=== PATIENT | male | born 1950 | race Two or more races ===

== ENCOUNTER 2019-07-20 07:12 | Outpatient (CLI) | payer MEDICARE, OTHER, SELFPAY ==
[2019-07-20 08:18] LABS: Alanine Aminotransferase 28 U/L (4-50); Alkaline Phosphatase 68 U/L (38-126); Aspartate Amino Transferase 24 U/L (17-59); Bilirubin,Total 0.8 mg/dL (0.2-1.3); Blood Urea Nitrogen 12 mg/dL (9-20); Calcium 8.4 mg/dL (8.4-10.2); Carbon Dioxide 30 mmol/L (22-30); Chloride 102 mmol/L (98-107); Estimated Glomerular Filt Rate > 60; Glucose 159 mg/dL (75-110); Sodium 138 mmol/L (137-145); Uric Acid 5.7 mg/dL (3.5-8.5)
[2019-07-20 10:05] LABS: Microalbumin Urine Random 8.1 mg/L (0-16.7)
[2019-07-20 13:48] LABS: Hemoglobin A1C 7.2 % (<5.7)
== END 2019-07-20 07:13 | disposition home or self-care (01) ==
PROVIDERS: PCP Internal Medicine; Visit Provider Internal Medicine
DX: E11.9 Type 2 diabetes mellitus without complications (principal); M10.9 Gout, unspecified; I10 Essential (primary) hypertension; Z79.899 Other long term (current) drug therapy; Z12.5 Encounter for screening for malignant neoplasm of prostate
CPT/HCPCS: 36415; 80053; 82043; 83036; 84153; 84550; G0103

== ENCOUNTER 2019-08-02 07:07 | Outpatient (CLI) | payer MEDICARE, OTHER, SELFPAY ==
[2019-08-02 07:39] LABS: Cholesterol 125 mg/dL (0-200); HDL Direct 40 mg/dL; Triglycerides 101 mg/dL (<150)
[2019-08-02 07:50] LABS: LDL Cholesterol Direct 67 mg/dL
[2019-08-02 08:21] LABS: Free T4 Free Thyroxine 1.37 ng/mL (0.78-2.19)
[2019-08-05 11:42] LABS: Testosterone Total 351 ng/dL (250-1100)
== END 2019-08-02 07:08 | disposition home or self-care (01) ==
PROVIDERS: PCP Internal Medicine; Visit Provider Nurse Practitioner
DX: E03.9 Hypothyroidism, unspecified (principal); E78.5 Hyperlipidemia, unspecified; Z79.899 Other long term (current) drug therapy
CPT/HCPCS: 36415; 80061; 84403; 84439; 84443

== ENCOUNTER 2019-08-17 10:55 | Outpatient (CLI) | payer MEDICARE, OTHER, SELFPAY ==
--- NOTE | ~2019-08-17 | US_ITS ---
EXAMINATION: US venous doppler LE RT DATE: 08/17/2019 11:27 INDICATION: Right lower limb swelling TECHNIQUE: Grayscale ultrasound images without and with compression and Doppler ultrasound images of the right lower extremity veins were obtained. COMPARISON: None. FINDINGS: The visualized portions of right common femoral vein, profunda (deep) femoral vein, femoral vein, pop liteal vein, peroneal trunk, posterior tibial veins, peroneal veins, gastrocnemius vein and greater s aphenous vein outflow are patent. IMPRESSION: 1. No deep venous thrombosis in the right lower limb. Reviewed, dictated and finalized at location A.
== END 2019-08-17 10:56 | disposition home or self-care (01) ==
PROVIDERS: PCP Internal Medicine; Visit Provider Orthopaedic Surgery
DX: M79.89 Other specified soft tissue disorders (principal)
CPT/HCPCS: 93971

== ENCOUNTER 2019-10-06 07:33 | Outpatient (CLI) | payer MEDICARE, OTHER, SELFPAY ==
--- NOTE | 2019-10-08 18:55 | WPDPFTINT ---
PFT Interpretation PFT Interpretation: DOS: 10/06/2019 REQUESTING: Dr. Pettit REASON FOR TESTING: COPD PULMONARY FUNCTION TESTS Results are reproducible and reliable. Spirometry: FEV1 98%, FVC 86%, both are normal. Normal FEV1%. There is no change with bronchodilator. Lung volumes: TLC 93%. RV 89%. No air trapping or hyperinflation. Normal airway resistance. Diffusion: DLCO 83%, normal. Flow volume loop: The inspiratory loop is terminated prematurely. IMPRESSION: Normal spirometry without airflow obstruction, normal lung volumes and diffusion. This is a normal study. Elli Pettit MD
== END 2019-10-06 07:34 | disposition home or self-care (01) ==
LOC: ANHPFT 07:35
PROVIDERS: PCP Internal Medicine; Visit Provider Internal Medicine Critical Care Medicine
DX: J44.9 Chronic obstructive pulmonary disease, unspecified (principal)
CPT/HCPCS: 94060; 94726; 94729

== ENCOUNTER 2019-12-09 01:48 | Outpatient (CLI) | payer MEDICARE, OTHER, SELFPAY ==
[2019-12-09 17:58] LABS: SARS-CoV-2 RNA PCR Negative
== END 2019-12-09 01:49 | disposition home or self-care (01) ==
LOC: ANHCOVIDDT 01:48
PROVIDERS: PCP Internal Medicine; Visit Provider Internal Medicine Gastroenterology
DX: Z01.812 Encounter for preprocedural laboratory examination (principal); Z20.828 Contact with and (suspected) exposure to other viral communicable diseases
CPT/HCPCS: 87635; C9803; U0003

== ENCOUNTER 2019-12-12 00:15 | Day surgery (SDC) | payer MEDICARE, OTHER, SELFPAY ==
[2019-12-05 14:07] VITALS: BMI 37.8
[2019-12-12 08:10] VITALS: BP 143/72; PULSE 72; RESP 20; TEMP 36.3; O2SAT 99
[2019-12-12] MEDS: LACTATED RINGERS 1,000 ML 150 ML IV CONT (08:23)
[2019-12-12 08:32] LABS: Glucose Point of Care 121 (65-105)
--- NOTE | 2019-12-12 09:47 | PM.HPGS ---
History of Present Illness History of Present Illness Consent: Risks, benefits, and alternatives have been discussed and questions answered. Patient agrees to proceed with procedure. Chief complaint: Neoplasm Screening Narrative: Tan Pandey is a 69 year old male here for screening colonoscopy Review of Systems Constitutional: Constitutional: Denies headache(s) and Denies weakness Eyes: Eyes: Denies blurry vision ENT: Reports Normal hearing present, Denies headache(s) and Denies neck pain Cardiovascular: Cardiovascular: Denies chest pain and Denies dyspnea Respiratory: Respiratory: Denies dyspnea Gastrointestinal: Gastrointestinal: Reports no additional gastrointestinal complaints Genitourinary: Genitourinary: Denies dysuria Musculoskeletal: Musculoskeletal: Denies neck pain Integumentary/Breasts: Skin/Breast: Denies dry skin Neurologic: Reports Normal hearing present, Denies headache(s) and Denies weakness Psychiatric: Psychiatric: Denies anxiety Endocrine: Endocrine: Denies change in body appearance Hematologic/Lymphatic: Hematologic/Lymphatic: Denies easy bleeding Allergic/Immunologic: Allergic/Immunologic: Denies urticaria PMF Past Medical History Medical History (Updated 12/12/19 @ 08:33 by Randall Berumen MD) Asthma-COPD overlap syndrome Colon cancer screening Diverticulitis large intestine Essential (primary) hypertension GERD (gastroesophageal reflux disease) Hypothyroidism (acquired) Obstructive sleep apnea Type 2 diabetes mellitus without complication, without long-term current use of insulin Social History Social History (Updated 08/07/19 @ 09:05 by Gela Varma [facility]) Smoking status: Never smoker Second hand tobacco smoke exposure: No Alcohol intake: former Substance use: never Substance use type: does not use Living arrangements: with family Additional living arrangements comments: ( Lindy ) Additional occupation/education comments: 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 [employer] Spiritual care concerns: No Meds Home Medications and Allergies Home Medications Medication Instructions Recorded Confirmed Type irbesartan 300 mg tablet 300 mg PO DAILY #90 tablet 01/18/19 12/05/19 Rx omeprazole magnesium 20 mg 20 mg PO DAILY PRN 01/25/19 12/05/19 History tablet,delayed release acetaminophen 500 mg tablet 500 mg PO Q4H PRN 01/30/19 12/05/19 History albuterol sulfate 90 mcg/actuation 1 puff INHALATION Q4H PRN 01/30/19 12/05/19 History aerosol inhaler aspirin 325 mg tablet 325 mg PO DAILY 01/30/19 12/05/19 History cholecalciferol (vitamin D3) 50 2,000 unit PO DAILY 01/30/19 12/05/19 History mcg (2,000 unit) tablet hydrocortisone 2.5 % topical cream 1 applic TOPICAL BID PRN 01/30/19 12/05/19 History olopatadine 0.2 % eye drops 1 drop EACH EYE BID 01/30/19 12/05/19 History triamcinolone acetonide 0.1 % 1 applic TOPICAL BID PRN 01/30/19 12/05/19 History topical cream allopurinol 300 mg tablet 150 mg PO DAILY #45 tablet 01/31/19 12/05/19 Rx atorvastatin 20 mg tablet 20 mg PO DAILY #90 tablet 01/31/19 12/05/19 Rx cetirizine 10 mg tablet 10 mg PO DAILY #90 tablet 01/31/19 12/05/19 Rx levothyroxine 88 mcg tablet 88 mcg PO DAILY #90 tablet 01/31/19 12/05/19 Rx metformin 500 mg tablet 1,000 mg PO BID #360 tablet 01/31/19 12/05/19 Rx metoprolol succinate 25 mg 25 mg PO DAILY #90 tablet 01/31/19 12/12/19 Rx tablet,extended release 24 hr nitroglycerin 0.4 mg sublingual 0.4 mg SUBLINGUAL Q5M PRN #25 01/31/19 12/05/19 Rx tablet tablet oxybutynin chloride 5 mg 5 mg PO DAILY #90 tablet 01/31/19 12/05/19 Rx tablet,extended release 24 hr tamsulosin 0.4 mg capsule 0.4 mg PO DAILY #90 cap 01/31/19 12/05/19 Rx lancets #100 each 02/01/19 Rx blood sugar diagnostic #200 each 07/03/19 Rx lancets 28 gauge #200 each 08/01/19 08/01/19 Rx amlodipine 5 mg tablet 5 mg PO DAILY tablet 08/07/19 12/05/19 History peg 3350-electrolytes 236 240 ml PO Q10M #4000 ml 11/15/19
[2019-12-12 10:18] VITALS: BP 99/62; PULSE 67; RESP 16; O2SAT 97
[2019-12-12 10:28] VITALS: BP 101/66; PULSE 68; RESP 19; O2SAT 100
[2019-12-12 10:38] VITALS: BP 117/70; PULSE 65; RESP 24; O2SAT 99
== END 2019-12-12 10:45 | disposition home or self-care (01) ==
PROVIDERS: PCP Internal Medicine; Visit Provider Internal Medicine Gastroenterology
PROC: 0DJD8ZZ Inspection of Lower Intestinal Tract, Via Natural or Artificial Opening Endoscopic (ICD-10-PCS; CPT 45378; principal; 2019-12-12 09:00)
DX: Z12.11 Encounter for screening for malignant neoplasm of colon (principal); D12.4 Benign neoplasm of descending colon; K57.30 Diverticulosis of large intestine without perforation or abscess without bleeding; K64.8 Other hemorrhoids; I10 Essential (primary) hypertension; E03.9 Hypothyroidism, unspecified; E11.9 Type 2 diabetes mellitus without complications; G47.33 Obstructive sleep apnea (adult) (pediatric); K21.9 Gastro-esophageal reflux disease without esophagitis; J44.9 Chronic obstructive pulmonary disease, unspecified; Z79.84 Long term (current) use of oral hypoglycemic drugs
CPT/HCPCS: 45385; 88305; J2704; J7120

== ENCOUNTER 2020-01-26 06:53 | Outpatient (CLI) | payer MEDICARE, OTHER, SELFPAY ==
[2020-01-26 07:39] LABS: Hemoglobin A1C 6.1 % (<5.7)
[2020-01-26 07:48] LABS: Alanine Aminotransferase 27 U/L (4-50); Alkaline Phosphatase 62 U/L (38-126); Anion Gap 8 mmol/L (8-16); Aspartate Amino Transferase 25 U/L (17-59); Bilirubin,Total 0.8 mg/dL (0.2-1.3); Blood Urea Nitrogen 14 mg/dL (9-20); Calcium 8.6 mg/dL (8.4-10.2); Carbon Dioxide 28 mmol/L (22-30); Chloride 105 mmol/L (98-107); Cholesterol 110 mg/dL (0-200); Estimated Glomerular Filt Rate > 60; Glucose 130 mg/dL (75-110); HDL Direct 37 mg/dL; Potassium 4.2 mmol/L (3.4-5.0); Sodium 141 mmol/L (137-145); Triglycerides 111 mg/dL (<150)
[2020-01-26 07:59] LABS: LDL Cholesterol Direct 53 mg/dL
[2020-01-26 08:30] LABS: Free T4 Free Thyroxine 1.33 ng/mL (0.78-2.19)
== END 2020-01-26 06:54 | disposition home or self-care (01) ==
PROVIDERS: PCP Internal Medicine; Visit Provider Nurse Practitioner
DX: E78.5 Hyperlipidemia, unspecified (principal); E11.9 Type 2 diabetes mellitus without complications; E03.9 Hypothyroidism, unspecified
CPT/HCPCS: 36415; 80053; 80061; 83036; 84439; 84443

== ENCOUNTER 2020-07-23 06:41 | Outpatient (CLI) | payer MEDICARE, OTHER, SELFPAY ==
[2020-07-23 07:46] LABS: Alanine Aminotransferase 31 U/L (4-50); Albumin Level 4.1 g/dL (3.5-5.1); Alkaline Phosphatase 64 U/L (38-126); Anion Gap 4 mmol/L (8-16); Aspartate Amino Transferase 26 U/L (17-59); Bilirubin,Total 0.7 mg/dL (0.2-1.3); Blood Urea Nitrogen 11 mg/dL (9-20); Calcium 8.8 mg/dL (8.4-10.2); Carbon Dioxide 31 mmol/L (22-30); Chloride 103 mmol/L (98-107); Cholesterol 115 mg/dL (0-200); Estimated Glomerular Filt Rate > 60; Glucose 146 mg/dL (75-110); HDL Direct 42 mg/dL; Potassium 4.4 mmol/L (3.4-5.0); Sodium 138 mmol/L (137-145); Triglycerides 98 mg/dL (<150)
[2020-07-23 07:56] LABS: LDL Cholesterol Direct 59 mg/dL
[2020-07-23 08:09] LABS: Creatinine Urine 172.9 mg/dL
[2020-07-23 08:13] LABS: MALB Creatinine Ratio 4.6 mg/g (0-30); Microalbumin Urine Random 7.9 mg/L (0-16.7)
[2020-07-23 08:16] LABS: Prostate Specific Antigen 2.2 ng/mL (< OR = 4.0)
== END 2020-07-23 06:42 | disposition home or self-care (01) ==
PROVIDERS: PCP Internal Medicine; Referring Provider Internal Medicine Endocrinology, Diabetes & Metabolism; Visit Provider Internal Medicine
DX: Z12.5 Encounter for screening for malignant neoplasm of prostate (principal); E11.65 Type 2 diabetes mellitus with hyperglycemia; G62.9 Polyneuropathy, unspecified; E78.5 Hyperlipidemia, unspecified; Z51.81 Encounter for therapeutic drug level monitoring; Z79.899 Other long term (current) drug therapy
CPT/HCPCS: 36415; 80053; 80061; 82043; 82607; 84153; G0103

== ENCOUNTER 2020-08-26 14:24 | Emergency (ER) | payer MEDICARE, OTHER, SELFPAY ==
--- NOTE | ~2020-08-26 | CT_ITS ---
EXAMINATION: CT brain wo con DATE: 08/26/2020 16:05 INDICATION: Head injury. Headache. TECHNIQUE: Computed tomography (CT) of the head was performed without intravenous contrast. The mA wa s adjusted according to patient size. Iterative reconstruction technique was employed. The dose-lengt h product was 605.33 mGy-cm. COMPARISON: Head CT 07/27/2014 FINDINGS: There is no intracranial hemorrhage, acute infarction, or abnormal intracranial mass lesion . The ventricles are normal in size. There are likely changes of right ocular lens replacement surger y. There is mild mucosal thickening in the paranasal sinuses. The mastoid air cells are normal. IMPRESSION: 1. Normal brain. Reviewed, dictated and finalized at location A. IMPRESSION: 1. Normal brain.
[2020-08-26 14:26] VITALS: BP 146/62; PULSE 70; RESP 20; TEMP 36.8; O2SAT 97
--- NOTE | 2020-08-26 15:53 | ED.HEATRA ---
HPI - Head Injury General Chief complaint: Head Injury Stated complaint: vision change, nausea, hit head wednesday Time Seen by Provider: 08/26/20 15:38 Source: patient Mode of arrival: ambulatory Limitations: no limitations History of Present Illness HPI Narrative: This is a 70 year old male that presents to the ER for head injury sustained 2 days ago. Reports he was standing up and hit his head on a pipe in the basement. Reports since he has had a mild headache associated with blurry vision. Also reports nausea. Denies loss of consciousness, fever, vomiting, numbness, or weakness. Related Data Home Medications Medication Instructions Recorded Confirmed acetaminophen 500 mg tablet 500 mg PO Q4H PRN 01/30/19 08/06/20 aspirin 325 mg tablet 325 mg PO DAILY 01/30/19 08/06/20 cholecalciferol (vitamin D3) 50 2,000 unit PO DAILY 01/30/19 08/06/20 mcg (2,000 unit) tablet hydrocortisone 2.5 % topical cream 1 applic TOPICAL BID PRN 01/30/19 08/06/20 olopatadine 0.2 % eye drops 1 drop EACH EYE BID 01/30/19 08/06/20 triamcinolone acetonide 0.1 % 1 applic TOPICAL BID PRN 01/30/19 08/06/20 topical cream mupirocin 1 applic TOPICAL BID PRN 12/05/19 08/06/20 prednisolone acetate 1 drp OPHTHALMIC (EYE) BID PRN 12/05/19 08/06/20 vitamin B complex 1 tablet PO DAILY 08/06/20 08/06/20 Allergies Allergy/AdvReac Type Severity Reaction Status Date / Time latex Allergy Intermediate Rash Verified 08/06/20 10:35 adhesive tape Allergy Mild SKIN Verified 08/06/20 10:35 REDNESS fenofibrate Allergy Unknown Unknown Verified 08/06/20 10:35 hydrochlorothiazide Allergy Unknown Unknown Verified 08/06/20 10:35 nifedipine Allergy Unknown Unknown Verified 08/06/20 10:35 quinapril Allergy Unknown Cough Verified 08/06/20 10:35 Review of Systems Review of Systems: Narrative: CONSTITUTIONAL: Denies fever EYES: Reports visual changes GASTROINTESTINAL: Denies vomiting NEUROLOGIC: Reports headache. Denies numbness, or weakness. All systems reviewed & are unremarkable except as noted in HPI and below PMFSH Past Medical History Medical History Asthma-COPD overlap syndrome Colon cancer screening Diverticulitis large intestine Essential (primary) hypertension GERD (gastroesophageal reflux disease) Hypothyroidism (acquired) Obstructive sleep apnea Type 2 diabetes mellitus without complication, without long-term current use of insulin Family History Family History Sibling Family history of obesity Family history of celiac disease Family history of lupus erythematosus Diabetes mellitus Cerebrovascular accident Father Family history of diabetes mellitus in first degree relative Family history of heart disease in male family member before age 55 Family history of pancreatic cancer Patient's father is Mother Family history of pancreatic cancer, Onset Age: 50 Patient's mother is Other Acute myocardial infarction Social History Social History Smoking status: Former smoker Second hand tobacco smoke exposure: No Alcohol intake: former Substance use: never Substance use type: does not use Additional living arrangements comments: ( Lindy ) Additional occupation/education comments: 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 HEAD: Normocephalic, atraumatic. EYES: PERRLA and EOMI. ENT: Nares clear, no rhinorrhea or epistaxis. Mucous membranes moist. Oropharynx without tonsillar hypertrophy exudate or other lesions. Bilateral TMs pearly blackwood non-bulging NECK: Supple. No adenopathy or masses. No midline spinal tenderness CHEST: Clear to auscultation. No re
== END 2020-08-26 17:17 | disposition home or self-care (01) ==
PROVIDERS: Emergency Provider Emergency Medicine; PCP Internal Medicine
DX: S06.0X0A Concussion without loss of consciousness, initial encounter (principal); J44.9 Chronic obstructive pulmonary disease, unspecified; I10 Essential (primary) hypertension; K21.9 Gastro-esophageal reflux disease without esophagitis; E03.9 Hypothyroidism, unspecified; G47.33 Obstructive sleep apnea (adult) (pediatric); E11.9 Type 2 diabetes mellitus without complications; Z79.82 Long term (current) use of aspirin; Z87.891 Personal history of nicotine dependence; Z79.84 Long term (current) use of oral hypoglycemic drugs; W22.09XA Striking against other stationary object, initial encounter
CPT/HCPCS: 70450; 99284

== ENCOUNTER 2020-12-04 08:35 | Outpatient (CLI) | payer MEDICARE, OTHER, SELFPAY ==
--- NOTE | ~2020-12-04 | US_ITS ---
EXAMINATION: US abdomen complete EXAM DATE: 12/04/2020 09:14 INDICATION: R10.9 - Unspecified abdominal pain. TECHNIQUE: Multiple grayscale and Doppler images of the complete abdomen were obtained (by a technolo gist who performed the scan) and subsequently reviewed. Comparison is made to prior examination from 08/17/2013. FINDINGS: The abdominal aorta is normal in caliber. Visualized portion IVC is patent. The pancreatic head a nd body are normal in appearance. The pancreatic tail is not visualized. There is echogenic liver parenchyma, hepatic steatosis with focal fatty sparing at the gallbladder fo ssa. There are no focal liver lesions identified. There is no evidence of intrahepatic biliary leon t dilation. Portal venous flow was seen in the hepatopedal, normal direction and has normal Doppler waveform. Common bile duct measures 6 mm, which is normal. The gallbladder is contracted and has some shadowin g probably gallstones. Mild gallbladder wall thickening at about 4 mm, which is nonspecific given con tracted state. No sonographic Goldsmith's sign was indicated. Right kidney: There is normal contour and echogenicity. It measures 11.1 x 5.4 x 5.5 centimeters. T here is a 2 cm cyst in the superior pole. There is no hydronephrosis. Left kidney: There is normal contour and echogenicity. It measures 10.9 x 5.1 x 5.9 centimeters. An echoic structure consistent with cyst in the superior pole measuring up to 5 cm. There is no hydron ephrosis. The spleen measures 14.3 centimeters which is mildly enlarged.. IMPRESSION: 1. Contracted gallbladder with stones. No sonographic Goldsmith's sign. 2. Hepatic steatosis. 3. Mild splenomegaly. 4. Renal cysts. Reviewed, dictated and finalized at location A.
== END 2020-12-04 08:36 | disposition home or self-care (01) ==
LOC: ANHIMG 08:40
PROVIDERS: PCP Internal Medicine; Visit Provider Nurse Practitioner
DX: R10.9 Unspecified abdominal pain (principal); K80.50 Calculus of bile duct without cholangitis or cholecystitis without obstruction; K76.0 Fatty (change of) liver, not elsewhere classified; R16.1 Splenomegaly, not elsewhere classified; N28.1 Cyst of kidney, acquired
CPT/HCPCS: 76700

== ENCOUNTER 2020-12-09 09:03 | Outpatient (CLI) | payer MEDICARE, OTHER, SELFPAY ==
[2020-12-09 09:25] LABS: Basophils Percent Auto 0.3 % (0.2-1.2); Eosinophils Absolute Auto 0.1 K/mm3 (0-0.3); Eosinophils Percent Auto 1.9 % (0-4.4); Hematocrit 39.5 % (42.0-52.0); Hemoglobin 13.3 g/dL (14.0-18.0); Immature Granulocyte Absolute 0.03 K/mm3 (0.00-0.031); Immature Granulocyte Percent A 0.4 % (0-0.5); Immature Platelet Fraction Pct 10.6 % (0.9-11.2); Lymphocytes Absolute Auto 1.77 K/mm3 (0.9-3.2); Lymphocytes Percent Auto 26.5 % (18.3-44.2); Mean Corpuscular HGB Conc 33.7 g/dl (32-36); Mean Corpuscular Hemoglobin 29.4 pg (26-34); Mean Corpuscular Volume 87.4 fl (80-100); Mean Platelet Volume 11.5 fl (7.4-10.4); Monocytes Absolute Auto 0.5 K/mm3 (0.1-0.6); Monocytes Percent Auto 7.2 % (2.6-8.5); Neutrophils Absolute Auto 4.3 K/mm3 (1.3-6.7); Neutrophils Percent Auto 63.7 % (45.5-73.1); Platelet Count Result 117 k/mm3 (150-375); Red Blood Count 4.52 M/mm3 (4.6-6.20); Red Cell Distribution Width 13.3 % (11.5-14.5); White Blood Count 6.7 K/mm3 (4.5-10.0)
== END 2020-12-09 09:04 | disposition home or self-care (01) ==
PROVIDERS: PCP Internal Medicine; Visit Provider Internal Medicine
DX: R16.1 Splenomegaly, not elsewhere classified (principal)
CPT/HCPCS: 36415; 85025; 85055

== ENCOUNTER 2021-02-07 06:57 | Outpatient (CLI) | payer MEDICARE, OTHER, SELFPAY ==
[2021-02-07 08:06] LABS: Alanine Aminotransferase 21 U/L (4-50); Albumin Level 4.1 g/dL (3.5-5.1); Alkaline Phosphatase 62 U/L (38-126); Anion Gap 8 mmol/L (8-16); Aspartate Amino Transferase 22 U/L (17-59); Bilirubin,Total 0.6 mg/dL (0.2-1.3); Blood Urea Nitrogen 16 mg/dL (9-20); Calcium 8.7 mg/dL (8.4-10.2); Carbon Dioxide 26 mmol/L (22-30); Chloride 102 mmol/L (98-107); Cholesterol 101 mg/dL (0-200); Estimated Glomerular Filt Rate 60; Glucose 113 mg/dL (65-110); HDL Direct 38 mg/dL; Potassium 4.1 mmol/L (3.4-5.0); Sodium 136 mmol/L (137-145); Triglycerides 119 mg/dL (<150); Uric Acid 6.8 mg/dL (3.5-8.5)
[2021-02-07 08:17] LABS: LDL Cholesterol Direct 44 mg/dL
[2021-02-07 08:34] LABS: Prostate Specific Antigen 2.7 ng/mL (< OR = 4.0)
[2021-02-07 08:53] LABS: Hemoglobin A1C 6.2 % (<5.7)
[2021-02-07 10:28] LABS: Creatinine Urine 153.3 mg/dL
[2021-02-07 10:29] LABS: MALB Creatinine Ratio 3.9 mg/g (0-30)
== END 2021-02-07 06:58 | disposition home or self-care (01) ==
PROVIDERS: PCP Internal Medicine; Visit Provider Nurse Practitioner
DX: E11.65 Type 2 diabetes mellitus with hyperglycemia (principal); M10.9 Gout, unspecified; E78.5 Hyperlipidemia, unspecified; N40.0 Benign prostatic hyperplasia without lower urinary tract symptoms; E03.9 Hypothyroidism, unspecified
CPT/HCPCS: 36415; 80053; 80061; 82043; 83036; 84153; 84443; 84550

== ENCOUNTER 2021-03-14 08:00 | Outpatient (CLI) | payer MEDICARE, OTHER, SELFPAY ==
--- NOTE | ~2021-03-14 | US_ITS ---
EXAMINATION: US abdomen limited DATE: 03/14/2021 09:00 INDICATION: Splenomegaly. Hepatic steatosis. TECHNIQUE: Multiple grayscale and Doppler ultrasound images of the abdomen were obtained. COMPARISON: 12/04/2020 FINDINGS: Pancreas is normal. Liver has normal contour, with a smooth surface. There is increased parenchymal e chogenicity and coarsened echotexture consistent with diffuse hepatic steatosis. 3.6 similar anechoic cyst in the left hepatic lobe. No intrahepatic biliary duct dilation suspected. Portal venous flow was seen in the hepatopetal, normal direction and has normal Doppler waveform. Small echogenic shadow complex at the gallbladder which is decompressed around multiple echogenic and shadowing gallstones. The common bile duct measures 5 mm diameter which is normal. Sonographic Goldsmith sign was reported as negative by the signal tower operator.Borderline splenomegaly measuring 13.3 cm in maximal craniocaudal length and 11.6 cm in maximal transaxial width. IMPRESSION: 1. Diffuse hepatic steatosis. 2. Cholelithiasis without findings to suggest acute cholecystitis. 3. Borderline splenomegaly. Reviewed, dictated and finalized at location B. IO MANAGER
== END 2021-03-14 08:01 | disposition home or self-care (01) ==
LOC: ANHIMG 08:04
PROVIDERS: PCP Internal Medicine; Visit Provider Internal Medicine
DX: K76.0 Fatty (change of) liver, not elsewhere classified (principal); R16.1 Splenomegaly, not elsewhere classified; K80.20 Calculus of gallbladder without cholecystitis without obstruction
CPT/HCPCS: 76705

== ENCOUNTER 2021-05-27 19:57 | Emergency (ER) | payer MEDICARE, OTHER, SELFPAY ==
--- NOTE | ~2021-05-27 | XR_ITS ---
EXAMINATION: XR shoulder RT min 2V EXAM DATE: 05/27/2021 21:31 INDICATION: Fall Onto Shoulder Proximal Shoulder And Neck Pain. Initial encounter. TECHNIQUE: The following right shoulder projections obtained: frontal projection with internal rotati on, frontal projection with external rotation, Grashey, and scapular Y view (4+ views). There is no prior study for comparison. FINDINGS: No evidence of right shoulder rotator cuff calcific tendinosis. There is mild glenohumera l joint, moderate acromioclavicular joint primary osteoarthritis. There are no acute fractures or dis locations identified. There is no subcutaneous gas. The soft tissue is unremarkable. Sternotomy w ires. IMPRESSION: 1. XR shoulder RT min 2V exam without acute osseous findings. 2. Osteoarthritis. Reviewed, dictated and finalized at location G.
[2021-05-27 20:08] VITALS: BP 153/66; PULSE 69; RESP 16; TEMP 36.8; O2SAT 99
--- NOTE | 2021-05-28 00:46 | ED.FALL ---
HPI - Fall General Chief Complaint: Fall Stated Complaint: fall, head and R shoulder injury Time Seen by Provider: 05/27/21 20:32 Source: patient Mode of arrival: ambulatory Limitations: no limitations History of Present Illness HPI Narrative: 70-year-old male presents today with complaints of right shoulder pain. This morning patient was walking down his stairs when he thinks that he missed the last step falling forward and turning to the right. When he fell he hit his right shoulder on top of some water bottles. Patient states he has full range of motion but was concerned due to continued pain. Related Data Home Medications Medication Instructions Recorded Confirmed acetaminophen 500 mg tablet 500 mg PO Q4H PRN 01/30/19 03/20/21 aspirin 325 mg tablet 325 mg PO DAILY 01/30/19 03/20/21 cholecalciferol (vitamin D3) 50 2,000 unit PO DAILY 01/30/19 03/20/21 mcg (2,000 unit) tablet hydrocortisone 2.5 % topical cream 1 applic TOPICAL BID PRN 01/30/19 03/20/21 triamcinolone acetonide 0.1 % 1 applic TOPICAL BID PRN 01/30/19 03/20/21 topical cream mupirocin 1 applic TOPICAL BID PRN 12/05/19 03/20/21 vitamin B complex 1 tablet PO DAILY 08/06/20 03/20/21 multivitamin 1 tablet PO DAILY 11/18/20 03/20/21 Allergies Allergy/AdvReac Type Severity Reaction Status Date / Time latex Allergy Intermediate Rash Verified 05/27/21 20:14 adhesive tape Allergy Mild SKIN Verified 05/27/21 20:14 REDNESS fenofibrate Allergy Unknown Unknown Verified 05/27/21 20:14 hydrochlorothiazide Allergy Unknown Unknown Verified 05/27/21 20:14 nifedipine Allergy Unknown Unknown Verified 05/27/21 20:14 quinapril Allergy Unknown Cough Verified 05/27/21 20:14 Review of Systems Review of Systems: CONSTITUTIONAL: Denies fever, chills, or sweats. EYES: Denies visual changes, redness, or discharge. ENT: Denies rhinorrhea, congestion, sore throat, or otalgia. CARDIOVASCULAR: Denies chest pain, palpitations, or edema. RESPIRATORY: Denies cough or dyspnea. GASTROINTESTINAL: Denies abdominal pain, nausea, vomiting, or diarrhea. GENITOURINARY: Denies dysuria or hematuria. SKIN: Denies rash or itching. MUSCULOSKELETAL: Right shoulder pain. Denies back pain or myalgia. NEUROLOGIC: Denies headache, numbness, dizziness, or weakness. PSYCHIATRIC: Denies anxiety or depression. PMFSH Past Medical History Medical History Adenomatous colon polyp BMI 39.0-39.9,adult Colon cancer screening Colon, diverticulosis Diverticulitis large intestine Essential (primary) hypertension GERD (gastroesophageal reflux disease) Hypothyroidism (acquired) Irritable bowel syndrome with diarrhea Obstructive sleep apnea Type 2 diabetes mellitus without complication, without long-term current use of insulin Family History Family History Sibling Family history of obesity Family history of celiac disease Family history of lupus erythematosus Diabetes mellitus Cerebrovascular accident Father Family history of diabetes mellitus in first degree relative Family history of heart disease in male family member before age 55 Family history of pancreatic cancer Patient's father is Mother Family history of pancreatic cancer, Onset Age: 50 Patient's mother is Other Acute myocardial infarction Social History Social History Second hand tobacco smoke exposure: No Alcohol intake: former Substance use: never Substance use type: does not use Additional living arrangements comments: ( Lindy ) 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 HEAD: Normocephalic, atraumatic. E
== END 2021-05-27 22:04 | disposition home or self-care (01) ==
PROVIDERS: Emergency Provider Nurse Practitioner Family; PCP Internal Medicine
DX: S46.911A Strain of unspecified muscle, fascia and tendon at shoulder and upper arm level, right arm, initial encounter (principal); M13.811 Other specified arthritis, right shoulder; E11.9 Type 2 diabetes mellitus without complications; E03.9 Hypothyroidism, unspecified; K58.0 Irritable bowel syndrome with diarrhea; G47.33 Obstructive sleep apnea (adult) (pediatric); K21.9 Gastro-esophageal reflux disease without esophagitis; Z86.010 Personal history of colon polyps; Z79.82 Long term (current) use of aspirin; W10.9XXA Fall (on) (from) unspecified stairs and steps, initial encounter; Z79.84 Long term (current) use of oral hypoglycemic drugs
CPT/HCPCS: 73030; 99283

== ENCOUNTER 2021-06-18 14:34 | Outpatient (CLI) | payer MEDICARE, OTHER, SELFPAY ==
--- NOTE | ~2021-06-18 | MR_ITS ---
EXAMINATION: MR shoulder RT wo con DATE: 06/18/2021 15:35 INDICATION: Strain of muscles and tendons of the rotator cuff. Right shoulder pain. TECHNIQUE: Magnetic resonance imaging (MRI) of the right shoulder was performed without intravenous c ontrast. Sequences included axial PD-weighted FS FSE, coronal oblique PD-weighted FS FSE and T2-weigh khalif FS FSE, and sagittal oblique T2-weighted FS FSE and T1-weighted FSE. COMPARISON: Right shoulder radiographs 05/27/2021 FINDINGS: Coracoacromial arch: The acromion undersurface is curved in morphology (type II). There is severe acromioclavicular joint osteoarthritis including inferiorly directed osteophytes. There is mild subacromial/subdeltoid bursit is. Rotator cuff: There is moderate supraspinatus tendinopathy. There is an articular sided partial-thickness tear of s upraspinatus and infraspinatus tendons measuring 2.3 cm anterior to posterior by 2 mm proximal to dis nancy by up to 70% tendon thickness in supraspinatus tendon. Teres minor tendon is normal. Subscapulari s tendon is normal. There is no asymmetric fatty atrophy of the rotator cuff muscle bellies. Biceps tendon and glenoid labrum: Biceps tendon is in bicipital groove. Intra-articular biceps tendon is normal. The glenoid labrum is normal. Fluid: There is no glenohumeral joint effusion. Bones/cartilage: There is cartilage surface irregularity of glenoid and humeral head. IMPRESSION: 1. Articular-sided, partial-thickness tear of supraspinatus and infraspinatus tendons. 2. Mild glenohumeral joint chondrosis. 3. Severe acromioclavicular joint osteoarthritis. 4. Mild subacromial/subdeltoid bursitis. Reviewed, dictated and finalized at location A. IMPRESSION: 1. Articular-sided, partial-thickness tear of supraspinatus and infraspinatus t endons. 2. Mild glenohumeral joint chondrosis. 3. Severe acromioclavicular joint osteoarthritis. 4. Mild subacromial/subdeltoid bursitis.
== END 2021-06-18 14:35 | disposition home or self-care (01) ==
LOC: ANHIMG 14:36
PROVIDERS: PCP Internal Medicine; Visit Provider Orthopaedic Surgery
DX: S46.011A Strain of muscle(s) and tendon(s) of the rotator cuff of right shoulder, initial encounter (principal); M94.8X1 Other specified disorders of cartilage, shoulder; M19.011 Primary osteoarthritis, right shoulder; M75.51 Bursitis of right shoulder
CPT/HCPCS: 73221

== ENCOUNTER 2021-06-30 08:13 | Outpatient (CLI) | payer MEDICARE, OTHER, SELFPAY ==
--- NOTE | ~2021-06-30 | XR_ITS ---
EXAMINATION: XR TMJ BI DATE: 06/30/2021 08:38 INDICATION: Unspecified injury of face, initial encounter. Right neck and mandible pain. TECHNIQUE: Open and closed mouth views of the bilateral temporomandibular joints for a total of 4 vie ws on 5 radiographs were obtained. COMPARISON: Head CT 06/30/2021 FINDINGS: Right mandibular condyle is normal in morphology. There is an osteophyte of left mandibular condyle better seen on today's CT. There is normal anterior translation of the mandibular condyles i n the open-mouth position. IMPRESSION: 1. Moderate osteoarthritis of left temporomandibular joint. Reviewed, dictated and finalized at location A.
--- NOTE | ~2021-06-30 | CT_ITS ---
EXAMINATION: CT brain wo con DATE: 06/30/2021 08:41 INDICATION: Headaches since a fall on May 27, striking right side of head. TECHNIQUE: Computed tomography (CT) of the head was performed without intravenous contrast. The mA wa s adjusted according to patient size. Iterative reconstruction technique was employed. Exam dose: 60 5.33 mGy-cm total exam DLP. COMPARISON: 08/26/2020 CT brain FINDINGS: Left vertebral artery and bilateral carotid siphon internal carotid artery calcifications. There is nonspecific diminished attenuation cerebral white matter, likely due to chronic small vessel ischemic changes. No intracranial mass lesion or hemorrhage or cerebrovascular accident is evident. No midline shift or mass effect effect. No subdural or epidural hematoma. There is minimal mucoperiosteal thickening of the paranasal sinuses, opacification of a right ethmoid air cell. Paranasal sinuses and mastoid air cells are otherwise unremarkable. No fracture or bone destruction of the cranial vault. IMPRESSION: Cerebral atherosclerosis and chronic small vessel ischemic changes of cerebral white mat ter No acute intracranial finding Reviewed, dictated and finalized at [facility]. Reviewed, dictated and finalized at location [facility]. IMPRESSION: Cerebral atherosclerosis and chronic small vessel ischemic changes of cerebral white matter No acute intracranial finding
== END 2021-06-30 08:14 | disposition home or self-care (01) ==
LOC: ANHIMG 08:17
PROVIDERS: PCP Internal Medicine; Visit Provider Internal Medicine
DX: R51.9 Headache, unspecified (principal); S09.93XA Unspecified injury of face, initial encounter; M19.09 Primary osteoarthritis, other specified site; I67.2 Cerebral atherosclerosis
CPT/HCPCS: 70330; 70450

== ENCOUNTER 2021-07-02 12:51 | Emergency (ER) | payer MEDICARE, OTHER, SELFPAY ==
--- NOTE | ~2021-07-02 | CT_ITS ---
EXAMINATION: CT abdomen pelvis w con DATE: 07/02/2021 14:42 INDICATION: Right-sided abdominal pain starting this morning. TECHNIQUE: Computed tomography (CT) of the abdomen and pelvis was performed with 100 CC Omnipaque 350 intravenous contrast. Automated exposure control and iterative reconstruction technique were employe d. Exam dose: 1531.23 mGy-cm total exam DLP. COMPARISON: 03/14/2021 Limited abdominal ultrasound examination 08/16/2013 CT abdomen pelvis with IV contrast material FINDINGS: There is minimal discoid atelectasis or scarring at the base of the left lower lobe. No con solidation at the lung bases. Status post sternotomy. Heart size is within normal range. There is coronary artery calcification. No pericardial or pleural effusion. 3.6 by 4.8 cm left hepatic cyst.. No other hepatic space-occupying mass lesion is evident. Cholelithiasis. No gallbladder wall thickening or pericholecystic fluid or fat stranding. There is pancreatic atrophy. No pancreatic mass lesion, calcification or pancreatic duct or bile duct dilatation. Splenic size is within normal range. Normal morphology of the adrenal glands. Multiple bilateral renal cysts measuring up to 2.6 cm on the right, 5 cm on the left. No urinary tract calculus or hydroureteronephrosis is detected. Normal caliber and atherosclerotic calcification of the abdominal aorta and iliac arteries. No intrap eritoneal or retroperitoneal or pelvic mass lesion or adenopathy or ascites. Normal appendix. Diverticulosis of the left colon, predominantly the sigmoid colon; no CT evidence of diverticulitis. No bowel obstruction, bowel wall thickening, pneumatosis or intraperitoneal free air. Prostate enlargement. The urinary bladder appears unremarkable on this limited noncontrast examinatio n. Small fat-containing umbilical hernia. Diffuse idiopathic skeletal hyperostosis of the thoracic spine. Degenerative change at the apophyseal joints and the lumbosacral area. No suspicious osteolytic or osteoblastic lesions. IMPRESSION: Cholelithiasis Normal appendix Diverticulosis of left colon; no evidence of diverticulitis Bilateral renal cysts Prostate enlargement Reviewed, dictated and finalized at [facility]. Reviewed, dictated and finalized at location [facility].
[2021-07-02 12:55] VITALS: BP 153/66; PULSE 88; RESP 18; TEMP 36.4; O2SAT 99
[2021-07-02 13:49] LABS: Basophils Percent Auto 0.2 % (0.2-1.2); Eosinophils Percent Auto 0.2 % (0-4.4); Hematocrit 43.6 % (42.0-52.0); Hemoglobin 14.2 g/dL (14.0-18.0); Immature Granulocyte Absolute 0.04 K/mm3 (0.00-0.031); Immature Granulocyte Percent A 0.4 % (0-0.5); Lymphocytes Absolute Auto 1.26 K/mm3 (0.9-3.2); Lymphocytes Percent Auto 11.9 % (18.3-44.2); Mean Corpuscular HGB Conc 32.6 g/dl (32-36); Mean Corpuscular Hemoglobin 28.6 pg (26-34); Mean Corpuscular Volume 87.7 fl (80-100); Mean Platelet Volume 12.7 fl (7.4-10.4); Monocytes Absolute Auto 0.4 K/mm3 (0.1-0.6); Monocytes Percent Auto 3.6 % (2.6-8.5); Neutrophils Absolute Auto 8.8 K/mm3 (1.3-6.7); Neutrophils Percent Auto 83.7 % (45.5-73.1); Platelet Count Result 133 k/mm3 (150-375); Red Blood Count 4.97 M/mm3 (4.6-6.20); Red Cell Distribution Width 13.2 % (11.5-14.5); White Blood Count 10.6 K/mm3 (4.5-10.0)
[2021-07-02 14:01] LABS: Alanine Aminotransferase 30 U/L (4-50); Albumin Level 4.8 g/dL (3.5-5.1); Alkaline Phosphatase 78 U/L (38-126); Anion Gap 11 mmol/L (8-16); Aspartate Amino Transferase 32 U/L (17-59); Blood Urea Nitrogen 15 mg/dL (9-20); Calcium 8.7 mg/dL (8.4-10.2); Carbon Dioxide 25 mmol/L (22-30); Chloride 99 mmol/L (98-107); Estimated CRCL calculation 70 ml/min; Estimated Glomerular Filt Rate > 60; Glucose 217 mg/dL (65-110); Lipase 123 U/L (23-300); Sodium 135 mmol/L (137-145)
[2021-07-02] MEDS: ONDANSETRON INJ 4 MG/2 ML VIAL IV PUSH (14:22)
[2021-07-02] MEDS: LACTATED RINGERS 1,000 ML 999 ML IV CONT (14:22)
[2021-07-02 14:29] LABS: Add Urine Microscopic? YES; Appearance Urine Clear (Clear); Bilirubin Urine Negative (Negative); Blood Urine Negative (Negative); Color Urine Yellow (Yellow); Glucose Urine UA 2+ mg/dL (Negative); Ketones Urine 1+ mg/dL (Negative); Leukocyte Esterase Ur Negative LEU/UL (Negative); Mucus Urine Rare /lpf; Nitrate Urine Negative (Negative); Protein Urine 1+ mg/dL (Negative); RBC Urine 0-2 /hpf (0-2); Specific Grav Ur 1.024 (1.001-1.035); Urobilinogen Urine Negative mg/dL (<2.0); WBC Urine 0-3 /hpf
--- NOTE | 2021-07-02 14:31 | ED.ABDPAIN ---
HPI - Abdominal Pain General Chief Complaint: Abdominal Pain Stated Complaint: R. abd pain Time Seen by Provider: 07/02/21 14:09 Source: patient Mode of arrival: ambulatory Limitations: no limitations History of Present Illness HPI narrative: Patient is a 70-year-old male complaining of right upper quadrant pain radiating to epigastric area, 7 out of 10, burning, accompanied by nausea and vomiting that started this morning. Patient denies any chest pain, shortness of breath, diarrhea, urinary symptoms, fever or chills. Related Data Home Medications Medication Instructions Recorded Confirmed acetaminophen 500 mg tablet 500 mg PO Q4H PRN 01/30/19 06/25/21 aspirin 325 mg tablet 325 mg PO DAILY 01/30/19 06/25/21 cholecalciferol (vitamin D3) 50 2,000 unit PO DAILY 01/30/19 06/25/21 mcg (2,000 unit) tablet hydrocortisone 2.5 % topical cream 1 applic TOPICAL BID PRN 01/30/19 06/25/21 triamcinolone acetonide 0.1 % 1 applic TOPICAL BID PRN 01/30/19 06/25/21 topical cream mupirocin 1 applic TOPICAL BID PRN 12/05/19 06/25/21 vitamin B complex 1 tablet PO DAILY 08/06/20 06/25/21 multivitamin 1 tablet PO DAILY 11/18/20 06/25/21 Allergies Allergy/AdvReac Type Severity Reaction Status Date / Time latex Allergy Intermediate Rash Verified 07/02/21 14:10 adhesive tape Allergy Mild SKIN Verified 07/02/21 14:10 REDNESS fenofibrate Allergy Unknown Unknown Verified 07/02/21 14:10 hydrochlorothiazide Allergy Unknown Unknown Verified 07/02/21 14:10 nifedipine Allergy Unknown Unknown Verified 07/02/21 14:10 quinapril Allergy Unknown Cough Verified 07/02/21 14:10 Review of Systems Review of Systems: All systems reviewed & are unremarkable except as noted in HPI and below Constitutional: Constitutional: Denies body ache(s), Denies chills, Denies excessive sweating, Denies fatigue, Denies fever(s), Denies headache(s), Denies lethargy, Denies malaise, Denies weakness and Denies weight loss Eyes: Eyes: Denies blurry vision, Denies change in vision and Denies loss of vision ENT: Denies dizziness, Denies ear discharge, Denies headache(s), Denies lip swelling, Denies epistaxis, Denies nasal congestion, Denies neck pain, Denies throat swelling and Denies tongue swelling Cardiovascular: Cardiovascular: Denies chest pain, Denies chest pain at rest, Denies chest pain with activity, Denies diaphoresis, Denies rapid heart rate, Denies edema, Denies irregular heart rhythm, Denies lightheadedness, Denies palpitations, Denies dyspnea and Denies dyspnea on exertion Respiratory: Respiratory: Denies chest congestion, Denies cough, Denies hemoptysis, Denies dyspnea and Denies dyspnea on exertion Gastrointestinal: Gastrointestinal: Denies melena, Denies hematochezia, Denies diarrhea and Denies hematemesis Musculoskeletal: Musculoskeletal: Denies abnormal gait, Denies deformity, Denies joint swelling, Denies limited range of motion, Denies neck pain and Denies numbness Neurologic: Denies Abnormal speech present, Denies abnormal gait, Denies confusion, Denies dizziness, Denies headache(s), Denies focal weakness, Denies loss of vision, Denies numbness, Denies Other visual disturbances, Denies Sensory deficit (Neuro) and Denies weakness Psychiatric: Psychiatric: Denies confusion, Denies depression, Denies auditory hallucinations, Denies homicidal ideation and Denies suicidal ideation Endocrine: Endocrine: Denies cold intolerance, Denies excessive sweating, Denies fatigue, Denies heat intolerance and Denies palpitations Hematologic/Lymphatic: Hematologic/Lymphatic: Denies easy bleeding and Denies easy bruising Allergic/Immunologic: Allergic/Immunologic: Denies lip swelling, Denies throat swelling and Denies tongue swelling PMFSH Past Medical History Medical History Adenomatous colon polyp Anxiety Arthritis of right acromioclavicular joint Asthma BMI 39.0-39.9,adult Cellulitis Colon cancer screening Colon,
[2021-07-02] MEDS: MORPHINE SULFATE (*CRX) 2 MG/ML INJ IV PUSH (14:49)
[2021-07-02 16:10] VITALS: BP 159/82; PULSE 80; RESP 16; TEMP 36.3; O2SAT 98
[2021-07-02] MEDS: HYDROmorphone HCL INJ (*CRX) 1 MG/ML SYR 0.5 MG IV PUSH (17:46)
[2021-07-02 18:27] VITALS: BP 160/80; PULSE 79; RESP 18; O2SAT 99
== END 2021-07-02 18:28 | disposition home or self-care (01) ==
PROVIDERS: Emergency Provider Emergency Medicine; PCP Internal Medicine
DX: K80.50 Calculus of bile duct without cholangitis or cholecystitis without obstruction (principal); K80.20 Calculus of gallbladder without cholecystitis without obstruction; J45.909 Unspecified asthma, uncomplicated; E78.5 Hyperlipidemia, unspecified; I10 Essential (primary) hypertension; E11.9 Type 2 diabetes mellitus without complications; I25.10 Atherosclerotic heart disease of native coronary artery without angina pectoris; E03.9 Hypothyroidism, unspecified; K58.0 Irritable bowel syndrome with diarrhea; G47.33 Obstructive sleep apnea (adult) (pediatric); K21.9 Gastro-esophageal reflux disease without esophagitis; Z95.1 Presence of aortocoronary bypass graft; Z79.82 Long term (current) use of aspirin; Z86.010 Personal history of colon polyps; K57.90 Diverticulosis of intestine, part unspecified, without perforation or abscess without bleeding; N28.1 Cyst of kidney, acquired; N40.0 Benign prostatic hyperplasia without lower urinary tract symptoms; Z79.84 Long term (current) use of oral hypoglycemic drugs
CPT/HCPCS: 36415; 74177; 80053; 81001; 83690; 85025; 96361; 96374; 96375; 99284; J1170; J2270; J2405; J7120; Q9967

== ENCOUNTER 2021-08-01 11:00 | Outpatient (RCR) | payer MEDICARE, OTHER, SELFPAY ==
--- NOTE | 2021-07-04 08:56 | PTOPEVAL ---
PHYSICAL THERAPY EVALUATION AND PLAN OF CARE 07-04-21 Thank you for referring Tan Pandey to [facility] [place] for the diagnosis of R shoulder pain/ partial rotator cuff tear. He is scheduled to be seen for therapy? 1x/week for 4 weeks. Please review, sign, date and return this plan of care VIVIANA. I agree with and certify that the following plan of care is medically necessary. Referring Physician Date Attending Provider: Wilber Maxwell MD Source of Past Medical History Recalled from Previous Visit, Confirmed with Patient/Family Neurological History Hx Other Neurological Disorders Yes: mild concussion with this fall; Cardiovascular History Hx Coronary Artery Bypass Graft Yes: 2006- VESSEL; Hx Hypercholesterolemia Yes: meds Hx Hypertension Yes: meds Respiratory History Hx Asthma Yes Hx Chronic Obstructive Pulmonary Disease Yes (COPD) Hx Sleep Apnea Yes: CPAP Gastrointestinal History Hx Diverticulitis Yes Hx Gall Bladder Disease Yes: to ER this week due to gall bladder attack Hx Gastroesophageal Reflux Disease Yes Hx Polyps Yes Genitourinary History Hx Other Genitourinary Disorders Yes: ENLARGED PROSTATE Musculoskeletal History Hx Orthopedic Surgery Yes: 2015- BACK SURGERY; C4- SPINAL STENOSIS AT RELEASED IMPINGEMENT Hx Other Musculoskeletal Disorders Yes: R frozen shoulder ~ 5 yr ago Hematological History Hx Hematological Disorders No Significant History Endocrine History Hx Diabetes Yes: TYPE 2 Hx Hypothyroidism Yes Hx Thyroidectomy Yes: HALF OF THYROID REMOVED DUE TO NODULE HEENT History Hx Cataracts Yes: MILD- RIGHT SIDE SURGERY Hx Glaucoma Yes: CONGENITAL GLAUCOMA AT , CORRECTIVE SURGERY AT 3 MONTHS Hx Sinus Problems Yes: ALLERGIES Hx Deviated Septum Yes Hx Eye Surgery Yes: CORRECTIVE GLAUCOMA SURGERY AT 3 MO. AGE Integumentary History Hx Eczema Yes Reproductive History Hx Reproductive Disorders No Significant History Psychosocial History Hx Psychiatric Disorders No Significant History Pain History History of Any Previous or Ongoing No Significant History Instance of Pain Anesthesia History Hx Anesthesia Reactions No Significant History Other History Hx Implanted Device Yes: STERNAL SUTURES FROM CABG Hx Other Medical Conditions Yes: obesity Evaluation Information Diagnosis R shoulder strain, par
--- NOTE | 2021-08-01 11:33 | PTOPEVAL ---
PHYSICAL THERAPY DISCHARGE 08-01-21 Refer to the clinical summary below, for his status today, compared to the initial evaluation. The goals were achieved; discharge PT at this time. Thank you for referring Tan Pandey to [facility]. Please review, sign, date and return this Discharge report VIVIANA. I agree with and certify that the following plan of care is medically necessary. Referring Physician Date Attending Provider: Wilber Maxwell MD Subjective Information Tan reports: shoulder has Query Text:As Reported By Patient/ improved; doing the exercises; Family doing everything at home again--lifting case of water, carrying big bags of groceries; feel like ready for discharge from therapy; Pain Assessment Pain Scale Used Numeric (1 - 10) Self Report Pain Assessment Right Shoulder(s) Reported Pain Level 0 Pain Description Aching Pain Frequency Chronic,Intermittent Other Pain Description slight pain in top of shoulder joint and slightly posterior Lowest Pain Intensity 0 Greatest Pain Intensity 1 Other Pain Aggravating Factors pain when wake up in AM; can sleep on his R side; Pain Behaviors None Additional Pain Score Comments Quick DASH self assessment 13% limitation in activity level Gross Upper Extremity Range of Motion R shoulder flexion, abduction, IR and ER ranges WNL and no pain with motions Gross Upper Extremity Strength functional strength testing R UE in standing with 4# hand wt: -shoulder: flexion x 15 reps; abduction x 10 reps; ER with elbow at his side x 15 reps; wire steward dynamometer, 3rd slot: 70# verbal review of HEP- continue to perform; monitor activity and avoid overuse/repetitive use of R arm; alternate R/L arm for activity if able and use heat/ice PRN PT Clinical Summary Tan has received 5 PT sessions. The goals were achieved for his R shoulder pain and strength; he is independent with his home program. Discharge PT services.
== END 2021-08-05 10:20 | disposition home or self-care (01) ==
LOC: ANHPT 11:00
PROVIDERS: PCP Internal Medicine; Visit Provider Orthopaedic Surgery
DX: S46.911D Strain of unspecified muscle, fascia and tendon at shoulder and upper arm level, right arm, subsequent encounter (principal); S46.011D Strain of muscle(s) and tendon(s) of the rotator cuff of right shoulder, subsequent encounter
CPT/HCPCS: 97014; 97110; 97140; 97161; 97530; G0283

== ENCOUNTER 2021-08-13 06:38 | Outpatient (CLI) | payer MEDICARE, OTHER, SELFPAY ==
[2021-08-13 08:00] LABS: Alanine Aminotransferase 23 U/L (6-50); Albumin Level 4.3 g/dL (3.5-5.1); Alkaline Phosphatase 65 U/L (38-126); Anion Gap 7 mmol/L (8-16); Aspartate Amino Transferase 22 U/L (17-59); Bilirubin,Total 1.2 mg/dL (0.2-1.3); Blood Urea Nitrogen 17 mg/dL (9-20); Calcium 8.7 mg/dL (8.4-10.2); Carbon Dioxide 30 mmol/L (22-30); Chloride 103 mmol/L (98-107); Cholesterol 101 mg/dL (0-200); Estimated Glomerular Filt Rate 60; Glucose 114 mg/dL (65-110); HDL Direct 36 mg/dL; Sodium 140 mmol/L (137-145); Triglycerides 108 mg/dL (<150); Uric Acid 7.1 mg/dL (3.5-8.5)
[2021-08-13 08:11] LABS: LDL Cholesterol Direct 42 mg/dL
[2021-08-13 08:26] LABS: Prostate Specific Antigen 2.8 ng/mL (< OR = 4.0)
[2021-08-13 08:48] LABS: Vitamin B12 > 1000.0 pg/mL (239-931)
== END 2021-08-13 06:39 | disposition home or self-care (01) ==
LOC: ANHLAB 06:41
PROVIDERS: PCP Internal Medicine; Visit Provider Internal Medicine
DX: Z12.5 Encounter for screening for malignant neoplasm of prostate (principal); E53.8 Deficiency of other specified B group vitamins; E11.9 Type 2 diabetes mellitus without complications; E78.5 Hyperlipidemia, unspecified
CPT/HCPCS: 36415; 80053; 80061; 82607; 84153; 84550; G0103

== ENCOUNTER 2021-09-01 10:47 | Outpatient (CLI) | payer MEDICARE, OTHER, SELFPAY ==
--- NOTE | ~2021-09-01 | US_ITS ---
EXAMINATION: US aorta DATE: 09/01/2021 11:12 INDICATION: Abdominal aortic aneurysm screening, history of coronary artery disease, diabetes, hypert ension, and obesity TECHNIQUE: Grayscale, color Doppler, and pulsed Doppler images of the aorta and common iliac arteries were obtained. COMPARISON: None. FINDINGS: Maximum vascular dimensions are as follows: Proximal aorta: 2.8 cm Mid aorta: 2.1 cm Distal aorta: 2.1 cm Right common iliac artery: 1.0 cm Left common iliac artery: 1.0 cm There is no evidence of abdominal aortic aneurysm. IMPRESSION: 1. No sonographically detected abdominal aortic aneurysm. Reviewed, dictated and finalized at location A.
== END 2021-09-01 10:48 | disposition home or self-care (01) ==
PROVIDERS: PCP Internal Medicine; Visit Provider Internal Medicine Cardiovascular Disease
DX: I25.10 Atherosclerotic heart disease of native coronary artery without angina pectoris (principal)
CPT/HCPCS: 76775

== ENCOUNTER 2021-09-03 11:30 | Outpatient (RCR) | payer MEDICARE, OTHER, SELFPAY ==
[2021-07-29 08:01] VITALS: BMI 38.7
[2021-07-29 08:06] VITALS: BMI 38.7
[2021-09-03 11:32] VITALS: BMI 37.4
[2021-09-03 11:36] VITALS: BMI 37.4
== END 2021-10-13 09:55 | disposition home or self-care (01) ==
LOC: ANHDMC 11:30
PROVIDERS: PCP Internal Medicine; Visit Provider Internal Medicine Endocrinology, Diabetes & Metabolism
DX: E11.65 Type 2 diabetes mellitus with hyperglycemia (principal); Z71.89 Other specified counseling; Z71.3 Dietary counseling and surveillance
CPT/HCPCS: 97802; 97803; G0108

== ENCOUNTER 2021-10-06 11:29 | Outpatient (CLI) | payer MEDICARE, OTHER, SELFPAY ==
[2021-10-06 11:59] LABS: Basophils Percent Auto 0.4 % (0.2-1.2); Eosinophils Absolute Auto 0.1 K/mm3 (0-0.3); Eosinophils Percent Auto 1.4 % (0-4.4); Hematocrit 39.9 % (42.0-52.0); Immature Granulocyte Absolute 0.04 K/mm3 (0.00-0.031); Immature Granulocyte Percent A 0.5 % (0-0.5); Lymphocytes Absolute Auto 1.89 K/mm3 (0.9-3.2); Lymphocytes Percent Auto 24.8 % (18.3-44.2); Mean Corpuscular HGB Conc 32.6 g/dl (32-36); Mean Corpuscular Hemoglobin 28.7 pg (26-34); Mean Corpuscular Volume 88.1 fl (80-100); Monocytes Absolute Auto 0.5 K/mm3 (0.1-0.6); Monocytes Percent Auto 6.3 % (2.6-8.5); Neutrophils Absolute Auto 5.1 K/mm3 (1.3-6.7); Neutrophils Percent Auto 66.6 % (45.5-73.1); Platelet Count Result 118 k/mm3 (150-375); Red Blood Count 4.53 M/mm3 (4.6-6.20); Red Cell Distribution Width 13.3 % (11.5-14.5); White Blood Count 7.6 K/mm3 (4.5-10.0)
[2021-10-06 12:09] LABS: Alanine Aminotransferase 19 U/L (6-50); Albumin Level 4.3 g/dL (3.5-5.1); Alkaline Phosphatase 64 U/L (38-126); Amylase 58 U/L (30-110); Anion Gap 10 mmol/L (8-16); Aspartate Amino Transferase 21 U/L (17-59); Bilirubin,Total 0.9 mg/dL (0.2-1.3); Blood Urea Nitrogen 12 mg/dL (9-20); Calcium 8.5 mg/dL (8.4-10.2); Carbon Dioxide 29 mmol/L (22-30); Chloride 101 mmol/L (98-107); Estimated Glomerular Filt Rate 60; Glucose 107 mg/dL (65-110); Lipase 103 U/L (23-300); Potassium 4.3 mmol/L (3.4-5.0); Sodium 140 mmol/L (137-145)
== END 2021-10-06 11:30 | disposition home or self-care (01) ==
PROVIDERS: PCP Internal Medicine; Visit Provider Surgery
DX: Z01.818 Encounter for other preprocedural examination (principal); K80.10 Calculus of gallbladder with chronic cholecystitis without obstruction
CPT/HCPCS: 36415; 80053; 82150; 82248; 83690; 85025

== ENCOUNTER 2021-10-08 00:44 | Day surgery (SDC) | payer MEDICARE, OTHER, SELFPAY ==
[2021-10-02 13:20] VITALS: BMI 36.6
--- NOTE | 2021-10-02 13:39 | PC.NURSE ---
Report to the Outpatient Waiting Room, entrance under the green pavilion located off [facility], at time _1000_ on date _10/08/21_. OR Time: _1200_. - You and your visitor will be asked a series of questions to screen for COVID 19 for your protection. - Only one visitor is allowed at this time. - The patient visitor is requested to leave or wait in car when not with patient. - A mask is required within the hospital. Patients may have clear liquids (water, carbonated beverages, clear teas, apple juice) until 3 hours prior to surgery (0900 AM) with a maximum of 20 ounces. - No food from midnight until time of surgery Take the following medications with a SIP of water the morning of surgery: _INHALERS, NASAL SPRAY, AMLODIPINE, LEVOTHYROXINE, METOPROLOL_ Medications to discontinue per physician _ ALL VITAMINS AND SUPPLEMENTS 3 DAYS PRIOR TO SURGERY, Date to take last dose 10/04/21_ Please no make-up, nail egyptian, hairspray, perfume, deodorant, or body powder the day of surgery. No jewelry (including any body piercings) or valuables the day of surgery, leave them at home. Please take a shower or bath the night before, or the morning of, surgery with an antibacterial soap. Wear comfortable, loose fitting clothing. - Jewelry must be removed prior to entering the operating room. Rings and piercings that are not removed may be cut off. - The hospital will not accept responsibility for valuables. - Please leave all valuables, including medications, at home the day of surgery. If you are going home after surgery, a licensed chair car driver must drive you home. - NO public transportation without another adult. - We recommend that an adult stay with you for 24 hours following discharge. - We also recommend that you do not drive, make important decision, drink alcoholic beverages, or take any drugs that were not prescribed by your health care provider for at least 24 hours after your discharge time. Follow any additional instructions given to you from your surgeon. HIBICLENS SHOWER AM OF SURGERY If you or anyone in your household have experienced Covid symptoms in the past week, please notify your surgeon or the nurse liaison at the phone number below for possible testing. Telephone instructions given to ____PT and asked if any additional questions and then verbalized understanding. Patient advised to call surgeon office or pre surgery nurse liaison [phone] if any additional questions.
--- NOTE | 2021-10-07 15:07 | WPDANESEPPF ---
Anes - Initial Pre Proc Eval Procedure: Operation Date: 10/08/21 12:00 Proposed Procedures p Laparoscopic Cholecystectomy with Possible Intraoperative Cholangiogram Possible Open - Arash Cruz MD Date/Time: 10/07/21 15:07 Surgeon: Arash Cruz MD Pre Op Diagnosis: Chronic calculous Cholecystitis Patient Data Age: 71 Gender: M Height: 1.75 m Weight: 112.72 kg Allergies Allergy/AdvReac Type Severity Reaction Status Date / Time fenofibrate Allergy Unknown Unknown- Verified 10/02/21 13:15 STATES PUT IN WITH LAST HOSPITALIZATION hydrochlorothiazide Allergy Unknown Unknown-STATES Verified 10/02/21 13:15 PUT IN WITH LAST HOSPITALIZATION nifedipine Allergy Unknown Unknown-STATES Verified 10/02/21 13:15 PUT IN WITH LAST HOSPITALIZATION quinapril Allergy Unknown Cough Verified 10/02/21 13:15 latex AdvReac Intermediate Redness/itc Verified 10/08/21 10:22 sarabjit adhesive tape AdvReac Mild SKIN Verified 10/08/21 10:22 REDNESS Home Medications Medication Instructions Recorded Confirmed Type acetaminophen 500 mg tablet 500 mg PO Q4H PRN Pain 01/30/19 10/08/21 History (Tylenol Extra Strength) cholecalciferol (vitamin D3) 50 2,000 unit PO DAILY 01/30/19 10/08/21 History mcg (2,000 unit) tablet hydrocortisone 2.5 % topical cream 1 applic topical BID PRN Rash 01/30/19 10/08/21 History triamcinolone acetonide 0.1 % 1 applic topical BID PRN Rash 01/30/19 10/02/21 History topical cream vitamin B complex (B 1 tablet PO DAILY 08/06/20 10/08/21 History Complex-Vitamin B12 tablet) azelastine 137 mcg (0.1 %) nasal 1 spray intranasal Q12H 90 days 09/11/20 10/08/21 Rx spray aerosol #90 mL fluticasone propionate 50 1 spray intranasal BID PRN nasal 09/11/20 10/08/21 Rx mcg/actuation nasal congestion 90 days #48 grams spray,suspension multivitamin 1 tablet PO DAILY 11/18/20 10/08/21 History comp.stocking,knee,long,medium #12 ea 12/09/20 10/02/21 Rx allopurinol 300 mg tablet 150 mg PO DAILY #45 tabs 02/13/21 10/08/21 Rx amlodipine 5 mg tablet 5 mg PO DAILY #90 tabs 02/13/21 10/08/21 Rx atorvastatin 20 mg tablet (Lipitor) 40 mg PO DAILY #90 tabs 02/13/21 10/08/21 Rx cetirizine 10 mg tablet (Zyrtec) 10 mg PO DAILY allergy symptoms 02/13/21 10/08/21 Rx #90 tabs metformin 500 mg tablet 1,000 mg PO BID #360 tabs 02/13/21 10/08/21 Rx metoprolol succinate 25 mg 25 mg PO DAILY #90 tabs 02/13/21 10/08/21 Rx tablet,extended release 24 hr montelukast 10 mg tablet 10 mg PO QHS 90 days #90 tabs 02/13/21 10/08/21 Rx (Singulair) nitroglycerin 0.4 mg sublingual 0.4 mg sublingual Q5M PRN chest 02/13/21 10/02/21 Rx tablet pain #25 tabs omeprazole magnesium 20 mg 20 mg PO DAILY PRN Acid Reflux #90 02/13/21 10/08/21 Rx tablet,delayed release (Prilosec tabs OTC) oxybutynin chloride 5 mg 5 mg PO DAILY #90 tabs 02/13/21 10/08/21 Rx tablet,extended release 24 hr tamsulosin 0.4 mg capsule 0.4 mg PO DAILY #90 caps 02/13/21 10/08/21 Rx albuterol sulfate 90 mcg/actuation 1 - 2 puff inhalation Q4-6H PRN 04/21/21 10/08/21 Rx aerosol inhaler (ProAir HFA) Shortness Of Breath Or Wheezing #8.5 grams irbesartan 300 mg tablet 300 mg PO DAILY #90 tabs 04/22/21 10/08/21 Rx sitagliptin 100 mg tablet (Januvia) 100 mg PO DAILY #90 tabs 04/22/21 10/08/21 Rx ondansetron 4 mg disintegrating 4 mg PO Q8H PRN nausea and 07/02/21 10/02/21 Rx tablet vomiting #10 tabs tramadol 50 mg tablet 50 mg PO Q6H PRN pain #12 tabs 07/02/21 10/02/21 Rx blood sugar diagnostic (FreeStyle #100 ea 07/28/21 10/02/21 Rx Lite Strips) lancets 28 gauge (FreeStyle #100 ea 07/28/21 10/02/21 Rx Lancets) levothyroxine 88 mcg tablet 88 mcg PO DAILY #90 tabs 07/28/21 10/08/21 Rx (Synthroid) aspirin 81 mg tablet,delayed 81 mg PO DAILY 10/02/21 10/08/21 History release Patient hx anesthesia problems: none Family hx anesthesia problems: none Results Review: All pre-o
--- NOTE | 2021-10-07 21:14 | PM.HPGS ---
History of Present Illness History of Present Illness Consent: Risks, benefits, and alternatives of a laparoscipiccholecystectomy,possible inta-operative cholangiogram, possible open cholecystectomy have been discussed and questions answered. Patient agrees to proceed with procedure. Chief complaint: Chronic calculous Cholecystitis Narrative: Tan Pandey is a 71 year old White male that recently presented to the office at the request of Dr Benitez for an evaluation of RUQ abdominal pain. Patient reports that he has had RUQ abdominal pain and nausea and vomiting on and off for about a year now. However, reports that the episodes have become worse over the last 3 months. He went to [place] ED on 07/02/21 due to the pain. A CT scan of the abdomen and pelvis with contrast was completed while in the ED that showed cholelithiasis. He reports that prior to this episode he would occasionally have a burning sensation in the epigastric area. He thought it was acid reflux. The night prior to going to the ED he had a ham and turkey sandwich with a [employer]. He woke up the next morning with pain and it got so bad that he went to the ED. Patient reports that he is a diabetic and takes medication for it daily. He takes Tylenol once daily for shoulder pain. He also takes medication for gout flare ups daily. He reports that his last gout flare up was about 2 years ago and his flare ups usually effects his toes. [facility] to his per[facility] is retiring. He reports his last appointment was August 2020, and a stress test was completed at that time. He has a history of having open heart surgery in 2006. Other surgical history includes spinal surgery, carpel tunnel, eye surgery, and thyroid surgery. Since his office visit with me he has done OK while follosing a low fat diet and has received Medical (/Christian WRIGHT) clearence and Cardiac clearance from his new pretzel twister. Since being in the ED, he reports he has not had any other episodes of epigastric or RUQ pain. He has been trying to stick to a low fat diet. Review of Systems Review of Systems: All systems reviewed & are unremarkable except as noted in HPI and below (HPI) Constitutional: Constitutional: Reports as per HPI, Denies chills and Denies fever(s) Eyes: Eyes: Reports no additional eye complaints Comments: Does use some eye drops. ENT: Reports Normal hearing present and Denies dizziness Comments: Has had recent ear infections that he occassionally uses antibiotic drops for. Cardiovascular: Cardiovascular: Reports no additional cardiovascular complaints, Denies chest pain, Denies syncope, Denies rapid heart rate, Denies irregular heart rhythm and Denies radiating jaw, neck or arm pain Respiratory: Respiratory: Reports no additional respiratory complaints Gastrointestinal: Gastrointestinal: Reports no additional gastrointestinal complaints, Denies abdominal pain and Denies bloating Comments: still has occ heart burn. Genitourinary: Genitourinary: Denies hematuria Musculoskeletal: Musculoskeletal: Denies back pain Integumentary/Breasts: Skin/Breast: Reports system reviewed and no additional complaints, except as docu Neurologic: Reports Normal hearing present, Denies Abnormal speech present, Denies confusion and Denies dizziness Psychiatric: Psychiatric: Reports no additional psychiatric complaints and Denies confusion Endocrine: Endocrine: Reports no additional endocrine complaints Hematologic/Lymphatic: Hematologic/Lymphatic: Denies easy bleeding and Denies easy bruising Allergic/Immunologic: Allergic/Immunologic: Reports no additional allergic/immunologic complaints [facility] Past Medical History Medical History Adenomatous colon polyp Anxiety Arthritis of right acromioclavicular joint Asthma BMI 39.0-39.9,adult Cellulitis Colon c
[2021-10-08] VITALS (8 sets, daily range): BP systolic 106–134; BP diastolic 45–65; PULSE 66–96; RESP 16–20; TEMP 36.2–36.4; O2SAT 94–100
[2021-10-08] MEDS: ACETAMINOPHEN 500 MG TABLET 1000 MG PO (11:30)
[2021-10-08] MEDS: LACTATED RINGERS 1,000 ML 30 ML IV CONT ×2 (11:30→14:33)
[2021-10-08 11:45] LABS: Glucose Point of Care 124 mg/dl (65-105)
[2021-10-08] MEDS: KETOROLAC 15 MG/ML VIAL (*BKC) IV PUSH (11:49)
--- NOTE | 2021-10-08 11:59 | WPDHPUPDATE1 ---
History and Physical Update Update Date/Time: 10/08/21 11:59 History and Physical has been reviewed, including an updated exam of the patient. There are NO changes in the patient's condition. Risks, benefits, and alternatives have been discussed and questions answered. Patient agrees to proceed with procedure.
[2021-10-08] MEDS: ceFAZolin 2 GM/D5W 50 ML 2 GM/50 ML BAG IVPB (12:13)
[2021-10-08] MEDS: BUPIVACAINE/EPINEPHRINE 0.25% 50 ML VIAL 30 ML INFILTRATE (12:46)
[2021-10-08 14:39] LABS: Glucose Point of Care 147 mg/dl (65-105)
--- NOTE | 2021-10-08 14:54 | W.PM.PROC2 ---
Procedure Note - Detailed Date of Procedure 10/08/21 Pre-op Diagnosis 1.Chronic calculous Cholecystitis with cholelithiasis. 2.Small umbilical hernia. Post-op Diagnosis Same Procedure Performed 1.Laparoscopic Cholecystectomy 2.Suture repair of small umbilical hernia. Surgeon Arash Cruz MD Leather Tanner Raymond MCCLOUD.OR circulation assistant Anesthesia General Indications See H& P. Patient has chronic cholecystitis with cholelithiasis and now has medical and cardiac clearance to proceed with surgery. CT from July also notes a small fat containing umbilical hernia. Findings Upon making initial incision a small approximately o.6 cm fascial defect with a hernia sac and some omentum protruding into it was found upon lifting the umbilical skin cephalad. The GB was light blackwood with a thickened wall. There was significant fibrous thick adhesions at the neck of the GB and overlying the triangle of Calot. Also, just to the left of the umbilicus there was a line of adhesions between the anterior abdominal wall and the underlying omentum such that one could not see any of the structure of the LLQ. Description of Procedure Patient was seen preoperatively in the holding area and risks, benefits and alternatives confirmed. Patient was taken to the operating room and general anesthesia was induced. A time out was then preformed with the surgery team confirming patient and site of surgery. The abdomen was prepped and draped in the usual sterile fashion. A transverse incision was made just below the umbilicus with an 11 blade knife. upon initial dissection dissecting the thin skin of the umbilicus somewhat cephalad we did find a very small approximately 6 mm fascial defect confirming an umbilical hernia that was called by the radiologist on CT scan several months ago. There was a little bit of preperitoneal and omental fat coming up through the defect. This was dissected away and passed off the field as hernia sac and preperitoneal fat . Then I placed 2 stay sutures of O- Vicryl on either side of this mid-line fascial defect and was then able to slide in the Guan cannula through the fascial defect into the peritoneum after making a small snip inferiorly to enlarge the opening a little bit. The balloon on the Alize cannula was inflated, pulled back, and the oloive pushed down. This was also held in place but the 2 stay sutures. First under low flow and then under high flow the abdomen was insufflated with carbon dioxide never exceeding a pressure of 15. Three 5 mm trocars were then introduced under direct vision. The following trocars were introduced under direct vision: a 5 mm in the epigastrium and two 5 mm trocars along the right costal margin laterally in the subcostal area. There were significant fibrous dense adhesions to the underside of the gallbladder and around the structures of the more inferior triangle of Calot. These were taken down with blunt and sharp dissection using some Bovie cautery for hemostasis. These seemed more dense than usual and I spent significant time taking these down and successfully finding the window of safety. We were able to dissect this completely away from the neck of the gallbladder. I then carefully used the L-shaped cautery and the [place] dissector to dissect out the triangle of Calot. I then was able to dissect out both the cystic duct and cystic artery and identify a window of safety. I believe we were right at the takeoff of the cystic artery where it connected to what appeared to be the right hepatic artery where it was entering the liver near by. The gall bladder was grasped and the cystic duct and artery were dissected free and clipped with an 5 mm endo-clip criminal psychologist. The cystic duct and artery were clipped with use of 2 clips on the patient's side and one on the gallbladder side utilizing a 5 mm endoclip-criminal psychologist. The cystic duct was then transected. The cystic artery was also transected at this point. The gall bladde
== END 2021-10-08 16:40 | disposition home or self-care (01) ==
PROVIDERS: PCP Internal Medicine; Visit Provider Surgery
PROC: 0FT44ZZ Resection of Gallbladder, Percutaneous Endoscopic Approach (ICD-10-PCS; CPT 47562; principal; 2021-10-08 12:00)
DX: K80.10 Calculus of gallbladder with chronic cholecystitis without obstruction (principal); K42.9 Umbilical hernia without obstruction or gangrene; K76.0 Fatty (change of) liver, not elsewhere classified; E11.40 Type 2 diabetes mellitus with diabetic neuropathy, unspecified; I25.10 Atherosclerotic heart disease of native coronary artery without angina pectoris; N40.0 Benign prostatic hyperplasia without lower urinary tract symptoms; M10.9 Gout, unspecified; I10 Essential (primary) hypertension; E78.5 Hyperlipidemia, unspecified; K21.9 Gastro-esophageal reflux disease without esophagitis; J45.909 Unspecified asthma, uncomplicated; F41.9 Anxiety disorder, unspecified; F32.A Depression, unspecified; G47.33 Obstructive sleep apnea (adult) (pediatric); E03.9 Hypothyroidism, unspecified; Z79.84 Long term (current) use of oral hypoglycemic drugs; Z79.51 Long term (current) use of inhaled steroids; Z79.82 Long term (current) use of aspirin; Z95.1 Presence of aortocoronary bypass graft; E66.9 Obesity, unspecified; Z68.36 Body mass index [BMI] 36.0-36.9, adult
CPT/HCPCS: 47562; 82948; 88302; 88304; A9270; J0690; J1100; J1885; J2405; J2704; J2710; J3010; J7030; J7120

== ENCOUNTER 2021-10-09 13:35 | Emergency (ER) | payer MEDICARE, OTHER, SELFPAY ==
[2021-10-09] VITALS (8 sets, daily range): BP systolic 118–155; BP diastolic 59–69; PULSE 84; RESP 20; TEMP 36.5; O2SAT 96–99
[2021-10-09 14:13] LABS: Add Urine Microscopic? NO; Appearance Urine Clear (Clear); Bilirubin Urine Negative (Negative); Blood Urine Negative (Negative); Color Urine Yellow (Yellow); Glucose Urine UA Negative (Negative); Ketones Urine Negative (Negative); Leukocyte Esterase Ur Negative LEU/UL (Negative); Nitrate Urine Negative (Negative); Protein Urine Negative (Negative); Specific Grav Ur <= 1.005 (1.001-1.035); Urobilinogen Urine 0.2 mg/dL (<2.0); pH Urine 5.5 (5.0-9.0)
[2021-10-09 14:14] LABS: Basophils Percent Auto 0.4 % (0.2-1.2); Eosinophils Percent Auto 0.2 % (0-4.4); Hematocrit 40.6 % (42.0-52.0); Hemoglobin 13.3 g/dL (14.0-18.0); Immature Granulocyte Absolute 0.03 K/mm3 (0.00-0.031); Immature Granulocyte Percent A 0.3 % (0-0.5); Immature Platelet Fraction Pct 12.1 % (0.9-11.2); Lymphocytes Absolute Auto 1.64 K/mm3 (0.9-3.2); Lymphocytes Percent Auto 14.7 % (18.3-44.2); Mean Corpuscular HGB Conc 32.8 g/dl (32-36); Mean Corpuscular Hemoglobin 28.6 pg (26-34); Mean Corpuscular Volume 87.3 fl (80-100); Monocytes Absolute Auto 0.7 K/mm3 (0.1-0.6); Monocytes Percent Auto 6.4 % (2.6-8.5); Neutrophils Absolute Auto 8.7 K/mm3 (1.3-6.7); Platelet Count Result 133 k/mm3 (150-375); Red Blood Count 4.65 M/mm3 (4.6-6.20); Red Cell Distribution Width 13.5 % (11.5-14.5); White Blood Count 11.2 K/mm3 (4.5-10.0)
--- NOTE | 2021-10-09 14:20 | PC.NURSE ---
500mL of light yellow urine drained from patient bladder after inserting hopkins catheter.
[2021-10-09 14:24] LABS: Alanine Aminotransferase 59 U/L (6-50); Albumin Level 4.6 g/dL (3.5-5.1); Alkaline Phosphatase 64 U/L (38-126); Anion Gap 13 mmol/L (8-16); Aspartate Amino Transferase 54 U/L (17-59); Bilirubin,Total 0.9 mg/dL (0.2-1.3); Blood Urea Nitrogen 17 mg/dL (9-20); Calcium 8.9 mg/dL (8.4-10.2); Carbon Dioxide 27 mmol/L (22-30); Chloride 99 mmol/L (98-107); Estimated CRCL calculation 58 ml/min; Estimated Glomerular Filt Rate 54; Glucose 121 mg/dL (65-110); Potassium 4.3 mmol/L (3.4-5.0); Sodium 139 mmol/L (137-145)
--- NOTE | 2021-10-09 14:47 | ED.GENADULT ---
HPI - General Adult General Chief complaint: Urogenital-Male Stated complaint: post op complications Time Seen by Provider: 10/09/21 13:37 Source: RN notes reviewed History of Present Illness HPI narrative: Patient presents emergency department from home for urinary frequency. Patient states he had his gallbladder out by Dr. Cruz yesterday states that since he went home he has been feeling chest urinate frequently and only goes a small amount he also notes an episode of incontinence last night. He denies any fevers or chills abdominal pain outside of his normal postop surgical pain nausea vomiting or any other symptoms states he does have a history of urinary retention and is followed by Dr. Wang Related Data Home Medications Medication Instructions Recorded Confirmed acetaminophen 500 mg tablet 500 mg PO Q4H PRN Pain 01/30/19 10/08/21 (Tylenol Extra Strength) cholecalciferol (vitamin D3) 50 2,000 unit PO DAILY 01/30/19 10/08/21 mcg (2,000 unit) tablet hydrocortisone 2.5 % topical cream 1 applic topical BID PRN Rash 01/30/19 10/08/21 triamcinolone acetonide 0.1 % 1 applic topical BID PRN Rash 01/30/19 10/02/21 topical cream vitamin B complex (B 1 tablet PO DAILY 08/06/20 10/08/21 Complex-Vitamin B12 tablet) multivitamin 1 tablet PO DAILY 11/18/20 10/08/21 aspirin 81 mg tablet,delayed 81 mg PO DAILY 10/02/21 10/08/21 release Allergies Allergy/AdvReac Type Severity Reaction Status Date / Time fenofibrate Allergy Unknown Unknown- Verified 10/02/21 13:15 STATES PUT IN WITH LAST HOSPITALIZATION hydrochlorothiazide Allergy Unknown Unknown-STATES Verified 10/02/21 13:15 PUT IN WITH LAST HOSPITALIZATION nifedipine Allergy Unknown Unknown-STATES Verified 10/02/21 13:15 PUT IN WITH LAST HOSPITALIZATION quinapril Allergy Unknown Cough Verified 10/02/21 13:15 latex AdvReac Intermediate Redness/itc Verified 10/08/21 10:22 sarabjit adhesive tape AdvReac Mild SKIN Verified 10/08/21 10:22 REDNESS Review of Systems Review of Systems: Gen.: Denies fevers or chills ENT: Denies congestion Respiratory: Denies shortness of breath or cough CV: Denies chest pain or palpitations GI: Denies abdominal pain nausea, emesis or diarrhea see HPI Musculoskeletal: Denies back pain or muscle pain Neuro: Denies numbness, tingling, weakness or focal weakness Skin: Denies rash Except as documented, all other systems reviewed and negative [facility] Past Medical History Medical History Adenomatous colon polyp Anxiety Arthritis of right acromioclavicular joint Asthma BMI 39.0-39.9,adult Cellulitis Colon cancer screening Colon, diverticulosis Depression Diverticulitis large intestine Essential (primary) hypertension Gall stones GERD (gastroesophageal reflux disease) HLD (hyperlipidemia) HTN (hypertension) Hypothyroidism (acquired) Irritable bowel syndrome with diarrhea Light headedness Mild acid reflux Obstructive sleep apnea Rotator cuff tear, right Type 2 diabetes mellitus without complication, without long-term current use of insulin Vision changes Wears glasses Surgical History Surgical History H/O sinus surgery History of back surgery History of eye surgery History of hand surgery History of thumb surgery Hx of CABG Family History Family History Sibling Family history of obesity Family history of celiac disease Family history of lupus erythematosus Diabetes mellitus Cerebrovascular accident Father Family history of diabetes mellitus in first degree relative Family history of heart disease in male family member before age 55 Family history of pancreatic cancer Patient's father is Mother Family history of pancreatic cancer, Onset Age: 50 Patient's mother is
--- NOTE | 2021-10-09 15:04 | PC.NURSE ---
225mL of pale yellow urine drained from patient hopkins. total urine output of 725mL.
== END 2021-10-09 15:24 | disposition home or self-care (01) ==
PROVIDERS: Emergency Provider Emergency Medicine; PCP Internal Medicine
DX: R33.9 Retention of urine, unspecified (principal); F41.9 Anxiety disorder, unspecified; M19.90 Unspecified osteoarthritis, unspecified site; J45.909 Unspecified asthma, uncomplicated; F32.9 Major depressive disorder, single episode, unspecified; K21.9 Gastro-esophageal reflux disease without esophagitis; I10 Essential (primary) hypertension; E78.5 Hyperlipidemia, unspecified; G47.30 Sleep apnea, unspecified; E03.9 Hypothyroidism, unspecified
CPT/HCPCS: 36415; 51702; 80053; 81003; 85025; 85055; 99283

== ENCOUNTER 2021-10-23 11:00 | Outpatient (RCR) | payer MEDICARE, OTHER, SELFPAY ==
[2021-10-23 11:16] VITALS: BMI 36.3
[2021-10-23 11:47] VITALS: BMI 36.3
== END 2022-01-13 08:43 | disposition home or self-care (01) ==
LOC: ANHDMC 11:00
PROVIDERS: PCP Internal Medicine; Visit Provider Internal Medicine Endocrinology, Diabetes & Metabolism
DX: E11.65 Type 2 diabetes mellitus with hyperglycemia (principal); Z71.3 Dietary counseling and surveillance
CPT/HCPCS: 97803

== ENCOUNTER 2022-05-25 07:58 | Outpatient (CLI) | payer MEDICARE, OTHER, SELFPAY ==
[2022-05-25 09:21] LABS: Alanine Aminotransferase 22 U/L (6-50); Albumin Level 4.5 g/dL (3.5-5.1); Alkaline Phosphatase 77 U/L (38-126); Anion Gap 6 mmol/L (8-16); Aspartate Amino Transferase 22 U/L (17-59); Blood Urea Nitrogen 15 mg/dL (9-20); Calcium 8.8 mg/dL (8.4-10.2); Carbon Dioxide 29 mmol/L (22-30); Chloride 103 mmol/L (98-107); Cholesterol 113 mg/dL (0-200); Estimated Glomerular Filt Rate 60; Glucose 158 mg/dL (65-110); HDL Direct 44 mg/dL; Potassium 4.4 mmol/L (3.4-5.0); Sodium 138 mmol/L (137-145); Triglycerides 124 mg/dL (<150)
[2022-05-25 09:31] LABS: LDL Cholesterol Direct 48 mg/dL
[2022-05-25 10:25] LABS: MALB Creatinine Ratio < 4.3 mg/g (0-30); Microalbumin Urine Random < 6.0 mg/L (0-16.7)
== END 2022-05-25 07:59 | disposition home or self-care (01) ==
PROVIDERS: PCP Internal Medicine; Visit Provider Nurse Practitioner Family
DX: E11.9 Type 2 diabetes mellitus without complications (principal); I25.10 Atherosclerotic heart disease of native coronary artery without angina pectoris
CPT/HCPCS: 36415; 80053; 80061; 82043; 84443

== ENCOUNTER 2022-06-19 07:53 | Outpatient (CLI) | payer MEDICARE, OTHER, SELFPAY ==
[2022-06-19 08:27] LABS: Hematocrit 41.3 % (42.0-52.0); Hemoglobin 13.7 g/dL (14.0-18.0); Mean Corpuscular HGB Conc 33.2 g/dl (32-36); Mean Corpuscular Hemoglobin 29.3 pg (26-34); Mean Corpuscular Volume 88.4 fl (80-100); Mean Platelet Volume 12.2 fl (7.4-10.4); Platelet Count Result 117 k/mm3 (150-375); Red Blood Count 4.67 M/mm3 (4.6-6.20); White Blood Count 7.4 K/mm3 (4.5-10.0)
[2022-06-25 08:47] LABS: Testosterone Total 339 ng/dL (250-1100)
== END 2022-06-19 07:54 | disposition home or self-care (01) ==
PROVIDERS: PCP Internal Medicine; Visit Provider Nurse Practitioner
DX: R53.83 Other fatigue (principal)
CPT/HCPCS: 36415; 84403; 85027

== ENCOUNTER 2022-10-01 11:15 | Outpatient (CLI) | payer MEDICARE, OTHER, SELFPAY ==
--- NOTE | ~2022-10-01 | XR_ITS ---
Clinical Indication: Shortness of breath PA and lateral views of the chest: Comparison: 08/22/2018 Findings: The lungs are clear, without evidence of focal consolidation or pleural effusion. Cardiome diastinal silhouette is stable. Bones and soft tissues are unremarkable. Impression: Clear lungs. Reviewed, dictated and finalized at location . Impression: Clear lungs.
== END 2022-10-01 11:16 | disposition home or self-care (01) ==
LOC: ANHIMG 11:20
PROVIDERS: PCP Family Medicine; Visit Provider Nurse Practitioner
DX: R06.02 Shortness of breath (principal)
CPT/HCPCS: 71046

== ENCOUNTER 2023-01-23 08:06 | Outpatient (CLI) | payer MEDICARE, OTHER, SELFPAY ==
[2023-01-23 09:12] LABS: Hematocrit 42.6 % (42.0-52.0); Mean Corpuscular HGB Conc 32.9 g/dl (32-36); Mean Corpuscular Hemoglobin 28.8 pg (26-34); Mean Corpuscular Volume 87.7 fl (80-100); Mean Platelet Volume 12.4 fl (7.4-10.4); Platelet Count Result 120 k/mm3 (150-375); Red Blood Count 4.86 M/mm3 (4.6-6.20); Red Cell Distribution Width 13.1 % (11.5-14.5)
[2023-01-23 09:43] LABS: Free T4 Free Thyroxine 1.71 ng/mL (0.78-2.19)
== END 2023-01-23 08:07 | disposition home or self-care (01) ==
LOC: ANHLAB 08:08
PROVIDERS: PCP Family Medicine; Visit Provider Internal Medicine Endocrinology, Diabetes & Metabolism
DX: E11.9 Type 2 diabetes mellitus without complications (principal); E03.9 Hypothyroidism, unspecified
CPT/HCPCS: 36415; 82607; 84439; 84443; 85027

== ENCOUNTER 2023-02-02 07:44 | Outpatient (CLI) | payer MEDICARE, OTHER, SELFPAY ==
[2023-02-02 08:23] LABS: Alanine Aminotransferase 21 U/L (6-50); Albumin Level 4.1 g/dL (3.5-5.1); Alkaline Phosphatase 62 U/L (38-126); Anion Gap 7 mmol/L (8-16); Aspartate Amino Transferase 23 U/L (17-59); Bilirubin,Total 1.1 mg/dL (0.2-1.3); Blood Urea Nitrogen 13 mg/dL (9-20); Calcium 8.5 mg/dL (8.4-10.2); Carbon Dioxide 28 mmol/L (22-30); Chloride 103 mmol/L (98-107); Cholesterol 104 mg/dL (0-200); Estimated Glomerular Filt Rate > 60; Glucose 164 mg/dL (65-110); HDL Direct 42 mg/dL; Potassium 4.1 mmol/L (3.4-5.0); Sodium 138 mmol/L (137-145); Triglycerides 113 mg/dL (<150)
[2023-02-02 08:34] LABS: LDL Cholesterol Direct 50 mg/dL
== END 2023-02-02 07:45 | disposition home or self-care (01) ==
LOC: ANHLAB 07:46
PROVIDERS: PCP Family Medicine; Visit Provider Nurse Practitioner
DX: E78.5 Hyperlipidemia, unspecified (principal)
CPT/HCPCS: 36415; 80053; 80061

== ENCOUNTER 2023-03-18 12:30 | Outpatient (RCR) | payer MEDICARE, OTHER, SELFPAY ==
--- NOTE | 2023-01-20 10:51 | OPREHPOC ---
Outpatient Therapy Plan of Care This is a Multidisciplinary Plan of Care that may contain components documented by all disciplines (PT, OT, and ST.) PT Problem 1 PT Problem #1 Knowledge Deficit PT Goal 1 Goal Pt to be IND with issued HEP Target Visit 4 PT Problem 2 PT Problem #2 Pain PT Goal 1 Goal Pt to report R ankle pain no greater than 3/10 in the last week. Target Visit 4 PT Goal 2 Goal Pt to report 75% improvement in overall symptoms. Target Visit 4 PT Problem 3 PT Problem #3 Impaired Range of Motion PT Goal 1 Goal Pt to improve umair active ankle dorsiflexion to 10 deg. Target Visit 4 PT Goal 2 Goal Pt to improve umair active ankle plantarflexion to 45 deg. Target Visit 4 PT Problem 4 PT Problem #4 Impaired Functional Mobil PT Goal 1 Goal Pt to ambulate stairs without compensations Target Visit 4
--- NOTE | 2023-01-20 10:51 | PTOPEVAL1 ---
Assessment and note entered by Santa Tobias, PT, DPT Evaluation Information Assessment Status Evaluation Diagnosis R ankle pain Onset 4-5 months Subjective Information Pt states about 4-5 months ago he miss stepped on the stairs and overstretched his R ankle. He states he gets pain up the back side of his ankle. He states his R hip is starting to ache and bother him throughout the day. He reports tenderness in the anterior peralta the on the R. Pt reports a history of diabetic neuropathy, Reported Pain Level Pain Score 0: Self Report Assessment PT Clinical Summary Tan presents to therapy today for his initial evaluation with a diagnosis of R foot/ankle pain. Today he demonstrates decreased active and passive ankle motion umair. He demonstrates decreased plantarflexion strength as well on the R side, limited by pain. He ambulates with a shortened stride umair and with umair LE ext. rot. Skilled therapy services are indicated to improve ROM, strength, functional mobility, to manage pain, and to return to PLOF. LEFS: 53/80 Plan of Care Interventions Electrical Stimulation,Gait Training,Hot Pack/Cold Pack,Manual Therapy,Neuro Re-education,Patient/ Caregiver Educati,Therapeutic Activities, Therapeutic Exercise,Ultrasound PT Services Indicated Yes Treatment Frequency and 1x/wk for 4 visits Duration These treatments will address the objective and functional deficits as defined above. The patient will be advanced safely and appropriately in order for the patient to progress towards his/her prior level of function. Additional exercises will be introduced and as well as a comprehensive home exercise program upon discharge, if needed, ?to ensure carryover of functional gains achieved in the clinic. This treatment plan has been reviewed and agreement upon by the patient.
--- NOTE | 2023-02-17 16:04 | PTOPPROG ---
Assessment and note entered by Santa Tobias, PT, DPT Evaluation Information Assessment Status Progress Diagnosis R ankle pain Onset 4-5 months Subjective Information Pt states his ankle is a lot better than when he started therapy. He states doing his exercises helps with his pain. He states he can go up and down stairs without any issues. He states it is only tender to the touch. He states his new concern is his low back pain. He states he has been sleeping in the recliner for the last 2 weeks d/t back pain. He states he limits his motion and does not let it get worse than a /10. Assessment PT Clinical Summary Tan presents to therapy today for his progress report following 4 visits of skilled therapy to treat his diagnosis of R foot/ankle pain. Today he reports improved ankle pain reports, he states his back is now the most problematic area. Today he demonstrates decreased lumbar ROM in all directions as well as pelvic malalignment in supine. He ambulates with a significantly decreased stride length d/t ankle and lumbar ROM. Continuation of skilled therapy services are indicated to improve lumbar ROM and pain reports and to improve overall functional mobility. Plan of Care Interventions Electrical Stimulation,Gait Training,Hot Pack/Cold Pack,Manual Therapy,Neuro Re-education,Patient/ Caregiver Educati,Therapeutic Activities, Therapeutic Exercise,Ultrasound PT Services Indicated Yes Treatment Frequency and 1x/wk for 4 visits Duration These treatments will address the objective and functional deficits as defined above. The patient will be advanced safely and appropriately in order for the patient to progress towards his/her prior level of function. Additional exercises will be introduced and as well as a comprehensive home exercise program upon discharge, if needed, ?to ensure carryover of functional gains achieved in the clinic. This treatment plan has been reviewed and agreement upon by the patient.
--- NOTE | 2023-03-18 13:15 | PTOPDC ---
Assessment and note entered by Santa Tobias, PT, DPT Evaluation Information Assessment Status Discharge Diagnosis low back pain Onset chronic Subjective Information Pt states he was able to stay in bed all night last night, he states he still did wake up 3-4 times to readjust. He states when he turns and rolls over his back does not send sharp pains down his back anymore. Reported Pain Level Pain Score 0: Self Report Assessment PT Clinical Summary Tan presents to therapy today for his progress report following 8 visits of skilled therapy to treat his diagnosis of R foot/ankle pain and low back pain. He has met or is progressing well towards his therapy goals. He demonstrates improving function with decreased pain. He no longer requires skilled services and will be discharged at this time.
== END 2023-03-18 15:04 | disposition home or self-care (01) ==
LOC: ANHGOSHPT 12:30
PROVIDERS: PCP Family Medicine
DX: M76.61 Achilles tendinitis, right leg (principal)
CPT/HCPCS: 97110; 97112; 97140; 97161; 97164; 97530

== ENCOUNTER 2023-07-30 07:03 | Outpatient (CLI) | payer MEDICARE, OTHER, SELFPAY ==
[2023-07-30 08:08] LABS: Alanine Aminotransferase 16 U/L (6-50); Albumin Level 4.2 g/dL (3.5-5.1); Alkaline Phosphatase 69 U/L (38-126); Anion Gap 6 mmol/L (4-12); Aspartate Amino Transferase 19 U/L (17-59); Bilirubin,Total 1.1 mg/dL (0.2-1.3); Blood Urea Nitrogen 15 mg/dL (9-20); Calcium 8.4 mg/dL (8.4-10.2); Carbon Dioxide 26 mmol/L (22-30); Chloride 106 mmol/L (98-107); Cholesterol 111 mg/dL (0-200); Estimated Glomerular Filt Rate > 60; Glucose 152 mg/dL (65-110); HDL Direct 43 mg/dL; Potassium 4.1 mmol/L (3.4-5.0); Sodium 138 mmol/L (137-145); Triglycerides 115 mg/dL (<150)
[2023-07-30 08:19] LABS: LDL Cholesterol Direct 58 mg/dL
[2023-07-30 08:37] LABS: Free T4 Free Thyroxine 1.39 ng/mL (0.78-2.19)
[2023-07-30 09:12] LABS: Creatinine Urine 143.3 mg/dL
[2023-07-30 09:20] LABS: MALB Creatinine Ratio < 4.2 mg/g (0-30); Microalbumin Urine Random < 6.0 mg/L (0-16.7)
[2023-08-04 21:23] LABS: Fructosamine 268 umol/L (205-285)
== END 2023-07-30 07:04 | disposition home or self-care (01) ==
PROVIDERS: PCP Family Medicine; Visit Provider Internal Medicine Endocrinology, Diabetes & Metabolism
DX: E03.9 Hypothyroidism, unspecified (principal); E11.9 Type 2 diabetes mellitus without complications; I25.10 Atherosclerotic heart disease of native coronary artery without angina pectoris
CPT/HCPCS: 36415; 80053; 80061; 82043; 82985; 84439; 84443

== ENCOUNTER 2023-09-04 11:33 | Emergency (ER) | payer MEDICARE, OTHER, SELFPAY ==
[2023-09-04 11:46] VITALS: BP 142/48; PULSE 76; RESP 16; TEMP 37.6; O2SAT 97
--- NOTE | 2023-09-04 12:04 | ED.GENADULT ---
HPI - General Adult General Chief complaint: Ear Stated complaint: right earache Time Seen by Provider: 09/04/23 11:45 Source: patient Mode of arrival: ambulatory Limitations: no limitations History of Present Illness HPI narrative: Patient presents today with complaints of right ear pain since yesterday. He reports frequent ear infections since childhood. He denies any fever, chills, sweats. No sore throat. No other complaints today Related Data Home Medications Medication Instructions Recorded Confirmed acetaminophen 500 mg tablet 500 mg PO Q4H PRN Pain 01/30/19 09/04/23 (Tylenol Extra Strength) cholecalciferol (vitamin D3) 50 2,000 unit PO DAILY 01/30/19 09/04/23 mcg (2,000 unit) tablet vitamin B complex (B 1 tablet PO DAILY 08/06/20 09/04/23 Complex-Vitamin B12 tablet) multivitamin 1 tablet PO DAILY 11/18/20 09/04/23 aspirin 81 mg tablet,delayed 81 mg PO DAILY 10/02/21 09/04/23 release cholestyramine-aspartame 4 gram 4 g PO BID 02/02/23 09/04/23 oral powder (Cholestyramine Light) Allergies Allergy/AdvReac Type Severity Reaction Status Date / Time fenofibrate Allergy Unknown Unknown- Verified 09/04/23 11:36 STATES PUT IN WITH LAST HOSPITALIZATION hydrochlorothiazide Allergy Unknown Unknown-STATES Verified 09/04/23 11:36 PUT IN WITH LAST HOSPITALIZATION nifedipine Allergy Unknown Unknown-STATES Verified 09/04/23 11:36 PUT IN WITH LAST HOSPITALIZATION quinapril Allergy Unknown Cough Verified 09/04/23 11:36 latex AdvReac Intermediate Redness/itc Verified 09/04/23 11:36 sarabjit adhesive tape AdvReac Mild SKIN Verified 09/04/23 11:36 REDNESS Review of Systems Constitutional: Constitutional: Reports as per HPI ENT: Reports otalgia, Denies nasal congestion, Denies nasal discharge and Denies post nasal drip Cardiovascular: Cardiovascular: Reports as per HPI and Reports no additional cardiovascular complaints Respiratory: Respiratory: Reports as per HPI and Reports no additional respiratory complaints PMFSH Past Medical History Medical History Adenomatous colon polyp Anxiety Arthritis of right acromioclavicular joint Asthma BMI 39.0-39.9,adult Cellulitis Colon cancer screening Colon, diverticulosis Depression Diverticulitis large intestine Essential (primary) hypertension Gall stones GERD (gastroesophageal reflux disease) HLD (hyperlipidemia) HTN (hypertension) Hypothyroidism (acquired) Irritable bowel syndrome with diarrhea Light headedness Mild acid reflux Obstructive sleep apnea Rotator cuff tear, right Type 2 diabetes mellitus without complication, without long-term current use of insulin Umbilical hernia Vision changes Wears glasses Surgical History Surgical History H/O sinus surgery History of back surgery History of cholecystectomy History of eye surgery History of hand surgery History of thumb surgery Hx laparoscopic cholecystectomy Laparoscopic Cholecystectomy Suture repair of small umbilical hernia 10/08/2021 Hx of CABG Family History Family History Sibling Family history of obesity Family history of celiac disease Family history of lupus erythematosus Diabetes mellitus Cerebrovascular accident Father Family history of diabetes mellitus in first degree relative Family history of heart disease in male family member before age 55 Family history of pancreatic cancer Patient's father is Mother Family history of pancreatic cancer, Onset Age: 50 Patient's mother is Other Acute myocardial infarction Arthritis Asthma HLD (hyperlipidemia) Heart disease Hypertension Kidney disorder Social History Social History Smoking status: Never smok
== END 2023-09-04 12:20 | disposition home or self-care (01) ==
PROVIDERS: Emergency Provider Nurse Practitioner Family; PCP Internal Medicine
DX: H66.91 Otitis media, unspecified, right ear (principal); J45.909 Unspecified asthma, uncomplicated; I10 Essential (primary) hypertension; K21.9 Gastro-esophageal reflux disease without esophagitis; E78.5 Hyperlipidemia, unspecified; E03.9 Hypothyroidism, unspecified; E11.9 Type 2 diabetes mellitus without complications; Z79.82 Long term (current) use of aspirin
CPT/HCPCS: 99213; G0463

== ENCOUNTER 2023-12-08 13:30 | Outpatient (CLI) | payer MEDICARE, OTHER, SELFPAY ==
--- NOTE | ~2023-12-08 | MR_ITS ---
EXAMINATION: MR cervical spine wo con DATE: 12/08/2023 14:11 INDICATION: Radiculopathy, site unspecified. TECHNIQUE: Magnetic resonance imaging (MRI) of the cervical spine was performed without intravenous c ontrast. COMPARISON: Cervical spine MRI 08/26/2009 FINDINGS: There is 7 degrees levocurvature of cervicothoracic spine. Vertebral body heights are yamil l. There is mildly decreased disc height at C4-5, moderately decreased disc height at C5-C6, and mild ly decreased disc height at C6-C7. The spinal cord signal intensity is normal. The following disc lev els are specifically discussed: C2-C3: The disc does not extend beyond the endplate margin. There is mild bilateral uncovertebral mamadou nt osteoarthritis. There is mild bilateral facet joint osteoarthritis. There is mild bilateral neural foraminal stenosis. There is no central canal stenosis. C3-C4: There is a central protrusion. There is mild bilateral uncovertebral joint osteoarthritis. The re is mild right and moderate left facet joint osteoarthritis. There is mild bilateral neural foramin al stenosis. There is no central canal stenosis. C4-C5: The disc is bulging. There is mild right and moderate left uncovertebral joint osteoarthritis. There is moderate bilateral facet joint osteoarthritis. There is mild right and moderate left neural foraminal stenosis. There is mild central canal stenosis. C5-C6: The disc is bulging. There is severe bilateral uncovertebral joint osteoarthritis. There is mi ld bilateral facet joint osteoarthritis. There is moderate bilateral neural foraminal stenosis. There is mild central canal stenosis. C6-C7: The disc is bulging. There is mild right and severe left uncovertebral joint osteoarthritis. T here is mild bilateral facet joint osteoarthritis. There is mild right and moderate left neural donovan inal stenosis. There is mild central canal stenosis. C7-T1: There is a central extrusion. There is mild bilateral uncovertebral joint osteoarthritis. Ther e is severe right and moderate left facet joint osteoarthritis. There is moderate bilateral neural fo raminal stenosis. There is no central canal stenosis. IMPRESSION: 1. Moderate cervical spondylosis, worsened from 08/26/2009. Reviewed, dictated and finalized at location A.
== END 2023-12-08 13:31 | disposition home or self-care (01) ==
LOC: MICIMG 13:31
PROVIDERS: PCP Internal Medicine; Visit Provider Physician Assistant Surgical
DX: M47.812 Spondylosis without myelopathy or radiculopathy, cervical region (principal); M54.10 Radiculopathy, site unspecified
CPT/HCPCS: 72141

== ENCOUNTER 2024-02-11 08:10 | Outpatient (CLI) | payer MEDICARE, OTHER, SELFPAY ==
[2024-02-11 08:41] LABS: Hematocrit 37.8 % (42.0-52.0); Hemoglobin 12.9 g/dL (14.0-18.0); Mean Corpuscular HGB Conc 34.1 g/dl (32-36); Mean Corpuscular Hemoglobin 29.1 pg (26-34); Mean Corpuscular Volume 85.3 fl (80-100); Mean Platelet Volume 11.9 fl (7.4-10.4); Platelet Count Result 108 k/mm3 (150-375); Red Blood Count 4.43 M/mm3 (4.6-6.20); Red Cell Distribution Width 13.2 % (11.5-14.5); White Blood Count 7.1 K/mm3 (4.5-10.0)
[2024-02-11 09:16] LABS: Alanine Aminotransferase 14 U/L (6-50); Alkaline Phosphatase 78 U/L (38-126); Anion Gap 4 mmol/L (4-12); Aspartate Amino Transferase 19 U/L (17-59); Bilirubin,Total 1.1 mg/dL (0.2-1.3); Blood Urea Nitrogen 12 mg/dL (9-20); Calcium 8.4 mg/dL (8.4-10.2); Carbon Dioxide 28 mmol/L (22-30); Chloride 106 mmol/L (98-107); Cholesterol 102 mg/dL (0-200); Estimated Glomerular Filt Rate 59; Glucose 166 mg/dL (65-110); HDL Direct 41 mg/dL; Potassium 4.2 mmol/L (3.4-5.0); Sodium 138 mmol/L (137-145); Triglycerides 120 mg/dL (<150)
[2024-02-11 09:29] LABS: LDL Cholesterol Direct 37 mg/dL
== END 2024-02-11 08:11 | disposition home or self-care (01) ==
PROVIDERS: PCP Internal Medicine; Visit Provider Nurse Practitioner
DX: E78.5 Hyperlipidemia, unspecified (principal)
CPT/HCPCS: 36415; 80053; 80061; 85027

== ENCOUNTER 2024-06-26 08:01 | Outpatient (CLI) | payer MEDICARE, OTHER, SELFPAY ==
--- NOTE | ~2024-06-26 | MR_ITS ---
MRI of the lumbar spine Clinical History: Back pain Technique: Axial T2-weighted images, and sagittal T1-weighted, T2-weighted, and and T2 fat-sat images were acquired. Findings: There is no fracture or subluxation of the lumbar spine. Vertebral bodies maintain normal h eight and alignment. No suspicious bone marrow signal abnormality seen. At L1-L2, there is moderate to advanced facet arthropathy with minimal disc bulge. No central canal s tenosis or neural foraminal narrowing. At L2-L3, there is minimal disc bulge with advanced facet arthropathy. There is moderate central wang l stenosis. There is preservation of the neural foramina. At L3-L4, there is disc bulge with severe facet arthropathy. There is severe spinal canal stenosis/th ecal sac compression. There is moderate right neural foraminal narrowing. Left neural foramen preserv ed. At L4-L5, there is disc bulge with severe facet arthropathy. There is minimal central canal stenosis. There is moderate to advanced bilateral neural foraminal narrowing. At L5-S1, there is mild disc bulge with severe facet arthropathy. There is minimal central canal sten osis. There is moderate left neural foraminal narrowing, and severe right neural foraminal narrowing. There is probable postoperative change in the posterior paravertebral soft tissues at the L4 and L5 l evels. Impression: Moderate to advanced degenerative spondylosis overall, as above. Probable postoperative change at L4- L5 region. Correlate with surgical history. Reviewed, dictated and finalized at [facility]. Impression: Moderate to advanced degenerative spondylosis overall, as above. Probable posto perative change at L4-L5 region. Correlate with surgical history.
== END 2024-06-26 08:02 | disposition home or self-care (01) ==
LOC: MICIMG 08:02
PROVIDERS: PCP Internal Medicine; Visit Provider Physician Assistant Surgical
DX: M47.816 Spondylosis without myelopathy or radiculopathy, lumbar region (principal)
CPT/HCPCS: 72148

== ENCOUNTER 2024-08-12 07:40 | Outpatient (CLI) | payer MEDICARE, OTHER, SELFPAY ==
--- OUTSIDE RECORDS SUMMARY | 2024-08-12 07:46 | XMS_ITS | Clinical Summary ---
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
--- OUTSIDE RECORDS SUMMARY | 2024-08-12 07:46 | XMS_ITS | Encounter Summary ---
Author Organization [facility] Address [address] [place] [address] Care Team Providers Care Event Technician Name Role Phone Unavailable Primary Care Provider Unavailabl e Encounter Details Date Type Department Care Team (Late st Contact Info) Description 07/12/2006 Outpatient Historical [facility] Cardiovas and Thor Surg at [facility] S [facility] [address] [address] Nehemias Smyth MD [address] [facility] [address] [address] Social History Tobacco Use Types Packs/Day Years Used Date Smoking Tobacco: Never Assessed Sex and Gender Information Value Date Recorded Sex Assigned at Not on file 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
--- OUTSIDE RECORDS SUMMARY | 2024-08-12 07:46 | XMS_ITS | Encounter Summary ---
Author Organization [facility] Address [address] [place] [address] Care Team Providers Care Senior Animator Name Role Phone Unavailable Primary Care Provider Unavailabl e Encounter Details Date Type Department Care Team (Late st Contact Info) Description 07/08/2006 Outpatient Historical [facility] Cardiovas and Thor Surg at [facility] S [facility] [address] [address] Nehemias Smyth MD [address] 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
--- OUTSIDE RECORDS SUMMARY | 2024-08-12 07:46 | XMS_ITS | Encounter Summary ---
Author Organization [facility] Address [address] [place] [address] Care Team Providers Care Film Process Operator Name Role Phone Unavailable Primary Care Provider Unavailabl e Encounter Details Date Type Department Care Team (Late st Contact Info) Description 07/08/2006 Outpatient Historical [facility] Support Serv. (Adt Cardiology-[place]) [address] 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
--- OUTSIDE RECORDS SUMMARY | 2024-08-12 07:46 | XMS_ITS | Clinical Summary ---
Author Organization [facility] Address [address] [place] [address] Care Team Providers Care Power Mule Operator Name Role Phone Neftali Benitez DO Primary Care Provider [phone] Source Comments [facility],non-owned Affiliates and Associated Physician Practices is amultiple site organization consisting of ambulatory clinics and hospital sitesin [place], [place], [place] and [place]. This disclosure is being madepursuant to the Care Everywhere program and may not contain all information available regarding this patient. Last updated 17.[facility] Social History Tobacco Use Types Packs/Day Years Used Date Smoking Tobacco: Never Assessed Sex and Gender Information Value Date Recorded Sex Assigned at Not on file Legal Sex Male 8:59 AM CDT Gender Identity Not on file Sexual Orientation Not on file Plan of Treatment Health Maintenance Due Date Last Done Comments COLOGUARD (AGES 45-75) - COL ON CA SCREENING 1950 COLON MONITORING 1950 COLONOSCOPY - COLON CA SCREENING 1950 CT COLONOGRAPHY - COLON CA SCREENING 1950 Colorectal Cancer Screening 1950 FIT - COLON CA SCREENING 1950 FLEX SIG - COLON CA SCREENING 1950 LIPID TESTING 1950 MEDICARE AWV 12 MONTHS 1950 HEPATITIS C SCREENING 07/25/1968 DTAP/TDAP/TD VACCINES (1 - Tdap) 1969 PNEUMOCOCCAL VACCINE 50+ (1 of 1 - PCV) 2000 ZOSTER VACCINE (1 of 2) 2000 COVID-19 VACCINE (2023-2 5 season) 2023 DEPRESSION SCREENING 03/08/2024 INFLUENZA VACCINE (Season Ended) 2024 Respiratory Syncytial Virus (RSV) Vaccine Pt: or over 60 yrs (1 - 1-dose 75+ series) 2025 HEPATITIS B VACCINE Aged Out No longe r eligible based on patient's age to complete this topic HIB VACCINE Aged Out No longer eligi ble based on patient's age to complete this topic HPV VACCINE Aged Out No longer eligi ble based on patient's age to complete this topic MENINGOCOCCAL (Group B) VACC INE SHARED DECISION-MAKING Aged Out No longer eligibl e based on patient's age to complete this topic MENINGOCOCCAL GROUPS A/C/Y/W VACCINE Aged Out No longer eligible b ased on patient's age to complete this topic Insurance MEDICARE [facility] MEDICARE [facility] Care Teams Power Mule Operator Relationship Specialty Start Date End Date Neftali Benitez DO [address] [place] [address] PCP - General 10/22/21
--- OUTSIDE RECORDS SUMMARY | 2024-08-12 07:46 | XMS_ITS | Encounter Summary ---
Author Organization [employer] Address [address] [place] [address] Care Team Providers Care Manager Installation Name Role Phone Unavailable Primary Care Provider Unavailabl e Encounter Details Date Type Department Care Team (Late st Contact Info) Description 07/13/2006 Outpatient Historical [facility] Support Serv. (Adt Cardiology-[facility]) [address] 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
--- OUTSIDE RECORDS SUMMARY | 2024-08-12 07:46 | XMS_ITS | Continuity of Care Document ---
Author Organization [facility] Address [address] [place] [address] Phone Care Team Providers Care Chisel Worker Name Role Phone Rigo Miller Unavailable Unavailable Procedures Procedure Date Eye Exam & Treatment Refraction Eye Exam & Treatment Refraction Eye Exam & Treatment Refraction Office/outpatient Visit, Est Refraction Advance Directives Directive Yes / No Effective Date File Name No Information Encounters Encounter Description Practice Location Reason(s) For Visit Diagnoses Date Provider Providers Copied on Encounter [facility], [address] [place] [address] [address], [place], [place], [id number], [place] tel:[phone] [facility] No Information [phone] Angela Sierra. [address] , [address], [place], [place], [facility], [place]. tel:[phone] [facility], [address] [place] [address] [address], [place], [place], [id number], [place] tel:[phone] [facility] No Information 9-200 9 Angela Sierra. [address] , [address], [place], [address], [place]. tel:[phone] [facility], [address] [place] [address] [address], [place], [place], [id number], tel:[phone] [facility] No Information 8 Angela Sierra. [address] , [address], [place], [address], . tel:[phone] Office/outpat ient Visit, [facility], [address], [place], [place], [id number], tel:[phone] [facility] No Information 3[address] 7 Angela Sierra. [address] , [address], [place], [address], [place]. tel:[phone] Family History Family Member Type Diagnosis Age At Onset No Information Payers Payer name Insurance type Covered republican ID Armanimartita gutierrez(s) [facility] CI [id number] Social History Type Description Quantity Date Captured [...]
--- OUTSIDE RECORDS SUMMARY | 2024-08-12 07:46 | XMS_ITS | Encounter Summary ---
Author Organization [facility] Address [address] [place] [address] Care Team Providers Care Spreader Operator Name Role Phone Unavailable Primary Care Provider Unavailabl e Encounter Details Date Type Department Care Team (Late st Contact Info) Description 08/17/2006 Outpatient Historical [facility] Cardiovas and Thor Surg at [facility] [place] [facility] [address] [facility] [address] [address] Nehemias Smyth MD [address] [facility] [place] [address] Social History Tobacco Use Types Packs/Day Years Used Date Smoking Tobacco: Never Assessed Sex and Gender Information Value Date Recorded Sex Assigned at Not on file 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
--- OUTSIDE RECORDS SUMMARY | 2024-08-12 07:46 | XMS_ITS | Encounter Summary ---
Author Organization [employer] Address 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 Gender Identity Not on file Sexual Orientation Not on file documented as of this encounter Plan of Treatment Not on file documented as of this encounter Procedures Procedure Name Priority Date/Time Associated Diagnosis Comments POC GLUCOSE Routine 07/15/2006 7:05 AM CDT CBC WITH DIFFERENTIAL Routine 07/15/2006 5:15 AM CDT CBC WITH DIFFERENTIAL Routine 07/15/2006 5:15 AM CDT BASIC METABOLIC PANEL Routine 07/15/2006 5:15 AM CDT POC GLUCOSE Routine 07/14/2006 8:31 PM CDT POC GLUCOSE Routine 07/14/2006 4:30 PM CDT CK TOTAL, RELATIVE INDEX Routine 07/14/2006 12:00 PM CDT CKMB W/REFLEX CK Routine 07/14/2006 12:0 0 PM CDT POC GLUCOSE Routine 07/14/2006 11:18 AM CDT POC GLUCOSE Routine 07/14/2006 7:34 AM CDT CK TOTAL, RELATIVE INDEX Routine 07/14/2006 1:30 AM CDT CKMB W/REFLEX CK Routine 07/14/2006 1:30 AM CDT CBC WITH DIFFERENTIAL Routine 07/14/2006 1:30 AM CDT CBC WITH DIFFERENTIAL Routine 07/14/2006 1:30 AM CDT MAGNESIUM LEVEL Routine 07/14/2006 1:30 AM CDT BASIC METABOLIC PANEL Routine 07/14/2006 1:30 AM CDT POC GLUCOSE Routine 07/13/2006 8:50 PM CDT CK TOTAL, RELATIVE INDEX Routine 07/13/2006 5:37 PM CDT CKMB W/REFLEX CK Routine 07/13/2006 5:37 PM CDT POC GLUCOSE Routine 07/13/2006 4:28 PM CDT POC GLUCOSE Routine 07/13/2006 12:57 PM CDT POC GLUCOSE Routine 07/13/2006 11:13 AM CDT POC GLUCOSE Routine 07/13/2006 5:35 AM CDT CVR ONLY, CKMB/CK Routine 07/13/2006 5:0 0 AM CDT PT AND APTT Routine 07/13/2006 5:00 AM CDT CBC WITH DIFFERENTIAL Routine 07/13/2006 5:00 AM CDT CBC WITH DIFFERENTIAL Routine 07/13/2006 5:00 AM CDT COMPREHENSIVE METABOLIC PANEL Routine 07/13/2006 5:00 AM CDT POC GLUCOSE Routine 07/13/2006 2:58 AM CDT POC GLUCOSE Routine 07/13/2006 1:05 AM CDT POC GLUCOSE Routine 07/12/2006 11:38 PM CDT POC GLUCOSE Routine 07/12/2006 9:55 PM CDT POC GLUCOSE Routine 07/12/2006 8:21 PM CDT CVR ONLY, CKMB/CK Routine 07/12/2006 7:0 0 PM CDT POC GLUCOSE Routine 07/12/2006 5:55 PM CDT POC GLUCOSE Routine 07/12/2006 4:15 PM CDT POC GLUCOSE Routine 07/12/2006 1:16 PM CDT CVR ONLY, CKMB/CK Routine 07/12/2006 11: 29 AM CDT PT AND APTT Routine 07/12/2006 11:29 AM CDT CBC WITH DIFFERENTIAL Routine 07/12/2006 11:29 AM CDT CBC WITH DIFFERENTIAL Routine 07/12/2006 11:29 AM CDT MAGNESIUM LEVEL Routine 07/12/2006 11:29 AM CDT BASIC METABOLIC PANEL Routine 07/12/2006 11:29 AM CDT POC GLUCOSE Routine 07/12/2006 11:22 AM CDT POC, BLOOD GASES Routine 07/12/2006 10:2 6 AM CDT POC, BLOOD GASES Routine 07/12/2006 10:0 9 AM CDT POC, BLOOD GASES Routine 07/12/2006 9:57 AM CDT POC, BLOOD GASES Routine 07/12/2006 9:41 AM CDT POC, BLOOD GASES Routine 07/12/2006 9:37 AM CDT documented in this encounter Results * (ABNORMAL) POC GLUCOSE (07/15/2006 7:05 AM CDT) GLUCOSE POC 132(H) 65 - 99 mg/dL INTERFACE SYSTEM 07/15/2006 7:05 AM CDT us Nehemias Smyth MD POINT OF CARE TESTING Edited Performing Organization Address [facility] de Phone Number INTERFACE SYSTEM Refer to clinic/hospital department * (ABNORMAL) CBC WITH DIFFERENTIAL (07/15/2006 5:15 AM CDT) NEUTROPHILS 72(H) 45 - 70 % INTERFAC E SYSTEM LYMPHOCYTES 15(L) 16 - 45 % INTERFAC E SYSTEM MONOCYTES 11 3 - 13 % INTERFACE SYSTEM EOSINOPHILS 1 0 - 7 % INTERFAC E SYSTEM BASOPHILS 0 0 - 2 % INTERFACE SYSTEM NEUTROPHIL ABSOLUTE 8.67(H) 1.90 - 7.00 K/uL INTERFACE SYSTEM LYMPHOCYTE ABSOLUTE 1.84 0.70 - 4.50 K/uL INTERFACE SYSTEM MONOCYTE ABSOLUTE 1.32(H) 0.10 - 1.30 K/uL INTERFACE SYSTEM EOSINOPHIL ABSOLUTE 0.13 0.00 - 0.70 K/uL INTERFACE SYSTEM BASOPHILS ABSOLUTE 0.03 0.00 - 0.20 K/uL INTERFACE SYSTEM 07/15/2006 5:15 AM CDT Bandar WRIGHT HEMATOLOGY ORDERABLES Edited Performing Organization Address [facility] de Phone Number INTERFACE SYSTEM Refer to clinic/hospital department * (ABNORMAL) CBC WITH DIFFERENTIAL (07/15/2006 5:15 AM CDT) WBC 12.0(H) 4.0 - 9.8 K/uL INTERFACE SYSTEM RBC 4.12(L) 4.50 - 5.40 M/uL INTERFACE SYSTEM HEMOGLOBIN 12.0(L) 13.6 - 16.5 g/dL INTERFACE SYSTEM HEMATOCRIT 34.7(L) 40.0 - 48.0 % INTERFACE SYSTEM MCV 84.2 82.0 - 99.0 fL INTERFACE SYSTEM MCH 29.1 27.2 - 32.6 pg INTERFACE SYSTEM MCHC 34.6 31.5 - 35.5 % INTERFACE SYSTEM RDW 13.4 11.5 - 14.5 % INTERFACE SYSTEM RDW-STDEV 40.7 37.1 - 48.7 fL INTERFACE SYSTEM PLATELETS 112(L) 140 - 350 K/uL INTERFACE SYSTEM MPV 11.8 9.3 - 12.4 fL INTERFACE SYSTEM 07/15/2006 5:15 AM CDT Bandar WRIGHT HEMATOLOGY ORDERABLES Edited INTERFACE SYSTEM Refer to clinic/hospital department * (ABNORMAL) BASIC METABOLIC PANEL (07/15/2006 5:15 AM CDT) GLUCOSE 126(H) 65 - 99 mg/dL INTERFACE SYSTEM CREATININE 1.04 0.67 - 1.17 mg/dL INTERFACE SYSTEM CALCIUM 7.6(L) 8.4 - 10.2 mg/dL INTERFACE SYSTEM BUN 25(H) 6 - 20 mg/dL INTERFACE SYSTEM SODIUM 133(L) 135 - 145 mmol/L INTERFACE SYSTEM POTASSIUM 4.0 3.5 - 4.9 mmol/L INTERFACE SYSTEM CHLORIDE 99 96 - 108 mmol/L INTERFACE SYSTEM CO2 29 22 - 30 mmol/L INTERFACE SYSTEM GFR, >60 >=60 mL/min/1. 7 sq meter INTERFACE SYSTEM GFR >60 >=60 mL/min/1. 7 sq meter INTERFACE SYSTEM Comment: Estimated GFR rate interpretative information for both Americans and non- Americans is available on the [facility] Intranet at: [email or web address] Select: Lab Policies and Procedures Select: Reference Ranges - GFR 07/15/2006 5:15 AM CDT Bandar WRIGHT CHEMISTRY ORDERABLES Edited Performing Organization Address [facility] Phone Number INTERFACE SYSTEM Refer to clinic/hospital department * (ABNORMAL) POC GLUCOSE (07/14/2006 8:31 PM CDT) GLUCOSE POC 153(H) 65 - 99 mg/dL INTERFACE SYSTEM 07/14/2006 8:31 PM CDT Nehemias Smyth MD POINT OF CARE TESTING Edited Performing Organization Address [facility] Phone Number INTERFACE SYSTEM Refer to clinic/hospital department * (ABNORMAL) POC GLUCOSE (07/14/2006 4:30 PM CDT) COMMENT, GLU POC Notified RN INTERFACE SYSTEM GLUCOSE POC 168(H) 65 - 99 mg/dL INTERFACE SYSTEM 07/14/2006 4:30 PM CDT Nehemias Smyth MD POINT OF CARE TESTING Edited Performing Organization Address [facility] Phone Number INTERFACE SYSTEM Refer to clinic/hospital department * (ABNORMAL) CK TOTAL, RELATIVE INDEX (07/14/2006 12:00 PM CDT) CK 4,695(H) 10 - 170 U/L INTERFACE SYSTEM CARDIAC RELATIVE INDEX 0.4 <=4.0 INTERFACE SYSTEM 07/14/2006 12:0 0 PM CDT Result [facility] Nehemias Smyth MD CHEMISTRY ORDERABLES Edited Performing Organization Address [facility] Phone Number INTERFACE SYSTEM Refer to clinic/hospital department * (ABNORMAL) CKMB W/REFLEX CK (07/14/2006 12:00 PM CDT) CKMB 16.9(AA) <=6.7 ng/mL INTERFACE SYSTEM Comment:Persistent abnormal result CKMB INTERP See Below INTERFAC E SYSTEM Comment:Elevated CKMB,Consis tent with Myocardial Injury 07/14/2006 12:0 0 PM CDT us Neheimas Smyth MD CHEMISTRY ORDERABLES Edited Performing Organization Address [facility] Phone Number INTERFACE SYSTEM Refer to clinic/hospital department * (ABNORMAL) POC GLUCOSE (07/14/2006 11:18 AM CDT) COMMENT, GLU POC Notified RN INTERFACE SYSTEM GLUCOSE POC 169(H) 65 - 99 mg/dL INTERFACE SYSTEM 07/14/2006 11:1 8 AM CDT us Nehemias Smyth MD POINT OF CARE TESTING Edited Performing Organization Address [facility] Phone Number INTERFACE SYSTEM Refer to clinic/hospital department * (ABNORMAL) POC GLUCOSE (07/14/2006 7:34 AM CDT) COMMENT, GLU POC Notified RN INTERFACE SYSTEM GLUCOSE POC 141(H) 65 - 99 mg/dL INTERFACE SYSTEM 07/14/2006 7:34 AM CDT us Nehemias Smyth MD POINT OF CARE TESTING Edited Performing Organization Address [facility] Phone Number INTERFACE SYSTEM Refer to clinic/hospital department * (ABNORMAL) CBC WITH DIFFERENTIAL (07/14/2006 1:30 AM CDT) NEUTROPHILS 80(H) 45 - 70 % INTERFAC E SYSTEM LYMPHOCYTES 10(L) 16 - 45 % INTERFAC E SYSTEM MONOCYTES 10 3 - 13 % INTERFACE SYSTEM EOSINOPHILS 0 0 - 7 % INTERFAC E SYSTEM BASOPHILS 0 0 - 2 % INTERFACE SYSTEM NEUTROPHIL ABSOLUTE 14.50(H) 1.90 - 7.00 K/uL INTERFACE SYSTEM LYMPHOCYTE ABSOLUTE 1.72 0.70 - 4.50 K/uL INTERFACE SYSTEM MONOCYTE ABSOLUTE 1.83(H) 0.10 - 1.30 K/uL INTERFACE SYSTEM EOSINOPHIL ABSOLUTE 0.02 0.00 - 0.70 K/uL INTERFACE SYSTEM BASOPHILS ABSOLUTE 0.02 0.00 - 0.20 K/uL INTERFACE SYSTEM 07/14/2006 1:30 AM CDT us Nehemias Smyth MD HEMATOLOGY ORDERABLES Edited Performing Organization Address [facility] Phone Number INTERFACE SYSTEM Refer to clinic/hospital department * (ABNORMAL) CBC WITH DIFFERENTIAL (07/14/2006 1:30 AM CDT) WBC 18.1(H) 4.0 - 9.8 K/uL INTERFACE SYSTEM RBC 4.54 4.50 - 5.40 M/uL INTERFACE SYSTEM HEMOGLOBIN 13.5(L) 13.6 - 16.5 g/dL INTERFACE SYSTEM HEMATOCRIT 38.1(L) 40.0 - 48.0 % INTERFACE SYSTEM MCV 83.9 82.0 - 99.0 fL INTERFACE SYSTEM MCH 29.7 27.2 - 32.6 pg INTERFACE SYSTEM MCHC 35.4 31.5 - 35.5 % INTERFACE SYSTEM RDW 13.6 11.5 - 14.5 % INTERFACE SYSTEM RDW-STDEV 40.9 37.1 - 48.7 fL INTERFACE SYSTEM PLATELETS 130(L) 140 - 350 K/uL INTERFACE SYSTEM MPV 12.5(H) 9.3 - 12.4 fL INTERFACE SYSTEM 07/14/2006 1:30 AM CDT us Nehemias Smyth MD HEMATOLOGY ORDERABLES Edited Performing Organization Address [facility] Phone Number INTERFACE SYSTEM Refer to clinic/hospital department * (ABNORMAL) CK TOTAL, RELATIVE INDEX (07/14/2006 1:30 AM CDT) CK 5,144(H) 10 - 170 U/L INTERFACE SYSTEM CARDIAC RELATIVE INDEX 0.6 <=4.0 INTERFACE SYSTEM 07/14/2006 1:30 AM CDT Result Xi Smyth MD CHEMISTRY ORDERABLES Edited Performing Organization Address [facility] Phone Number INTERFACE SYSTEM Refer to clinic/hospital department * (ABNORMAL) CKMB W/REFLEX CK (07/14/2006 1:30 AM CDT) CKMB 28.1(AA) <=6.7 ng/mL INTERFACE SYSTEM Comment:Persistent abnormal result CKMB INTERP See Below INTERFAC E SYSTEM Comment:Elevated CKMB,Consis tent with Myocardial Injury 07/14/2006 1:30 AM CDT us Nehemias Smyth MD CHEMISTRY ORDERABLES Edited Performing Organization Address [place]/[facility] de Phone Number INTERFACE SYSTEM Refer to clinic/hospital department * MAGNESIUM LEVEL (07/14/2006 1:30 AM CDT) MAGNESIUM 2.5 1.5 - 2.5 mg/dL INTERFACE SYSTEM 07/14/2006 1:30 AM CDT us Nehemias Smyth MD CHEMISTRY ORDERABLES Edited Performing Organization Address [facility] de Phone Number INTERFACE SYSTEM Refer to clinic/hospital department * (ABNORMAL) BASIC METABOLIC PANEL (07/14/2006 1:30 AM CDT) GLUCOSE 140(H) 65 - 99 mg/dL INTERFACE SYSTEM CREATININE 1.09 0.67 - 1.17 mg/dL INTERFACE SYSTEM CALCIUM 8.2(L) 8.4 - 10.2 mg/dL INTERFACE SYSTEM BUN 21(H) 6 - 20 mg/dL INTERFACE SYSTEM SODIUM 132(L) 135 - 145 mmol/L INTERFACE SYSTEM POTASSIUM 4.5 3.5 - 4.9 mmol/L INTERFACE SYSTEM CHLORIDE 99 96 - 108 mmol/L INTERFACE SYSTEM CO2 25 22 - 30 mmol/L INTERFACE SYSTEM GFR, >60 >=60 mL/min/1. 7 sq meter INTERFACE SYSTEM GFR >60 >=60 mL/min/1. 7 sq meter INTERFACE SYSTEM Comment: Estimated GFR rate interpretative information for both Americans and non- Americans is available on the [facility] Intranet at: [email or web address] Select: Lab Policies and Procedures Select: Reference Ranges - GFR 07/14/2006 1:30 AM CDT us Nehemias Smyth MD CHEMISTRY ORDERABLES Edited Performing Organization Address [facility] de Phone Number INTERFACE SYSTEM Refer to clinic/hospital department * (ABNORMAL) POC GLUCOSE (07/13/2006 8:50 PM CDT) GLUCOSE POC 180(H) 65 - 99 mg/dL INTERFACE SYSTEM 07/13/2006 8:50 PM CDT us Nehemias Smyth MD POINT OF CARE TESTING Edited Performing Organization Address [facility] de Phone Number INTERFACE SYSTEM Refer to clinic/hospital department * (ABNORMAL) CK TOTAL, RELATIVE INDEX (07/13/2006 5:37 PM CDT) CK 5,575(H) 10 - 170 U/L INTERFACE SYSTEM Comment:Quantitated by dilut ion. CARDIAC RELATIVE INDEX 0.8 <=4.0 INTERFACE SYSTEM 07/13/2006 5:37 PM CDT us Nehemias Smyth MD CHEMISTRY ORDERABLES Edited Performing Organization Address [facility] Phone Number INTERFACE SYSTEM Refer to clinic/hospital department * (ABNORMAL) CKMB W/REFLEX CK (07/13/2006 5:37 PM CDT) CKMB 45.3(AA) <=6.7 ng/mL INTERFACE SYSTEM Comment:Persistent abnormal result CKMB INTERP See Below INTERFAC E SYSTEM Comment:Elevated CKMB,Consis tent with Myocardial Injury 07/13/2006 5:37 PM CDT us Nehemias Smyth MD CHEMISTRY ORDERABLES Edited Performing Organization Address [facility] de Phone Number INTERFACE SYSTEM Refer to clinic/hospital department * (ABNORMAL) POC GLUCOSE (07/13/2006 4:28 PM CDT) COMMENT, GLU POC Notified RN INTERFACE SYSTEM GLUCOSE POC 151(H) 65 - 99 mg/dL INTERFACE SYSTEM 07/13/2006 4:28 PM CDT Result Xi Smyth MD POINT OF CARE TESTING Edited Performing Organization Address [facility] de Phone Number INTERFACE SYSTEM Refer to clinic/hospital department * (ABNORMAL) POC GLUCOSE (07/13/2006 12:57 PM CDT) GLUCOSE POC 168(H) 65 - 99 mg/dL INTERFACE SYSTEM 07/13/2006 12:5 7 PM CDT us Nehemias Smyth MD POINT OF CARE TESTING Edited Performing Organization Address [facility] de Phone Number INTERFACE SYSTEM Refer to clinic/hospital department * (ABNORMAL) POC GLUCOSE (07/13/2006 11:13 AM CDT) GLUCOSE POC 202(H) 65 - 99 mg/dL INTERFACE SYSTEM 07/13/2006 11:1 3 AM CDT us Nehemias Smyth MD POINT OF CARE TESTING Edited Performing Organization Address [facility] de Phone Number INTERFACE SYSTEM Refer to clinic/hospital department * (ABNORMAL) POC GLUCOSE (07/13/2006 5:35 AM CDT) GLUCOSE POC 123(H) 65 - 99 mg/dL INTERFACE SYSTEM 07/13/2006 5:35 AM CDT Result Xi Smyth MD POINT OF CARE TESTING Edited Performing Organization Address [facility] de Phone Number INTERFACE SYSTEM Refer to clinic/hospital department * (ABNORMAL) CBC WITH DIFFERENTIAL (07/13/2006 5:00 AM CDT) NEUTROPHILS 83(H) 45 - 70 % INTERFAC E SYSTEM LYMPHOCYTES 8(L) 16 - 45 % INTERFAC E SYSTEM MONOCYTES 9 3 - 13 % INTERFACE SYSTEM EOSINOPHILS 0 0 - 7 % INTERFAC E SYSTEM BASOPHILS 0 0 - 2 % INTERFACE SYSTEM NEUTROPHIL ABSOLUTE 14.09(H) 1.90 - 7.00 K/uL INTERFACE SYSTEM LYMPHOCYTE ABSOLUTE 1.40 0.70 - 4.50 K/uL INTERFACE SYSTEM MONOCYTE ABSOLUTE 1.55(H) 0.10 - 1.30 K/uL INTERFACE SYSTEM EOSINOPHIL ABSOLUTE 0.00 0.00 - 0.70 K/uL INTERFACE SYSTEM BASOPHILS ABSOLUTE 0.01 0.00 - 0.20 K/uL INTERFACE SYSTEM 07/13/2006 5:00 AM CDT Nehemias Smyth MD HEMATOLOGY ORDERABLES Edited Performing Organization Address [place]/[facility] de Phone Number INTERFACE SYSTEM Refer to clinic/hospital department * (ABNORMAL) CBC WITH DIFFERENTIAL (07/13/2006 5:00 AM CDT) WBC 17.1(H) 4.0 - 9.8 K/uL INTERFACE SYSTEM RBC 4.94 4.50 - 5.40 M/uL INTERFACE SYSTEM HEMOGLOBIN 14.5 13.6 - 16.5 g/dL INTERFACE SYSTEM HEMATOCRIT 41.1 40.0 - 48.0 % INTERFACE SYSTEM MCV 83.2 82.0 - 99.0 fL INTERFACE SYSTEM MCH 29.4 27.2 - 32.6 pg INTERFACE SYSTEM MCHC 35.3 31.5 - 35.5 % INTERFACE SYSTEM RDW 13.3 11.5 - 14.5 % INTERFACE SYSTEM RDW-STDEV 39.8 37.1 - 48.7 fL INTERFACE SYSTEM PLATELETS 158 140 - 350 K/uL INTERFACE SYSTEM MPV 12.6(H) 9.3 - 12.4 fL INTERFACE SYSTEM 07/13/2006 5:00 AM CDT Nehemias Smyth MD HEMATOLOGY ORDERABLES Edited Performing Organization Address [facility] Phone Number INTERFACE SYSTEM Refer to clinic/hospital department * PT AND APTT (07/13/2006 5:00 AM CDT) PROTIME 14.5 12.7 - 15.1 Seconds INTERFACE SYSTEM INR 1.1 0.9 - 1.1 INTERFACE SYSTEM Comment: INR Therapeutic Range: Adult: 2.0 - 3.0 for pulmonary embolism or prophylaxis against venous thrombosis or systemic embolization. 2.0 - 3.0 for patients with tissue heart valves. 2.5 - 3.5 for patients with mechanical heart valves or post GA. Pediatric (12 years and under): 1.5 - 3.0 Although the target range in children is not well established , INR values of 1.5 - 3.0 are recommended for most patients. Higher values have been used in children with prosthetic cardiac valves and hereditary clotting disorders. (<3 days) therapeutic ranges have not been established. PTT 32.3 24.4 - 36.4 Seconds INTERFACE SYSTEM Comment: PTT Therapeutic Range: Heparin Level PTT (seconds) <0.10 units/mL <53 0.10 - 0.30 units/mL 53 - 67 0.30 - 0.70 units/mL* 67 - 95* 0.70 - 1.00 units/mL 95 - 116 *corresponds to therapeutic range for unfractionated heparin 07/13/2006 5:00 AM CDT us Nehemias Smyth MD HEMATOLOGY ORDERABLES Edited INTERFACE SYSTEM Refer to clinic/hospital department * (ABNORMAL) COMPREHENSIVE METABOLIC PANEL (07/13/2006 5:00 AM CDT) GLUCOSE 144(H) 65 - 99 mg/dL INTERFACE SYSTEM CREATININE 1.17 0.67 - 1.17 mg/dL INTERFACE SYSTEM CALCIUM 8.2(L) 8.4 - 10.2 mg/dL INTERFACE SYSTEM ALKALINE PHOSPHATASE 48 40 - 129 U/L INTERFACE SYSTEM AST 42(H) 12 - 38 U/L INTERFACE SYSTEM ALT 34 0 - 41 U/L INTERFACE SYSTEM TOTAL PROTEIN 5.9(L) 6.3 - 8.6 g/dL INTERFACE SYSTEM ALBUMIN 3.4 3.4 - 4.8 g/dL INTERFACE SYSTEM BILIRUBIN TOTAL 0.8 0.2 - 1.0 mg/dL INTERFACE SYSTEM BUN 22(H) 6 - 20 mg/dL INTERFACE SYSTEM SODIUM 136 135 - 145 mmol/L INTERFACE SYSTEM POTASSIUM 4.8 3.5 - 4.9 mmol/L INTERFACE SYSTEM CHLORIDE 104 96 - 108 mmol/L INTERFACE SYSTEM CO2 22 22 - 30 mmol/L INTERFACE SYSTEM GFR, >60 >=60 mL/min/1. 7 sq meter INTERFACE SYSTEM GFR >60 >=60 mL/min/1. 7 sq meter INTERFACE SYSTEM Comment: Estimated GFR rate interpretative information for both Americans and non- Americans is available on the [facility] Intranet at: [email or web address] Select: Lab Policies and Procedures Select: Reference Ranges - GFR 07/13/2006 5:00 AM CDT us Nehemias Smyth MD CHEMISTRY ORDERABLES Edited Performing Organization Address [place]/[facility] de Phone Number INTERFACE SYSTEM Refer to clinic/hospital department * (ABNORMAL) CVR ONLY, CKMB/CK (07/13/2006 5:00 AM CDT) CKMB 31.2(AA) <=6.7 ng/mL INTERFACE SYSTEM Comment:Persistent abnormal result CKMB INTERP See Below INTERFAC E SYSTEM Comment:Elevated CKMB,Consis tent with Myocardial Injury CK 2,200(H) 10 - 170 U/L INTERFACE SYSTEM CARDIAC RELATIVE INDEX 1.4 <=4.0 INTERFACE SYSTEM 07/13/2006 5:00 AM CDT us Nehemias Smyth MD CHEMISTRY ORDERABLES Edited Performing Organization Address [facility] Phone Number INTERFACE SYSTEM Refer to clinic/hospital department * (ABNORMAL) POC GLUCOSE (07/13/2006 2:58 AM CDT) GLUCOSE POC 153(H) 65 - 99 mg/dL INTERFACE SYSTEM 07/13/2006 2:58 AM CDT us Nehemias Smyth MD POINT OF CARE TESTING Edited Performing Organization Address [facility] de Phone Number INTERFACE SYSTEM Refer to clinic/hospital department * (ABNORMAL) POC GLUCOSE (07/13/2006 1:05 AM CDT) GLUCOSE POC 146(H) 65 - 99 mg/dL INTERFACE SYSTEM 07/13/2006 1:05 AM CDT us Nehemias Smyth MD POINT OF CARE TESTING Edited Performing Organization Address [facility] Phone Number INTERFACE SYSTEM Refer to clinic/hospital department * (ABNORMAL) POC GLUCOSE (07/12/2006 11:38 PM CDT) GLUCOSE POC 149(H) 65 - 99 mg/dL INTERFACE SYSTEM 07/12/2006 11:3 8 PM CDT us Nehemias Smyth MD POINT OF CARE TESTING Edited Performing Organization Address [facility] Phone Number INTERFACE SYSTEM Refer to clinic/hospital department * (ABNORMAL) POC GLUCOSE (07/12/2006 9:55 PM CDT) GLUCOSE POC 169(H) 65 - 99 mg/dL INTERFACE SYSTEM 07/12/2006 9:55 PM CDT us Nehemias Smyth MD POINT OF CARE TESTING Edited Performing Organization Address [facility] Phone Number INTERFACE SYSTEM Refer to clinic/hospital department * (ABNORMAL) POC GLUCOSE (07/12/2006 8:21 PM CDT) GLUCOSE POC 158(H) 65 - 99 mg/dL INTERFACE SYSTEM 07/12/2006 8:21 PM CDT us Nehemias Smyth MD POINT OF CARE TESTING Edited Performing Organization Address [facility] Phone Number INTERFACE SYSTEM Refer to clinic/hospital department * (ABNORMAL) CVR ONLY, CKMB/CK (07/12/2006 7:00 PM CDT) CKMB 19.3(AA) <=6.7 ng/mL INTERFACE SYSTEM Comment:Persistent abnormal result CK 818(H) 10 - 170 U/L INTERFACE SYSTEM CARDIAC RELATIVE INDEX 2.4 <=4.0 INTERFACE SYSTEM CKMB INTERP See Below INTERFAC E SYSTEM Comment:Elevated CKMB,Consis tent with Myocardial Injury. 07/12/2006 7:00 PM CDT us Nehemias Smyth MD CHEMISTRY ORDERABLES Edited Performing Organization Address [facility] Phone Number INTERFACE SYSTEM Refer to clinic/hospital department * (ABNORMAL) POC GLUCOSE (07/12/2006 5:55 PM CDT) GLUCOSE POC 162(H) 65 - 99 mg/dL INTERFACE SYSTEM 07/12/2006 5:55 PM CDT us Nehemias Smyth MD POINT OF CARE TESTING Edited Performing Organization Address [facility] Phone Number INTERFACE SYSTEM Refer to clinic/hospital department * (ABNORMAL) POC GLUCOSE (07/12/2006 4:15 PM CDT) GLUCOSE POC 160(H) 65 - 99 mg/dL INTERFACE SYSTEM 07/12/2006 4:15 PM CDT us Nehemias Smyth MD POINT OF CARE TESTING Edited Performing Organization Address [facility] Phone Number INTERFACE SYSTEM Refer to clinic/hospital department * (ABNORMAL) POC GLUCOSE (07/12/2006 1:16 PM CDT) GLUCOSE POC 117(H) 65 - 99 mg/dL INTERFACE SYSTEM 07/12/2006 1:16 PM CDT Result Xi Smyth MD POINT OF CARE TESTING Edited Performing Organization Address [facility] Phone Number INTERFACE SYSTEM Refer to clinic/hospital department * (ABNORMAL) CVR ONLY, CKMB/CK (07/12/2006 11:29 AM CDT) CKMB 7.6(AA) <=6.7 ng/mL INTERFACE SYSTEM Comment:Results called to Re nee at 07/12/2006 11:58 AM and read back verified. CKMB INTERP See Below INTERFAC E SYSTEM Comment:Elevated CKMB,Consis tent with Myocardial Injury. CK 142 10 - 170 U/L INTERFACE SYSTEM CARDIAC RELATIVE INDEX N/A <=4.0 INTERFACE SYSTEM 07/12/2006 11:2 9 AM CDT Nehemias Smyth MD CHEMISTRY ORDERABLES Edited Performing Organization Address [facility] de Phone Number INTERFACE SYSTEM Refer to clinic/hospital department * (ABNORMAL) CBC WITH DIFFERENTIAL (07/12/2006 11:29 AM CDT) NEUTROPHILS 76(H) 45 - 70 % INTERFAC E SYSTEM LYMPHOCYTES 16 16 - 45 % INTERFAC E SYSTEM MONOCYTES 7 3 - 13 % INTERFACE SYSTEM EOSINOPHILS 1 0 - 7 % INTERFAC E SYSTEM BASOPHILS 0 0 - 2 % INTERFACE SYSTEM NEUTROPHIL ABSOLUTE 15.24(H) 1.90 - 7.00 K/uL INTERFACE SYSTEM LYMPHOCYTE ABSOLUTE 3.29 0.70 - 4.50 K/uL INTERFACE SYSTEM MONOCYTE ABSOLUTE 1.46(H) 0.10 - 1.30 K/uL INTERFACE SYSTEM EOSINOPHIL ABSOLUTE 0.18 0.00 - 0.70 K/uL INTERFACE SYSTEM BASOPHILS ABSOLUTE 0.03 0.00 - 0.20 K/uL INTERFACE SYSTEM 07/12/2006 11:2 9 AM CDT Nehemias Smyth MD HEMATOLOGY ORDERABLES Edited Performing Organization Address [facility] de Phone Number INTERFACE SYSTEM Refer to clinic/hospital department * (ABNORMAL) CBC WITH DIFFERENTIAL (07/12/2006 11:29 AM CDT) WBC 20.2(H) 4.0 - 9.8 K/uL INTERFACE SYSTEM RBC 4.72 4.50 - 5.40 M/uL INTERFACE SYSTEM HEMOGLOBIN 13.8 13.6 - 16.5 g/dL INTERFACE SYSTEM HEMATOCRIT 39.0(L) 40.0 - 48.0 % INTERFACE SYSTEM MCV 82.6 82.0 - 99.0 fL INTERFACE SYSTEM MCH 29.2 27.2 - 32.6 pg INTERFACE SYSTEM MCHC 35.4 31.5 - 35.5 % INTERFACE SYSTEM RDW 12.9 11.5 - 14.5 % INTERFACE SYSTEM RDW-STDEV 38.6 37.1 - 48.7 fL INTERFACE SYSTEM PLATELETS 152 140 - 350 K/uL INTERFACE SYSTEM MPV 12.4 9.3 - 12.4 fL INTERFACE SYSTEM 07/12/2006 11:2 9 AM CDT us Nehemias Smyth MD HEMATOLOGY ORDERABLES Edited Performing Organization Address [facility] Phone Number INTERFACE SYSTEM Refer to clinic/hospital department * (ABNORMAL) PT AND APTT (07/12/2006 11:29 AM CDT) PROTIME 15.5(H) 12.7 - 15.1 Seconds INTERFACE SYSTEM INR 1.2(H) 0.9 - 1.1 INTERFACE SYSTEM Comment: INR Therapeutic Range: Adult: 2.0 - 3.0 for pulmonary embolism or prophylaxis against venous thrombosis or systemic embolization. 2.0 - 3.0 for patients with tissue heart valves. 2.5 - 3.5 for patients with mechanical heart valves or post GA. Pediatric (12 years and under): 1.5 - 3.0 Although the target range in children is not well established , INR values of 1.5 - 3.0 are recommended for most patients. Higher values have been used in children with prosthetic cardiac valves and hereditary clotting disorders. (<3 days) therapeutic ranges have not been established. PTT 31.7 24.4 - 36.4 Seconds INTERFACE SYSTEM Comment: PTT Therapeutic Range: Heparin Level PTT (seconds) <0.10 units/mL <53 0.10 - 0.30 units/mL 53 - 67 0.30 - 0.70 units/mL* 67 - 95* 0.70 - 1.00 units/mL 95 - 116 *corresponds to therapeutic range for unfractionated heparin 07/12/2006 11:2 9 AM CDT us Nehemias Smyth MD HEMATOLOGY ORDERABLES Edited Performing Organization Address [facility] de Phone Number INTERFACE SYSTEM Refer to clinic/hospital department * (ABNORMAL) MAGNESIUM LEVEL (07/12/2006 11:29 AM CDT) MAGNESIUM 2.7(H) 1.5 - 2.5 mg/dL INTERFACE SYSTEM 07/12/2006 11:2 9 AM CDT us Nehemias Smyth MD CHEMISTRY ORDERABLES Edited Performing Organization Address [facility] de Phone Number INTERFACE SYSTEM Refer to clinic/hospital department * (ABNORMAL) BASIC METABOLIC PANEL (07/12/2006 11:29 AM CDT) GLUCOSE 148(H) 65 - 99 mg/dL INTERFACE SYSTEM CREATININE 0.91 0.67 - 1.17 mg/dL INTERFACE SYSTEM CALCIUM 8.3(L) 8.4 - 10.2 mg/dL INTERFACE SYSTEM BUN 12 6 - 20 mg/dL INTERFACE SYSTEM SODIUM 140 135 - 145 mmol/L INTERFACE SYSTEM POTASSIUM 4.7 3.5 - 4.9 mmol/L INTERFACE SYSTEM CHLORIDE 109(H) 96 - 108 mmol/L INTERFACE SYSTEM CO2 24 22 - 30 mmol/L INTERFACE SYSTEM GFR, >60 >=60 mL/min/1. 7 sq meter INTERFACE SYSTEM GFR >60 >=60 mL/min/1. 7 sq meter INTERFACE SYSTEM Comment: Estimated GFR rate interpretative information for both Americans and non- Americans is available on the [facility] Intranet at: [email or web address] Select: Lab Policies and Procedures Select: Reference Ranges - GFR 07/12/2006 11:2 9 AM CDT Nehemias Smyth MD CHEMISTRY ORDERABLES Edited Performing Organization Address [facility] Phone Number INTERFACE SYSTEM Refer to clinic/hospital department * (ABNORMAL) POC GLUCOSE (07/12/2006 11:22 AM CDT) GLUCOSE POC 126(H) 65 - 99 mg/dL INTERFACE SYSTEM 07/12/2006 11:2 2 AM CDT us Nehemias Smyth MD POINT OF CARE TESTING Edited Performing Organization Address [facility] de Phone Number INTERFACE SYSTEM Refer to clinic/hospital department * (ABNORMAL) POC RT, BLOOD GASES (07/12/2006 10:26 AM CDT) PH ARTERIAL 7.37 7.35 - 7.45 INTERF HARLEY SYSTEM PCO2 ARTERIAL 41 35 - 48 mm Hg INTERFACE SYSTEM PO2 ARTERIAL 270(H) 83 - 108 mm Hg INTERFACE SYSTEM O2 SAT EST ABG POC 100(H) 95 - 99 % INTERFACE SYSTEM PATIENT'S TEMPERATURE 37.0 Degree C INTERFACE SYSTEM BASE EXCESS ABG -1.5 -2.0 - 3.0 mmol/L INTERFACE SYSTEM HCO3 ARTERIAL 24 22 - 26 mmol/L INTERFACE SYSTEM SODIUM POC 134(L) 135 - 145 mmol/L INTERFACE SYSTEM POTASSIUM POC 4.8 3.5 - 4.9 mmol/L INTERFACE SYSTEM CALICUM IONIZED, WHOLE BLOOD 4.97 4.76 - 5.16 mg/dL INTERFACE SYSTEM HEMATOCRIT POC 33.0(L) 40.0 - 48.0 % INTERFACE SYSTEM TCO2, ABG POC 25(H) 19 - 24 mmol/L INTERFACE SYSTEM LACTIC ACID 3.0(H) 0.5 - 2.2 mmol/L INTERFACE SYSTEM GLUCOSE POC 157(H) 65 - 99 mg/dL INTERFACE SYSTEM 07/12/2006 10:2 6 AM CDT Nehemias Smyth MD CHEMISTRY ORDERABLES Edited INTERFACE SYSTEM Refer to clinic/hospital department * (ABNORMAL) POC RT, BLOOD GASES (07/12/2006 10:09 AM CDT) PH ARTERIAL 7.32(L) 7.35 - 7.45 INTERFACE SYSTEM PCO2 ARTERIAL 47 35 - 48 mm Hg INTERFACE SYSTEM PO2 ARTERIAL 192(H) 83 - 108 mm Hg INTERFACE SYSTEM O2 SAT EST ABG POC 100(H) 95 - 99 % INTERFACE SYSTEM PATIENT'S TEMPERATURE 37.0 Degree C INTERFACE SYSTEM BASE EXCESS ABG -2.1(L) -2.0 - 3.0 mmol/L INTERFACE SYSTEM HCO3 ARTERIAL 24 22 - 26 mmol/L INTERFACE SYSTEM SODIUM POC 134(L) 135 - 145 mmol/L INTERFACE SYSTEM POTASSIUM POC 5.5(H) 3.5 - 4.9 mmol/L INTERFACE SYSTEM CALICUM IONIZED, WHOLE BLOOD 4.41(L) 4.76 - 5.16 mg/dL INTERFACE SYSTEM HEMATOCRIT POC 36.0(L) 40.0 - 48.0 % INTERFACE SYSTEM COMMENT, GASES POC ON BYPASS INTERFACE SYSTEM TCO2, ABG POC 26(H) 19 - 24 mmol/L INTERFACE SYSTEM LACTIC ACID 3.2(H) 0.5 - 2.2 mmol/L INTERFACE SYSTEM GLUCOSE POC 168(H) 65 - 99 mg/dL INTERFACE SYSTEM 07/12/2006 10:0 9 AM CDT us Nehemias Smyth MD CHEMISTRY ORDERABLES Edited Performing Organization Address [facility] Co de Phone Number INTERFACE SYSTEM Refer to clinic/hospital department * (ABNORMAL) POC RT, BLOOD GASES (07/12/2006 9:57 AM CDT) PH ARTERIAL 7.35(L) 7.35 - 7.45 INTERFACE SYSTEM PCO2 ARTERIAL 44 35 - 48 mm Hg INTERFACE SYSTEM PO2 ARTERIAL 207(H) 83 - 108 mm Hg INTERFACE SYSTEM O2 SAT EST ABG POC 100(H) 95 - 99 % INTERFACE SYSTEM PATIENT'S TEMPERATURE 37.0 Degree C INTERFACE SYSTEM BASE EXCESS ABG -1.4 -2.0 - 3.0 mmol/L INTERFACE SYSTEM HCO3 ARTERIAL 24 22 - 26 mmol/L INTERFACE SYSTEM SODIUM POC 133(L) 135 - 145 mmol/L INTERFACE SYSTEM POTASSIUM POC 5.8(H) 3.5 - 4.9 mmol/L INTERFACE SYSTEM CALICUM IONIZED, WHOLE BLOOD 4.41(L) 4.76 - 5.16 mg/dL INTERFACE SYSTEM HEMATOCRIT POC 35.0(L) 40.0 - 48.0 % INTERFACE SYSTEM COMMENT, GASES POC ON BYPASS INTERFACE SYSTEM TCO2, ABG POC 26(H) 19 - 24 mmol/L INTERFACE SYSTEM LACTIC ACID 2.7(H) 0.5 - 2.2 mmol/L INTERFACE SYSTEM GLUCOSE POC 169(H) 65 - 99 mg/dL INTERFACE SYSTEM 07/12/2006 9:57 AM CDT us Nehemias Smyth MD CHEMISTRY ORDERABLES Edited Performing Organization Address [facility] Co de Phone Number INTERFACE SYSTEM Refer to clinic/hospital department * (ABNORMAL) POC RT, BLOOD GASES (07/12/2006 9:41 AM CDT) PH MVBG 7.29(L) 7.32 - 7.43 INTERFACE SYSTEM PCO2 VENOUS 55(H) 38 - 50 mm Hg INTERFACE SYSTEM PO2 MVBG 40 25 - 40 mm Hg INTERFACE SYSTEM O2 SAT EST MVBG POC 68 40 - 70 % INTERFACE SYSTEM PATIENT'S TEMPERATURE 37.0 Degree C INTERFACE SYSTEM BASE EXCESS VENOUS -0.8 -2.0 - 3.0 mmol/L INTERFACE SYSTEM HCO3 MIXED VENOUS 26 22 - 29 mmol/L INTERFACE SYSTEM SODIUM POC 133(L) 135 - 145 mmol/L INTERFACE SYSTEM POTASSIUM POC 5.8(H) 3.5 - 4.9 mmol/L INTERFACE SYSTEM CALICUM IONIZED, WHOLE BLOOD 4.45(L) 4.76 - 5.16 mg/dL INTERFACE SYSTEM HEMATOCRIT POC 34.0(L) 40.0 - 48.0 % INTERFACE SYSTEM COMMENT, GASES POC ON BYPASS INTERFACE SYSTEM TCO2, MVBG POC 28(H) 22 - 26 mmol/L INTERFACE SYSTEM LACTIC ACID 2.6(H) 0.5 - 2.2 mmol/L INTERFACE SYSTEM GLUCOSE POC 165(H) 65 - 99 mg/dL INTERFACE SYSTEM 07/12/2006 9:41 AM CDT Nehemias Smyth MD CHEMISTRY ORDERABLES Edited INTERFACE SYSTEM Refer to clinic/hospital department * (ABNORMAL) POC RT, BLOOD GASES (07/12/2006 9:37 AM CDT) PH ARTERIAL 7.33(L) 7.35 - 7.45 INTERFACE SYSTEM PCO2 ARTERIAL 47 35 - 48 mm Hg INTERFACE SYSTEM PO2 ARTERIAL 219(H) 83 - 108 mm Hg INTERFACE SYSTEM O2 SAT EST ABG POC 100(H) 95 - 99 % INTERFACE SYSTEM PATIENT'S TEMPERATURE 37.0 Degree C INTERFACE SYSTEM BASE EXCESS ABG -1.4 -2.0 - 3.0 mmol/L INTERFACE SYSTEM HCO3 ARTERIAL 25 22 - 26 mmol/L INTERFACE SYSTEM SODIUM POC 132(L) 135 - 145 mmol/L INTERFACE SYSTEM POTASSIUM POC 6.1(H) 3.5 - 4.9 mmol/L INTERFACE SYSTEM CALICUM IONIZED, WHOLE BLOOD 4.41(L) 4.76 - 5.16 mg/dL INTERFACE SYSTEM HEMATOCRIT POC 34.0(L) 40.0 - 48.0 % INTERFACE SYSTEM COMMENT, GASES POC ON BYPASS INTERFACE SYSTEM TCO2, ABG POC 26(H) 19 - 24 mmol/L INTERFACE SYSTEM LACTIC ACID 2.7(H) 0.5 - 2.2 mmol/L INTERFACE SYSTEM GLUCOSE POC 166(H) 65 - 99 mg/dL INTERFACE SYSTEM 07/12/2006 9:37 AM CDT us Nehemias Smyth MD CHEMISTRY ORDERABLES Edited INTERFACE SYSTEM Refer to clinic/hospital department documented in this encounter Visit Diagnoses Diagnosis Coronary atherosclerosis of citizen [place] coronary artery- Primary documented in this encounter
--- OUTSIDE RECORDS SUMMARY | 2024-08-12 07:46 | XMS_ITS | Encounter Summary ---
Author Organization [facility] Address 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
--- OUTSIDE RECORDS SUMMARY | 2024-08-12 07:46 | XMS_ITS | Encounter Summary ---
Author Organization [facility] Address 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
--- OUTSIDE RECORDS SUMMARY | 2024-08-12 07:46 | XMS_ITS | Encounter Summary ---
Author Organization [facility] Address [address] [place] [address] Care Team Providers Care Honing Machine Operator Semiautomatic Name Role Phone Neftali Benitez DO Primary Care Provider [phone] Encounter Details Date Type Department Care Team (Late st Contact Info) Description 09/27/2023 Lab Requisition [facility] - DermPath Lab [address] [facility] [place] [phone] Phoebe Duong MD [address] [facility] [address] [place] [address] Social History Tobacco Use Types Packs/Day Years [...] Procedure Name Priority Date/Time Associated Diagnosis Comments DERMATOPATHOLOGY Routine 09/27/2023 8:50 AM CDT documented in this encounter Results * DERMATOPATHOLOGY (09/27/2023 8:50 AM CDT) Case Report Dermatopathology Report Case: [id number] Authorizing Provider: Phoebe Duong MD Collected: 09/27/2023 08:50 AM Ordering Location: [facility] - Received: 09/28/2023 10:53 AM DermPath Lab Pathologist: Vianey Oneil MD Specimen: Skin, right upper forearm 4 3:42 PM CDT DERMATOPATHOLOGY LABORATORY Final Diagnosis Specimen A. SKIN, right upper forearm: BENIGN VERRUCOUS KERATOSIS, INFLAMED (L82.1) 4 3:42 PM CDT DERMATOPATHOLOGY LABORATORY at 1542 CDT Clinical History DF vs SK R/O NMSC/ATYPIA 4 3:42 PM CDT DERMATOPATHOLOGY LABORATORY Gross Description Specimen A: Received is one formalin filled container labeled with the patient's name and designated right upper forearm. The specimen consists of a shave biopsy measuring 7x6x1 mm. Jar 0. 3:42 PM CDT DERMATOPATHOLOGY LABORATORY Microscopic Description Specimen A. SKIN, right upper forearm: Sections show hyperkeratosis, papillomatosis, hypergranulosis, and acanthosis. Inflammatory cells are present within the dermis. These histological findings can be seen in a verruca vulgaris or a seborrheic keratosis. 3:42 PM CDT DERMATOPATHOLOGY LABORATORY Disclaimer An external and internal positive and negative controls are appropriate for the histochemical, immunohistochemical and immunofluorescence stain(s) in this case (if any), except where stated explicitly. The performance characteristics of the stain(s) cited in this report were developed and its performance characteristic determined by the Dermatopathology Laboratory at [facility], directed by Dr. Carly Davis. These tests need not be, and therefore are not, approved by the [place] Food and Drug Administration. The tests are used for clinical purposes. Billing Codes Specimen Charges Stain Charges 72841 1 4 3:42 PM CDT DERMATOPATHOLOGY LABORATORY Embedded Images 4 3:42 PM CDT DERMATOPATHOLOGY LABORATORY Pathology/Cytolo gy TISSUE SPECIMEN FROM SKIN / Unknown 09/27/2023 8:50 AM CDT 09/28/2023 10:53 AM CDT us Phoebe Duong MD LAB - PATHOLOGY/CYTOLOGY OR DERABLES Final Result DERMATOPATHOLOGY LABORATORY [facility] - Department of Derm[facility] [address] [facility] 3[address] [phone] documented in this encounter Visit Diagnoses Not on filedocumented in this encounter Care Teams Honing Machine Operator Semiautomatic Relationship Specialty Start Date End Date Neftali Benitez DO [address] [place] [address] PCP - General 10/22/21 documented as of this encounter
--- OUTSIDE RECORDS SUMMARY | 2024-08-12 07:46 | XMS_ITS | Patient Health Record ---
Author Organization [facility] [place] ([address]) Address [address] [place] [address] Care Team Providers Care Bowl Topper Name Role Phone BatoolVane wylie Unavailable [phone] ZZ-Migration, Provider Unavailable Unavailab le Reason For Referral No Information Medications Medication SIG (Take, Route, Frequency, Duration) Notes Start Date End Date Status ZyrTEC Allergy 10 MG 1 tab(s) orally onc e a day Active Gabapentin 300 MG TK 1 C PO QHS for 30 Active ALPRAZolam 0.5 MG (Schedule IV Drug) TK 1 T PO 45 MINUTES B FLIGHT for 2 Active Irbesartan 300 MG TK 1 T PO QD for 30 Active Vitamin D3 50 MCG (2000 UT) 1 tab(s) orally once a day for 30 day(s) Active PriLOSEC OTC 20 MG 1 tab(s) orally once a day for 14 day(s) Active Lipitor 20 MG 1 tab(s) orally once a day for 30 day(s) Active Aspirin 325 MG 1 tab(s) orally Qday Active GABAPENTIN 300 mg TK 1 C PO QHS for 30 Active ALPRAZOLAM 0.5 mg (Schedule IV Drug) TK 1 T PO 45 MINUTES B FLIGHT for 2 Active ASPIRIN 325 mg 1 tab(s) orally Qday Active ZYRTEC 10 mg 1 tab(s) orally once a day Active IRBESARTAN 300 mg TK 1 T PO QD for 30 Active LIPITOR 20 mg 1 tab(s) orally once a day for 30 day(s) Active FLONASE 50 mcg/inh 1 spray(s) intranasally once a day for 30 day(s) Active ADVAIR DISKUS 250 mcg-50 mcg 1 INH inhaled 2 times a day for 30 day(s) Active Triamcinolone Acetonide 0.1 % 1 mariella applied topically 3 times a day for 7 day(s) Active OXYBUTYNIN 5 mg 1 tab(s) orally 3 times a day for 30 day(s) Active Hydrocortisone 2.5 % 1 mariella rectally 2 times a day for 14 day(s) Active NITROGLYCERIN 0.3 mg/hr 1 PATCH transdermally once a day for 30 day(s) Active Diclofenac Sodium 75 MG 1 tab(s) orally 2 times a day for 30 day(s) Active METFORMIN 500 mg 1 tab(s) orally bid Active ZYLOPRIM 300 mg 1 tab(s) orally once a day for 30 day(s) Active GLIPIZIDE 5 mg 1 tab(s) orally bid Active VITAMIN D3 2000 intl units 1 tab(s) orally once a day for 30 day(s) Active PRILOSEC OTC 20 mg 1 tab(s) orally once a day for 14 day(s) Active Pataday 0.2 % 1 gtt in each affected eye once a day for 10 day(s) Active Tamsulosin HCl 0.4 MG 1 cap(s) orally on ce a day for 30 day(s) Active Singulair 10 MG 2 tab(s) orally once a day Active Synthroid 88 MCG 1 tab(s) orally once a day for 30 day(s) Active TRIAMCINOLONE TOPICAL 0.1% 1 mariella applied topically 3 times a day for 7 day(s) Active Nitroglycerin 0.3 MG/HR 1 PATCH TRANSDERMALLY ONCE A DAY for 30 DAY(S) *Please review and pick correct strength-formulat ion from Stonewedge options. If intended option is not shown, discontinue and re-order from Quick Search* Active HYDROCORTISONE TOPICAL 2.5% 1 mariella rectally 2 times a day for 14 day(s) Active Flonase Allergy Relief 50 MCG/ACT 1 spray(s) intranasally once a day for 30 day(s) Active Advair Diskus 250 MCG-50 MCG 1 INH INHALED 2 TIMES A DAY for 30 DAY(S) *Please review and pick correct strength-formulat ion from Stonewedge options. If intended option is not shown, discontinue and re-order from Quick Search* Active PROAIR HFA 90 MCG/INH 2 PUFF(S) INHALED 4 TIMES A DAY for 30 DAY(S) *Please review for potential replacement for e-prescription and drug interaction check* Active TAMSULOSIN 0.4 mg 1 cap(s) orally once a day for 30 day(s) Active SINGULAIR 10 mg 2 tab(s) orally once a day Active amLODIPine Besylate 5 MG 1 tab(s) orally once a day for 30 day(s) Active DICLOFENAC sodium 75 mg 1 tab(s) orally 2 times a day for 30 day(s) Active Metoprolol Succinate ER 25 MG 1 tab(s) orally once a day for 30 day(s) Active PATADAY 0.2% 1 gtt in each affected eye once a day for 10 day(s) Active oxyBUTYnin Chloride 5 MG 1 tab(s) orally 3 times a day for 30 day(s) Active METOPROLOL 25 mg 1 tab(s) orally once a day for 30 day(s) Active SYNTHROID 88 mcg (0.088 mg) 1 tab(s) orally once a day for 30 day(s) Active AMLODIPINE 5 mg 1 tab(s) orally once a day for 30 day(s) Active glipiZIDE 5 MG 1 tab(s) orally bid Active metFORMIN HCl ER 500 MG 1 tab(s) orally bid Active Zyloprim 300 MG 1 TAB(S) ORALLY ONCE A DAY for 30 DAY(S) *Please review and pick correct strength-formulat ion from Stonewedge options. If intended option is not shown, discontinue and re-order from Quick Search* Active Social History Tobacco Use: Social History Observation Description Date Details (start date - stop date) Never Smoker NA - NA Smoking Smart Form: Question Answer Notes Are you a: never smoker Problems Problem Type SNOMED Code ICD Code Onset Dates Problem Status W/U Status Risk Notes Problem Eruption of skin (483922121) Rash and other nonspecific skin eruption (R21) Active confirmed Problem Chronic allergic conjunctivitis (94097036) Other chronic allergic conjunctivitis (H10.45) Active confirmed Problem Allergic rhinitis caused by pollen (disorder) (09481791) Allergic rhinitis due to pollen (J30.1) Active confirmed Problem Allergic rhinitis (80137938) Other allergic rhinitis (J30.89) Active confirmed Problem Uncomplicated moderate persistent asthma (417702759) Moderate persistent asthma, uncomplicated (J45.40) Active confirmed Problem Allergic contact dermatitis caused by chemical (5333659266974966 3) Allergic contact dermatitis due to other chemical products (L23.5) Active confirmed Problem Congenital glaucoma (381550601) Congenital glaucoma (Q15.0) Active confirmed Problem Swelling of head (901749454) Localized swelling, mass and lump, head (R22.0) Active confirmed Encounters Encounter Location Date Provider Diagnosis [facility] [address] [address] 08/21/2023 Provider ZZ-Migration Plan Of Treatment No Information Insurance Providers Payer Name Payer Address Payer Phone Subscriber Number Group Number Insured Name Patient Relationship to Insured Coverage Start Date Coverage End Date [employer] (Medicare) Attention Claims [address] [place] [phone] [id number] Tan Pandey Self - patient is the insured [employer] [address] [place] [address] [id number] Tan Pandey Self - patient is the insured Medical (General) History Medical History History ICD Code Essential (primary) hypertension Type 2 diabetes mellitus without complic ations Hypothyroidism, unspecified Moderate persistent asthma, uncomplicate d Other hyperlipidemia Allergic rhinitis due to pollen Other allergic rhinitis Congenital glaucoma Combined forms of age-related cataract, left eye Surgical History Surgery Date(Month/Year) glaucoma 1951 Cataract right eye 1994 Sinus surgery 1998 Bypass surgery 2006 Back surgery 2014 Hospitalization History Reason Date(Month/Year) Bypass surgery 2006 Back surgery 2014
--- OUTSIDE RECORDS SUMMARY | 2024-08-12 07:46 | XMS_ITS | Encounter Summary ---
Author Organization [facility] Address [address] [place] [address] Care Team Providers Care Print Line Supervisor Name Role Phone Unavailable Primary Care Provider Unavailabl e Encounter Details Date Type Department Care Team (Late st Contact Info) Description 07/08/2006 Outpatient Historical [facility] Cardiovas and Thor S[facility] at [facility] [address] [address] Nehemias Smyth MD [address] [facility] [address] [address] Social History Tobacco Use Types Packs/Day Years Used Date Smoking Tobacco: Never Assessed Sex and Gender Information Value Date Recorded Sex Assigned at Not on file 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
--- OUTSIDE RECORDS SUMMARY | 2024-08-12 07:46 | XMS_ITS | Encounter Summary ---
Author Organization [facility] Address 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
--- OUTSIDE RECORDS SUMMARY | 2024-08-12 07:46 | XMS_ITS | Encounter Summary ---
Author Organization [facility] Address [address] [place] [address] Care Team Providers Care Guzzler Builder Name Role Phone Unavailable Primary Care Provider Unavailabl e Encounter Details Date Type Department Care Team (Late st Contact Info) Description 09/16/2006 Outpatient Historical [facility] [address] [address] Nehemias Smyth MD [address] 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
--- OUTSIDE RECORDS SUMMARY | 2024-08-12 07:46 | XMS_ITS ---
Author Organization [facility] [place] ([address]) Address [address] [place] [address] Care Team Providers Care Turret Lathe Machinist Name Role Phone Vane Renae Unavailable [phone] [facility]-M[facility], Provider Unavailable Unavailab le REASON FOR VISIT [facility] Encounter Medications Medication SIG (Take, Route, Frequency, Duration) Notes Start Date End Date Status amLODIPine Besylate 5 MG 1 tab(s) orally once a day for 30 day(s) Active Metoprolol Succinate ER 25 MG 1 tab(s) orally once a day for 30 day(s) Active Tamsulosin HCl 0.4 MG 1 cap(s) orally on ce a day for 30 day(s) Active Singulair 10 MG 2 tab(s) orally once a day Active Synthroid 88 MCG 1 tab(s) orally once a day for 30 day(s) Active Nitroglycerin 0.3 MG/HR 1 PATCH TRANSDERMALLY ONCE A DAY for 30 DAY(S) *Please review and pick correct strength-formulat ion from [employer] options. If intended option is not shown, discontinue and re-order from Quick Search* Active Flonase Allergy Relief 50 MCG/ACT 1 spray(s) intranasally once a day for 30 day(s) Active Advair Diskus 250 MCG-50 MCG 1 INH INHALED 2 TIMES A DAY for 30 DAY(S) *Please review and pick correct strength-formulat ion from [employer] options. If intended option is not shown, discontinue and re-order from Quick Search* Active PROAIR HFA 90 MCG/INH 2 PUFF(S) INHALED 4 TIMES A DAY for 30 DAY(S) *Please review for potential replacement for e-prescription and drug interaction check* Active oxyBUTYnin Chloride 5 MG 1 tab(s) orally 3 times a day for 30 day(s) Active Vitamin D3 50 MCG (2000 UT) 1 tab(s) orally once a day for 30 day(s) Active PriLOSEC OTC 20 MG 1 tab(s) orally once a day for 14 day(s) Active glipiZIDE 5 MG 1 tab(s) orally bid Active metFORMIN HCl ER 500 MG 1 tab(s) orally bid Active Zyloprim 300 MG 1 TAB(S) ORALLY ONCE A DAY for 30 DAY(S) *Please review and pick correct strength-formulat ion from [employer] options. If intended option is not shown, discontinue and re-order from Quick Search* Active ZyrTEC Allergy 10 MG 1 tab(s) orally onc e a day Active Gabapentin 300 MG TK 1 C PO QHS for 30 Active ALPRAZolam 0.5 MG (Schedule IV Drug) TK 1 T PO 45 MINUTES B FLIGHT for 2 Active Lipitor 20 MG 1 tab(s) orally once a day for 30 day(s) Active Aspirin 325 MG 1 tab(s) orally Qday Active Triamcinolone Acetonide 0.1 % 1 mariella applied topically 3 times a day for 7 day(s) Active Hydrocortisone 2.5 % 1 mariella rectally 2 times a day for 14 day(s) Active Irbesartan 300 MG TK 1 T PO QD for 30 Active Diclofenac Sodium 75 MG 1 tab(s) orally 2 times a day for 30 day(s) Active Pataday 0.2 % 1 gtt in each affected eye once a day for 10 day(s) Active Encounters Encounter Location Date Provider Diagnosis [address] [address] 08/21/2023 Provider ZZ-Migration Plan Of Treatment No Information Progress Notes * Tan WOODALLDOB: (74 yo M)Acc No.[id number]:08/21/2023 Patient: Tan JACK Provider: Vladimir cochran Migration :1950 A ge:73 Y S ex:Male Date:08/21/2023 Address:[address] [place], [place] [id number] Subjective: * Chief Complaints: * 1 . [facility] En[facility]. * Medical History: * [...] *Please review and pick correct strength-formulation from [employer] options. If intended option is not shown, [...] *Please review and pick correct strength-formulation from [employer] options. If intended option is not shown, discontinue and re-order from Quick Search*, Taking Flonase Allergy Relief 50 MCG/ACT Suspension 1 spray(s) intranasally once a day , Taking Nitroglycerin 0.3 MG/HR FILM, EXTENDED RELEASE 1 PATCH TRANSDERMALLY ONCE A DAY , Notes to Pharmacist: *Please review and pick correct strength-formulation from [employer] options. If intended option is not shown, [...] * Procedure Codes: * Electronic signature of Ariel REDDY-Migration on 08/12/2024 at 07:45 AM CDT Sign off status: Pending * Provider: Vladimir cochran Migration Date: 08/21/2023 Generated for Cornel phelan/Marshall/Angie on: 08/12/2024 07:45 AM CDT
--- OUTSIDE RECORDS SUMMARY | 2024-08-12 07:46 | XMS_ITS | Clinical Summary ---
Author Organization [facility] Address [address] [place] [address] Care Team Providers Care Small Kick Press Operator Name Role Phone Neftali Benitez Primary Care Provider [phone] Allergies Active Allergy Reactions Criticality Noted Date Comments Latex Redness Low 08/13/1993 Medications amLODIPine (NORVASC) 5 mg tablet take 1 tablet by oral route every day 0 0 4 Active tamsulosin (FLOMAX) 0.4 mg capsule,extende d release 24hr take 1 capsule by oral route every day 1/2 hour following the same meal each day 0 0 6 Active allopurinol (ZYLOPRIM) 300 mg tablet take 0.5 Tablet (150MG) by oral route every day 0 3 Active cetirizine (ZyrTEC) 10 mg tablet take 1 tablet (10MG) by oral route every day 0 3 Active omeprazole (PriLOSEC) 20 mg capsule take 1 capsule (20MG) by oral route 2 times every day before a meal 0 3 Active metFORMIN (FORTAMET) 1,000 mg 24 hr tablet take 1 tablet (1000MG) by oral route 2 times every day with the evening meal 0 3 Active Additional Information Patient taking differently:1,000 mgoral Daily, Reported on 06/08/2024 metoprolol XL (TOPROL XL) 25 mg 24 hr tablet take 1 Tablet (25MG) by oral route every day 90 3 2 Active nitroglycerin (NITROSTAT) 0.[address] 1 tablet (0.4MG) by sublingual route at the 1st sign of attack; may repeat every 5 min until relief; if pain persists after 3 tablets in 15 min, prompt medical attention is recommended 25 1 2 Active levothyroxine (SYNTHROID, LEVOTHROID) 88 mcg tablet take 1 tablet by oral route every day 0 0 7 Active montelukast (SINGULAIR) 10 mg tablet Take 2 tablets (20 mg total) by mouth nightly Active irbesartan (AVAPRO) 300 mg tablet Take 1 tablet (300 mg total) by mouth nightly. 30 tablet 11 9 Active albuterol HFA (PROVENTIL HFA,VENTOLIN HFA,PROAIR HFA) 90 mcg/actuation inhaler ProAir HFA 90 mcg/actuation aerosol inhaler Active fluticasone propion-salmete roL (ADVAIR DISKUS) 250-50 mcg/dose diskus inhaler Advair Diskus 250 mcg-50 mcg/dose powder for inhalation Active freestyle 28 gauge lancets 1 Active cholecalciferol (VITAMIN D-3) 2000 unit capsule Take 1 capsule (2,000 Units total) by mouth daily Active acetaminophen 500 mg capsule Take by mouth every 6 (six) hours as needed Active fluticasone propionate (FLONASE) 50 mcg/actuation nasal spray Administer 1 spray into each nostril daily Active cyanocobalamin (Vitamin B-12) 1,000 mcg tabletIndicatio ns:Prevention of Vitamin B12 Deficiency Take 1 tablet (1,000 mcg total) by mouth daily Active jtrjxqwb-qhb-II -lycopen-lutein 300-600-300 mcg tablet Take by mouth Active Januvia 100 mg tablet 2 Active aspirin 81 mg enteric coated tablet Take 1 tablet (81 mg total) by mouth daily Active atorvastatin (LIPITOR) 40 mg tablet Take 1 tablet (40 mg total) by mouth daily 90 tablet 3 3 Active azelastine (ASTELIN) 137 mcg (0.1 %) nasal spray 9 Active carboxymethylce ll-glycerin,PF, (Refresh Relieva PF) 0.5-0.9 % drops 2 Active triamcinolone (KENALOG) 0.1 % cream every 8 hours Active Active Problems Problem Noted Date Diagnosed Date Obstructive sleep apnea 06/08/2024 Hoarseness 06/08/2024 Right facial numbness 09/27/2023 Chronic right-sided headaches 09/27/2023 Nasal valve stenosis 06/25/2023 Hypertrophy of both inferior nasal turbinates 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 Dysfunction of both eustachian tubes 12/08/2022 Impacted cerumen of left ear 12/08/2022 Chronic fatigue 12/04/2022 JAMESON (dyspnea on exertion) 10/02/2022 Sensorineural hearing loss (SNHL) of both ears 0 06/22/2022 Tinnitus of both ears 06/22/2022 Pharyngoesophageal dysphagia 06/22/2022 Chronic maxillary sinusitis 06/22/2022 Mixed diabetic hyperlipidemi a associated with type 2 diabetes mellitus 08/20/2021 Hx of CABG 08/20/2021 JOSE on CPAP 08/20/2021 Class 2 severe obesity due t o excess calories with serious comorbidity and body mass index (BMI) of 37.0 to 37.9 in adult 08/20/2021 Screening for AAA (abdominal aortic aneurysm) Preoperative cardiovascular examination 08/21/19 Nonsuppurative otitis media, left 2020 Coronary artery disease invo lving lumbee coronary artery of lumbee heart without angina pectoris 07/26/2017 Assessment & Plan (08/23/2020 11:02 AM CDT): No symptoms of myocardial ischemia. Normal pharmacologic MPI today. Assessment & Plan (08/03/2019 10:38 AM CDT): No symptoms of myocardial ischemia. Continue aspirin and metoprolol. Assessment & Plan (08/04/2018 10:44 AM CDT): No symptoms of myocardial ischemia. He is 12 years out from bypass surgery. Myocardial perfusion study one year ago was normal. Continue aspirin and statin. Continue exercise. Assessment & Plan (07/26/2017 11:53 AM CDT): Chest pressure at rest and with exertion. His electrocardiogram is quite abnormal, but unchanged compared with a prior EKG. He is 11 years out from coronary artery bypass grafting. Will obtain a pharmacologic stress test as he is unable to walk on the treadmill because of his back pain. Hypertension associated with diabetes 07/26/2017 Assessment & Plan (08/23/2020 11:03 AM CDT): Blood pressure is adequately controlled on current regimen. No change was made. Assessment & Plan (08/03/2019 10:38 AM CDT): Blood pressure is adequately controlled on current regimen. No change was made. Assessment & Plan (08/04/2018 10:44 AM CDT): Blood pressure is adequately controlled on current regimen. No change was made. Assessment & Plan (07/26/2017 11:53 AM CDT): Blood pressure is adequately controlled on current regimen. No change was made. Resolved Problems Problem Noted Date Diagnosed Date Resolved Date Hyperlipidemia 07/26/2017 08/20/2021 Assessment & Plan (08/23/2020 11:03 AM CDT): Lipids are well controlled but will increase to high-intensity statin therapy. Assessment & Plan (08/03/2019 10:38 AM CDT): On chronic lipid lowering therapy with good control. No changes made. Assessment & Plan (08/04/2018 10:45 AM CDT): On chronic lipid lowering therapy with good control. No changes made. Assessment & Plan (07/26/2017 11:54 AM CDT): On chronic lipid lowering therapy with good control. No changes made. Encounters Date Type Department Care Team Description 06/08/2024 9:45 AM CDT Office Visit [facility] Otol[facility]ology [address] [place] [address] Mio Santacruz II, MD Obstructive sleep apnea (Primary Dx); Hoarseness from Last 3 Months Surgical History Surgery Date Site/Laterality Comments CORONARY ARTERY BYPASS GRAFT Coronary Artery Bypass Graft THYROIDECTOMY, PARTIAL 03/08/2012 - 03/07/2013 Partial Thyroidectomy EYE SURGERY SINUS SURGERY BACK SURGERY HAND SURGERY WRIST SURGERY CHOLECYSTECTOMY 10/06/2021 - 11/05/2021 CATARACT EXTRACTION 02/19/2022 Left SPINE SURGERY 2015 Medical History Medical History Date Comments Hypertension Hyperlipidemia Coronary artery disease Allergic rhinitis Asthma Anxiety Diabetes (HCC) GERD (gastroesophageal reflux disease) Thyroid disease Tinnitus Sinusitis Dysphagia HL (hearing loss) Arthritis 2007 Cataract 1993. 2021 Brain concussion 2020 Glaucoma 1950 Heart disease 2007 Sleep apnea 1999 Hoarseness Back pain Family History Medical History Relation Name Comments Cancer Father Jeramie Woodall Heart attack Father Jeramie Woodall Myocardial Inf arction; Hypertension Father Jeramie Woodall Stroke Father's Sister Gladis Martines Cancer Mother Greta Woodall Rashes / Skin problems Mother Greta Woodall Lupus Sister 1 COPD Sister 2 Estefani Woodall Relation Name Status Comments Father Jeramie Woodall Father's Sister Gladis Martines Mother Greta Woodall Sister 1 Sister 2 Estefani Woodall Social History Tobacco Use Types Packs/Day Years Used Date Smoking Tobacco: Former Cigarettes Smokeless Tobacco: Never Tobacco Cessation:Counseling Given: Not Answered Alcohol Use Standard Drinks/Week Comments No 0 (1 standard drink = 0.6 oz pur e alcohol) Sex and Gender Information Value Date Recorded Sex Assigned at Not on file Legal Sex Male 8:44 PM REWINDER OPERATOR Gender Identity Male 08/13/2021 6:13 PM CDT Sexual Orientation Not on file Obstetrics History Last Filed Vital Signs Vital Sign Reading Time Taken Comments Blood Pressure 112/60 02/16/2023 1:24 PM REWINDER OPERATOR Pulse 71 02/16/2023 1:24 PM REWINDER OPERATOR Temperature 36.2 C (97.2 F) 08/07/2014 6:28 AM CDT Respiratory Rate 18 06/08/2024 9:45 AM CDT Oxygen Saturation 98% 02/16/2023 1:24 PM REWINDER OPERATOR Inhaled Oxygen Concentration - - Weight 113.4 kg (250 lb) 06/08/2024 9:45 AM CDT Height 175.3 cm (5' 9) 06/08/2024 9:45 AM CDT Body Mass Index 36.92 06/08/2024 9:45 AM CDT Plan of Treatment Health Maintenance Due Date Last Done Comments Albumin Creatinine Ratio, Urine 1950 Colon Cancer Screening-Colonoscopy 1950 Depression Screening 1950 Fall Risk Assessment 1950 Hemoglobin A1C 1950 Hepatitis C Screening 1950 Prostate Cancer Screening-PSA 1950 eGFR 1950 Dilated Eye Exam 1950 Foot Exam 1950 DTaP/Tdap/Td Vaccine (1 - Tdap) 1961 Hepatitis B Screening 1968 Pneumococcal vaccine 65+ (1 of 2 - PCV) 1969 Zoster Vaccine (1 of 2) 2000 Abdominal Aortic Aneurysm (A AA) Screen 07/31/2015 Well Visit 65+ 07/31/2015 Lipid Panel 10/03/2023 10/02/2022, 08/06, 07/23/2020, Additional history exists Covid-19 Vaccine (2023-2 5 season) 2023 08/13/2021, 01/15/2021, 05/17/2020, Additional history exists Influenza Vaccine (Season Ended) 2024 12/21/2020, 11/30/2019, 12/14/2018 Procedures Procedure Name Priority Date/Time Associated Diagnosis Comments POCT LIPID PANEL Routine 10/02/2022 12:0 0 PM CDT Coronary artery disease involving lumbee coronary artery of lumbee heart without angina pectoris Mixed diabetic hyperlipidemia associated with type 2 diabetes mellitus (HCC) from Last 3 Months or Most Recently Relevant to Health Maintenance Results * POCT lipid panel (10/02/2022 12:00 PM CDT) Cholesterol, POC <100 mg/dL HDL, POC 36 mg/dL Triglycerides, POC 123 mg/dL LDL Cholesterol POC 43 mg/dL Chol/HDL Ratio, POC N/A Non-HDL Cholesterol, POC N/A mg/dL Cholesterol Total, POC <100 mg/dL Capillary blood 10/02/2022 1 2:00 PM CDT Shayan Guerrero MD POINT OF CARE TEST ORDER DAVID Final Result from Last 3 Months or Most Recently Relevant to Health Maintenance Insurance MEDICARE [employer] MEDICARE FOR LIFE MEDICARE FOR LIFE Care Teams Small Kick Press Operator Relationship Specialty Start Date End Date Neftali Benitez DO PCP - General Internal Medicine 09/27/23
--- OUTSIDE RECORDS SUMMARY | 2024-08-12 07:46 | XMS_ITS | Referral Summary ---
Author Organization [facility] D Address [address] [place] [address] Care Team Providers Care Analog Device Designer Name Role Phone Neftali Benitez DO Primary Care Provider [phone] Encounters Date Type Department Care Team Description 06/08/2024 9:45 AM CDT Office Visit [facility] [address] [place] [address] Mio Santacruz II, MD Obstructive sleep apnea (Primary Dx); Hoarseness from Last 3 Months Allergies Active Allergy Reactions Criticality Noted Date [...] (1,000 mcg total) by mouth daily Active dbvxeekv-vbk-DJ -lycopen-lutein 300-600-300 mcg tablet Take by mouth [...] left 2020 Coronary artery disease invo lving [place] coronary artery of [place] heart without angina pectoris 07/26/2017 Assessment & [...] therapy with good control. No changes made. Social History Tobacco Use Types Packs/Day Years Used Date Smoking Tobacco: Former Cigarettes Smokeless Tobacco: Never Tobacco Cessation:Counseling Given: Not Answered Alcohol Use Standard Drinks/Week Comments No 0 (1 standard drink = 0.6 oz pur e alcohol) Sex and Gender Information Value Date Recorded Sex Assigned at Not on file Legal Sex Male 8:44 PM CONTINUOUS MINER Gender Identity Male 08/13/2021 6:13 PM CDT Sexual Orientation Not on file Last Filed Vital Signs Vital Sign Reading Time Taken Comments Blood Pressure 112/60 02/16/2023 1:24 PM CONTINUOUS MINER Pulse 71 02/16/2023 1:24 PM CONTINUOUS MINER Temperature 36.2 C (97.2 F) 08/07/2014 6:28 AM CDT Respiratory Rate 18 06/08/2024 9:45 AM CDT Oxygen Saturation 98% 02/16/2023 1:24 PM CONTINUOUS MINER Inhaled Oxygen Concentration - - Weight 113.4 kg (250 lb) 06/08/2024 9:45 AM CDT Height 175.3 cm (5' 9) 06/08/2024 9:45 AM CDT Body Mass Index 36.92 06/08/2024 9:45 AM CDT Plan of Treatment Not on file Procedures Procedure Name Priority Date/Time Associated Diagnosis Comments POCT LIPID PANEL Routine 10/02/2022 12:0 0 PM CDT Coronary artery disease involving [place] coronary artery of [place] heart without angina pectoris Mixed diabetic hyperlipidemia [...] Recently Relevant to Health Maintenance Insurance MEDICARE [employer] FOR LIFE MEDICARE FOR LIFE MEDICARE FOR LIFE Care Teams Analog Device Designer Relationship Specialty Start Date End Date Neftali Benitez DO PCP - General Internal Medicine 09/27/23
--- OUTSIDE RECORDS SUMMARY | 2024-08-12 07:46 | XMS_ITS | Encounter Summary ---
Author Organization [facility] Address [address] [place] [address] Care Team Providers Care Logistics Operations Director Name Role Phone Unavailable Primary Care Provider Unavailabl e Encounter Details Date Type Department Care Team (Latest Contact Info) Description 07/08/2006 Outpatient Historical HIS CARD SECTION MAINTAINER Debbie Garcia MD NO ADDRESS ON FILE Coronary Atherosclerosis of [place] Coronary Artery (Primary Dx) Social History Tobacco Use Types Packs/Day Years Used Date Smoking Tobacco: Never Assessed Sex and Gender Information Value Date Recorded Sex Assigned at Not on file Legal Sex Male 3:36 AM REHEATER Gender Identity Not on file Sexual Orientation Not on file documented as of this encounter Plan of Treatment Not on file documented as of this encounter Procedures Procedure Name Priority Date/Time Associated Diagnosis Comments URINALYSIS WITH REFLEX CULTURE Routine 07/08/2006 2:59 PM CDT URINALYSIS W/REFLEX MICROSCOPIC Routine 07/08/2006 2:59 PM CDT PT AND APTT Routine 07/08/2006 12:00 PM CDT CBC WITH DIFFERENTIAL Routine 07/08/2006 12:00 PM CDT CBC WITH DIFFERENTIAL Routine 07/08/2006 12:00 PM CDT COMPREHENSIVE METABOLIC PANEL Routine 07/08/2006 12:00 PM CDT documented in this encounter Results * (ABNORMAL) URINALYSIS (07/08/2006 2:59 PM CDT) COLOR UA Pale Yellow INTERFAC E SYSTEM CLARITY UA Clear Clear INTERFACE SYSTEM SPECIFIC GRAVITY UA 1.070(H) 1.001 - 1.035 INTERFACE SYSTEM Comment:Quantitated by dilut ion. PH UA 5.5 5.0 - 8.0 INTERFACE SYSTEM LEUKOCYTE ESTERASE UA Negative Negative INTERFACE SYSTEM NITRITE UA Negative Negative INTERFACE SYSTEM PROTEIN UA Negative Negative INTERFACE SYSTEM GLUCOSE UA Negative Negative INTERFACE SYSTEM KETONES UA Negative Negative INTERFACE SYSTEM UROBILINOGEN UA <1 <=1 mg/dL INTE RFACE SYSTEM BILIRUBIN UA Negative Negative INTERFA CE SYSTEM BLOOD UA Negative Negative INTERFACE SYSTEM WBC UA <1 0 - 3 /HPF INTERFACE SYSTEM RBC UA 1 0 - 3 /HPF INTERFACE SYSTEM 07/08/2006 2:59 PM CDT us Debbie Garcia MD URINE ORDERABLES Edited Performing Organization Address [facility] Phone Number INTERFACE SYSTEM Refer to clinic/hospital department * URINALYSIS WITH REFLEX CULTURE (07/08/2006 2:59 PM CDT) URINE CULTURE ORDER Not indicated INTERFACE SYSTEM Comment: Criteria for a reflex culture include one or more of the following: Abn ormal nitrite, leukocyte esterase, WBCs or RBCs. Lack of qualifying criteria does not exclude the possiblity of a urinary tract infection. Dilute urine, drug interference, etc. may decrease the sensitivity of the criteria analytes. 07/08/2006 2:59 PM CDT us Debbie Garcia MD URINE ORDERABLES Edited Performing Organization Address [facility] Phone Number INTERFACE SYSTEM Refer to clinic/hospital department * CBC WITH DIFFERENTIAL (07/08/2006 12:00 PM CDT) NEUTROPHILS 68 45 - 70 % INTERFAC E SYSTEM LYMPHOCYTES 24 16 - 45 % INTERFAC E SYSTEM MONOCYTES 6 3 - 13 % INTERFACE SYSTEM EOSINOPHILS 1 0 - 7 % INTERFAC E SYSTEM BASOPHILS 0 0 - 2 % INTERFACE SYSTEM NEUTROPHIL ABSOLUTE 4.21 1.90 - 7.00 K/uL INTERFACE SYSTEM LYMPHOCYTE ABSOLUTE 1.51 0.70 - 4.50 K/uL INTERFACE SYSTEM MONOCYTE ABSOLUTE 0.39 0.10 - 1.30 K/uL INTERFACE SYSTEM EOSINOPHIL ABSOLUTE 0.08 0.00 - 0.70 K/uL INTERFACE SYSTEM BASOPHILS ABSOLUTE 0.01 0.00 - 0.20 K/uL INTERFACE SYSTEM 07/08/2006 12:0 0 PM CDT Debbie Garcia MD HEMATOLOGY ORDERABLES Edited Performing Organization Address [facility] Co de Phone Number INTERFACE SYSTEM Refer to clinic/hospital department * (ABNORMAL) CBC WITH DIFFERENTIAL (07/08/2006 12:00 PM CDT) WBC 6.2 4.0 - 9.8 K/uL INTERFACE SYSTEM RBC 5.24 4.50 - 5.40 M/uL INTERFACE SYSTEM HEMOGLOBIN 15.3 13.6 - 16.5 g/dL INTERFACE SYSTEM HEMATOCRIT 43.5 40.0 - 48.0 % INTERFACE SYSTEM MCV 83.0 82.0 - 99.0 fL INTERFACE SYSTEM MCH 29.2 27.2 - 32.6 pg INTERFACE SYSTEM MCHC 35.2 31.5 - 35.5 % INTERFACE SYSTEM RDW 13.1 11.5 - 14.5 % INTERFACE SYSTEM RDW-STDEV 39.2 37.1 - 48.7 fL INTERFACE SYSTEM PLATELETS 126(L) 140 - 350 K/uL INTERFACE SYSTEM MPV 12.4 9.3 - 12.4 fL INTERFACE SYSTEM 07/08/2006 12:0 0 PM CDT Debbie Garcia MD HEMATOLOGY ORDERABLES Edited Performing Organization Address [facility] de Phone Number INTERFACE SYSTEM Refer to clinic/hospital department * (ABNORMAL) COMPREHENSIVE METABOLIC PANEL (07/08/2006 12:00 PM CDT) GLUCOSE 159(H) 65 - 99 mg/dL INTERFACE SYSTEM CREATININE 0.89 0.67 - 1.17 mg/dL INTERFACE SYSTEM CALCIUM 8.3(L) 8.4 - 10.2 mg/dL INTERFACE SYSTEM ALKALINE PHOSPHATASE 63 40 - 129 U/L INTERFACE SYSTEM AST 19 12 - 38 U/L INTERFACE SYSTEM ALT 36 0 - 41 U/L INTERFACE SYSTEM TOTAL PROTEIN 7.0 6.3 - 8.6 g/dL INTERFACE SYSTEM ALBUMIN 4.2 3.4 - 4.8 g/dL INTERFACE SYSTEM BILIRUBIN TOTAL 0.6 0.2 - 1.0 mg/dL INTERFACE SYSTEM BUN 12 6 - 20 mg/dL INTERFACE SYSTEM SODIUM 139 135 - 145 mmol/L INTERFACE SYSTEM POTASSIUM 3.5 3.5 - 4.9 mmol/L INTERFACE SYSTEM CHLORIDE 105 96 - 108 mmol/L INTERFACE SYSTEM CO2 25 22 - 30 mmol/L INTERFACE SYSTEM GFR, >60 >=60 mL/min/1. 7 sq meter INTERFACE SYSTEM GFR >60 >=60 mL/min/1. 7 sq meter INTERFACE SYSTEM Comment: Estimated GFR rate interpretative information for both Americans and non- Americans is available on the [facility] Intranet at: [email or web address] Select: Lab Policies and Procedures Select: Reference Ranges - GFR 07/08/2006 12:0 0 PM CDT us Debbie Garcia MD CHEMISTRY ORDERABLES Edited INTERFACE SYSTEM Refer to clinic/hospital department * PT AND APTT (07/08/2006 12:00 PM CDT) PROTIME 13.8 12.7 - 15.1 Seconds INTERFACE SYSTEM INR 1.0 0.9 - 1.1 INTERFACE SYSTEM Comment: INR Therapeutic Range: Adult: 2.0 - 3.0 for pulmonary embolism or prophylaxis against venous thrombosis or systemic embolization. 2.0 - 3.0 for patients with tissue heart valves. 2.5 - 3.5 for patients with mechanical heart valves or post [place]. Pediatric (12 years and under): 1.5 - 3.0 Although the target range in children is not well established , INR values of 1.5 - 3.0 are recommended for most patients. Higher values have been used in children with prosthetic cardiac valves and hereditary clotting disorders. (<3 days) therapeutic ranges have not been established. PTT 34.4 24.4 - 36.4 Seconds INTERFACE SYSTEM Comment: PTT Therapeutic Range: Heparin Level PTT (seconds) <0.10 units/mL <53 0.10 - 0.30 units/mL 53 - 67 0.30 - 0.70 units/mL* 67 - 95* 0.70 - 1.00 units/mL 95 - 116 *corresponds to therapeutic range for unfractionated heparin 07/08/2006 12:0 0 PM CDT us Debbie Garcia MD HEMATOLOGY ORDERABLES Edited INTERFACE SYSTEM Refer to clinic/hospital department documented in this encounter Visit Diagnoses Diagnosis Coronary atherosclerosis of [place] coronary artery- Primary documented in this encounter
[2024-08-12 08:13] LABS: Hematocrit 40.8 % (42.0-52.0); Hemoglobin 13.5 g/dL (14.0-18.0); Immature Platelet Fraction Pct 9.3 % (0.9-11.2); Mean Corpuscular HGB Conc 33.1 g/dl (32-36); Mean Corpuscular Volume 87.6 fl (80-100); Mean Platelet Volume 11.7 fl (7.4-10.4); Platelet Count Result 119 k/mm3 (150-375); Red Blood Count 4.66 M/mm3 (4.6-6.20); Red Cell Distribution Width 13.5 % (11.5-14.5); White Blood Count 8.1 K/mm3 (4.5-10.0)
[2024-08-12 08:35] LABS: Alanine Aminotransferase 17 U/L (6-50); Albumin Level 4.2 g/dL (3.5-5.1); Alkaline Phosphatase 75 U/L (38-126); Anion Gap 9 mmol/L (4-12); Aspartate Amino Transferase 28 U/L (17-59); Bilirubin,Total 1.1 mg/dL (0.2-1.3); Blood Urea Nitrogen 20 mg/dL (9-20); Calcium 8.8 mg/dL (8.4-10.2); Carbon Dioxide 24 mmol/L (22-30); Chloride 105 mmol/L (98-107); Cholesterol 115 mg/dL (0-200); Estimated Glomerular Filt Rate 55; Glucose 144 mg/dL (65-110); HDL Direct 41 mg/dL; Potassium 4.2 mmol/L (3.4-5.0); Sodium 138 mmol/L (137-145); Triglycerides 103 mg/dL (<150)
[2024-08-12 08:47] LABS: LDL Cholesterol Direct 41 mg/dL
[2024-08-12 09:59] LABS: Free T4 Free Thyroxine 1.45 ng/dL (0.78-2.19)
[2024-08-12 10:24] LABS: Creatinine Urine 107.7 mg/dL
[2024-08-12 10:43] LABS: MALB Creatinine Ratio < 5.6 mg/g (0-30); Microalbumin Urine Random < 6.0 mg/L (0-16.7)
== END 2024-08-12 07:41 | disposition home or self-care (01) ==
LOC: ANHLAB 07:44
PROVIDERS: Nurse Practitioner; Nurse Practitioner Family; PCP Internal Medicine; Visit Provider Internal Medicine Endocrinology, Diabetes & Metabolism
DX: E78.5 Hyperlipidemia, unspecified (principal); D64.9 Anemia, unspecified; E03.9 Hypothyroidism, unspecified; E11.40 Type 2 diabetes mellitus with diabetic neuropathy, unspecified; E53.8 Deficiency of other specified B group vitamins
CPT/HCPCS: 36415; 80053; 80061; 82043; 82607; 84439; 84443; 85027; 85055

== ENCOUNTER 2024-08-14 11:23 | Outpatient (CLI) | payer MEDICARE, OTHER, SELFPAY ==
[2024-08-14 12:21] LABS: Vitamin D 25 Hydroxy 22.6 ng/mL
--- OUTSIDE RECORDS SUMMARY | 2024-08-14 13:00 | XMS_ITS | Encounter Summary ---
Author Organization [employer] Address 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 Phone Number INTERFACE SYSTEM Refer to [...] MD URINE ORDERABLES Edited Performing Organization Address [facility] Phone Number INTERFACE SYSTEM Refer to [...] MD HEMATOLOGY ORDERABLES Edited Performing Organization Address [facility] Co de Phone Number INTERFACE SYSTEM [...] MD HEMATOLOGY ORDERABLES Edited Performing Organization Address [facility] de Phone Number INTERFACE SYSTEM [...] available on the [facility] Intran[facility] at: [email or web address] Select: Lab Policies and Procedures Select: Reference [...] patients with mechanical heart valves or post [place]. Pediatric (12 years and under): 1.5 - [...] encounter Visit Diagnoses Diagnosis Coronary atherosclerosis of [place] coronary artery- Primary documented in this encounter
--- OUTSIDE RECORDS SUMMARY | 2024-08-14 13:00 | XMS_ITS | Encounter Summary ---
Author Organization [facility] Address [address] [place] [address] Care Team Providers Care Hot Wound Spring Production Supervisor Name Role Phone Unavailable Primary Care Provider Unavailabl e Encounter Details Date Type Department Care Team (Late st Contact Info) Description 07/12/2006 Outpatient Historical [facility] Cardiovas and Thor Surg at [facility] S [facility] [address] [address] Nehemias Smyth MD [address] 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
--- OUTSIDE RECORDS SUMMARY | 2024-08-14 13:00 | XMS_ITS | Patient Health Record ---
Author Organization [facility] [place] ([address]) Address [address] [place] [address] Care Team Providers Care Enterprise Resource Planning Consultant Name Role Phone Bat[employer]ane wylie Unavailable [phone] Z[employer]-Migration, Provider Unavailable Unavailab le Reason For [...] review and pick correct strength-formulat ion from Heetch options. If intended option is not shown, [...] review and pick correct strength-formulat ion from Heetch options. If intended option is not shown, [...] review and pick correct strength-formulat ion from Heetch options. If intended option is not shown, [...] Status Risk Notes Problem Eruption of skin (686340753) Rash and other nonspecific skin eruption (R21) Active confirmed Problem Chronic allergic conjunctivitis (78877696) Other chronic allergic conjunctivitis (H10.45) Active confirmed Problem Allergic rhinitis caused by pollen (disorder) (12871062) Allergic rhinitis due to pollen (J30.1) Active confirmed Problem Allergic rhinitis (36038363) Other allergic rhinitis (J30.89) Active confirmed Problem Uncomplicated moderate persistent asthma (483718135) Moderate persistent asthma, uncomplicated (J45.40) Active confirmed Problem Allergic contact dermatitis caused by chemical (0309754081155768 3) Allergic contact dermatitis due to other chemical products (L23.5) Active confirmed Problem Congenital glaucoma (113934729) Congenital glaucoma (Q15.0) Active confirmed Problem Swelling of head (577299088) Localized swelling, mass and lump, head (R22.0) Active confirmed Encounters Encounter Location Date Provider Diagnosis [facility] [address] [address] 08/21/2023 Provider ZZ-Migration Plan Of Treatment No Information Insurance Providers Payer Name Payer Address Payer Phone Subscriber Number Group Number Insured Name Patient Relationship to Insured Coverage Start Date Coverage End Date [employer] (Medicare) Attention Claims [address] [place] [phone] [id number] Tan Pandey Self - patient is the insured [employer] [address] [place] [address] [id number] Tan Pandey Self - patient is the [...]
--- OUTSIDE RECORDS SUMMARY | 2024-08-14 13:00 | XMS_ITS | Encounter Summary ---
Author Organization [facility] [facility] Address [address] [place] [address] Care Team Providers Care Access Consultant Name Role Phone Unavailable Primary Care Provider Unavailabl e Encounter Details Date Type Department Care Team (Late st Contact Info) Description 07/08/2006 Outpatient Historical [facility] ([facility] Cardiology[facility]) [address] 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
--- OUTSIDE RECORDS SUMMARY | 2024-08-14 13:00 | XMS_ITS | Referral Summary ---
Author Organization [facility] Address [address] [place] [address] Care Team Providers Care School Health Aide Name Role Phone Neftali Benitez DO Primary Care Provider [phone] Encounters Date Type Department Care Team Description 06/08/2024 9:45 AM CDT Office Visit [facility] Otolaryngology [address] [place] [address] Mio Santacruz II, MD Obstructive [...] (1,000 mcg total) by mouth daily Active bljaxahs-qch-VW -lycopen-lutein 300-600-300 mcg tablet Take by mouth [...] left 2020 Coronary artery disease invo lving [place] coronary artery of [place] heart without angina pectoris 07/26/2017 Assessment & [...] on file Legal Sex Male 8:44 PM RECRUITING ASSOCIATE Gender Identity Male 08/13/2021 6:13 PM CDT Sexual Orientation Not on file Last Filed Vital Signs Vital Sign Reading Time Taken Comments Blood Pressure 112/60 02/16/2023 1:24 PM RECRUITING ASSOCIATE Pulse 71 02/16/2023 1:24 PM RECRUITING ASSOCIATE Temperature 36.2 C (97.2 F) 08/07/2014 6:28 AM CDT Respiratory Rate 18 06/08/2024 9:45 AM CDT Oxygen Saturation 98% 02/16/2023 1:24 PM RECRUITING ASSOCIATE Inhaled Oxygen Concentration - - Weight 113.4 kg (250 lb) 06/08/2024 9:45 AM CDT Height 175.3 cm (5' 9) 06/08/2024 9:45 AM CDT Body Mass Index 36.92 06/08/2024 9:45 AM CDT Plan of Treatment Not on file Procedures Procedure Name Priority Date/Time Associated Diagnosis Comments POCT LIPID PANEL Routine 10/02/2022 12:0 0 PM CDT Coronary artery disease involving [place] coronary artery of [place] heart without angina pectoris Mixed diabetic hyperlipidemia [...] Recently Relevant to Health Maintenance Insurance MEDICARE [employer] MEDICARE FOR LIFE MEDICARE FOR LIFE Care Teams School Health Aide Relationship Specialty Start Date End Date Neftali Benitez DO PCP - General Internal Medicine 09/27/23
--- OUTSIDE RECORDS SUMMARY | 2024-08-14 13:00 | XMS_ITS | Clinical Summary ---
Author Organization [facility] Address [address] [place] [address] Care Team Providers Care Generation Manager Name Role Phone Neftali Benitez DO Primary Care Provider [phone] Source Comments [facility],non-owned Affiliates and Associated Physician Practices is amultiple site organization consisting of ambulatory clinics and hospital sitesin [place], [place], [place] and [place]. This disclosure is being madepursuant to the Care Everywhere program and may not contain all information available regarding this patient. Last updated 17.[facility] Social History Tobacco Use Types Packs/Day [...] age to complete this topic Insurance MEDICARE [facility] MEDICARE [facility] Care Teams Generation Manager Relationship Specialty Start Date End Date Neftali Benitez DO [address] [place] [address] PCP - General 10/22/21
--- OUTSIDE RECORDS SUMMARY | 2024-08-14 13:00 | XMS_ITS | Encounter Summary ---
Author Organization [facility] Address [address] [place] [address] Care Team Providers Care Financial Systems Director Name Role Phone Unavailable Primary Care Provider Unavailabl e Encounter Details Date Type Department Care Team (Late st Contact Info) Description 07/08/2006 Outpatient Historical [facility] Cardiovas and Thor Surg at [facility] S 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
--- OUTSIDE RECORDS SUMMARY | 2024-08-14 13:00 | XMS_ITS | Encounter Summary ---
Author Organization [employer] Address [address] [place] [address] Care Team Providers Care Senior Developer Name Role Phone Unavailable Primary Care Provider Unavailabl e Encounter Details Date Type Department Care Team (Late st Contact Info) Description 07/13/2006 Outpatient Historical [facility] Support Serv. (Adt Cardiology[facility]) [address] 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
--- OUTSIDE RECORDS SUMMARY | 2024-08-14 13:00 | XMS_ITS | Encounter Summary ---
Author Organization [facility] Address [address] [place] [address] Care Team Providers Care Animal Therapist Name Role Phone Unavailable Primary Care Provider Unavailabl e Encounter Details Date Type Department Care Team (Late st Contact Info) Description 07/08/2006 Outpatient Historical [facility] Cardiovas and Thor Surg at [facility] S [facility] [address] [address] Nehemias Smyth MD [address] [facility] [place] [address] Social History Tobacco Use Types Packs/Day Years Used Date Smoking Tobacco: Never Assessed Sex and Gender Information Value Date Recorded Sex Assigned at Not on file 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
--- OUTSIDE RECORDS SUMMARY | 2024-08-14 13:00 | XMS_ITS | Clinical Summary ---
Author Organization [facility] D Address [address] [place] [address] Care Team Providers Care Choke Reamer Name Role Phone Neftali Benitez Primary Care Provider Allergies Active Allergy Reactions Criticality Noted Date [...] (1,000 mcg total) by mouth daily Active enfsautk-pfi-CJ -lycopen-lutein 300-600-300 mcg tablet Take by mouth [...] left 2020 Coronary artery disease invo lving [place] coronary artery of [place] heart without angina pectoris 07/26/2017 Assessment & [...] Description 06/08/2024 9:45 AM CDT Office Visit [facility] Otolaryngology [address] [facility] [place] [address] Mio Santacruz II, MD Obstructive [...] on file Legal Sex Male 8:44 PM STRATEGIC MANAGER Gender Identity Male 08/13/2021 6:13 PM CDT Sexual Orientation Not on file Obstetrics History Last Filed Vital Signs Vital Sign Reading Time Taken Comments Blood Pressure 112/60 02/16/2023 1:24 PM STRATEGIC MANAGER Pulse 71 02/16/2023 1:24 PM STRATEGIC MANAGER Temperature 36.2 C (97.2 F) 08/07/2014 6:28 AM CDT Respiratory Rate 18 06/08/2024 9:45 AM CDT Oxygen Saturation 98% 02/16/2023 1:24 PM STRATEGIC MANAGER Inhaled Oxygen Concentration - - Weight 113.4 [...] 0 PM CDT Coronary artery disease involving [place] coronary artery of [place] heart without angina pectoris Mixed diabetic hyperlipidemia [...] Recently Relevant to Health Maintenance Insurance MEDICARE [email or web address] MEDICARE FOR LIFE MEDICARE FOR LIFE Care Teams Choke Reamer Relationship Specialty Start Date End Date Neftali Benitez DO PCP - General Internal Medicine 09/27/23
--- OUTSIDE RECORDS SUMMARY | 2024-08-14 13:00 | XMS_ITS | Encounter Summary ---
Author Organization [facility] Address [address] [place] [address] Care Team Providers Care Local Government Legislator Name Role Phone Unavailable Primary Care Provider Unavailabl e Encounter Details Date Type Department Care Team (Late st Contact Info) Description 08/17/2006 Outpatient Historical [facility] Cardiovas and Thor Surg at 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
--- OUTSIDE RECORDS SUMMARY | 2024-08-14 13:00 | XMS_ITS | Encounter Summary ---
Author Organization [facility] Address [address] [place] [address] Care Team Providers Care Supervisor Line Department Name Role Phone Neftali Benitez DO Primary Care Provider [phone] Encounter Details Date Type Department Care Team (Late st Contact Info) Description 09/27/2023 Lab Requisition [facility] - DermPath Lab [address] [place] [phone] Phoebe Duong MD [address] [facility] [address] [place] [address] Social History Tobacco Use Types Packs/Day Years [...] AM CDT) Case Report Dermatopathology Report Case: [id number] Authorizing Provider: Phoebe Duong MD Collected: 09/27/2023 08:50 AM Ordering Location: [facility] - Received: [...] characteristic determined by the Dermatopathology Laboratory at [facility], directed by Dr. Carly Davis. These tests need not be, and therefore are not, approved by the [place] Food and Drug Administration. The tests are used for clinical purposes. Billing Codes Specimen Charges Stain Charges 60714 1 4 3:42 PM CDT DERMATOPATHOLOGY LABORATORY Embedded Images 4 3:42 PM CDT DERMATOPATHOLOGY LABORATORY Pathology/Cytolo gy TISSUE SPECIMEN FROM SKIN / Unknown 09/27/2023 8:50 AM CDT 09/28/2023 10:53 AM CDT us Phoebe Duong MD LAB - PATHOLOGY/CYTOLOGY OR DERABLES Final Result DERMATOPATHOLOGY LABORATORY [facility] - Department of Dermatology [facility] [address] [phone] documented in this encounter Visit Diagnoses Not on filedocumented in this encounter Care Teams Supervisor Line Department Relationship Specialty Start Date End Date Neftali Benitez DO [address] [place] [address] PCP - General 10/22/21 documented as of this encounter
--- OUTSIDE RECORDS SUMMARY | 2024-08-14 13:00 | XMS_ITS ---
Author Organization [facility] ([address]) Address [address] [place] [address] Care Team Providers Care Assistant Professor Of History Name Role Phone Vane Renae Unavailable [phone] ZZ-Migration, Provider Unavailable Unavailab le [facility]AS[facility]IT [facility] Encounter Medications Medication SIG (Take, [...] review and pick correct strength-formulat ion from RAP Index options. If intended option is not shown, discontinue and re-order from Quick Search* Active Flonase Allergy Relief 50 MCG/ACT 1 spray(s) intranasally once a day for 30 day(s) Active Advair Diskus 250 MCG-50 MCG 1 INH INHALED 2 TIMES A DAY for 30 DAY(S) *Please review and pick correct strength-formulat ion from RAP Index options. If intended option is not shown, [...] review and pick correct strength-formulat ion from RAP Index options. If intended option is not shown, [...] Active Encounters Encounter Location Date Provider Diagnosis [address] [address] 08/21/2023 Provider ZZ-Migration Plan Of Treatment No Information Progress Notes * Tan WOODALLDOB: (74 yo M)Acc No.[id number]:08/21/2023 Patient: Tan JACK Provider: Vladimir cochran Migration :1950 A ge:73 Y S ex:Male Date:08/21/2023 Address:[address] [place], [place] [id number] Subjective: * Chief Complaints: * 1 . [facility] En[facility]. * Medical History: * [...] *Please review and pick correct strength-formulation from RAP Index options. If intended option is not shown, [...] *Please review and pick correct strength-formulation from RAP Index options. If intended option is not shown, discontinue and re-order from Quick Search*, Taking Flonase Allergy Relief 50 MCG/ACT Suspension 1 spray(s) intranasally once a day , Taking Nitroglycerin 0.3 MG/HR FILM, EXTENDED RELEASE 1 PATCH TRANSDERMALLY ONCE A DAY , Notes to Pharmacist: *Please review and pick correct strength-formulation from RAP Index options. If intended option is not shown, [...] * Electronic signature of Ariel REDDY-Migration on 08/14/2024 at 12:59 PM CDT Sign off status: Pending * Provider: Vladimir cochran Migration Date: 08/21/2023 Generated for Cornel phelan/Marshall/Angie on: 08/14/2024 12:59 PM CDT
--- OUTSIDE RECORDS SUMMARY | 2024-08-14 13:01 | XMS_ITS | Encounter Summary ---
Author Organization [facility] Address [address] [place] [address] Care Team Providers Care Arch Support Technician Name Role Phone Unavailable Primary Care Provider Unavailabl e Encounter Details Date Type Department Care Team (Late st Contact Info) Description 09/16/2006 Outpatient Historical [facility] Cardiovas and Thor Surg at [facility] [address] [phone] Nehemias Smyth MD [address] [facility] [address] [address] Social History Tobacco Use Types Packs/Day Years Used Date Smoking Tobacco: Never Assessed Sex and Gender Information Value Date Recorded Sex Assigned at Not on file 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
--- OUTSIDE RECORDS SUMMARY | 2024-08-14 13:01 | XMS_ITS | Encounter Summary ---
Author Organization Address 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
--- OUTSIDE RECORDS SUMMARY | 2024-08-14 13:01 | XMS_ITS | Clinical Summary ---
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
--- OUTSIDE RECORDS SUMMARY | 2024-08-14 13:01 | XMS_ITS | Encounter Summary ---
Author Organization [facility] Address 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
--- OUTSIDE RECORDS SUMMARY | 2024-08-14 13:01 | XMS_ITS | Encounter Summary ---
Author Organization [facility] Address 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
--- OUTSIDE RECORDS SUMMARY | 2024-08-14 13:01 | XMS_ITS | Encounter Summary ---
Author Organization [facility] Address 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 Gender Identity Not on file Sexual Orientation [...] OF CARE TESTING Edited Performing Organization Address [facility] de Phone Number INTERFACE SYSTEM Refer [...] WRIGHT HEMATOLOGY ORDERABLES Edited Performing Organization Address [facility] de Phone Number INTERFACE SYSTEM Refer [...] INTERFACE SYSTEM 07/15/2006 5:15 AM CDT Bandar WIRGHT HEMATOLOGY ORDERABLES Edited INTERFACE SYSTEM Refer to [...] and non- Americans is available on the [facility] Intranet at: [email or web address] Select: Lab Policies and Procedures Select: Reference Ranges - GFR 07/15/2006 5:15 AM CDT Bandar WRIGHT CHEMISTRY ORDERABLES Edited Performing Organization Address [facility] Phone Number INTERFACE SYSTEM Refer to clinic/hospital department * (ABNORMAL) POC GLUCOSE (07/14/2006 8:31 PM CDT) GLUCOSE POC 153(H) 65 - 99 mg/dL INTERFACE SYSTEM 07/14/2006 8:31 PM CDT Nehemias Smyth MD POINT OF CARE TESTING Edited Performing Organization Address [facility] Phone Number INTERFACE SYSTEM Refer to clinic/hospital department * (ABNORMAL) POC GLUCOSE (07/14/2006 4:30 PM CDT) COMMENT, GLU POC Notified RN INTERFACE SYSTEM GLUCOSE POC 168(H) 65 - 99 mg/dL INTERFACE SYSTEM 07/14/2006 4:30 PM CDT Nehemias Smyth MD POINT OF CARE TESTING Edited Performing Organization Address [facility] Phone Number INTERFACE SYSTEM Refer to clinic/hospital department * (ABNORMAL) CK TOTAL, RELATIVE INDEX (07/14/2006 12:00 PM CDT) CK 4,695(H) 10 - 170 U/L INTERFACE SYSTEM CARDIAC RELATIVE INDEX 0.4 <=4.0 INTERFACE SYSTEM 07/14/2006 12:0 0 PM CDT Result [facility] Nehemias Smyth MD CHEMISTRY ORDERABLES Edited Performing Organization Address [facility] Phone Number INTERFACE SYSTEM Refer to clinic/hospital department * (ABNORMAL) CKMB W/REFLEX CK (07/14/2006 12:00 PM CDT) CKMB 16.9(AA) <=6.7 ng/mL INTERFACE SYSTEM Comment:Persistent abnormal result CKMB INTERP See Below INTERFAC E SYSTEM Comment:Elevated CKMB,Consis tent with Myocardial Injury 07/14/2006 12:0 0 PM CDT us Nehemias Smyth MD CHEMISTRY ORDERABLES Edited Performing Organization Address [facility] Phone Number INTERFACE SYSTEM Refer to clinic/hospital department * (ABNORMAL) POC GLUCOSE (07/14/2006 11:18 AM CDT) COMMENT, GLU POC Notified RN INTERFACE SYSTEM GLUCOSE POC 169(H) 65 - 99 mg/dL INTERFACE SYSTEM 07/14/2006 11:1 8 AM CDT us Nehemias Smyth MD POINT OF CARE TESTING Edited Performing Organization Address [facility] Phone Number INTERFACE SYSTEM Refer to clinic/hospital department * (ABNORMAL) POC GLUCOSE (07/14/2006 7:34 AM CDT) COMMENT, GLU POC Notified RN INTERFACE SYSTEM GLUCOSE POC 141(H) 65 - 99 mg/dL INTERFACE SYSTEM 07/14/2006 7:34 AM CDT us Nehemias Smyth MD POINT OF CARE TESTING Edited Performing Organization Address [facility] Phone Number INTERFACE SYSTEM Refer to clinic/hospital [...] MD HEMATOLOGY ORDERABLES Edited Performing Organization Address [facility] Phone Number INTERFACE SYSTEM Refer to clinic/hospital [...] MD HEMATOLOGY ORDERABLES Edited Performing Organization Address [facility] Phone Number INTERFACE SYSTEM Refer to clinic/hospital department * (ABNORMAL) CK TOTAL, RELATIVE INDEX (07/14/2006 1:30 AM CDT) CK 5,144(H) 10 - 170 U/L INTERFACE SYSTEM CARDIAC RELATIVE INDEX 0.6 <=4.0 INTERFACE SYSTEM 07/14/2006 1:30 AM CDT Result Xi Smyth MD CHEMISTRY ORDERABLES Edited Performing Organization Address [facility] Phone Number INTERFACE SYSTEM Refer to clinic/hospital department * (ABNORMAL) CKMB W/REFLEX CK (07/14/2006 1:30 AM CDT) CKMB 28.1(AA) <=6.7 ng/mL INTERFACE SYSTEM Comment:Persistent abnormal result CKMB INTERP See Below INTERFAC E SYSTEM Comment:Elevated CKMB,Consis tent with Myocardial Injury 07/14/2006 1:30 AM CDT us Nehemias Smyth MD CHEMISTRY ORDERABLES Edited Performing Organization Address City/[facility] de Phone Number INTERFACE SYSTEM Refer to clinic/hospital department * MAGNESIUM LEVEL (07/14/2006 1:30 AM CDT) MAGNESIUM 2.5 1.5 - 2.5 mg/dL INTERFACE SYSTEM 07/14/2006 1:30 AM CDT us Nehemias Smyth MD CHEMISTRY ORDERABLES Edited Performing Organization Address [facility] de Phone Number INTERFACE SYSTEM Refer [...] and non- Americans is available on the [facility] Intranet at: [email or web address] Select: Lab Policies and Procedures Select: Reference Ranges - GFR 07/14/2006 1:30 AM CDT us Nehemias Smyth MD CHEMISTRY ORDERABLES Edited Performing Organization Address [facility] de Phone Number INTERFACE SYSTEM Refer to clinic/hospital department * (ABNORMAL) POC GLUCOSE (07/13/2006 8:50 PM CDT) GLUCOSE POC 180(H) 65 - 99 mg/dL INTERFACE SYSTEM 07/13/2006 8:50 PM CDT us Nehemias Smyth MD POINT OF CARE TESTING Edited Performing Organization Address [facility] de Phone Number INTERFACE SYSTEM Refer to clinic/hospital department * (ABNORMAL) CK TOTAL, RELATIVE INDEX (07/13/2006 5:37 PM CDT) CK 5,575(H) 10 - 170 U/L INTERFACE SYSTEM Comment:Quantitated by dilut ion. CARDIAC RELATIVE INDEX 0.8 <=4.0 INTERFACE SYSTEM 07/13/2006 5:37 PM CDT us Nehemias Smyth MD CHEMISTRY ORDERABLES Edited Performing Organization Address [facility] Phone Number INTERFACE SYSTEM Refer to clinic/hospital department * (ABNORMAL) CKMB W/REFLEX CK (07/13/2006 5:37 PM CDT) CKMB 45.3(AA) <=6.7 ng/mL INTERFACE SYSTEM Comment:Persistent abnormal result CKMB INTERP See Below INTERFAC E SYSTEM Comment:Elevated CKMB,Consis tent with Myocardial Injury 07/13/2006 5:37 PM CDT us Nehemias Smyth MD CHEMISTRY ORDERABLES Edited Performing Organization Address [facility] de Phone Number INTERFACE SYSTEM Refer to clinic/hospital department * (ABNORMAL) POC GLUCOSE (07/13/2006 4:28 PM CDT) COMMENT, GLU POC Notified RN INTERFACE SYSTEM GLUCOSE POC 151(H) 65 - 99 mg/dL INTERFACE SYSTEM 07/13/2006 4:28 PM CDT Result Xi Smyth MD POINT OF CARE TESTING Edited Performing Organization Address [facility] de Phone Number INTERFACE SYSTEM Refer to clinic/hospital department * (ABNORMAL) POC GLUCOSE (07/13/2006 12:57 PM CDT) GLUCOSE POC 168(H) 65 - 99 mg/dL INTERFACE SYSTEM 07/13/2006 12:5 7 PM CDT us Nehemias Smyth MD POINT OF CARE TESTING Edited Performing Organization Address [facility] de Phone Number INTERFACE SYSTEM Refer to clinic/hospital department * (ABNORMAL) POC GLUCOSE (07/13/2006 11:13 AM CDT) GLUCOSE POC 202(H) 65 - 99 mg/dL INTERFACE SYSTEM 07/13/2006 11:1 3 AM CDT us Nehemias Smyth MD POINT OF CARE TESTING Edited Performing Organization Address [facility] de Phone Number INTERFACE SYSTEM Refer to clinic/hospital department * (ABNORMAL) POC GLUCOSE (07/13/2006 5:35 AM CDT) GLUCOSE POC 123(H) 65 - 99 mg/dL INTERFACE SYSTEM 07/13/2006 5:35 AM CDT Result Xi Smyth MD POINT OF CARE TESTING Edited Performing Organization Address [facility] de Phone Number INTERFACE SYSTEM Refer [...] MD HEMATOLOGY ORDERABLES Edited Performing Organization Address City/[facility] de Phone Number INTERFACE SYSTEM Refer [...] MD HEMATOLOGY ORDERABLES Edited Performing Organization Address [facility] Phone Number INTERFACE SYSTEM Refer to clinic/hospital [...] and non- Americans is available on the [facility] Intranet at: [email or web address] Select: Lab Policies and Procedures Select: Reference Ranges - GFR 07/13/2006 5:00 AM CDT us Nehemias Smyth MD CHEMISTRY ORDERABLES Edited Performing Organization Address [facility] de Phone Number INTERFACE SYSTEM Refer [...] MD CHEMISTRY ORDERABLES Edited Performing Organization Address [facility] Phone Number INTERFACE SYSTEM Refer to clinic/hospital department * (ABNORMAL) POC GLUCOSE (07/13/2006 2:58 AM CDT) GLUCOSE POC 153(H) 65 - 99 mg/dL INTERFACE SYSTEM 07/13/2006 2:58 AM CDT us Nehemias Smyth MD POINT OF CARE TESTING Edited Performing Organization Address [facility] Co de Phone Number INTERFACE SYSTEM Refer to clinic/hospital department * (ABNORMAL) POC GLUCOSE (07/13/2006 1:05 AM CDT) GLUCOSE POC 146(H) 65 - 99 mg/dL INTERFACE SYSTEM 07/13/2006 1:05 AM CDT us Nehemias Smyth MD POINT OF CARE TESTING Edited Performing Organization Address [facility] Phone Number INTERFACE SYSTEM Refer to clinic/hospital department * (ABNORMAL) POC GLUCOSE (07/12/2006 11:38 PM CDT) GLUCOSE POC 149(H) 65 - 99 mg/dL INTERFACE SYSTEM 07/12/2006 11:3 8 PM CDT us Nehemias Smyth MD POINT OF CARE TESTING Edited Performing Organization Address [facility] Phone Number INTERFACE SYSTEM Refer to clinic/hospital department * (ABNORMAL) POC GLUCOSE (07/12/2006 9:55 PM CDT) GLUCOSE POC 169(H) 65 - 99 mg/dL INTERFACE SYSTEM 07/12/2006 9:55 PM CDT us Nehemias Smyth MD POINT OF CARE TESTING Edited Performing Organization Address [facility] Phone Number INTERFACE SYSTEM Refer to clinic/hospital department * (ABNORMAL) POC GLUCOSE (07/12/2006 8:21 PM CDT) GLUCOSE POC 158(H) 65 - 99 mg/dL INTERFACE SYSTEM 07/12/2006 8:21 PM CDT us Nehemias Smyth MD POINT OF CARE TESTING Edited Performing Organization Address [facility] Phone Number INTERFACE SYSTEM Refer to clinic/hospital [...] MD CHEMISTRY ORDERABLES Edited Performing Organization Address [facility] Phone Number INTERFACE SYSTEM Refer to clinic/hospital department * (ABNORMAL) POC GLUCOSE (07/12/2006 5:55 PM CDT) GLUCOSE POC 162(H) 65 - 99 mg/dL INTERFACE SYSTEM 07/12/2006 5:55 PM CDT us Nehemias Smyth MD POINT OF CARE TESTING Edited Performing Organization Address [facility] Phone Number INTERFACE SYSTEM Refer to clinic/hospital department * (ABNORMAL) POC GLUCOSE (07/12/2006 4:15 PM CDT) GLUCOSE POC 160(H) 65 - 99 mg/dL INTERFACE SYSTEM 07/12/2006 4:15 PM CDT us Nehemias Smyth MD POINT OF CARE TESTING Edited Performing Organization Address [facility] Phone Number INTERFACE SYSTEM Refer to clinic/hospital department * (ABNORMAL) POC GLUCOSE (07/12/2006 1:16 PM CDT) GLUCOSE POC 117(H) 65 - 99 mg/dL INTERFACE SYSTEM 07/12/2006 1:16 PM CDT Result Xi Smyth MD POINT OF CARE TESTING Edited Performing Organization Address [facility] Phone Number INTERFACE SYSTEM Refer to [...] MD CHEMISTRY ORDERABLES Edited Performing Organization Address [facility] de Phone Number INTERFACE SYSTEM Refer [...] MD HEMATOLOGY ORDERABLES Edited Performing Organization Address [facility] de Phone Number INTERFACE SYSTEM Refer [...] MD HEMATOLOGY ORDERABLES Edited Performing Organization Address [facility] Phone Number INTERFACE SYSTEM Refer to clinic/hospital [...] MD HEMATOLOGY ORDERABLES Edited Performing Organization Address [facility] de Phone Number INTERFACE SYSTEM Refer to clinic/hospital department * (ABNORMAL) MAGNESIUM LEVEL (07/12/2006 11:29 AM CDT) MAGNESIUM 2.7(H) 1.5 - 2.5 mg/dL INTERFACE SYSTEM 07/12/2006 11:2 9 AM CDT us Nehemias Smyth MD CHEMISTRY ORDERABLES Edited Performing Organization Address [facility] de Phone Number INTERFACE SYSTEM Refer [...] and non- Americans is available on the [facility] Intranet at: [email or web address] Select: Lab Policies and Procedures Select: Reference Ranges - GFR 07/12/2006 11:2 9 AM CDT Nehemias Smyth MD CHEMISTRY ORDERABLES Edited Performing Organization Address [facility] Phone Number INTERFACE SYSTEM Refer to clinic/hospital department * (ABNORMAL) POC GLUCOSE (07/12/2006 11:22 AM CDT) GLUCOSE POC 126(H) 65 - 99 mg/dL INTERFACE SYSTEM 07/12/2006 11:2 2 AM CDT us Nehemias Smyth MD POINT OF CARE TESTING Edited Performing Organization Address [facility] de Phone Number INTERFACE SYSTEM Refer [...] MD CHEMISTRY ORDERABLES Edited Performing Organization Address [facility] Co de Phone Number INTERFACE SYSTEM Refer [...] MD CHEMISTRY ORDERABLES Edited Performing Organization Address [facility] Co de Phone Number INTERFACE SYSTEM Refer [...] encounter Visit Diagnoses Diagnosis Coronary atherosclerosis of [place] coronary artery- Primary documented in this encounter
== END 2024-08-14 11:24 | disposition home or self-care (01) ==
LOC: ANHLAB 11:24
PROVIDERS: PCP Internal Medicine; Visit Provider Nurse Practitioner Family
DX: Z79.899 Other long term (current) drug therapy (principal)
CPT/HCPCS: 36415; 82306

== ENCOUNTER 2024-08-29 09:00 | Outpatient (CLI) | payer MEDICARE, OTHER, SELFPAY ==
--- NOTE | ~2024-08-29 | CT_ITS ---
Non-contrast CT scan of the Abdomen and Pelvis Clinical indication: Right lower quadrant pain Technique: 2.5 mm axial scans were obtained through the abdomen and pelvis without intravenous or or al contrast. Dose reduction technique was used on this scan by utilizing automated exposure control a nd iterative reconstruction technique. The dose-length product (DLP) was 1088.10 mGy-cm. COMPARISON: 07/02/2021 Findings: Images through the lung bases reveal no abnormalities. There is no evidence of renal or ureteral calculi. The kidneys and the ureters are nondilated. Bilate ral renal cysts are present. Stable left hepatic lobe cyst. Cholecystectomy clips are present. The spleen, pancreas, and adrenals appear normal. There is no aortic aneurysm. There is no evidence of bowel obstruction. Images through the pelvis were performed. There is no evidence of ascites or lymphadenopathy. Urinary bladder unremarkable. Prostate gland is enlarged. Impression: No acute abnormality. Enlarged prostate gland. Reviewed, dictated and finalized at [facility]. Impression: No acute abnormality. Enlarged prostate gland.
== END 2024-08-29 09:01 | disposition home or self-care (01) ==
LOC: MICIMG 09:02
PROVIDERS: PCP Nurse Practitioner; Visit Provider Nurse Practitioner
DX: N40.0 Benign prostatic hyperplasia without lower urinary tract symptoms (principal)
CPT/HCPCS: 74176

== ENCOUNTER 2024-10-12 14:34 | Outpatient (CLI) | payer MEDICARE, OTHER, SELFPAY ==
--- OUTSIDE RECORDS SUMMARY | 2024-10-12 12:08 | XMS_ITS | Encounter Summary ---
Author Organization [facility] Address [address] [place] [address] Care Team Providers Care Art Professor Name Role Phone Unavailable Primary Care Provider Unavailabl e Encounter Details Date Type Department Care Team (Late st Contact Info) Description 07/08/2006 Outpatient Historical [facility] Support Serv. ([facility]) [address] 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
--- OUTSIDE RECORDS SUMMARY | 2024-10-12 12:08 | XMS_ITS | Clinical Summary ---
Author Organization [facility] Address [address] [place] [id number] Care Team Providers Care Instructional Support Assistant Name Role Phone Neftali Benitez Primary Care Provider [phone] Allergies Active Allergy Reactions Criticality Noted Date [...] (1,000 mcg total) by mouth daily Active fvdebgdf-uer-TT -lycopen-lutein 300-600-300 mcg tablet Take by mouth [...] left 2020 Coronary artery disease invo lving [place] coronary artery of [place] heart without angina pectoris 07/26/2017 Assessment & [...] therapy with good control. No changes made. Surgical History Surgery Date Site/Laterality Comments CORONARY [...] Tinnitus Sinusitis Dysphagia HL (hearing loss) Arthritis 2008 Cataract 1993. 2021 Brain concussion 2020 Glaucoma 1950 Heart disease 2007 Sleep apnea 1998 Hoarseness Back pain Family History Medical History Relation Name Comments Cancer Father Jeramie Woodall Heart attack Father Jeramie Woodall Myocardial Inf arction; Hypertension Father Jeramie Woodall Stroke Father's Sister Gladis aMrtines Cancer Mother Greta Woodall Rashes / Skin [...] on file Legal Sex Male 8:44 PM GAME MODERATOR Gender Identity Male 08/13/2021 6:13 PM CDT Sexual Orientation Not on file Obstetrics History Last Filed Vital Signs Vital Sign Reading Time Taken Comments Blood Pressure 112/60 02/16/2023 1:24 PM GAME MODERATOR Pulse 71 02/16/2023 1:24 PM GAME MODERATOR Temperature 36.2 C (97.2 F) 08/07/2014 6:28 AM CDT Respiratory Rate 18 06/08/2024 9:45 AM CDT Oxygen Saturation 98% 02/16/2023 1:24 PM GAME MODERATOR Inhaled Oxygen Concentration - - Weight 113.4 [...] 01/15/2021, 05/17/2020, Additional history exists Influenza Vaccine (#1) 2024 , 11/30/2019, 12/14/2018 Procedures Procedure Name Priority Date/Time Associated Diagnosis Comments POCT LIPID PANEL Routine 10/02/2022 12:0 0 PM CDT Coronary artery disease involving [place] coronary artery of [place] heart without angina pectoris Mixed diabetic hyperlipidemia [...] Most Recently Relevant to Health Maintenance Insurance FOR LIFE MEDICARE FOR LIFE MEDICARE [facility] Address: [address] [address] [place] [address] [employer] Care Teams Instructional Support Assistant Relationship Specialty Start Date End Date Neftali Benitez DO PCP - General Internal Medicine 09/27/23
--- OUTSIDE RECORDS SUMMARY | 2024-10-12 12:08 | XMS_ITS | Encounter Summary ---
Author Organization [facility] Address [facility] [place] [address] Care Team Providers Care Teacher Dancing Name Role Phone Minesh Daniels MD Primary Care Provider [phone] Encounter Details Date Type Department Care Team (Late Contact Info) Description 06/05/2024 [employer] Message Enc [facility] [address] [phone] Senia Ojeda MD [facility] [address] [place] [phone] Blood Pressure Social History Tobacco Use Types Packs/Day Years Used Date Smoking Tobacco: Former Cigarettes Q uit: 1970 Pipe Smokeless Tobacco: Never Comments:Made me sick Alcohol Use Standard Drinks/Week Comments Not Currently 0 (1 standard drink = 0.6 oz pur e alcohol) Cannot drink to many. Meds Sex and Gender Information Value Date Recorded Sex Assigned at Not on file Legal Sex Male 5:55 PM CDT Gender Identity Not on file Sexual Orientation Not on file documented as of this encounter Plan of Treatment Upcoming Encounters Date Type Department Care Team (Late Contact Info) Description 07/27/2025 12:15 PM CDT Office Visit [facility] [address] [phone] Senia Ojeda MD [facility] [address] [place] [phone] documented as of this encounter Visit Diagnoses Not on filedocumented in this encounter Care Teams Teacher Dancing Relationship Specialty Start Date End Date Minesh Daniels MD [address] [place] [address] PCP - General FAMILY PRACTICE 08/13/23 documented as of this encounter
--- OUTSIDE RECORDS SUMMARY | 2024-10-12 12:08 | XMS_ITS | Encounter Summary ---
Author Organization [employer] Address 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 Gender Identity Not on file Sexual [...] MD URINE ORDERABLES Edited Performing Organization Address [facility] Phone Number INTERFACE SYSTEM Refer to [...] MD URINE ORDERABLES Edited Performing Organization Address [facility] Phone Number INTERFACE SYSTEM Refer to [...] MD HEMATOLOGY ORDERABLES Edited Performing Organization Address [facility] Co de Phone Number INTERFACE SYSTEM [...] MD HEMATOLOGY ORDERABLES Edited Performing Organization Address [facility] de Phone Number INTERFACE SYSTEM Refer [...] and non- Americans is available on the [facility] Intranet at: [email or web address] Select: Lab Policies and Procedures Select: Reference [...] patients with mechanical heart valves or post [place]. Pediatric (12 years and under): 1.5 - [...] encounter Visit Diagnoses Diagnosis Coronary atherosclerosis of [place] coronary artery- Primary documented in this encounter
--- OUTSIDE RECORDS SUMMARY | 2024-10-12 12:08 | XMS_ITS | Clinical Summary ---
Author Organization [facility] Address [address] [place] [address] Care Team Providers Care Dumper Operator Name Role Phone Neftali Benitez DO Primary Care Provider [phone] Source Comments [facility],non-owned Affiliates and Associated Physician Practices is amultiple site organization consisting of ambulatory clinics and hospital sitesin [place], [place], [place] and [place]. This disclosure is being madepursuant to the Care Everywhere program and may not contain all information available regarding this patient. Last updated 17.[facility] Social History Tobacco Use Types Packs/Day Years [...] season) 2023 DEPRESSION SCREENING 03/08/2024 INFLUENZA VACCINE (#1) 2024 Respiratory Syncytial Virus (RSV) Vaccine Pt: [...] age to complete this topic Insurance MEDICARE [facility] MEDICARE [facility] Care Teams Dumper Operator Relationship Specialty Start Date End Date Neftali Benitez DO [address] [place] [address] PCP - General 10/22/21
--- OUTSIDE RECORDS SUMMARY | 2024-10-12 12:08 | XMS_ITS | Encounter Summary ---
Author Organization [facility] Address [address] [place] [address] Care Team Providers Care Lay Out Drafter Name Role Phone Unavailable Primary Care Provider Unavailabl e Encounter Details Date Type Department Care Team (Late st Contact Info) Description 07/08/2006 Outpatient Historical [facility] Cardiovas and Thor Surg at [facility] S [facility] [address] [address] Nehemias Smyth MD [address] [facility] [place] [address] Social History Tobacco Use Types Packs/Day Years Used Date Smoking Tobacco: Never Assessed Sex and Gender Information Value Date Recorded Sex Assigned at Not on file Legal Sex Male 3:36 AM REVIEW CONSULTANT Gender Identity Not on file Sexual Orientation Not on file documented as of this encounter Plan of Treatment Not on file documented as of this encounter Visit Diagnoses Not on filedocumented in this encounter
--- OUTSIDE RECORDS SUMMARY | 2024-10-12 12:08 | XMS_ITS | Encounter Summary ---
Author Organization [facility] Address [address] [place] [address] Care Team Providers Care Scientific Photographer Name Role Phone Unavailable Primary Care Provider Unavailabl e Encounter Details Date Type Department Care Team (Late st Contact Info) Description 07/12/2006 Outpatient Historical [facility] Cardiovas and Thor Surg at [facility] S [facility] [address] [address] Nehemias Smyth MD [address] [facility] [address] [address] Social History Tobacco Use Types Packs/Day Years Used Date Smoking Tobacco: Never Assessed Sex and Gender Information Value Date Recorded Sex Assigned at Not on file 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
--- OUTSIDE RECORDS SUMMARY | 2024-10-12 12:08 | XMS_ITS | Encounter Summary ---
Author Organization [facility] Address [address] [place] [address] Care Team Providers Care Undercover Operator Name Role Phone Neftali Benitez DO Primary Care Provider [phone] Encounter Details Date Type Department Care Team (Late st Contact Info) Description 09/27/2023 Lab Requisition [facility] - DermPath Lab [address] [place] [address] Phoebe Duong MD [address] [facility] 3 DE[place] [address] Social History Tobacco Use Types Packs/Day Years [...] AM CDT) Case Report Dermatopathology Report Case: [id number] Authorizing Provider: Phoebe Duong MD Collected: 09/27/2023 08:50 AM Ordering Location: [facility] - Received: 09/28/2023 10:53 AM [...] characteristic determined by the Dermatopathology Laboratory at [facility], directed by Dr. Carly Davis. These tests need not be, and therefore are not, approved by the [place] Food and Drug Administration. The tests are used for clinical purposes. Billing Codes Specimen Charges Stain Charges 77392 1 4 3:42 PM CDT DERMATOPATHOLOGY LABORATORY Embedded Images 4 3:42 PM CDT DERMATOPATHOLOGY LABORATORY Pathology/Cytolo gy TISSUE SPECIMEN FROM SKIN / Unknown 09/27/2023 8:50 AM CDT 09/28/2023 10:53 AM CDT us Phoebe Duong MD LAB - PATHOLOGY/CYTOLOGY OR DERABLES Final Result DERMATOPATHOLOGY LABORATORY [facility] - Department of Dermat[facility] [address] 3rd Floor [address] [phone] documented in this encounter Visit Diagnoses Not on filedocumented in this encounter Care Teams Undercover Operator Relationship Specialty Start Date End Date Neftali Benitez DO [address] [place] [address] PCP - General 10/22/21 documented as of this encounter
--- OUTSIDE RECORDS SUMMARY | 2024-10-12 12:08 | XMS_ITS | Encounter Summary ---
Author Organization [facility] Address [address] [place] [address] Care Team Providers Care Cone Sewer Name Role Phone Unavailable Primary Care Provider Unavailabl e Encounter Details Date Type Department Care Team (Late st Contact Info) Description 07/08/2006 Outpatient Historical [facility] Cardiovas and Thor Surg at [facility] S [facility] [address] [address] Nehemias Smyth MD [address] [facility] 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
--- OUTSIDE RECORDS SUMMARY | 2024-10-12 12:08 | XMS_ITS | Encounter Summary ---
Author Organization [facility] Address [address] [place] [address] Care Team Providers Care Sales Route Driver Helper Name Role Phone Unavailable Primary Care Provider Unavailabl e Encounter Details Date Type Department Care Team (Late st Contact Info) Description 08/17/2006 Outpatient Historical [facility] Cardiovas and Thor Surg at [facility] S [facility] [address] [address] Nehemias Smyth MD [address] [facility] [address] [place] [address] Social History Tobacco Use Types Packs/Day Years Used Date Smoking Tobacco: Never Assessed Sex and Gender Information Value Date Recorded Sex Assigned at Not on file 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
--- OUTSIDE RECORDS SUMMARY | 2024-10-12 12:08 | XMS_ITS | Encounter Summary ---
Author Organization [facility] Address [address] [place] [address] Care Team Providers Care Kitchen Manager Name Role Phone Minesh Daniels MD Primary Care Provider [phone] Encounter Details Date Type Department Care Team (Latest Contact Info) Description 09/20/2024 Canara Message [facility] [address] Senia Ojeda MD [facility] [address] [place] [address] Anti inflammatory medicine Social History Tobacco Use Types Packs/Day Years [...] on file documented as of this encounter Progress Notes * Helen Turpin NP - 09/20/2024 3:40 PM CDT All NSAIDS carry some risk with recurrent UT, or HTN. That being said, if you use them sparingly (just a few times per week rather than daily), it is much less risk with such cardiac issues. documented in this encounter Plan of Treatment Upcoming Encounters Date Type Department Care Team (Late st Contact Info) Description 07/27/2025 12:15 PM CDT Office Visit [facility] [address] Senia Ojeda MD [address] [facility] [address] [place] [address] documented as of this encounter Visit Diagnoses Not on filedocumented in this encounter Care Teams Kitchen Manager Relationship Specialty Start Date End Date Minesh Daniels MD [address] [place] [address] PCP - General FAMILY PRACTICE 08/13/23 documented as of this encounter
--- OUTSIDE RECORDS SUMMARY | 2024-10-12 12:08 | XMS_ITS | Encounter Summary ---
Author Organization [employer] Address [address] [place] [address] Care Team Providers Care 7Th Grade Teacher Name Role Phone Unavailable Primary Care Provider Unavailabl e Encounter Details Date Type Department Care Team (Late st Contact Info) Description 07/13/2006 Outpatient Historical [facility] Support Serv. ([facility] Card[facility]) [address] 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
--- OUTSIDE RECORDS SUMMARY | 2024-10-12 12:08 | XMS_ITS | Clinical Summary ---
Author Organization [facility] Address [address] [place] [address] Care Team Providers Care Public Information Coordinator Name Role Phone Minesh Daniels MD Primary Care Provider [phone] Allergies Active Allergy Reactions Criticality Noted Date Comments Latex Itching,Rash,Redness Low 08/13/1993 Medications Acetaminophen 500 MG Cap Take by mouth every 6 (six) hours as needed. 0 Active albuterol sulfate HFA 108 (90 Base) MCG/ACT inhaler ProAir HFA 90 mcg/actuation aerosol inhaler Active allopurinol (ZYLOPRIM) 300 MG tablet Take 0.5 tablets (150 mg total) by mouth daily. 4 Active amLODIPine (NORVASC) 5 MG tablet Take 1 tablet (5 mg total) by mouth daily. 7 Active aspirin EC (ECOTRIN) 81 MG tablet Take 1 tablet (81 mg total) by mouth daily. 7 Active atorvastatin (LIPITOR) 40 MG tablet 7 Active AZELASTINE 137 MCG/SPRAY nasal spray 0 Active cetirizine (ZYRTEC) 10 MG tablet 9 Active Cholecalciferol (D2000 ULTRA STRENGTH) 50 MCG (2000 UT) Cap Take 2,000 Units by mouth daily. 9 Active fluticasone propionate (FLONASE) 50 MCG/ACT nasal spray 1 spray by Nasal route daily. 9 Active fluticasone-farzaneh meterol (ADVAIR DISKUS) 250-50 MCG/ACT inhaler Advair Diskus 250 mcg-50 mcg/dose powder for inhalation Active ipratropium (ATROVENT) 0.03 % nasal spray 2 Active irbesartan (AVAPRO) 300 MG tablet Take 1 tablet (300 mg total) by mouth daily. 7 Active levothyroxine (SYNTHROID) 88 MCG tablet 8 Active metFORMIN (GLUCOPHAGE) 500 MG tablet 8 Active metoprolol succinate ER (TOPROL-XL) 25 MG 24 hr tablet Take 1 tablet (25 mg total) by mouth daily. 7 Active montelukast (SINGULAIR) 10 MG tablet Take 2 tablets (20 mg total) by mouth daily. 8 Active nitroglycerin (NITROSTAT) 0.4 MG SL tablet 7 Active omeprazole EC (PRILOSEC OTC) 20 MG tablet 9 Active ondansetron (ZOFRAN) 4 MG tablet Take 1 tablet (4 mg total) by mouth every 8 (eight) hours as needed. 4 Active JANUVIA 100 MG tablet Take 1 tablet (100 mg total) by mouth daily. 1 Active tamsulosin (FLOMAX) 0.4 MG Cap Take 1 capsule (0.4 mg total) by mouth daily. 6 Active COMPRESSION STOCKINGS 20-30 mmhg large long wear every day 8 Active empagliflozin (JARDIANCE) 10 MG tablet Take 1 tablet (10 mg total) by mouth daily. Active Encounters Date Type Department Care Team Description 09/20/2024 MyChart Message [facility] [address] Senia Ojeda MD Anti inflammatory medicine from Last 3 Months Family History Medical History Relation Comments Cancer Father Pamcreatic Heart Disease Father Hypertension Father Cancer Mother Pancreatic Relation Status Comments Father Mother Social History Tobacco Use Types Packs/Day Years [...] on file Sexual Orientation Not on file Last Filed Vital Signs Vital Sign Reading Time Taken Comments Blood Pressure 110/58 05/19/2024 11:12 AM CDT Pulse 76 05/19/2024 11:12 AM CDT Temperature - - Respiratory Rate - - Oxygen Saturation 97% 05/19/2024 11: 12 AM CDT Inhaled Oxygen Concentration - - Weight 113.1 kg (249 lb 4.8 oz) 025 11:12 AM CDT Height 175.3 cm (5' 9) 05/19/2024 11:1 2 AM CDT Body Mass Index 36.82 05/19/2024 11:12 AM CDT Plan of Treatment Upcoming Encounters Date Type Department Care Team (Late st Contact Info) Description 07/27/2025 12:15 PM CDT Office Visit [facility] [phone] Senia Ojeda MD [address] [facility] [address] [facility] [place] [address] Health Maintenance Due Date Last Done Comments ASCVD LDL 1950 Colorectal Cancer Screening Colonoscopy (10 Years) 1950 Kidney Health Evaluation 1950 Hemoglobin A1C 1950 Diabetes: Retinopathy Eye Exam 1968 Hepatitis C 1968 DTaP, Tdap and Td Vaccines (1 - Tdap) 1969 Pneumococcal Vaccine: 50+ Years (1 of 2 - PCV) 1969 Zoster Vaccines (1 of 2) 2000 AAA SCREENING 07/31/2015 Annual Medicare Wellness Visit 07/31/2015 Lipid Panel 10/03/2023 10/02/2022 COVID-19 Vaccine ( - season) 2023 08/13/2021, 01/15/2021, 05/17/2020, Additional history exists RSV Immunization or 60+ Years Completed 02/09/2023 Meningococcal B Vaccine Aged Out No l onger eligible based on patient's age to complete this topic Meningococcal Vaccine Aged Out No concepcion dejuan eligible based on patient's age to complete this topic RSV Immunizations Under 20 Months Aged Out No longer eligible based on patient's age to complete this topic Insurance MEDICARE [facility] Care Teams Public Information Coordinator Relationship Specialty Start Date End Date Minesh Daniels MD [address] [place] [address] PCP - General FAMILY PRACTICE 08/13/23
--- OUTSIDE RECORDS SUMMARY | 2024-10-12 12:08 | XMS_ITS | Encounter Summary ---
Author Organization [facility] Address [facility] [place] [address] Care Team Providers Care Boiler Welder Name Role Phone Minesh Daniels MD Primary Care Provider [phone] Encounter Details Date Type Department Care Team (Late Contact Info) Description 06/05/2024 Linkuahart Message Enc [place] [facility] [address] [address] Senia Ojeda MD [facility] [address] [place] [address] Blood pressure Social History Tobacco Use Types Packs/Day Years [...] Description 07/27/2025 12:15 PM CDT Office Visit [facility] [address] [address] Senia Ojeda MD [facility] [address] [place] [address] documented as of this encounter Visit Diagnoses Not on filedocumented in this encounter Care Teams Boiler Welder Relationship Specialty Start Date End Date Minesh Daniels MD [address] [place] [address] PCP - General FAMILY PRACTICE 08/13/23 documented as of this encounter
--- OUTSIDE RECORDS SUMMARY | 2024-10-12 12:08 | XMS_ITS | Encounter Summary ---
Author Organization [facility] Address [facility] [place] [address] Care Team Providers Care Clock And Watch Hands Dipper Name Role Phone Minesh Daniels MD Primary Care Provider [phone] Encounter Details Date Type Department Care Team (Late Contact Info) Description 06/05/2024 [employer]TV[employer] Message Enc [place] [facility] [address] [address] Senia Ojeda MD [facility] [address] [place] [address] Blood Pressure Social History Tobacco Use [...] Description 07/27/2025 12:15 PM CDT Office Visit [place] [facility] [address] [address] Senia Ojeda MD [facility] [address] [place] [address] documented as of this encounter Visit Diagnoses Not on filedocumented in this encounter Care Teams Clock And Watch Hands Dipper Relationship Specialty Start Date End Date Minesh Daniels MD [address] [place] [address] PCP - General FAMILY PRACTICE 08/13/23 documented as of this encounter
--- OUTSIDE RECORDS SUMMARY | 2024-10-12 12:09 | XMS_ITS | Encounter Summary ---
Author Organization [facility] Address 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
--- OUTSIDE RECORDS SUMMARY | 2024-10-12 12:09 | XMS_ITS | Encounter Summary ---
Author Organization [facility] Address [address] [place] [address] Care Team Providers Care Stemmer Machine Name Role Phone Unavailable Primary Care Provider Unavailabl e Encounter Details Date Type Department Care Team (Late st Contact Info) Description 09/16/2006 Outpatient Historical [facility] Cardiovas and Thor Surg at [facility] [address] [facility] [address] [address] Nehemias Smyth MD [address] [facility] [address] [address] Social History Tobacco Use Types Packs/Day Years Used Date Smoking Tobacco: Never Assessed Sex and Gender Information Value Date Recorded Sex Assigned at Not on file 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
--- OUTSIDE RECORDS SUMMARY | 2024-10-12 12:09 | XMS_ITS | Encounter Summary ---
Author Organization [facility] Address 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
--- OUTSIDE RECORDS SUMMARY | 2024-10-12 12:09 | XMS_ITS | Encounter Summary ---
Author Organization [employer] Address 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 Gender Identity Not on file Sexual Orientation [...] OF CARE TESTING Edited Performing Organization Address [facility] de Phone Number INTERFACE SYSTEM Refer [...] WRIGHT HEMATOLOGY ORDERABLES Edited Performing Organization Address [facility] de Phone Number INTERFACE SYSTEM Refer [...] is available on the [facility] Intranet at: [email or web address] Select: Lab Policies and Procedures Select: Reference Ranges - GFR 07/15/2006 5:15 AM CDT Bandar WRIGHT CHEMISTRY ORDERABLES Edited Performing Organization Address [facility] Phone Number INTERFACE SYSTEM Refer to clinic/hospital department * (ABNORMAL) POC GLUCOSE (07/14/2006 8:31 PM CDT) GLUCOSE POC 153(H) 65 - 99 mg/dL INTERFACE SYSTEM 07/14/2006 8:31 PM CDT Nehemias Smyth MD POINT OF CARE TESTING Edited Performing Organization Address [facility] Phone Number INTERFACE SYSTEM Refer to clinic/hospital department * (ABNORMAL) POC GLUCOSE (07/14/2006 4:30 PM CDT) COMMENT, GLU POC Notified RN INTERFACE SYSTEM GLUCOSE POC 168(H) 65 - 99 mg/dL INTERFACE SYSTEM 07/14/2006 4:30 PM CDT Nehemias Smyth MD POINT OF CARE TESTING Edited Performing Organization Address [facility] Phone Number INTERFACE SYSTEM Refer to clinic/hospital department * (ABNORMAL) CK TOTAL, RELATIVE INDEX (07/14/2006 12:00 PM CDT) CK 4,695(H) 10 - 170 U/L INTERFACE SYSTEM CARDIAC RELATIVE INDEX 0.4 <=4.0 INTERFACE SYSTEM 07/14/2006 12:0 0 PM CDT Result [facility] Nehemias Smyth MD CHEMISTRY ORDERABLES Edited Performing Organization Address [facility] Phone Number INTERFACE SYSTEM Refer to clinic/hospital department * (ABNORMAL) CKMB W/REFLEX CK (07/14/2006 12:00 PM CDT) CKMB 16.9(AA) <=6.7 ng/mL INTERFACE SYSTEM Comment:Persistent abnormal result CKMB INTERP See Below INTERFAC E SYSTEM Comment:Elevated CKMB,Consis tent with Myocardial Injury 07/14/2006 12:0 0 PM CDT us Nehemias Smyth MD CHEMISTRY ORDERABLES Edited Performing Organization Address [facility] Phone Number INTERFACE SYSTEM Refer to clinic/hospital department * (ABNORMAL) POC GLUCOSE (07/14/2006 11:18 AM CDT) COMMENT, GLU POC Notified RN INTERFACE SYSTEM GLUCOSE POC 169(H) 65 - 99 mg/dL INTERFACE SYSTEM 07/14/2006 11:1 8 AM CDT us Nehemias Smyth MD POINT OF CARE TESTING Edited Performing Organization Address [facility] Phone Number INTERFACE SYSTEM Refer to clinic/hospital department * (ABNORMAL) POC GLUCOSE (07/14/2006 7:34 AM CDT) COMMENT, GLU POC Notified RN INTERFACE SYSTEM GLUCOSE POC 141(H) 65 - 99 mg/dL INTERFACE SYSTEM 07/14/2006 7:34 AM CDT us Nehemias Smyth MD POINT OF CARE TESTING Edited Performing Organization Address [facility] Phone Number INTERFACE SYSTEM Refer to [...] MD HEMATOLOGY ORDERABLES Edited Performing Organization Address [facility] Phone Number INTERFACE SYSTEM Refer to [...] MD HEMATOLOGY ORDERABLES Edited Performing Organization Address [facility] Phone Number INTERFACE SYSTEM Refer to clinic/hospital department * (ABNORMAL) CK TOTAL, RELATIVE INDEX (07/14/2006 1:30 AM CDT) CK 5,144(H) 10 - 170 U/L INTERFACE SYSTEM CARDIAC RELATIVE INDEX 0.6 <=4.0 INTERFACE SYSTEM 07/14/2006 1:30 AM CDT Result Xi Smyth MD CHEMISTRY ORDERABLES Edited Performing Organization Address [facility] Phone Number INTERFACE SYSTEM Refer to clinic/hospital department * (ABNORMAL) CKMB W/REFLEX CK (07/14/2006 1:30 AM CDT) CKMB 28.1(AA) <=6.7 ng/mL INTERFACE SYSTEM Comment:Persistent abnormal result CKMB INTERP See Below INTERFAC E SYSTEM Comment:Elevated CKMB,Consis tent with Myocardial Injury 07/14/2006 1:30 AM CDT us Nehemias Smyth MD CHEMISTRY ORDERABLES Edited Performing Organization Address [facility] de Phone Number INTERFACE SYSTEM Refer to clinic/hospital department * MAGNESIUM LEVEL (07/14/2006 1:30 AM CDT) MAGNESIUM 2.5 1.5 - 2.5 mg/dL INTERFACE SYSTEM 07/14/2006 1:30 AM CDT us Nehemias Smyth MD CHEMISTRY ORDERABLES Edited Performing Organization Address [facility] de Phone Number INTERFACE SYSTEM Refer [...] is available on the [facility] Intranet at: [email or web address] Select: Lab Policies and Procedures Select: Reference Ranges - GFR 07/14/2006 1:30 AM CDT us Nehemias Smyth MD CHEMISTRY ORDERABLES Edited Performing Organization Address [facility] de Phone Number INTERFACE SYSTEM Refer to clinic/hospital department * (ABNORMAL) POC GLUCOSE (07/13/2006 8:50 PM CDT) GLUCOSE POC 180(H) 65 - 99 mg/dL INTERFACE SYSTEM 07/13/2006 8:50 PM CDT us Nehemias Smyth MD POINT OF CARE TESTING Edited Performing Organization Address [facility] de Phone Number INTERFACE SYSTEM Refer to clinic/hospital department * (ABNORMAL) CK TOTAL, RELATIVE INDEX (07/13/2006 5:37 PM CDT) CK 5,575(H) 10 - 170 U/L INTERFACE SYSTEM Comment:Quantitated by dilut ion. CARDIAC RELATIVE INDEX 0.8 <=4.0 INTERFACE SYSTEM 07/13/2006 5:37 PM CDT us Nehemias Smyth MD CHEMISTRY ORDERABLES Edited Performing Organization Address [facility] Phone Number INTERFACE SYSTEM Refer to clinic/hospital department * (ABNORMAL) CKMB W/REFLEX CK (07/13/2006 5:37 PM CDT) CKMB 45.3(AA) <=6.7 ng/mL INTERFACE SYSTEM Comment:Persistent abnormal result CKMB INTERP See Below INTERFAC E SYSTEM Comment:Elevated CKMB,Consis tent with Myocardial Injury 07/13/2006 5:37 PM CDT us Nehemias Smyth MD CHEMISTRY ORDERABLES Edited Performing Organization Address [facility] de Phone Number INTERFACE SYSTEM Refer to clinic/hospital department * (ABNORMAL) POC GLUCOSE (07/13/2006 4:28 PM CDT) COMMENT, GLU POC Notified RN INTERFACE SYSTEM GLUCOSE POC 151(H) 65 - 99 mg/dL INTERFACE SYSTEM 07/13/2006 4:28 PM CDT Result Xi Smyth MD POINT OF CARE TESTING Edited Performing Organization Address [facility] de Phone Number INTERFACE SYSTEM Refer to clinic/hospital department * (ABNORMAL) POC GLUCOSE (07/13/2006 12:57 PM CDT) GLUCOSE POC 168(H) 65 - 99 mg/dL INTERFACE SYSTEM 07/13/2006 12:5 7 PM CDT us Nehemias Smyth MD POINT OF CARE TESTING Edited Performing Organization Address [facility] de Phone Number INTERFACE SYSTEM Refer to clinic/hospital department * (ABNORMAL) POC GLUCOSE (07/13/2006 11:13 AM CDT) GLUCOSE POC 202(H) 65 - 99 mg/dL INTERFACE SYSTEM 07/13/2006 11:1 3 AM CDT us Nehemias Smyth MD POINT OF CARE TESTING Edited Performing Organization Address [facility] de Phone Number INTERFACE SYSTEM Refer to clinic/hospital department * (ABNORMAL) POC GLUCOSE (07/13/2006 5:35 AM CDT) GLUCOSE POC 123(H) 65 - 99 mg/dL INTERFACE SYSTEM 07/13/2006 5:35 AM CDT Result Xi Smyth MD POINT OF CARE TESTING Edited Performing Organization Address [facility] de Phone Number INTERFACE SYSTEM Refer [...] MD HEMATOLOGY ORDERABLES Edited Performing Organization Address [facility] de Phone Number INTERFACE SYSTEM Refer [...] MD HEMATOLOGY ORDERABLES Edited Performing Organization Address [facility] Phone Number INTERFACE SYSTEM Refer to [...] patients with mechanical heart valves or post CA. Pediatric (12 years and under): 1.5 - [...] is available on the [facility] Intranet at: [email or web address] Select: Lab Policies and Procedures Select: Reference Ranges - GFR 07/13/2006 5:00 AM CDT us Nehemias Smyth MD CHEMISTRY ORDERABLES Edited Performing Organization Address [facility] de Phone Number INTERFACE SYSTEM Refer [...] MD CHEMISTRY ORDERABLES Edited Performing Organization Address [facility] Phone Number INTERFACE SYSTEM Refer to clinic/hospital department * (ABNORMAL) POC GLUCOSE (07/13/2006 2:58 AM CDT) GLUCOSE POC 153(H) 65 - 99 mg/dL INTERFACE SYSTEM 07/13/2006 2:58 AM CDT us Nehemias Smyth MD POINT OF CARE TESTING Edited Performing Organization Address [facility] Co de Phone Number INTERFACE SYSTEM Refer to clinic/hospital department * (ABNORMAL) POC GLUCOSE (07/13/2006 1:05 AM CDT) GLUCOSE POC 146(H) 65 - 99 mg/dL INTERFACE SYSTEM 07/13/2006 1:05 AM CDT us Nehemias Smyth MD POINT OF CARE TESTING Edited Performing Organization Address [facility] Phone Number INTERFACE SYSTEM Refer to clinic/hospital department * (ABNORMAL) POC GLUCOSE (07/12/2006 11:38 PM CDT) GLUCOSE POC 149(H) 65 - 99 mg/dL INTERFACE SYSTEM 07/12/2006 11:3 8 PM CDT us Nehemias Smyth MD POINT OF CARE TESTING Edited Performing Organization Address [facility] Phone Number INTERFACE SYSTEM Refer to clinic/hospital department * (ABNORMAL) POC GLUCOSE (07/12/2006 9:55 PM CDT) GLUCOSE POC 169(H) 65 - 99 mg/dL INTERFACE SYSTEM 07/12/2006 9:55 PM CDT us Nehemias Smyth MD POINT OF CARE TESTING Edited Performing Organization Address [facility] Phone Number INTERFACE SYSTEM Refer to clinic/hospital department * (ABNORMAL) POC GLUCOSE (07/12/2006 8:21 PM CDT) GLUCOSE POC 158(H) 65 - 99 mg/dL INTERFACE SYSTEM 07/12/2006 8:21 PM CDT us Nehemias Smyth MD POINT OF CARE TESTING Edited Performing Organization Address [facility] Phone Number INTERFACE SYSTEM Refer to [...] MD CHEMISTRY ORDERABLES Edited Performing Organization Address [facility] Phone Number INTERFACE SYSTEM Refer to clinic/hospital department * (ABNORMAL) POC GLUCOSE (07/12/2006 5:55 PM CDT) GLUCOSE POC 162(H) 65 - 99 mg/dL INTERFACE SYSTEM 07/12/2006 5:55 PM CDT us Nehemias Smyth MD POINT OF CARE TESTING Edited Performing Organization Address [facility] Phone Number INTERFACE SYSTEM Refer to clinic/hospital department * (ABNORMAL) POC GLUCOSE (07/12/2006 4:15 PM CDT) GLUCOSE POC 160(H) 65 - 99 mg/dL INTERFACE SYSTEM 07/12/2006 4:15 PM CDT us Nehemias Smyth MD POINT OF CARE TESTING Edited Performing Organization Address [facility] Phone Number INTERFACE SYSTEM Refer to clinic/hospital department * (ABNORMAL) POC GLUCOSE (07/12/2006 1:16 PM CDT) GLUCOSE POC 117(H) 65 - 99 mg/dL INTERFACE SYSTEM 07/12/2006 1:16 PM CDT Result Xi Smyth MD POINT OF CARE TESTING Edited Performing Organization Address [facility] Phone Number INTERFACE SYSTEM Refer to [...] MD CHEMISTRY ORDERABLES Edited Performing Organization Address [facility] de Phone Number INTERFACE SYSTEM Refer [...] MD HEMATOLOGY ORDERABLES Edited Performing Organization Address [facility] de Phone Number INTERFACE SYSTEM Refer [...] MD HEMATOLOGY ORDERABLES Edited Performing Organization Address [facility] Phone Number INTERFACE SYSTEM Refer to [...] patients with mechanical heart valves or post CA. Pediatric (12 years and under): 1.5 - [...] MD HEMATOLOGY ORDERABLES Edited Performing Organization Address [facility] de Phone Number INTERFACE SYSTEM Refer to clinic/hospital department * (ABNORMAL) MAGNESIUM LEVEL (07/12/2006 11:29 AM CDT) MAGNESIUM 2.7(H) 1.5 - 2.5 mg/dL INTERFACE SYSTEM 07/12/2006 11:2 9 AM CDT us Nehemias Smyth MD CHEMISTRY ORDERABLES Edited Performing Organization Address [facility] de Phone Number INTERFACE SYSTEM Refer [...] is available on the [facility] Intranet at: [email or web address] Select: Lab Policies and Procedures Select: Reference Ranges - GFR 07/12/2006 11:2 9 AM CDT Nehemias Smyth MD CHEMISTRY ORDERABLES Edited Performing Organization Address [facility] Phone Number INTERFACE SYSTEM Refer to clinic/hospital department * (ABNORMAL) POC GLUCOSE (07/12/2006 11:22 AM CDT) GLUCOSE POC 126(H) 65 - 99 mg/dL INTERFACE SYSTEM 07/12/2006 11:2 2 AM CDT us Nehemias Smyth MD POINT OF CARE TESTING Edited Performing Organization Address [facility] de Phone Number INTERFACE SYSTEM Refer [...] MD CHEMISTRY ORDERABLES Edited Performing Organization Address [facility] Co de Phone Number INTERFACE [...] MD CHEMISTRY ORDERABLES Edited Performing Organization Address [facility] Co de Phone Number INTERFACE [...] encounter Visit Diagnoses Diagnosis Coronary atherosclerosis of [place] coronary artery- Primary documented in this encounter
--- OUTSIDE RECORDS SUMMARY | 2024-10-12 12:09 | XMS_ITS | Clinical Summary ---
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
--- OUTSIDE RECORDS SUMMARY | 2024-10-12 12:09 | XMS_ITS | Encounter Summary ---
Author Organization [facility] Address 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
[2024-10-12 12:44] LABS: Hematocrit 42.8 % (42.0-52.0); Hemoglobin 13.9 g/dL (14.0-18.0); Mean Corpuscular HGB Conc 32.5 g/dl (32-36); Mean Corpuscular Hemoglobin 28.3 pg (26-34); Mean Corpuscular Volume 87.0 fl (80-100); Platelet Count Result 120 k/mm3 (150-375); Red Blood Count 4.92 M/mm3 (4.6-6.20); White Blood Count 8.2 K/mm3 (4.5-10.0)
[2024-10-12 12:46] LABS: Add Urine Microscopic? NO; Appearance Urine Clear (Clear); Glucose Urine UA 3+ mg/dL (Negative); Leukocyte Esterase Ur Negative LEU/UL (Negative); Nitrate Urine Negative (Negative); Specific Grav Ur 1.028 (1.001-1.035)
[2024-10-12 13:05] LABS: Alanine Aminotransferase 15 U/L (6-50); Albumin Level 4.3 g/dL (3.5-5.1); Alkaline Phosphatase 67 U/L (38-126); Anion Gap 9 mmol/L (4-12); Aspartate Amino Transferase 21 U/L (17-59); Bilirubin,Total 1.0 mg/dL (0.2-1.3); Blood Urea Nitrogen 15 mg/dL (9-20); Calcium 8.8 mg/dL (8.4-10.2); Carbon Dioxide 26 mmol/L (22-30); Chloride 101 mmol/L (98-107); Estimated Glomerular Filt Rate 59; Glucose 96 mg/dL (65-110); Lipase 131 U/L (23-300); Potassium 3.9 mmol/L (3.4-5.0); Sodium 136 mmol/L (137-145); Total Protein 7.0 g/dL (6.3-8.2)
--- OUTSIDE RECORDS SUMMARY | 2024-10-12 14:36 | XMS_ITS | Clinical Summary ---
Author Organization [facility] Address [address] [place] [address] Care Team Providers Care Pumper Gauger Apprentice Name Role Phone Minesh Daniels MD Primary Care Provider [phone] Allergies Active Allergy Reactions Criticality Noted Date [...] Department Care Team Description 09/20/2024 MyChart Message [facility] [phone] Senia Ojeda MD Anti inflammatory [...] Description 07/27/2025 12:15 PM CDT Office Visit [facility] [phone] Senia Ojeda MD [address] [facility] [address] [facility] [place] [address] Health Maintenance Due Date Last [...] age to complete this topic Insurance MEDICARE [facility] Care Teams Pumper Gauger Apprentice Relationship Specialty Start Date End Date Minesh Daniels MD [address] [place] [address] PCP - General FAMILY PRACTICE 08/13/23
--- OUTSIDE RECORDS SUMMARY | 2024-10-12 14:36 | XMS_ITS | Encounter Summary ---
Author Organization [facility] Address [address] [place] [address] Care Team Providers Care Md Physician Dermatologist Name Role Phone Neftali Benitez DO Primary Care Provider [phone] Encounter Details Date Type Department Care Team (Late st Contact Info) Description 09/27/2023 Lab Requisition [facility] - DermPath Lab [address] [place] [phone] Phoebe Duong MD [address] [facility] [address] [place] [address] Social History Tobacco Use Types Packs/Day Years [...] AM CDT) Case Report Dermatopathology Report Case: [id number] Authorizing Provider: Phoebe Duong MD Collected: 09/27/2023 08:50 AM Ordering Location: [facility] - Received: 09/28/2023 10:53 [...] characteristic determined by the Dermatopathology Laboratory at [facility], directed by Dr. Carly [place]. These tests need not be, and therefore are not, approved by the [place] Food and Drug Administration. The tests are used for clinical purposes. Billing Codes Specimen Charges Stain Charges 39530 1 4 3:42 PM CDT DERMATOPATHOLOGY LABORATORY Embedded Images 4 3:42 PM CDT DERMATOPATHOLOGY LABORATORY Pathology/Cytolo gy TISSUE SPECIMEN FROM SKIN / Unknown 09/27/2023 8:50 AM CDT 09/28/2023 10:53 AM CDT us Phoebe Duong MD LAB - PATHOLOGY/CYTOLOGY OR DERABLES Final Result DERMATOPATHOLOGY LABORATORY [facility] - Department of Derm[facility] [address] 3rd [address] [phone] documented in this encounter Visit Diagnoses Not on filedocumented in this encounter Care Teams Md Physician Dermatologist Relationship Specialty Start Date End Date Neftali Benitez DO [address] [place] [address] PCP - General 10/22/21 documented as of this encounter
--- OUTSIDE RECORDS SUMMARY | 2024-10-12 14:36 | XMS_ITS | Encounter Summary ---
Author Organization [facility] Address [place] [place] [address] Care Team Providers Care Ceramic Tile Mechanic Name Role Phone Minesh Daniels MD Primary Care Provider [phone] Encounter Details Date Type Department Care Team (Late Contact Info) Description 06/05/2024 [employer] Energy[employer] Message Enc [facility] [address] [phone] Senia Ojeda MD [facility] [address] [place] [phone] Blood pressure Social History Tobacco Use [...] Description 07/27/2025 12:15 PM CDT Office Visit [facility] [address] [phone] Senia Ojeda MD [facility] [address] [place] [address] documented as of this encounter Visit Diagnoses Not on filedocumented in this encounter Care Teams Ceramic Tile Mechanic Relationship Specialty Start Date End Date Minesh Daniels MD [address] [place] [address] PCP - General FAMILY PRACTICE 08/13/23 documented as of this encounter
--- OUTSIDE RECORDS SUMMARY | 2024-10-12 14:36 | XMS_ITS | Clinical Summary ---
Author Organization [facility] Address [address] [place] [address] Care Team Providers Care Dialysis Biomed Technician Name Role Phone Neftali Benitez DO Primary Care Provider [phone] Source Comments [facility],non-owned Affiliates and Associated Physician Practices is amultiple site organization consisting of ambulatory clinics and hospital sitesin [place], [place], [place] and [place]. This disclosure is being madepursuant to the Care Everywhere program and may not contain all information available regarding this patient. Last updated 17.[facility] Social History Tobacco Use Types Packs/Day [...] age to complete this topic Insurance MEDICARE [facility] MEDICARE [facility] Care Teams Dialysis Biomed Technician Relationship Specialty Start Date End Date Neftali Benitez DO [address] [place] [address] PCP - General 10/22/21
--- OUTSIDE RECORDS SUMMARY | 2024-10-12 14:36 | XMS_ITS | Clinical Summary ---
Author Organization [facility] Address [address] [place] [phone] Care Team Providers Care Logging Superintendent Name Role Phone Neftali Benitez Primary Care Provider [phone] Allergies Active Allergy Reactions Criticality Noted Date [...] (1,000 mcg total) by mouth daily Active mamcgevk-uie-[id number] -lycopen-lutein 300-600-300 mcg tablet Take by mouth [...] left 2020 Coronary artery disease invo lving morongo coronary artery of morongo heart without angina pectoris 07/26/2017 Assessment & [...] on file Legal Sex Male 8:44 PM EVIDENCE TECHNICIAN Gender Identity Male 08/13/2021 6:13 PM CDT Sexual Orientation Not on file Obstetrics History Last Filed Vital Signs Vital Sign Reading Time Taken Comments Blood Pressure 112/60 02/16/2023 1:24 PM EVIDENCE TECHNICIAN Pulse 71 02/16/2023 1:24 PM EVIDENCE TECHNICIAN Temperature 36.2 C (97.2 F) 08/07/2014 6:28 AM CDT Respiratory Rate 18 06/08/2024 9:45 AM CDT Oxygen Saturation 98% 02/16/2023 1:24 PM EVIDENCE TECHNICIAN Inhaled Oxygen Concentration - - Weight 113.4 [...] 0 PM CDT Coronary artery disease involving morongo coronary artery of morongo heart without angina pectoris Mixed diabetic hyperlipidemia [...] Insurance FOR LIFE MEDICARE FOR LIFE MEDICARE FOR LIFE Care Teams Logging Superintendent Relationship Specialty Start Date End Date Neftali Benitez DO PCP - General Internal Medicine 09/27/23
--- OUTSIDE RECORDS SUMMARY | 2024-10-12 14:37 | XMS_ITS | Encounter Summary ---
Author Organization [facility] Address [address] [place] [address] Care Team Providers Care Solar Photovoltaic Systems Engineer Name Role Phone Unavailable Primary Care Provider Unavailabl e Encounter Details Date Type Department Care Team (Late st Contact Info) Description 09/16/2006 Outpatient Historical [facility] Cardiovas and Thor Surg at [facility] [address] [facility] [address] [address] Nehemias Smyth MD [address] [facility] [address] [address] Social History Tobacco Use Types Packs/Day Years Used Date Smoking Tobacco: Never Assessed Sex and Gender Information Value Date Recorded Sex Assigned at Not on file 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
--- OUTSIDE RECORDS SUMMARY | 2024-10-12 14:37 | XMS_ITS | Encounter Summary ---
Author Organization [facility] Address [address] [place] [address] Care Team Providers Care Ibm Websphere Commerce Consultant Name Role Phone Unavailable Primary Care Provider Unavailabl e Encounter Details Date Type Department Care Team (Late st Contact Info) Description 07/08/2006 Outpatient Historical [facility] Cardiovas and Thor Surg at [facility] S [facility] [address] [address] Nehemias Smyth MD [address] [facility] [place] [address] Social History Tobacco Use Types Packs/Day Years Used Date Smoking Tobacco: Never Assessed Sex and Gender Information Value Date Recorded Sex Assigned at Not on file 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
--- OUTSIDE RECORDS SUMMARY | 2024-10-12 14:37 | XMS_ITS | Encounter Summary ---
Author Organization [employer] Address [address] [place] [address] Care Team Providers Care Salesperson Meats Name Role Phone Unavailable Primary Care Provider Unavailabl e Encounter Details Date Type Department Care Team (Late st Contact Info) Description 07/13/2006 Outpatient Historical [facility] [address] 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
--- OUTSIDE RECORDS SUMMARY | 2024-10-12 14:37 | XMS_ITS | Encounter Summary ---
Author Organization [facility] Address [address] [place] [address] Care Team Providers Care Acetaldehyde Converter Operator Name Role Phone Minesh Daniels MD Primary Care Provider [phone] Encounter Details Date Type Department Care Team (Latest Contact Info) Description 09/20/2024 RecycleMatch Message [facility] [address] Senia Ojdea MD [facility] [address] [place] [address] Anti inflammatory medicine Social History [...] All NSAIDS carry some risk with recurrent ME, or HTN. That being said, if you use them sparingly (just a few times per week rather than daily), it is much less risk with such cardiac issues. documented in this encounter Plan of Treatment Upcoming Encounters Date Type Department Care Team (Late st Contact Info) Description 07/27/2025 12:15 PM CDT Office Visit [facility] [address] Senia Ojeda MD [facility] [address] [place] [address] documented as of this encounter Visit Diagnoses Not on filedocumented in this encounter Care Teams Acetaldehyde Converter Operator Relationship Specialty Start Date End Date Minesh Daniels MD [address] [place] [address] PCP - General FAMILY PRACTICE 08/13/23 documented as of this encounter
--- OUTSIDE RECORDS SUMMARY | 2024-10-12 14:37 | XMS_ITS | Encounter Summary ---
Author Organization [email or web address] Address [address] [place] [address] Care Team Providers Care Embroidery Patternmaker Name Role Phone Unavailable Primary Care Provider Unavailabl e Encounter Details Date Type Department Care Team (Late st Contact Info) Description 07/08/2006 Outpatient Historical [facility] Support Serv[facility] ([facility]) [address] 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
--- OUTSIDE RECORDS SUMMARY | 2024-10-12 14:37 | XMS_ITS | Encounter Summary ---
Author Organization [facility] Address [address] [place] [address] Care Team Providers Care Quality Lead Name Role Phone Unavailable Primary Care Provider Unavailabl e Encounter Details Date Type Department Care Team (Late st Contact Info) Description 07/12/[address] 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
--- OUTSIDE RECORDS SUMMARY | 2024-10-12 14:37 | XMS_ITS | Encounter Summary ---
Author Organization [facility] Address [facility] [place] [address] Care Team Providers Care Timber Killer Name Role Phone Minesh Daniels MD Primary Care Provider [phone] Encounter Details Date Type Department Care Team (Late Contact Info) Description 06/05/2024 Newscronhart Message [facility] [address] [address] Senia Ojeda MD [facility] [address] [place] [address] Blood Pressure Social History Tobacco Use [...] Description 07/27/2025 12:15 PM CDT Office Visit [facility] [address] [address] Senia Ojeda MD [facility] [address] [place] [address] documented as of this encounter Visit Diagnoses Not on filedocumented in this encounter Care Teams Timber Killer Relationship Specialty Start Date End Date Minesh Daniels MD [address] [place] [address] PCP - General FAMILY PRACTICE 08/13/23 documented as of this encounter
--- OUTSIDE RECORDS SUMMARY | 2024-10-12 14:37 | XMS_ITS | Clinical Summary ---
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
--- OUTSIDE RECORDS SUMMARY | 2024-10-12 14:37 | XMS_ITS | Encounter Summary ---
Author Organization [facility] Address [address] [place] [address] Care Team Providers Care Uniform Designer Name Role Phone Unavailable Primary Care Provider Unavailabl e Encounter Details Date Type Department Care Team (Late st Contact Info) Description 07/08/2006 Outpatient Historical [facility] Cardiovas and Thor Surg at [facility] S [facility] [address] [address] Nehemias Smyth MD [address] [facility] [place] [address] Social History Tobacco Use Types Packs/Day Years Used Date Smoking Tobacco: Never Assessed Sex and Gender Information Value Date Recorded Sex Assigned at Not on file Legal Sex Male 3:36 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
--- OUTSIDE RECORDS SUMMARY | 2024-10-12 14:37 | XMS_ITS | Encounter Summary ---
Author Organization [facility] Address [address] [place] [address] Care Team Providers Care Business Development Associate Name Role Phone Unavailable Primary Care Provider Unavailabl e Encounter Details Date Type Department Care Team (Late st Contact Info) Description 07/12/[address] [facility] Cardiovas and Thor Surg at [facility] S [facility] [address] [address] Nehemias Smyth MD [address] [facility] [address] [address] Social History Tobacco Use Types Packs/Day Years Used Date Smoking Tobacco: Never Assessed Sex and Gender Information Value Date Recorded Sex Assigned at Not on file Legal Sex Male 3:36 AM PATIENT PARTNER Gender Identity Not on file Sexual Orientation Not on file documented as of this encounter Plan of Treatment Not on file documented as of this encounter Visit Diagnoses Not on filedocumented in this encounter
--- OUTSIDE RECORDS SUMMARY | 2024-10-12 14:37 | XMS_ITS | Encounter Summary ---
Author Organization [facility] Address [address] [place] [address] Care Team Providers Care Occupational Therapy Teacher Name Role Phone Unavailable Primary Care Provider Unavailabl e Encounter Details Date Type Department Care Team (Late st Contact Info) Description 08/17/2006 Outpatient Historical [facility] Cardiovas and Thor Surg at [facility] S [facility] [address] [address] Nehemias Smyth MD [address] [facility] [place] [address] Social History Tobacco Use Types Packs/Day Years Used Date Smoking Tobacco: Never Assessed Sex and Gender Information Value Date Recorded Sex Assigned at Not on file 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
--- OUTSIDE RECORDS SUMMARY | 2024-10-12 14:37 | XMS_ITS | Encounter Summary ---
Author Organization [facility] Address [facility] [place] [address] Care Team Providers Care International Trade Manager Name Role Phone Minesh Daniels MD Primary Care Provider [phone] Encounter Details Date Type Department Care Team (Late Contact Info) Description 06/05/2024 Colubris Networkshart Message [facility] [address] [address] Senia Ojeda MD [facility] [address] [place] [address] Blood Pressure Social History Tobacco Use [...] Description 07/27/2025 12:15 PM CDT Office Visit [facility] [address] [address] Senia Ojeda MD [facility] [address] [place] [address] documented as of this encounter Visit Diagnoses Not on filedocumented in this encounter Care Teams International Trade Manager Relationship Specialty Start Date End Date Minesh Daniels MD [address] [place] [address] PCP - General FAMILY PRACTICE 08/13/23 documented as of this encounter
--- OUTSIDE RECORDS SUMMARY | 2024-10-12 14:37 | XMS_ITS | Encounter Summary ---
Author Organization [employer] Address [address] [place] [address] Care Team Providers Care Truck Guard Name Role Phone Unavailable Primary Care Provider Unavailabl e Encounter Details Date Type Department Care Team (Latest Contact Info) Description 07/08/2006 Outpatient Historical [facility]PER[facility] Debbie Garcia MD NO ADDRESS ON FILE Coronary Atherosclerosis of [place] Coronary Artery (Primary Dx) Social History Tobacco Use Types Packs/Day Years Used Date Smoking Tobacco: Never Assessed Sex and Gender Information Value Date Recorded Sex Assigned at Not on file Legal Sex Male 3:36 AM IDEA MAN Gender Identity Not on file Sexual Orientation [...] MD URINE ORDERABLES Edited Performing Organization Address [facility] Phone Number INTERFACE SYSTEM Refer to [...] MD URINE ORDERABLES Edited Performing Organization Address [facility] Phone Number INTERFACE SYSTEM Refer to [...] MD HEMATOLOGY ORDERABLES Edited Performing Organization Address [facility] Co de Phone Number INTERFACE [...] MD HEMATOLOGY ORDERABLES Edited Performing Organization Address [facility] de Phone Number INTERFACE SYSTEM Refer to [...] and non- Americans is available on the [facility] Intranet at: [email or web address] Select: Lab Policies and Procedures Select: Reference [...] patients with mechanical heart valves or post [place]. Pediatric (12 years and under): 1.5 - [...] encounter Visit Diagnoses Diagnosis Coronary atherosclerosis of [place] coronary artery- Primary documented in this encounter
--- OUTSIDE RECORDS SUMMARY | 2024-10-12 14:37 | XMS_ITS | Encounter Summary ---
Author Organization [facility] Address 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 Gender Identity Not on file Sexual Orientation [...] OF CARE TESTING Edited Performing Organization Address [facility] de Phone Number INTERFACE SYSTEM [...] WRIGHT HEMATOLOGY ORDERABLES Edited Performing Organization Address [facility] de Phone Number INTERFACE SYSTEM [...] and non- Americans is available on the [facility] Intran[facility] at: [email or web address] Select: Lab Policies and Procedures Select: Reference Ranges - GFR 07/15/2006 5:15 AM CDT Bandar WRIGHT CHEMISTRY ORDERABLES Edited Performing Organization Address [facility] Phone Number INTERFACE SYSTEM Refer to clinic/hospital department * (ABNORMAL) POC GLUCOSE (07/14/2006 8:31 PM CDT) GLUCOSE POC 153(H) 65 - 99 mg/dL INTERFACE SYSTEM 07/14/2006 8:31 PM CDT Nehemias Smyth MD POINT OF CARE TESTING Edited Performing Organization Address [facility] Phone Number INTERFACE SYSTEM Refer to clinic/hospital department * (ABNORMAL) POC GLUCOSE (07/14/2006 4:30 PM CDT) COMMENT, GLU POC Notified RN INTERFACE SYSTEM GLUCOSE POC 168(H) 65 - 99 mg/dL INTERFACE SYSTEM 07/14/2006 4:30 PM CDT Nehemias Smyth MD POINT OF CARE TESTING Edited Performing Organization Address [facility] Phone Number INTERFACE SYSTEM Refer to clinic/hospital department * (ABNORMAL) CK TOTAL, RELATIVE INDEX (07/14/2006 12:00 PM CDT) CK 4,695(H) 10 - 170 U/L INTERFACE SYSTEM CARDIAC RELATIVE INDEX 0.4 <=4.0 INTERFACE SYSTEM 07/14/2006 12:0 0 PM CDT Result [facility] Nehemias Smyth MD CHEMISTRY ORDERABLES Edited Performing Organization Address [facility] Phone Number INTERFACE SYSTEM Refer to clinic/hospital department * (ABNORMAL) CKMB W/REFLEX CK (07/14/2006 12:00 PM CDT) CKMB 16.9(AA) <=6.7 ng/mL INTERFACE SYSTEM Comment:Persistent abnormal result CKMB INTERP See Below INTERFAC E SYSTEM Comment:Elevated CKMB,Consis tent with Myocardial Injury 07/14/2006 12:0 0 PM CDT us Nehemias Smyth MD CHEMISTRY ORDERABLES Edited Performing Organization Address [facility] Phone Number INTERFACE SYSTEM Refer to clinic/hospital department * (ABNORMAL) POC GLUCOSE (07/14/2006 11:18 AM CDT) COMMENT, GLU POC Notified RN INTERFACE SYSTEM GLUCOSE POC 169(H) 65 - 99 mg/dL INTERFACE SYSTEM 07/14/2006 11:1 8 AM CDT us Nehemias Smyth MD POINT OF CARE TESTING Edited Performing Organization Address [facility] Phone Number INTERFACE SYSTEM Refer to clinic/hospital department * (ABNORMAL) POC GLUCOSE (07/14/2006 7:34 AM CDT) COMMENT, GLU POC Notified RN INTERFACE SYSTEM GLUCOSE POC 141(H) 65 - 99 mg/dL INTERFACE SYSTEM 07/14/2006 7:34 AM CDT us Nehemias Smyth MD POINT OF CARE TESTING Edited Performing Organization Address [facility] Phone Number INTERFACE SYSTEM Refer to [...] MD HEMATOLOGY ORDERABLES Edited Performing Organization Address [facility] Phone Number INTERFACE SYSTEM Refer to [...] MD HEMATOLOGY ORDERABLES Edited Performing Organization Address [facility] Phone Number INTERFACE SYSTEM Refer to clinic/hospital department * (ABNORMAL) CK TOTAL, RELATIVE INDEX (07/14/2006 1:30 AM CDT) CK 5,144(H) 10 - 170 U/L INTERFACE SYSTEM CARDIAC RELATIVE INDEX 0.6 <=4.0 INTERFACE SYSTEM 07/14/2006 1:30 AM CDT Result Xi Smyth MD CHEMISTRY ORDERABLES Edited Performing Organization Address [facility] Phone Number INTERFACE SYSTEM Refer to clinic/hospital department * (ABNORMAL) CKMB W/REFLEX CK (07/14/2006 1:30 AM CDT) CKMB 28.1(AA) <=6.7 ng/mL INTERFACE SYSTEM Comment:Persistent abnormal result CKMB INTERP See Below INTERFAC E SYSTEM Comment:Elevated CKMB,Consis tent with Myocardial Injury 07/14/2006 1:30 AM CDT us Nehemias Smyth MD CHEMISTRY ORDERABLES Edited Performing Organization Address [facility] de Phone Number INTERFACE SYSTEM Refer to clinic/hospital department * MAGNESIUM LEVEL (07/14/2006 1:30 AM CDT) MAGNESIUM 2.5 1.5 - 2.5 mg/dL INTERFACE SYSTEM 07/14/2006 1:30 AM CDT us Nehemias Smyth MD CHEMISTRY ORDERABLES Edited Performing Organization Address [facility] de Phone Number INTERFACE SYSTEM [...] and non- Americans is available on the [facility] Intranet at: [email or web address] Select: Lab Policies and Procedures Select: Reference Ranges - GFR 07/14/2006 1:30 AM CDT us Nehemias Smyth MD CHEMISTRY ORDERABLES Edited Performing Organization Address [facility] de Phone Number INTERFACE SYSTEM Refer to clinic/hospital department * (ABNORMAL) POC GLUCOSE (07/13/2006 8:50 PM CDT) GLUCOSE POC 180(H) 65 - 99 mg/dL INTERFACE SYSTEM 07/13/2006 8:50 PM CDT us Nehemias Smyth MD POINT OF CARE TESTING Edited Performing Organization Address [facility] de Phone Number INTERFACE SYSTEM Refer to clinic/hospital department * (ABNORMAL) CK TOTAL, RELATIVE INDEX (07/13/2006 5:37 PM CDT) CK 5,575(H) 10 - 170 U/L INTERFACE SYSTEM Comment:Quantitated by dilut ion. CARDIAC RELATIVE INDEX 0.8 <=4.0 INTERFACE SYSTEM 07/13/2006 5:37 PM CDT us Nehemias Smyth MD CHEMISTRY ORDERABLES Edited Performing Organization Address [facility] Phone Number INTERFACE SYSTEM Refer to clinic/hospital department * (ABNORMAL) CKMB W/REFLEX CK (07/13/2006 5:37 PM CDT) CKMB 45.3(AA) <=6.7 ng/mL INTERFACE SYSTEM Comment:Persistent abnormal result CKMB INTERP See Below INTERFAC E SYSTEM Comment:Elevated CKMB,Consis tent with Myocardial Injury 07/13/2006 5:37 PM CDT us Nehemias Smyth MD CHEMISTRY ORDERABLES Edited Performing Organization Address [facility] de Phone Number INTERFACE SYSTEM Refer to clinic/hospital department * (ABNORMAL) POC GLUCOSE (07/13/2006 4:28 PM CDT) COMMENT, GLU POC Notified RN INTERFACE SYSTEM GLUCOSE POC 151(H) 65 - 99 mg/dL INTERFACE SYSTEM 07/13/2006 4:28 PM CDT Result Xi Smyth MD POINT OF CARE TESTING Edited Performing Organization Address [facility] de Phone Number INTERFACE SYSTEM Refer to clinic/hospital department * (ABNORMAL) POC GLUCOSE (07/13/2006 12:57 PM CDT) GLUCOSE POC 168(H) 65 - 99 mg/dL INTERFACE SYSTEM 07/13/2006 12:5 7 PM CDT us Nehemias Smyth MD POINT OF CARE TESTING Edited Performing Organization Address [facility] de Phone Number INTERFACE SYSTEM Refer to clinic/hospital department * (ABNORMAL) POC GLUCOSE (07/13/2006 11:13 AM CDT) GLUCOSE POC 202(H) 65 - 99 mg/dL INTERFACE SYSTEM 07/13/2006 11:1 3 AM CDT us Nehemias Smyth MD POINT OF CARE TESTING Edited Performing Organization Address [facility] de Phone Number INTERFACE SYSTEM Refer to clinic/hospital department * (ABNORMAL) POC GLUCOSE (07/13/2006 5:35 AM CDT) GLUCOSE POC 123(H) 65 - 99 mg/dL INTERFACE SYSTEM 07/13/2006 5:35 AM CDT Result Xi Smyth MD POINT OF CARE TESTING Edited Performing Organization Address [facility] de Phone Number INTERFACE SYSTEM [...] MD HEMATOLOGY ORDERABLES Edited Performing Organization Address [facility] de Phone Number INTERFACE SYSTEM [...] MD HEMATOLOGY ORDERABLES Edited Performing Organization Address [facility] Phone Number INTERFACE SYSTEM Refer to [...] patients with mechanical heart valves or post DC. Pediatric (12 years and under): 1.5 - [...] and non- Americans is available on the [facility] Intran[facility] at: [email or web address] Select: Lab Policies and Procedures Select: Reference Ranges - GFR 07/13/2006 5:00 AM CDT us Nehemias Smyth MD CHEMISTRY ORDERABLES Edited Performing Organization Address [facility] de Phone Number INTERFACE SYSTEM [...] MD CHEMISTRY ORDERABLES Edited Performing Organization Address [facility] Phone Number INTERFACE SYSTEM Refer to clinic/hospital department * (ABNORMAL) POC GLUCOSE (07/13/2006 2:58 AM CDT) GLUCOSE POC 153(H) 65 - 99 mg/dL INTERFACE SYSTEM 07/13/2006 2:58 AM CDT us Nehemias Smyth MD POINT OF CARE TESTING Edited Performing Organization Address [facility] Co de Phone Number INTERFACE SYSTEM Refer to clinic/hospital department * (ABNORMAL) POC GLUCOSE (07/13/2006 1:05 AM CDT) GLUCOSE POC 146(H) 65 - 99 mg/dL INTERFACE SYSTEM 07/13/2006 1:05 AM CDT us Nehemias Smyth MD POINT OF CARE TESTING Edited Performing Organization Address [facility] Phone Number INTERFACE SYSTEM Refer to clinic/hospital department * (ABNORMAL) POC GLUCOSE (07/12/2006 11:38 PM CDT) GLUCOSE POC 149(H) 65 - 99 mg/dL INTERFACE SYSTEM 07/12/2006 11:3 8 PM CDT us Nehemias Smyth MD POINT OF CARE TESTING Edited Performing Organization Address [facility] Phone Number INTERFACE SYSTEM Refer to clinic/hospital department * (ABNORMAL) POC GLUCOSE (07/12/2006 9:55 PM CDT) GLUCOSE POC 169(H) 65 - 99 mg/dL INTERFACE SYSTEM 07/12/2006 9:55 PM CDT us Nehemias Smyth MD POINT OF CARE TESTING Edited Performing Organization Address [facility] Phone Number INTERFACE SYSTEM Refer to clinic/hospital department * (ABNORMAL) POC GLUCOSE (07/12/2006 8:21 PM CDT) GLUCOSE POC 158(H) 65 - 99 mg/dL INTERFACE SYSTEM 07/12/2006 8:21 PM CDT us Nehemias Smyth MD POINT OF CARE TESTING Edited Performing Organization Address [facility] Phone Number INTERFACE SYSTEM Refer to [...] MD CHEMISTRY ORDERABLES Edited Performing Organization Address [facility] Phone Number INTERFACE SYSTEM Refer to clinic/hospital department * (ABNORMAL) POC GLUCOSE (07/12/2006 5:55 PM CDT) GLUCOSE POC 162(H) 65 - 99 mg/dL INTERFACE SYSTEM 07/12/2006 5:55 PM CDT us Nehemias Smyth MD POINT OF CARE TESTING Edited Performing Organization Address [facility] Phone Number INTERFACE SYSTEM Refer to clinic/hospital department * (ABNORMAL) POC GLUCOSE (07/12/2006 4:15 PM CDT) GLUCOSE POC 160(H) 65 - 99 mg/dL INTERFACE SYSTEM 07/12/2006 4:15 PM CDT us Nehemias Smyth MD POINT OF CARE TESTING Edited Performing Organization Address [facility] Phone Number INTERFACE SYSTEM Refer to clinic/hospital department * (ABNORMAL) POC GLUCOSE (07/12/2006 1:16 PM CDT) GLUCOSE POC 117(H) 65 - 99 mg/dL INTERFACE SYSTEM 07/12/2006 1:16 PM CDT Result Xi Smyth MD POINT OF CARE TESTING Edited Performing Organization Address [facility] Phone Number INTERFACE SYSTEM Refer [...] MD CHEMISTRY ORDERABLES Edited Performing Organization Address [facility] de Phone Number INTERFACE SYSTEM [...] MD HEMATOLOGY ORDERABLES Edited Performing Organization Address [facility] de Phone Number INTERFACE SYSTEM [...] MD HEMATOLOGY ORDERABLES Edited Performing Organization Address [facility] Phone Number INTERFACE SYSTEM Refer to [...] patients with mechanical heart valves or post DC. Pediatric (12 years and under): 1.5 - [...] MD HEMATOLOGY ORDERABLES Edited Performing Organization Address [facility] de Phone Number INTERFACE SYSTEM Refer to clinic/hospital department * (ABNORMAL) MAGNESIUM LEVEL (07/12/2006 11:29 AM CDT) MAGNESIUM 2.7(H) 1.5 - 2.5 mg/dL INTERFACE SYSTEM 07/12/2006 11:2 9 AM CDT us Nehemias Smyth MD CHEMISTRY ORDERABLES Edited Performing Organization Address [facility] de Phone Number INTERFACE SYSTEM [...] and non- Americans is available on the [facility] Intran[facility] at: [email or web address] Select: Lab Policies and Procedures Select: Reference Ranges - GFR 07/12/2006 11:2 9 AM CDT Nehemias Smyth MD CHEMISTRY ORDERABLES Edited Performing Organization Address [facility] Phone Number INTERFACE SYSTEM Refer to clinic/hospital department * (ABNORMAL) POC GLUCOSE (07/12/2006 11:22 AM CDT) GLUCOSE POC 126(H) 65 - 99 mg/dL INTERFACE SYSTEM 07/12/2006 11:2 2 AM CDT us Nehemias Smyth MD POINT OF CARE TESTING Edited Performing Organization Address [facility] de Phone Number INTERFACE SYSTEM [...] MD CHEMISTRY ORDERABLES Edited Performing Organization Address [facility] Co de Phone Number [...] MD CHEMISTRY ORDERABLES Edited Performing Organization Address [facility] Co de Phone Number [...] encounter Visit Diagnoses Diagnosis Coronary atherosclerosis of [place] coronary artery- Primary documented in this encounter
--- OUTSIDE RECORDS SUMMARY | 2024-10-12 14:37 | XMS_ITS | Encounter Summary ---
Author Organization [facility] Address [address] [place] [address] Care Team Providers Care Moveman Name Role Phone Unavailable Primary Care Provider Unavailabl e Encounter Details Date Type Department Care Team (Latest Contact Info) Description 08/17/[address] 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
--- OUTSIDE RECORDS SUMMARY | 2024-10-12 14:37 | XMS_ITS | Encounter Summary ---
Author Organization [facility] Address 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
[2024-10-15 01:06] LABS: Calprotectin, Fecal 33 ug/g (0-120)
== END 2024-10-12 14:35 | disposition home or self-care (01) ==
PROVIDERS: PCP Nurse Practitioner; Visit Provider Nurse Practitioner Family
DX: R11.0 Nausea (principal); R10.9 Unspecified abdominal pain
CPT/HCPCS: 36415; 80053; 81003; 83690; 83993; 85027; 87338

== ENCOUNTER 2024-10-23 01:01 | Day surgery (SDC) | payer MEDICARE, OTHER, SELFPAY ==
[2024-10-17 15:17] VITALS: BMI 35.4
--- OUTSIDE RECORDS SUMMARY | 2024-10-23 01:04 | XMS_ITS ---
Author Organization [facility] ([address]) Address [address] [place] [address] Care Team Providers Care Carnival Worker Name Role Phone Vane Renae Unavailable [phone] [facility]-Migration, Provider Unavailable Unavailab le REASON FOR VISIT [facility] Conversion Encounter Medications Medication SIG (Take, Route, [...] review and pick correct strength-formulat ion from Poynt options. If intended option is not shown, discontinue and re-order from Quick Search* Active Flonase Allergy Relief 50 MCG/ACT 1 spray(s) intranasally once a day; Duration: 30 day(s) Active Advair Diskus 250 MCG-50 MCG 1 INH INHALED 2 TIMES A DAY; Duration: 30 DAY(S) *Please review and pick correct strength-formulat ion from Poynt options. If intended option is not shown, [...] review and pick correct strength-formulat ion from Poynt options. If intended option is not shown, [...] Active Encounters Encounter Location Date Provider Diagnosis [address] [place] [address] 08/21/2023 Provider ZZ-Migration Plan Of Treatment No Information Progress Notes * Tan WOODALLDOB: (74 yo M)Acc No.[id number]:08/21/2023 Patient: Tan JACK Provider: Vladimir cochran Migration :1950 A ge:73 Y S ex:Male Date:08/21/2023 Address:[address] [facility] Subjective: * Chief Complaints: * [facility] . [facility]. * Medical History: * [...] *Please review and pick correct strength-formulation from Poynt options. If intended option is not shown, [...] *Please review and pick correct strength-formulation from Poynt options. If intended option is not shown, discontinue and re-order from Quick Search*, Taking Flonase Allergy Relief 50 MCG/ACT Suspension 1 spray(s) intranasally once a day , Taking Nitroglycerin 0.3 MG/HR FILM, EXTENDED RELEASE 1 PATCH TRANSDERMALLY ONCE A DAY , Notes to Pharmacist: *Please review and pick correct strength-formulation from Poynt options. If intended option is not shown, [...] signature of Prov jean pierre REDDY-Migration on 10/23/2024 at 01:04 AM CDT Sign off status: Pending * Provider: Vladimir cochran Migration Date: 0 08/21/2023 Generated for Cornel phelan/Marshall/Angie on: 10/23/2024 01:04 AM CDT
--- OUTSIDE RECORDS SUMMARY | 2024-10-23 01:04 | XMS_ITS | Clinical Summary ---
Author Organization [facility] Address [address] [place] [address] Care Team Providers Care Stock Preparer Name Role Phone Minesh Daniels MD Primary Care Provider [phone] Allergies Active Allergy Reactions Criticality Noted Date [...] Department Care Team Description 09/20/2024 MyChart Message [facility] [phone] Senia Ojeda MD Anti inflammatory [...] Description 07/27/2025 12:15 PM CDT Office Visit [facility] [phone] Senia Ojeda MD [address] [facility] [place] [address] Health Maintenance Due Date Last [...] age to complete this topic Insurance MEDICARE [facility] Care Teams Stock Preparer Relationship Specialty Start Date End Date Minesh Daniels MD [address] [facility] [place] [address] PCP - General FAMILY PRACTICE 08/13/23
--- OUTSIDE RECORDS SUMMARY | 2024-10-23 01:04 | XMS_ITS | Encounter Summary ---
Author Organization [facility] Address [address] [place] [address] Care Team Providers Care Accounts Payable Or Receivable Clerk Name Role Phone Neftali Benitez DO Primary Care Provider [phone] Encounter Details Date Type Department Care Team (Late st Contact Info) Description 09/27/2023 Lab Requisition [facility] - DermPath Lab [address] [facility] [place] [phone] Phoebe Duong MD [address] [facility] [address] [place] [address] Social History Tobacco Use Types Packs/Day Years [...] AM CDT) Case Report Dermatopathology Report Case: [id number] Authorizing Provider: Phoebe Duong MD Collected: 09/27/2023 08:50 AM Ordering Location: [facility] - Received: 09/28/2023 10:53 [...] determined by the Dermatopathology Laboratory at [facility], directed by Dr. Carly Davis. These tests need not be, and therefore are not, approved by the [place] Food and Drug Administration. The tests are used for clinical purposes. Billing Codes Specimen Charges Stain Charges 90693 1 4 3:42 PM CDT DERMATOPATHOLOGY LABORATORY Embedded Images 4 3:42 PM CDT DERMATOPATHOLOGY LABORATORY Pathology/Cytolo gy TISSUE SPECIMEN FROM SKIN / Unknown 09/27/2023 8:50 AM CDT 09/28/2023 10:53 AM CDT us Phoebe Duong MD LAB - PATHOLOGY/CYTOLOGY OR DERABLES Final Result DERMATOPATHOLOGY LABORATORY [facility] - Department of [facility] [address] [facility] [address] [phone] documented in this encounter Visit Diagnoses Not on filedocumented in this encounter Care Teams Accounts Payable Or Receivable Clerk Relationship Specialty Start Date End Date Neftali Benitez DO [address] [place] [address] PCP - General 10/22/21 documented as of this encounter
--- OUTSIDE RECORDS SUMMARY | 2024-10-23 01:04 | XMS_ITS | Continuity of Care Document ---
Author Organization [facility] Address [address] [place] [address] Phone Care Team Providers Care Jumpbasting Lining Baster Name Role Phone Rigo Miller Unavailable Unavailable Procedures Procedure Date Eye Exam & Treatment Refraction Eye Exam & Treatment Refraction Eye Exam & Treatment Refraction Office/outpatient Visit, Est Refraction Advance Directives Directive Yes / No Effective Date File Name No Information Encounters Encounter Description Practice Location Reason(s) For Visit Diagnoses Date Provider Providers Copied on Encounter [facility], [address] [place] [address] [address], [place], [place], [id number], [place] tel:[phone] [facility] No Information 3-201 0 Angela Sierra. [address] , [address], [place], [place], [facility], [place]. tel:[phone] [facility], [address] [place] [address] [address], [place], [place], [address], [place] tel:[phone] [facility] No Information 9-200 9 Angela Sierra. [address] , [address], [place], [address], [place]. tel:[phone] [facility], [address] [place] [address] [address], [place], [place], [address], tel:[phone] [facility] No Information 8 Angela Sierra. [address] , [address], [place], [address], . tel:[phone] Office/outpat ient Visit, [facility], [address], [place], [place], [address], tel:[phone] [facility] No Information 3200 7 Angela Sierra. [address] , [address], [place], [address], [place]. tel:[phone] Family History Family Member Type Diagnosis Age At Onset No Information Payers Payer name Insurance type Covered alliance party ID Armanimartita gutierrez(s) [facility] CI [id number] Social History Type Description Quantity Date Captured [...]
--- OUTSIDE RECORDS SUMMARY | 2024-10-23 01:04 | XMS_ITS | Clinical Summary ---
Author Organization [facility] Address [address] [place] [address] Care Team Providers Care Gate Mortiser Operator Name Role Phone Neftali Benitez DO Primary Care Provider [phone] Source Comments [facility],non-owned Affiliates and Associated Physician Practices is amultiple site organization consisting of ambulatory clinics and hospital sitesin [place], [place], [place] and [place]. This disclosure is being madepursuant to the Care Everywhere program and may not contain all information available regarding this patient. Last updated 17.[facility] [employer] Social History Tobacco Use Types Packs/Day Years [...] age to complete this topic Insurance MEDICARE [facility] MEDICARE [facility] Care Teams Gate Mortiser Operator Relationship Specialty Start Date End Date Neftali Benitez DO [address] [place] [address] PCP - General 10/22/21
--- OUTSIDE RECORDS SUMMARY | 2024-10-23 01:04 | XMS_ITS | Encounter Summary ---
Author Organization [facility] Address [facility] [place] [address] Care Team Providers Care Feltmaker And Weigher Name Role Phone Minesh Daniels MD Primary Care Provider [phone] Encounter Details Date Type Department Care Team (Late Contact Info) Description 06/05/2024 SI2 - [employer] Message Enc [facility] [address] [address] Senia Ojeda MD [facility] [address] [place] [address] Blood pressure Social History Tobacco Use [...] Description 07/27/2025 12:15 PM CDT Office Visit [facility] [address] [address] Senia Ojeda MD [facility] [address] [place] [address] documented as of this encounter Visit Diagnoses Not on filedocumented in this encounter Care Teams Feltmaker And Weigher Relationship Specialty Start Date End Date Minesh Daniels MD [address] [place] [address] PCP - General FAMILY PRACTICE 08/13/23 documented as of this encounter
--- OUTSIDE RECORDS SUMMARY | 2024-10-23 01:05 | XMS_ITS | Encounter Summary ---
Author Organization [facility] Address 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
--- OUTSIDE RECORDS SUMMARY | 2024-10-23 01:05 | XMS_ITS | Encounter Summary ---
Author Organization [facility] Address [address] [place] [address] Care Team Providers Care Ip Litigation Associate Name Role Phone Unavailable Primary Care Provider Unavailabl e Encounter Details Date Type Department Care Team (Late st Contact Info) Description 09/16/2006 Outpatient Historical [facility] Cardiovas and Thor Surg at [facility] S [facility] [address] [address] Nehemias Smyth MD [address] [facility] [address] [address] Social History Tobacco Use Types Packs/Day Years Used Date Smoking Tobacco: Never Assessed Sex and Gender Information Value Date Recorded Sex Assigned at Not on file 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
--- OUTSIDE RECORDS SUMMARY | 2024-10-23 01:05 | XMS_ITS | Encounter Summary ---
Author Organization [facility] Address 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
--- OUTSIDE RECORDS SUMMARY | 2024-10-23 01:05 | XMS_ITS | Encounter Summary ---
Author Organization [facility] Address [address] [place] [address] Care Team Providers Care Core Loader Name Role Phone Minesh Daniels MD Primary Care Provider [phone] Encounter Details Date Type Department Care Team (Latest Contact Info) Description 09/20/2024 [employer] Message [facility] [address] Senia Ojeda MD [facility] [address] [place] [address] Anti inflammatory medicine Social History [...] All NSAIDS carry some risk with recurrent WA, or HTN. That being said, if you use them sparingly (just a few times per week rather than daily), it is much less risk with such cardiac issues. documented in this encounter Plan of Treatment Upcoming Encounters Date Type Department Care Team (Late st Contact Info) Description 07/27/2025 12:15 PM CDT Office Visit [facility] [address] Senia Ojeda MD [facility] [address] [place] [address] documented as of this encounter Visit Diagnoses Not on filedocumented in this encounter Care Teams Core Loader Relationship Specialty Start Date End Date Minesh Daniels MD [address] [place] [address] PCP - General FAMILY PRACTICE 08/13/23 documented as of this encounter
--- OUTSIDE RECORDS SUMMARY | 2024-10-23 01:05 | XMS_ITS | Patient Health Record ---
Author Organization [facility] ([address]) Address [address] [place] [address] Care Team Providers Care Food Technician Name Role Phone Vane Renae Unavailable [phone] Reason For Referral No Information Medications Medication SIG (Take, Route, Frequency, Duration) Notes Start Date End Date Status ZyrTEC Allergy 10 MG 1 tab(s) orally onc e a day Active Gabapentin 300 MG TK 1 C PO QHS; Duration: 30 Active ALPRAZolam 0.5 MG (Schedule IV Drug) TK 1 T PO 45 MINUTES B FLIGHT; Duration: 2 Active Irbesartan 300 MG TK 1 T PO QD; Duration: 30 Active Vitamin D3 50 MCG (2000 UT) 1 tab(s) orally once a day; Duration: 30 day(s) Active PriLOSEC OTC 20 MG 1 tab(s) orally once a day; Duration: 14 day(s) Active Lipitor 20 MG 1 tab(s) orally once a day; Duration: 30 day(s) Active Aspirin 325 MG 1 tab(s) orally Qday Active GABAPENTIN 300 mg TK 1 C PO QHS; Duration: 30 Active ALPRAZOLAM 0.5 mg (Schedule IV Drug) TK 1 T PO 45 MINUTES B FLIGHT; Duration: 2 Active ASPIRIN 325 mg 1 tab(s) orally Qday Active ZYRTEC 10 mg 1 tab(s) orally once a day Active IRBESARTAN 300 mg TK 1 T PO QD; Duration: 30 Active LIPITOR 20 mg 1 tab(s) orally once a day; Duration: 30 day(s) Active FLONASE 50 mcg/inh 1 spray(s) intranasally once a day; Duration: 30 day(s) Active ADVAIR DISKUS 250 mcg-50 mcg 1 INH inhaled 2 times a day; Duration: 30 day(s) Active Triamcinolone Acetonide 0.1 % 1 mariella applied topically 3 times a day; Duration: 7 day(s) Active OXYBUTYNIN 5 mg 1 tab(s) orally 3 times a day; Duration: 30 day(s) Active Hydrocortisone 2.5 % 1 mariella rectally 2 times a day; Duration: 14 day(s) Active NITROGLYCERIN 0.3 mg/hr 1 PATCH transdermally once a day; Duration: 30 day(s) Active Diclofenac Sodium 75 MG 1 tab(s) orally 2 times a day; Duration: 30 day(s) Active METFORMIN 500 mg 1 tab(s) orally bid Active ZYLOPRIM 300 mg 1 tab(s) orally once a day; Duration: 30 day(s) Active GLIPIZIDE 5 mg 1 tab(s) orally bid Active VITAMIN D3 2000 intl units 1 tab(s) orally once a day; Duration: 30 day(s) Active PRILOSEC OTC 20 mg 1 tab(s) orally once a day; Duration: 14 day(s) Active Pataday 0.2 % 1 gtt in each affected eye once a day; Duration: 10 day(s) Active Tamsulosin HCl 0.4 MG 1 cap(s) orally on ce a day; Duration: 30 day(s) Active Singulair 10 MG 2 tab(s) orally once a day Active Synthroid 88 MCG 1 tab(s) orally once a day; Duration: 30 day(s) Active TRIAMCINOLONE TOPICAL 0.1% 1 mariella applied topically 3 times a day; Duration: 7 day(s) Active Nitroglycerin 0.3 MG/HR 1 PATCH TRANSDERMALLY ONCE A DAY; Duration: 30 DAY(S) *Please review and pick correct strength-formulat ion from [employer] options. If intended option is not shown, discontinue and re-order from Quick Search* Active HYDROCORTISONE TOPICAL 2.5% 1 mariella rectally 2 times a day; Duration: 14 day(s) Active Flonase Allergy Relief 50 MCG/ACT 1 spray(s) intranasally once a day; Duration: 30 day(s) Active Advair Diskus 250 MCG-50 MCG 1 INH INHALED 2 TIMES A DAY; Duration: 30 DAY(S) *Please review and pick correct strength-formulat ion from [employer] options. If intended option is not shown, discontinue and re-order from Quick Search* Active PROAIR HFA 90 MCG/INH 2 PUFF(S) INHALED 4 TIMES A DAY; Duration: 30 DAY(S) *Please review for potential replacement for e-prescription and drug interaction check* Active TAMSULOSIN 0.4 mg 1 cap(s) orally once a day; Duration: 30 day(s) Active SINGULAIR 10 mg 2 tab(s) orally once a day Active amLODIPine Besylate 5 MG 1 tab(s) orally once a day; Duration: 30 day(s) Active DICLOFENAC sodium 75 mg 1 tab(s) orally 2 times a day; Duration: 30 day(s) Active Metoprolol Succinate ER 25 MG 1 tab(s) orally once a day; Duration: 30 day(s) Active PATADAY 0.2% 1 gtt in each affected eye once a day; Duration: 10 day(s) Active oxyBUTYnin Chloride 5 MG 1 tab(s) orally 3 times a day; Duration: 30 day(s) Active METOPROLOL 25 mg 1 tab(s) orally once a day; Duration: 30 day(s) Active SYNTHROID 88 mcg (0.088 mg) 1 tab(s) orally once a day; Duration: 30 day(s) Active AMLODIPINE 5 mg 1 tab(s) orally once a day; Duration: 30 day(s) Active glipiZIDE 5 MG 1 tab(s) orally bid Active metFORMIN HCl ER 500 MG 1 tab(s) orally bid Active Zyloprim 300 MG 1 TAB(S) ORALLY ONCE A DAY; Duration: 30 DAY(S) *Please review and pick correct strength-formulat ion from [employer] options. If intended option is not shown, [...] Status Risk Notes Problem Eruption of skin (490106766) Rash and other nonspecific skin eruption (R21) Active confirmed Problem Chronic allergic conjunctivitis (69344712) Other chronic allergic conjunctivitis (H10.45) Active confirmed Problem Allergic rhinitis caused by pollen (disorder) (81871411) Allergic rhinitis due to pollen (J30.1) Active confirmed Problem Allergic rhinitis (74606801) Other allergic rhinitis (J30.89) Active confirmed Problem Uncomplicated moderate persistent asthma (092397942) Moderate persistent asthma, uncomplicated (J45.40) Active confirmed Problem Allergic contact dermatitis caused by chemical (7670841981656608 3) Allergic contact dermatitis due to other chemical products (L23.5) Active confirmed Problem Congenital glaucoma (490970118) Congenital glaucoma (Q15.0) Active confirmed Problem Swelling of head (249404413) Localized swelling, mass and lump, head (R22.0) Active confirmed Plan Of Treatment No Information Insurance Providers Payer Name Payer Address Payer Phone Subscriber Number Group Number Insured Name Patient Relationship to Insured Coverage Start Date Coverage End Date [employer] (Medicare) Attention Claims [address] [place] [address] [id number] Tan Pandey Self - patient is the insured [employer] [address] [place] [address] [phone] [id number] Tan Pandey Self - patient is the insured Medical (General) History Medical History History ICD Code Essential (primary) hypertension Type 2 diabetes mellitus without complic ations Hypothyroidism, unspecified Moderate persistent asthma, uncomplicate d Other hyperlipidemia Allergic rhinitis due to pollen Other allergic rhinitis Congenital glaucoma Combined forms of age-related cataract, left eye Surgical History Surgery Date(Month/Year) glaucoma 195 Cataract right eye 1994 Sinus surgery 1998 Bypass surgery 2006 Back surgery 2014 Hospitalization History Reason Date(Month/Year) Bypass surgery 2006 Back surgery 2014
--- OUTSIDE RECORDS SUMMARY | 2024-10-23 01:05 | XMS_ITS | Encounter Summary ---
Author Organization [facility] Address [address] [place] [address] Care Team Providers Care Community Living Coach Name Role Phone Unavailable Primary Care Provider Unavailabl e Encounter Details Date Type Department Care Team (Late st Contact Info) Description 07/08/[address] 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
--- OUTSIDE RECORDS SUMMARY | 2024-10-23 01:05 | XMS_ITS | Clinical Summary ---
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
--- OUTSIDE RECORDS SUMMARY | 2024-10-23 01:05 | XMS_ITS | Encounter Summary ---
Author Organization [facility] Address [address] [place] [address] Care Team Providers Care Alterations Sewer Name Role Phone Unavailable Primary Care Provider Unavailabl e Encounter Details Date Type Department Care Team (Late st Contact Info) Description 08/17/2006 Outpatient Historical [facility] Cardiovas and Thor Surg at [facility] S [facility] [address] [address] Nehemias Smyth MD [address] [facility] [place] [address] Social History Tobacco Use Types Packs/Day Years Used Date Smoking Tobacco: Never Assessed Sex and Gender Information Value Date Recorded Sex Assigned at Not on file 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
--- OUTSIDE RECORDS SUMMARY | 2024-10-23 01:05 | XMS_ITS | Encounter Summary ---
Author Organization [employer] Address 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 Gender Identity Not on file Sexual Orientation [...] MD URINE ORDERABLES Edited Performing Organization Address [facility] Phone Number INTERFACE SYSTEM Refer to [...] MD URINE ORDERABLES Edited Performing Organization Address [facility] Phone Number INTERFACE SYSTEM Refer to [...] MD HEMATOLOGY ORDERABLES Edited Performing Organization Address [facility] Co de Phone Number INTERFACE [...] MD HEMATOLOGY ORDERABLES Edited Performing Organization Address [facility] de Phone Number INTERFACE SYSTEM Refer to [...] and non- Americans is available on the [facility] Intranet at: [email or web address] Select: Lab Policies and Procedures Select: Reference [...] encounter Visit Diagnoses Diagnosis Coronary atherosclerosis of [place] coronary artery- Primary documented in this encounter
--- OUTSIDE RECORDS SUMMARY | 2024-10-23 01:05 | XMS_ITS | Clinical Summary ---
Author Organization [facility] Address [address] [place] [address] Care Team Providers Care Advanced Manager Name Role Phone Neftali Benitez Primary Care Provider [phone] Allergies Active Allergy Reactions Criticality Noted Date [...] (1,000 mcg total) by mouth daily Active fbtenadw-pjz-KO -lycopen-lutein 300-600-300 mcg tablet Take by mouth [...] left 2020 Coronary artery disease invo lving campo coronary artery of campo heart without angina pectoris 07/26/2017 Assessment & [...] on file Legal Sex Male 8:44 PM MACHINING ENGINEER Gender Identity Male 08/13/2021 6:13 PM CDT Sexual Orientation Not on file Obstetrics History Last Filed Vital Signs Vital Sign Reading Time Taken Comments Blood Pressure 112/60 02/16/2023 1:24 PM MACHINING ENGINEER Pulse 71 02/16/2023 1:24 PM MACHINING ENGINEER Temperature 36.2 C (97.2 F) 08/07/2014 6:28 AM CDT Respiratory Rate 18 06/08/2024 9:45 AM CDT Oxygen Saturation 98% 02/16/2023 1:24 PM MACHINING ENGINEER Inhaled Oxygen Concentration - - Weight 113.4 [...] 0 PM CDT Coronary artery disease involving campo coronary artery of campo heart without angina pectoris Mixed diabetic hyperlipidemia [...] FOR LIFE MEDICARE FOR LIFE Care Teams Advanced Manager Relationship Specialty Start Date End Date Neftali Benitez DO PCP - General Internal Medicine 09/27/23
--- OUTSIDE RECORDS SUMMARY | 2024-10-23 01:05 | XMS_ITS | Encounter Summary ---
Author Organization [email or web address] Address 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 Gender Identity Not on file Sexual Orientation [...] OF CARE TESTING Edited Performing Organization Address [facility] de Phone Number INTERFACE [...] WRIGHT HEMATOLOGY ORDERABLES Edited Performing Organization Address [facility] de Phone Number INTERFACE [...] and non- Americans is available on the [facility] Intranet at: [email or web address] Select: Lab Policies and Procedures Select: Reference Ranges - GFR 07/15/2006 5:15 AM CDT [facility]ar WRIGHT CHEMISTRY ORDERABLES Edited Performing Organization Address [facility] Phone Number INTERFACE SYSTEM Refer to clinic/hospital department * (ABNORMAL) POC GLUCOSE (07/14/2006 8:31 PM CDT) GLUCOSE POC 153(H) 65 - 99 mg/dL INTERFACE SYSTEM 07/14/2006 8:31 PM CDT Nehemias Smyth MD POINT OF CARE TESTING Edited Performing Organization Address [facility] Phone Number INTERFACE SYSTEM Refer to clinic/hospital department * (ABNORMAL) POC GLUCOSE (07/14/2006 4:30 PM CDT) COMMENT, GLU POC Notified RN INTERFACE SYSTEM GLUCOSE POC 168(H) 65 - 99 mg/dL INTERFACE SYSTEM 07/14/2006 4:30 PM CDT Nehemias Smyth MD POINT OF CARE TESTING Edited Performing Organization Address [facility] Phone Number INTERFACE SYSTEM Refer to clinic/hospital department * (ABNORMAL) CK TOTAL, RELATIVE INDEX (07/14/2006 12:00 PM CDT) CK 4,695(H) 10 - 170 U/L INTERFACE SYSTEM CARDIAC RELATIVE INDEX 0.4 <=4.0 INTERFACE SYSTEM 07/14/2006 12:0 0 PM CDT Result [facility] Nehemias Smyth MD CHEMISTRY ORDERABLES Edited Performing Organization Address [facility] Phone Number INTERFACE SYSTEM Refer to clinic/hospital department * (ABNORMAL) CKMB W/REFLEX CK (07/14/2006 12:00 PM CDT) CKMB 16.9(AA) <=6.7 ng/mL INTERFACE SYSTEM Comment:Persistent abnormal result CKMB INTERP See Below INTERFAC E SYSTEM Comment:Elevated CKMB,Consis tent with Myocardial Injury 07/14/2006 12:0 0 PM CDT us Nehemias Smyth MD CHEMISTRY ORDERABLES Edited Performing Organization Address [facility] Phone Number INTERFACE SYSTEM Refer to clinic/hospital department * (ABNORMAL) POC GLUCOSE (07/14/2006 11:18 AM CDT) COMMENT, GLU POC Notified RN INTERFACE SYSTEM GLUCOSE POC 169(H) 65 - 99 mg/dL INTERFACE SYSTEM 07/14/2006 11:1 8 AM CDT us Nehemias Smyth MD POINT OF CARE TESTING Edited Performing Organization Address [facility] Phone Number INTERFACE SYSTEM Refer to clinic/hospital department * (ABNORMAL) POC GLUCOSE (07/14/2006 7:34 AM CDT) COMMENT, GLU POC Notified RN INTERFACE SYSTEM GLUCOSE POC 141(H) 65 - 99 mg/dL INTERFACE SYSTEM 07/14/2006 7:34 AM CDT us Nehemias Smyth MD POINT OF CARE TESTING Edited Performing Organization Address [facility] Phone Number INTERFACE SYSTEM Refer [...] MD HEMATOLOGY ORDERABLES Edited Performing Organization Address [facility] Phone Number INTERFACE SYSTEM Refer [...] MD HEMATOLOGY ORDERABLES Edited Performing Organization Address [facility] Phone Number INTERFACE SYSTEM Refer to clinic/hospital department * (ABNORMAL) CK TOTAL, RELATIVE INDEX (07/14/2006 1:30 AM CDT) CK 5,144(H) 10 - 170 U/L INTERFACE SYSTEM CARDIAC RELATIVE INDEX 0.6 <=4.0 INTERFACE SYSTEM 07/14/2006 1:30 AM CDT Result Xi Smyth MD CHEMISTRY ORDERABLES Edited Performing Organization Address [facility] Phone Number INTERFACE SYSTEM Refer to clinic/hospital department * (ABNORMAL) CKMB W/REFLEX CK (07/14/2006 1:30 AM CDT) CKMB 28.1(AA) <=6.7 ng/mL INTERFACE SYSTEM Comment:Persistent abnormal result CKMB INTERP See Below INTERFAC E SYSTEM Comment:Elevated CKMB,Consis tent with Myocardial Injury 07/14/2006 1:30 AM CDT us Nehemias Smyth MD CHEMISTRY ORDERABLES Edited Performing Organization Address [facility] de Phone Number INTERFACE SYSTEM Refer to clinic/hospital department * MAGNESIUM LEVEL (07/14/2006 1:30 AM CDT) MAGNESIUM 2.5 1.5 - 2.5 mg/dL INTERFACE SYSTEM 07/14/2006 1:30 AM CDT us Nehemias Smyth MD CHEMISTRY ORDERABLES Edited Performing Organization Address [facility] de Phone Number INTERFACE [...] and non- Americans is available on the [facility] Intranet at: [email or web address] Select: Lab Policies and Procedures Select: Reference Ranges - GFR 07/14/2006 1:30 AM CDT us Nehemias Smyth MD CHEMISTRY ORDERABLES Edited Performing Organization Address [facility] de Phone Number INTERFACE SYSTEM Refer to clinic/hospital department * (ABNORMAL) POC GLUCOSE (07/13/2006 8:50 PM CDT) GLUCOSE POC 180(H) 65 - 99 mg/dL INTERFACE SYSTEM 07/13/2006 8:50 PM CDT us Nehemias Smyth MD POINT OF CARE TESTING Edited Performing Organization Address [facility] de Phone Number INTERFACE SYSTEM Refer to clinic/hospital department * (ABNORMAL) CK TOTAL, RELATIVE INDEX (07/13/2006 5:37 PM CDT) CK 5,575(H) 10 - 170 U/L INTERFACE SYSTEM Comment:Quantitated by dilut ion. CARDIAC RELATIVE INDEX 0.8 <=4.0 INTERFACE SYSTEM 07/13/2006 5:37 PM CDT us Nehemias Smyth MD CHEMISTRY ORDERABLES Edited Performing Organization Address [facility] Phone Number INTERFACE SYSTEM Refer to clinic/hospital department * (ABNORMAL) CKMB W/REFLEX CK (07/13/2006 5:37 PM CDT) CKMB 45.3(AA) <=6.7 ng/mL INTERFACE SYSTEM Comment:Persistent abnormal result CKMB INTERP See Below INTERFAC E SYSTEM Comment:Elevated CKMB,Consis tent with Myocardial Injury 07/13/2006 5:37 PM CDT us Nehemias Smyth MD CHEMISTRY ORDERABLES Edited Performing Organization Address [facility] de Phone Number INTERFACE SYSTEM Refer to clinic/hospital department * (ABNORMAL) POC GLUCOSE (07/13/2006 4:28 PM CDT) COMMENT, GLU POC Notified RN INTERFACE SYSTEM GLUCOSE POC 151(H) 65 - 99 mg/dL INTERFACE SYSTEM 07/13/2006 4:28 PM CDT Result Xi Smyth MD POINT OF CARE TESTING Edited Performing Organization Address [facility] de Phone Number INTERFACE SYSTEM Refer to clinic/hospital department * (ABNORMAL) POC GLUCOSE (07/13/2006 12:57 PM CDT) GLUCOSE POC 168(H) 65 - 99 mg/dL INTERFACE SYSTEM 07/13/2006 12:5 7 PM CDT us Nehemias Smyth MD POINT OF CARE TESTING Edited Performing Organization Address [facility] de Phone Number INTERFACE SYSTEM Refer to clinic/hospital department * (ABNORMAL) POC GLUCOSE (07/13/2006 11:13 AM CDT) GLUCOSE POC 202(H) 65 - 99 mg/dL INTERFACE SYSTEM 07/13/2006 11:1 3 AM CDT us Nehemias Smyth MD POINT OF CARE TESTING Edited Performing Organization Address [facility] de Phone Number INTERFACE SYSTEM Refer to clinic/hospital department * (ABNORMAL) POC GLUCOSE (07/13/2006 5:35 AM CDT) GLUCOSE POC 123(H) 65 - 99 mg/dL INTERFACE SYSTEM 07/13/2006 5:35 AM CDT Result Xi Smyth MD POINT OF CARE TESTING Edited Performing Organization Address [facility] de Phone Number INTERFACE [...] MD HEMATOLOGY ORDERABLES Edited Performing Organization Address [facility] de Phone Number INTERFACE [...] MD HEMATOLOGY ORDERABLES Edited Performing Organization Address [facility] Phone Number INTERFACE SYSTEM Refer [...] patients with mechanical heart valves or post MT. Pediatric (12 years and under): 1.5 - [...] and non- Americans is available on the [facility] Intranet at: [email or web address] Select: Lab Policies and Procedures Select: Reference Ranges - GFR 07/13/2006 5:00 AM CDT us Nehemias Smyth MD CHEMISTRY ORDERABLES Edited Performing Organization Address [facility] de Phone Number INTERFACE [...] MD CHEMISTRY ORDERABLES Edited Performing Organization Address [facility] Phone Number INTERFACE SYSTEM Refer to clinic/hospital department * (ABNORMAL) POC GLUCOSE (07/13/2006 2:58 AM CDT) GLUCOSE POC 153(H) 65 - 99 mg/dL INTERFACE SYSTEM 07/13/2006 2:58 AM CDT us Nehemias Smyth MD POINT OF CARE TESTING Edited Performing Organization Address [facility] Co de Phone Number INTERFACE SYSTEM Refer to clinic/hospital department * (ABNORMAL) POC GLUCOSE (07/13/2006 1:05 AM CDT) GLUCOSE POC 146(H) 65 - 99 mg/dL INTERFACE SYSTEM 07/13/2006 1:05 AM CDT us Nehemias Smyth MD POINT OF CARE TESTING Edited Performing Organization Address [facility] Phone Number INTERFACE SYSTEM Refer to clinic/hospital department * (ABNORMAL) POC GLUCOSE (07/12/2006 11:38 PM CDT) GLUCOSE POC 149(H) 65 - 99 mg/dL INTERFACE SYSTEM 07/12/2006 11:3 8 PM CDT us Nehemias Smyth MD POINT OF CARE TESTING Edited Performing Organization Address [facility] Phone Number INTERFACE SYSTEM Refer to clinic/hospital department * (ABNORMAL) POC GLUCOSE (07/12/2006 9:55 PM CDT) GLUCOSE POC 169(H) 65 - 99 mg/dL INTERFACE SYSTEM 07/12/2006 9:55 PM CDT us Nehemias Smyth MD POINT OF CARE TESTING Edited Performing Organization Address [facility] Phone Number INTERFACE SYSTEM Refer to clinic/hospital department * (ABNORMAL) POC GLUCOSE (07/12/2006 8:21 PM CDT) GLUCOSE POC 158(H) 65 - 99 mg/dL INTERFACE SYSTEM 07/12/2006 8:21 PM CDT us Nehemias Smyth MD POINT OF CARE TESTING Edited Performing Organization Address [facility] Phone Number INTERFACE SYSTEM Refer [...] MD CHEMISTRY ORDERABLES Edited Performing Organization Address [facility] Phone Number INTERFACE SYSTEM Refer to clinic/hospital department * (ABNORMAL) POC GLUCOSE (07/12/2006 5:55 PM CDT) GLUCOSE POC 162(H) 65 - 99 mg/dL INTERFACE SYSTEM 07/12/2006 5:55 PM CDT us Nehemias Smyth MD POINT OF CARE TESTING Edited Performing Organization Address [facility] Phone Number INTERFACE SYSTEM Refer to clinic/hospital department * (ABNORMAL) POC GLUCOSE (07/12/2006 4:15 PM CDT) GLUCOSE POC 160(H) 65 - 99 mg/dL INTERFACE SYSTEM 07/12/2006 4:15 PM CDT us Nehemias Smyth MD POINT OF CARE TESTING Edited Performing Organization Address [facility] Phone Number INTERFACE SYSTEM Refer to clinic/hospital department * (ABNORMAL) POC GLUCOSE (07/12/2006 1:16 PM CDT) GLUCOSE POC 117(H) 65 - 99 mg/dL INTERFACE SYSTEM 07/12/2006 1:16 PM CDT Result Xi Smyth MD POINT OF CARE TESTING Edited Performing Organization Address [facility] Phone Number INTERFACE SYSTEM Refer [...] MD CHEMISTRY ORDERABLES Edited Performing Organization Address [facility] de Phone Number INTERFACE [...] MD HEMATOLOGY ORDERABLES Edited Performing Organization Address [facility] de Phone Number INTERFACE [...] MD HEMATOLOGY ORDERABLES Edited Performing Organization Address [facility] Phone Number INTERFACE SYSTEM Refer [...] patients with mechanical heart valves or post MT. Pediatric (12 years and under): 1.5 - [...] MD HEMATOLOGY ORDERABLES Edited Performing Organization Address [facility] de Phone Number INTERFACE SYSTEM Refer to clinic/hospital department * (ABNORMAL) MAGNESIUM LEVEL (07/12/2006 11:29 AM CDT) MAGNESIUM 2.7(H) 1.5 - 2.5 mg/dL INTERFACE SYSTEM 07/12/2006 11:2 9 AM CDT us Nehemias Smyth MD CHEMISTRY ORDERABLES Edited Performing Organization Address [facility] de Phone Number INTERFACE [...] and non- Americans is available on the [facility] Intranet at: [email or web address] Select: Lab Policies and Procedures Select: Reference Ranges - GFR 07/12/2006 11:2 9 AM CDT Nehemias Smyth MD CHEMISTRY ORDERABLES Edited Performing Organization Address [facility] Phone Number INTERFACE SYSTEM Refer to clinic/hospital department * (ABNORMAL) POC GLUCOSE (07/12/2006 11:22 AM CDT) GLUCOSE POC 126(H) 65 - 99 mg/dL INTERFACE SYSTEM 07/12/2006 11:2 2 AM CDT us Nehemias Smyth MD POINT OF CARE TESTING Edited Performing Organization Address [facility] de Phone Number INTERFACE [...] MD CHEMISTRY ORDERABLES Edited Performing Organization Address [facility] Co de Phone Number INTERFACE SYSTEM [...] MD CHEMISTRY ORDERABLES Edited Performing Organization Address [facility] Co de Phone Number INTERFACE SYSTEM [...] encounter Visit Diagnoses Diagnosis Coronary atherosclerosis of [place] coronary artery- Primary documented in this encounter
--- OUTSIDE RECORDS SUMMARY | 2024-10-23 01:05 | XMS_ITS | Encounter Summary ---
Author Organization [employer] Address [address] [place] [address] Care Team Providers Care Black Powder Glazing Operator Name Role Phone Unavailable Primary Care Provider Unavailabl e Encounter Details Date Type Department Care Team (Late st Contact Info) Description 07/13/2006 Outpatient Historical [facility] [address] 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
--- OUTSIDE RECORDS SUMMARY | 2024-10-23 01:05 | XMS_ITS | Encounter Summary ---
Author Organization [facility] Address [facility] [place] [address] Care Team Providers Care Supervisor Waterproofing Name Role Phone Minesh Daniels MD Primary Care Provider [phone] Encounter Details Date Type Department Care Team (Late Contact Info) Description 06/05/2024 [employer] Managementhart Message Enc [facility] [address] [phone] Senia Ojeda MD [facility] [address] [place] [phone] Blood Pressure Social History Tobacco Use [...] Description 07/27/2025 12:15 PM CDT Office Visit [facility] [address] [phone] Senia Ojeda MD [facility] [address] [place] [address] documented as of this encounter Visit Diagnoses Not on filedocumented in this encounter Care Teams Supervisor Waterproofing Relationship Specialty Start Date End Date Minesh Daniels MD [address] [place] [address] PCP - General FAMILY PRACTICE 08/13/23 documented as of this encounter
--- OUTSIDE RECORDS SUMMARY | 2024-10-23 01:05 | XMS_ITS | Encounter Summary ---
Author Organization [facility] Address [facility] [place] [address] Care Team Providers Care Electrical Engineer Name Role Phone Minesh Daniels MD Primary Care Provider [phone] Encounter Details Date Type Department Care Team (Late Contact Info) Description 06/05/2024 restOpolishart Message Enc [facility] [address] [phone] Senia Ojeda MD [facility] [address] [place] [address] Blood Pressure Social History Tobacco Use [...] Description 07/27/2025 12:15 PM CDT Office Visit [facility] [address] [phone] Senia Ojeda MD [facility] [address] [place] [address] documented as of this encounter Visit Diagnoses Not on filedocumented in this encounter Care Teams Electrical Engineer Relationship Specialty Start Date End Date Minesh Daniels MD [address] [place] [address] PCP - General FAMILY PRACTICE 08/13/23 documented as of this encounter
--- OUTSIDE RECORDS SUMMARY | 2024-10-23 01:05 | XMS_ITS | Encounter Summary ---
Author Organization [facility] Address [address] [place] [address] Care Team Providers Care Kettle Fry Cook Operator Name Role Phone Unavailable Primary Care Provider Unavailabl e Encounter Details Date Type Department Care Team (Late st Contact Info) Description 07/12/2006 Outpatient Historical [facility] at [facility] [address] [address] Nehemias Smyth MD [address] [facility] [address] [address] Social History Tobacco Use Types Packs/Day Years Used Date Smoking Tobacco: Never Assessed Sex and Gender Information Value Date Recorded Sex Assigned at Not on file 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
--- OUTSIDE RECORDS SUMMARY | 2024-10-23 01:05 | XMS_ITS | Encounter Summary ---
Author Organization [employer] Address [address] [place] [address] Care Team Providers Care Corporate Logistics Manager Name Role Phone Unavailable Primary Care Provider Unavailabl e Encounter Details Date Type Department Care Team (Late st Contact Info) Description 07/08/2006 Outpatient Historical [facility] [place] [facility] ([facility] Cardiology[facility]) [address] [place] [address] Brent Escobar MD NO ADDRESS ON FILE Social History Tobacco Use Types Packs/Day Years Used Date Smoking Tobacco: Never Assessed Sex and Gender Information Value Date Recorded Sex Assigned at Not on file Legal Sex Male 3:[address]YER Gender Identity Not on file Sexual Orientation Not on file documented as of this encounter Plan of Treatment Not on file documented as of this encounter Visit Diagnoses Not on filedocumented in this encounter
--- OUTSIDE RECORDS SUMMARY | 2024-10-23 01:05 | XMS_ITS | Encounter Summary ---
Author Organization [facility] Address 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
--- OUTSIDE RECORDS SUMMARY | 2024-10-23 01:05 | XMS_ITS | Encounter Summary ---
Author Organization [facility] Address [address] [place] [address] Care Team Providers Care Fire Extinguisher Sprinkler Inspector Name Role Phone Unavailable Primary Care Provider Unavailabl e Encounter Details Date Type Department Care Team (Late st Contact Info) Description 07/08/2006 Outpatient Historical [facility] Cardiovas and Thor Surg at [facility] [address] [address] Nehemias Smyth MD [address] [facility] [address] [address] Social History Tobacco Use Types Packs/Day Years Used Date Smoking Tobacco: Never Assessed Sex and Gender Information Value Date Recorded Sex Assigned at Not on file 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
[2024-10-23 08:20] VITALS: BP 137/64; PULSE 73; RESP 18; TEMP 36.2; O2SAT 98
[2024-10-23] MEDS: LACTATED RINGERS 1,000 ML 150 ML IV CONT (08:33)
--- NOTE | 2024-10-23 08:43 | P.PNAN_ITS ---
Anes - Initial Pre Proc Eval Procedure: Operation Date: 10/23/24 09:30 Proposed Procedures p EGD & Screening Colonoscopy - Urban Lei MD Date/Time: 10/23/24 08:43 Surgeon: Urban Lei MD Pre Op Diagnosis: Gastro-esophageal reflux disease without esophagit Patient Data Age: 74 Gender: M Height: 1.75 m Weight: 109.5 kg Last Vital Signs Temp 36.2 C L 10/23/24 08:20 Pulse 73 10/23/24 08:20 Resp 18 10/23/24 08:20 BP 137/64 10/23/24 08:20 Pulse Ox 98 10/23/24 08:20 O2 Del Method Room Air 10/23/24 08:20 Allergies Allergy/AdvReac Type Severity Reaction Status Date / Time fenofibrate Allergy Unknown Unknown- Verified 10/23/24 08:16 STATES PUT IN WITH LAST HOSPITALIZATION hydrochlorothiazide Allergy Unknown Unknown-STATES Verified 10/23/24 08:16 PUT IN WITH LAST HOSPITALIZATION nifedipine Allergy Unknown Unknown-STATES Verified 10/23/24 08:16 PUT IN WITH LAST HOSPITALIZATION quinapril Allergy Unknown Cough Verified 10/23/24 08:16 latex AdvReac Intermediate Redness/itc Verified 10/23/24 08:16 sarabjit adhesive tape AdvReac Mild SKIN Verified 10/23/24 08:16 REDNESS Home Medications ?Medication ?Instructions ?Recorded ?Confirmed ?Type acetaminophen 500 mg tablet 500 mg PO Q4H PRN Pain 01/30/19 10/17/24 History (Tylenol Extra Strength) vitamin B complex (B 1 tablet PO DAILY 08/06/20 10/23/24 History Complex-Vitamin B12 tablet) multivitamin 1 tablet PO DAILY 11/18/20 10/23/24 History comp.stocking,knee,long,medium #12 ea 12/09/20 10/12/24 Rx tamsulosin 0.4 mg capsule 0.4 mg PO DAILY #90 caps 02/13/21 10/23/24 Rx aspirin 81 mg tablet,delayed 81 mg PO DAILY 10/02/21 10/23/24 History release lorazepam 0.5 mg tablet (Ativan) 0.5 mg PO DAILY PRN flighing #2 06/06/23 10/17/24 Rx tabs allopurinol 300 mg tablet 150 mg (1/2 x 300 mg) PO DAILY #45 12/01/23 10/23/24 Rx tabs amlodipine 5 mg tablet 5 mg PO DAILY #90 tabs 12/01/23 10/23/24 Rx cetirizine 10 mg tablet (Zyrtec) 10 mg PO DAILY allergy symptoms 12/01/23 10/23/24 Rx #90 tabs metoprolol succinate 25 mg 25 mg PO DAILY #90 tabs 12/01/23 10/23/24 Rx tablet,extended release 24 hr albuterol sulfate 90 mcg/actuation 1 - 2 puff inhalation Q4-6H PRN 02/01/24 10/17/24 Rx aerosol inhaler Shortness Of Breath Or Wheezing 90 days #25.5 grams azelastine 137 mcg (0.1 %) nasal 1 spray intranasal Q12H 90 days 02/01/24 10/17/24 Rx spray #90 mL fluticasone 250 mcg-salmeterol 50 1 inh inhalation BID 90 days #180 02/01/24 10/23/24 Rx mcg/dose blistr powdr for ea inhalation (Advair Diskus) fluticasone propionate 50 1 spray intranasal BID PRN nasal 02/01/24 10/23/24 Rx mcg/actuation nasal congestion 90 days #48 grams spray,suspension ipratropium bromide 21 mcg (0.03 2 spray intranasal BID 90 days #90 02/01/24 10/23/24 Rx %) nasal spray mL montelukast 10 mg tablet 10 mg PO QHS 90 days #90 tabs 02/01/24 10/23/24 Rx (Singulair) nitroglycerin 0.4 mg sublingual 0.4 mg sublingual Q5M PRN chest 02/25/24 10/17/24 Rx tablet pain #25 tabs levothyroxine 88 mcg tablet 88 mcg PO DAILY #90 tabs 03/06/24 10/23/24 Rx (Synthroid) metformin 500 mg tablet 1,000 mg (2 x 500 mg) PO BID 90 03/06/24 10/23/24 Rx days #360 tabs sitagliptin phosphate 100 mg 100 mg PO DAILY #90 tabs 03/06/24 10/23/24 Rx tablet (Januvia) irbesartan 300 mg tablet 300 mg PO DAILY #90 tabs 04/26/24 10/23/24 Rx empagliflozin 10 mg tablet 10 mg PO DAILY 90 days #90 tabs 05/16/24 10/23/24 Rx (Jardiance) atorvastatin 40 mg tablet 40 mg PO DAILY #90 tabs 05/31/24 10/23/24 Rx lorazepam 1 mg tablet (Ativan) 1 mg PO DAILY #2 tabs 06/15/24 10/17/24 Rx ergocalciferol (vitamin D2) 1,250 1,250 mcg PO WEEKLY 14 weeks #14 08/14/24 10/23/24 Rx mcg (50,000 unit) capsule caps blood sugar diagnostic (FreeStyle #100 ea 09/05/24 10/12/24 Rx Lite Strips) lancets 28 gauge (FreeStyle #200 ea 09/05/24 10/12/24 Rx Lancets) omeprazole magnesium 20 mg 20 mg PO BID Acid Reflux 1 month 10/12/24 10/23/24 Rx tablet,delayed release (Prilosec #60 tabs OTC) ondansetron HCl 4 mg tablet 4 mg PO Q8H PRN nausea and 10/12/24 10/17/24 Rx vomiting #30 tabs Laboratory Tests 10/23/24 08:31 POC Capillary Glucose 127 H mg/dl (65-105) Patient hx anesthesia problems: none Family hx anesthesia problems: none Results Review: All pre-operative results and documents have been reviewed as part of the pre- operative evaluation. [facility] Past Medical History Medical History Right sided abdominal pain Nausea Umbilical hernia Gall stones Anxiety Depression Cellulitis Mild acid reflux HTN (hypertension) HLD (hyperlipidemia) Asthma Wears glasses Vision changes Light headedness Arthritis of right acromioclavicular joint Rotator cuff tear, right Adenomatous colon polyp Colon, diverticulosis Irritable bowel syndrome with diarrhea BMI 39.0-39.9,adult GERD (gastroesophageal reflux disease) Colon cancer screening Diverticulitis large intestine Hypothyroidism (acquired) Essential (primary) hypertension Obstructive sleep apnea Type 2 diabetes mellitus without complication, without long-term current use of insulin Surgical History Surgical History History of cholecystectomy Hx laparoscopic cholecystectomy Laparoscopic Cholecystectomy Suture repair of small umbilical hernia 10/08/2021 H/O sinus surgery History of back surgery Hx of CABG History of hand surgery History of thumb surgery History of eye surgery Family History Family History Sibling Family history of obesity Family history of celiac disease Family history of lupus erythematosus Diabetes mellitus Cerebrovascular accident Father Family history of diabetes mellitus in first degree relative Family history of heart disease in male family member before age 55 Family history of pancreatic cancer Patient's father is Mother Family history of pancreatic cancer, Onset Age: 50 Patient's mother is Other Acute myocardial infarction Arthritis Asthma HLD (hyperlipidemia) Heart disease Hypertension Kidney disorder Social History Social History Smoking status: Never smoker Second hand tobacco smoke exposure: No Additional smoking assessment comments: pt states he smoked for about a week. 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 [employer] Gender identity (if verbalized by the patient): Male Sexual Orientation (if Verbalized by the Patient): Straight or Heterosexual Spiritual care concerns: No Anes - Eval Final PreProcedure Day of Procedure 10/23/24 08:43 Patient weight: obese Heart: regular rate and rhythm Lungs: clear to auscultation Airway: Mallampati scale class II and special considerations large neck Neurological: alert and oriented Last oral intake: >/= 8 hours ASA classification: III Emergent: no Anesthetic plan: proceed Anesthesia type and monitoring: general GIVS and standard monitoring Results Review: All pre-operative results and documents have been reviewed as part of the pre- operative evaluation. Informed Consent: The patient's anesthetic plan and its attendant risks and benefits were discussed with the patient/family/POA. Questions were solicited and answers provided to the satisfaction of the patient/family/POA.
--- NOTE | 2024-10-23 09:02 | WPDHPUPDATE1 ---
History and Physical Update Update Date/Time: 10/23/24 09:02 History and Physical has been reviewed, including an updated exam of the patient. There are NO changes in the patient's condition. Risks, benefits, and alternatives have been discussed and questions answered. Patient agrees to proceed with procedure.
[2024-10-23] MEDS: BENZOCAINE (*SP) 60 ML SPRAY CAN (HURRICAINE) 1 SPRAY MUCOUS MEM (09:06)
--- NOTE | 2024-10-23 09:10 | S_PTH ---
PATIENT: Tan Pandey LOC: [facility] Pires#:[id number] AGE/SX: 74/M ROOM: RE10/23/[address]: Urban Lei MD : 1950 BED: DIS: 10/23/2024 SPEC #: [id number] RECD: 10/23/24 10:21 STATUS: PAXTON RECornel #: [id number] JANNA: 10/23/24 09:[address]: Urban Lei DEPT: [facility] Surgical RECD BY: Catherine Decker ENTERED: 10/23/24 10:22 SP TYPE: Surgical OTHR DR: Christian Cruz, NALINI Tissues: A - Gastric Biopsy B - Small Bowel Bx C - Colon Polypectomy Procedures: Hematoxylin and Eosin Stain Gross and Microscopic Level 4
--- NOTE | 2024-10-23 09:16 | SUR.OPER ---
EGD: Colonoscopy: [id number]
[2024-10-23 09:27] VITALS: BP 120/60; PULSE 61; RESP 20; O2SAT 100
[2024-10-23 09:37] VITALS: BP 107/64; PULSE 64; RESP 20; O2SAT 99
[2024-10-23 09:47] VITALS: BP 121/67; PULSE 63; RESP 14; O2SAT 99
== END 2024-10-23 10:04 | disposition home or self-care (01) ==
PROVIDERS: PCP Nurse Practitioner; Referring Provider Nurse Practitioner Family; Visit Provider Internal Medicine Gastroenterology
PROC: 0DJ08ZZ Inspection of Upper Intestinal Tract, Via Natural or Artificial Opening Endoscopic (ICD-10-PCS; CPT 45378; principal; 2024-10-23 09:30)
DX: D12.3 Benign neoplasm of transverse colon (principal); K64.8 Other hemorrhoids; K57.30 Diverticulosis of large intestine without perforation or abscess without bleeding; K29.70 Gastritis, unspecified, without bleeding; K76.0 Fatty (change of) liver, not elsewhere classified; E78.5 Hyperlipidemia, unspecified; E11.9 Type 2 diabetes mellitus without complications; I10 Essential (primary) hypertension; K21.9 Gastro-esophageal reflux disease without esophagitis; E03.9 Hypothyroidism, unspecified; F41.9 Anxiety disorder, unspecified; F32.A Depression, unspecified; J45.909 Unspecified asthma, uncomplicated; M19.011 Primary osteoarthritis, right shoulder; I25.10 Atherosclerotic heart disease of native coronary artery without angina pectoris; K58.0 Irritable bowel syndrome with diarrhea; G47.33 Obstructive sleep apnea (adult) (pediatric); E66.9 Obesity, unspecified; Z68.35 Body mass index [BMI] 35.0-35.9, adult; Z79.82 Long term (current) use of aspirin; Z79.51 Long term (current) use of inhaled steroids; Z79.84 Long term (current) use of oral hypoglycemic drugs; Z99.89 Dependence on other enabling machines and devices; Z98.890 Other specified postprocedural states; Z90.49 Acquired absence of other specified parts of digestive tract; Z98.1 Arthrodesis status; Z95.1 Presence of aortocoronary bypass graft; Z80.0 Family history of malignant neoplasm of digestive organs; Z82.49 Family history of ischemic heart disease and other diseases of the circulatory system
CPT/HCPCS: 43239; 45380; 82948; 88305; J2003; J2704; J7120

== ENCOUNTER 2024-11-20 15:10 | Outpatient (CLI) | payer MEDICARE, OTHER, SELFPAY ==
--- OUTSIDE RECORDS SUMMARY | 2009-10-28 03:00 | XMS_ITS | Continuity of Care Document ---
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 Business Coach Name Role Phone Rigo Miller Unavailable Unavailable Procedures Procedure Date Eye Exam & Treatment Refraction Eye Exam & Treatment Refraction Eye Exam & Treatment Refraction Office/outpatient Visit, Est Refraction Advance Directives Directive Yes / No Effective Date File Name No Information Encounters Encounter Description Practice Location Reason(s) For Visit Diagnoses Date Provider Providers Copied on Encounter [facility], [address] [place] [address] [address], [place], [place], [id number], [place] tel:[phone] [facility] No Information 3-201 0 Angela Sierra. [address] [facility] , [address], [place], [place], [facility], [place]. tel:[phone] [facility], [address] [place] [address] [address], [place], [place], [id number], [place] tel:[phone] [facility] No Information 9-200 9 Angela Sierra. [address] [facility] , [address], [place], [address], [place]. tel:[phone] [facility], [address] [place] [address] [address], [place], [place], [id number], tel:[phone] [facility] No Information 8 Angela Sierra. [address] [facility] , [address], [place], [address], . tel:[phone] [place] [facility] [address], [place], [place], [id number], tel:[phone] [facility] No Information 3200 7 Angela Sierra. [address] [facility] , [address], [place], [address], [place]. tel:[phone] Family History Family Member Type Diagnosis Age At Onset No Information Payers Payer name Insurance type Covered libertarian ID Armanimartita gutierrez(s) [facility] [id number] Social History Type Description Quantity Date Captured Comments Sex Male Smoking Status No Information Chief Complaint And Reason For Visit No Information Reason For Referral Reason For Referral No Information History Of Present Illness Encounter Date Complaint History Of Prese nt Illness No Information Functional Status Date Functional Assessmen t No Information Instructions Date Instruction Additional Infor mation No Information Assessments Type Assessment Date No Information Patient Care Teams Name Effective Dates (start - stop) Status Members No Information
[2024-11-20 16:11] LABS: Add Urine Microscopic? NO; Appearance Urine Clear (Clear); Glucose Urine UA Negative (Negative); Leukocyte Esterase Ur Negative LEU/UL (Negative); Nitrate Urine Negative (Negative); Specific Grav Ur 1.018 (1.001-1.035)
--- OUTSIDE RECORDS SUMMARY | 2024-11-20 18:03 | XMS_ITS | Clinical Summary ---
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
--- OUTSIDE RECORDS SUMMARY | 2024-11-20 18:03 | XMS_ITS | Encounter Summary ---
Author Organization [facility] Address [address] [place] [address] Care Team Providers Care Technical Account Manager Name Role Phone Unavailable Primary Care Provider Unavailabl e Encounter Details Date Type Department Care Team (Late st Contact Info) Description 07/13/2006 Outpatient Historical [facility] Support Serv. (Adt Cardiology-[facility]) [address] 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
--- OUTSIDE RECORDS SUMMARY | 2024-11-20 18:03 | XMS_ITS | Clinical Summary ---
Author Organization [facility] Address [address] [place] [address] Care Team Providers Care Loss Prevention Lead Name Role Phone Neftali Benitez DO Primary Care Provider [phone] Source Comments [facility],non-owned Affiliates and Associated Physician Practices is amultiple site organization consisting of ambulatory clinics and hospital sitesin [place], [place], [place] and [place]. This disclosure is being madepursuant to the Care Everywhere program and may not contain all information available regarding this patient. Last updated 17.[facility] Social History Tobacco Use Types Packs/Day Years [...] 2000 ZOSTER VACCINE (1 of 2) 2000 DEPRESSION SCREENING 03/08/2024 COVID-19 VACCINE (2023-2 5 season) 2024 INFLUENZA VACCINE (#1) 2024 Respiratory Syncytial Virus [...] age to complete this topic Insurance MEDICARE [facility] MEDICARE SELF PAY NO INSURANCE Member Subscriber Plan / Payer (Ef fective for All Dates) Name:Tan Pandey Member ID:Not on file Relation to Subscriber:Not on file Name:TAN PANDEY Subscriber ID:Not on file (Home) Address: [address] [place] [address] Payer ID:Not on file Group ID:Not on file Type:Self Pay Address: [place], [place] Care Teams Loss Prevention Lead Relationship Specialty Start Date End Date Neftali Benitez DO [address] [place] [address] PCP - General 10/22/21
--- OUTSIDE RECORDS SUMMARY | 2024-11-20 18:03 | XMS_ITS | Encounter Summary ---
Author Organization [facility] Address [address] [place] [address] Care Team Providers Care Hose Operator Name Role Phone Unavailable Primary Care Provider Unavailabl e Encounter Details Date Type Department Care Team (Late st Contact Info) Description 07/12/2006 Outpatient Historical [facility] Cardiovas and Thor Surg at [facility] [address] [facility] [address] [address] Nehemias Smyth MD [address] [facility] [address] [address] Social History Tobacco Use Types Packs/Day Years Used Date Smoking Tobacco: Never Assessed Sex and Gender Information Value Date Recorded Sex Assigned at Not on file 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
--- OUTSIDE RECORDS SUMMARY | 2024-11-20 18:03 | XMS_ITS | Encounter Summary ---
Author Organization [facility] Address [address] [facility] [place] [address] Care Team Providers Care Dental Coordinator Name Role Phone Minesh Daniels MD Primary Care Provider [phone] Encounter Details Date Type Department Care Team (Late Contact Info) Description 06/05/2024 Super Heat Gameshart Message Enc [facility] [address] [address] Senia Ojeda MD [facility] [address] [place] [address] Blood Pressure Social History Tobacco Use [...] Description 07/27/2025 12:15 PM CDT Office Visit [facility] [address] [address] Senia Ojeda MD [facility] [address] [place] [address] documented as of this encounter Visit Diagnoses Not on filedocumented in this encounter Care Teams Dental Coordinator Relationship Specialty Start Date End Date Minesh Daniels MD [address] [place] [address] PCP - General FAMILY PRACTICE 08/13/23 documented as of this encounter
--- OUTSIDE RECORDS SUMMARY | 2024-11-20 18:03 | XMS_ITS | Clinical Summary ---
Author Organization [facility] Address [address] [place] [address] Care Team Providers Care Case Sealer Name Role Phone Minesh Daniels MD Primary Care Provider [phone] Allergies Active Allergy Reactions Criticality Noted Date [...] Department Care Team Description 09/20/2024 MyChart Message [facility] [address] Senia Ojeda MD Anti inflammatory [...] Description 07/27/2025 12:15 PM CDT Office Visit [facility] [address] Senia Ojeda MD [address] [address] [facility] [place] [address] Health Maintenance Due Date Last Done Comments ASCVD LDL 1950 Colorectal Cancer Screening Colonoscopy (10 Years) 1950 Hepatitis C 1968 DTaP, Tdap and Td Vaccines (1 - Tdap) 1969 Pneumococcal Vaccine: 50+ Years (1 of 2 - PCV) 1969 Zoster Vaccines (1 of 2) 2000 AAA SCREENING 07/31/2015 Annual Medicare Wellness Visit 07/31/2015 COVID-19 Vaccine ( season) 2024 08/13/2021, 01/15/2021, 05/17/2020, Additional history exists RSV [...] age to complete this topic Insurance MEDICARE [facility] Care Teams Case Sealer Relationship Specialty Start Date End Date Minesh Daniels MD [address] [place] [address] PCP - General FAMILY PRACTICE 08/13/23
--- OUTSIDE RECORDS SUMMARY | 2024-11-20 18:03 | XMS_ITS | Encounter Summary ---
Author Organization [facility] Address [address] [place] [address] Care Team Providers Care Laboratory Helper Name Role Phone Unavailable Primary Care Provider Unavailabl e Encounter Details Date Type Department Care Team (Late st Contact Info) Description 09/16/2006 Outpatient Historical [facility] Cardiovas and Thor Surg at [facility] S [facility] [address] [address] Nehemias Smyth MD [address] 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
--- OUTSIDE RECORDS SUMMARY | 2024-11-20 18:03 | XMS_ITS | Encounter Summary ---
Author Organization [facility] Address [address] [place] [address] Care Team Providers Care Visiting Professor Name Role Phone Unavailable Primary Care Provider Unavailabl e Encounter Details Date Type Department Care Team (Late st Contact Info) Description 07/08/2006 Outpatient Historical [facility] Cardiovas and Thor Surg at [facility] S [facility] [address] [address] Nehemias Smyth MD [address] [facility] [address] [address] Social History Tobacco Use Types Packs/Day Years Used Date Smoking Tobacco: Never Assessed Sex and Gender Information Value Date Recorded Sex Assigned at Not on file 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
--- OUTSIDE RECORDS SUMMARY | 2024-11-20 18:03 | XMS_ITS | Encounter Summary ---
Author Organization [facility] Address [address] [place] [address] Care Team Providers Care Candy Department Manager Name Role Phone Unavailable Primary Care Provider Unavailabl e Encounter Details Date Type Department Care Team (Latest Contact Info) Description 08/17/2006 Outpatient Historical [facility] Nehemias Hendricks MD [address] [place] [address] Unspecified Pleural Effusion (Primary Dx) Social History Tobacco Use Types Packs/Day Years Used Date Smoking Tobacco: Never Assessed Sex and Gender Information Value Date Recorded Sex Assigned at Not on file Legal Sex Male 3:36 AM 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
--- OUTSIDE RECORDS SUMMARY | 2024-11-20 18:03 | XMS_ITS | Encounter Summary ---
Author Organization [facility] Address 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 Gender Identity Not on file Sexual [...] MD URINE ORDERABLES Edited Performing Organization Address [facility] Phone Number INTERFACE SYSTEM Refer to [...] MD URINE ORDERABLES Edited Performing Organization Address [facility] Phone Number INTERFACE SYSTEM Refer to [...] MD HEMATOLOGY ORDERABLES Edited Performing Organization Address [facility] Co de Phone Number INTERFACE SYSTEM Refer [...] MD HEMATOLOGY ORDERABLES Edited Performing Organization Address [facility] de Phone Number INTERFACE SYSTEM [...] non- Americans is available on the [facility] Intranet at: [email or web address] Select: Lab Policies and Procedures Select: Reference [...] patients with mechanical heart valves or post [place]. Pediatric (12 years and under): 1.5 - [...] encounter Visit Diagnoses Diagnosis Coronary atherosclerosis of [place] coronary artery- Primary documented in this encounter
--- OUTSIDE RECORDS SUMMARY | 2024-11-20 18:03 | XMS_ITS | Clinical Summary ---
Author Organization [facility] Address [address] [place] [address] Care Team Providers Care Back Digger Operator Name Role Phone EliNeftali serna Primary Care Provider [phone] Allergies Active Allergy Reactions Criticality Noted Date [...] (1,000 mcg total) by mouth daily Active ydqnfcoq-pxq-YH -lycopen-lutein 300-600-300 mcg tablet Take by mouth [...] left 2020 Coronary artery disease invo lving [place] coronary artery of [place] heart without angina pectoris 07/26/2017 Assessment & [...] on file Legal Sex Male 8:44 PM PRINTING SCREEN ASSEMBLER Gender Identity Male 08/13/2021 6:13 PM CDT Sexual Orientation Not on file Obstetrics History Last Filed Vital Signs Vital Sign Reading Time Taken Comments Blood Pressure 112/60 02/16/2023 1:24 PM PRINTING SCREEN ASSEMBLER Pulse 71 02/16/2023 1:24 PM PRINTING SCREEN ASSEMBLER Temperature 36.2 C (97.2 F) 08/07/2014 6:28 AM CDT Respiratory Rate 18 06/08/2024 9:45 AM CDT Oxygen Saturation 98% 02/16/2023 1:24 PM PRINTING SCREEN ASSEMBLER Inhaled Oxygen Concentration - - Weight 113.4 [...] 08/06, 07/23/2020, Additional history exists Covid-19 Vaccine (2024-2 6 season) 2024 08/13/2021, 01/15/2021, 05/17/2020, Additional history exists Influenza Vaccine (#1) 2024 , 11/30/2019, 12/14/2018 Procedures Procedure Name Priority Date/Time Associated Diagnosis Comments POCT LIPID PANEL Routine 10/02/2022 12:0 0 PM CDT Coronary artery disease involving [place] coronary artery of [place] heart without angina pectoris Mixed diabetic hyperlipidemia [...] Insurance FOR LIFE MEDICARE FOR LIFE MEDICARE [facility] Address: [address] [address] [place] [address] FOR LIFE Care Teams Back Digger Operator Relationship Specialty Start Date End Date Neftali Benitez DO PCP - General Internal Medicine 09/27/23
--- OUTSIDE RECORDS SUMMARY | 2024-11-20 18:03 | XMS_ITS | Encounter Summary ---
Author Organization [facility] Address [address] [place] [address] Care Team Providers Care Accessibility Lift Technician Name Role Phone Unavailable Primary Care Provider Unavailabl e Encounter Details Date Type Department Care Team (Late st Contact Info) Description 07/08/2006 Outpatient Historical [facility] Support Serv. (Adt Cardiology-[facility]) [address] 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
--- OUTSIDE RECORDS SUMMARY | 2024-11-20 18:03 | XMS_ITS | Encounter Summary ---
Author Organization [facility] Address 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
--- OUTSIDE RECORDS SUMMARY | 2024-11-20 18:03 | XMS_ITS | Encounter Summary ---
Author Organization [employer] Address 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 Gender Identity Not on file Sexual Orientation [...] OF CARE TESTING Edited Performing Organization Address [facility] de Phone Number [...] WRIGHT HEMATOLOGY ORDERABLES Edited Performing Organization Address [facility] de Phone Number [...] and non- Americans is available on the [facility] Intranet at: [email or web address] Select: Lab Policies and Procedures Select: Reference Ranges - GFR 07/15/2006 5:15 AM CDT Bandar WRIGHT CHEMISTRY ORDERABLES Edited Performing Organization Address [facility] Phone Number INTERFACE SYSTEM Refer to clinic/hospital department * (ABNORMAL) POC GLUCOSE (07/14/2006 8:31 PM CDT) GLUCOSE POC 153(H) 65 - 99 mg/dL INTERFACE SYSTEM 07/14/2006 8:31 PM CDT Nehemias Smyth MD POINT OF CARE TESTING Edited Performing Organization Address [facility] Phone Number INTERFACE SYSTEM Refer to clinic/hospital department * (ABNORMAL) POC GLUCOSE (07/14/2006 4:30 PM CDT) COMMENT, GLU POC Notified RN INTERFACE SYSTEM GLUCOSE POC 168(H) 65 - 99 mg/dL INTERFACE SYSTEM 07/14/2006 4:30 PM CDT Nehemias Smyth MD POINT OF CARE TESTING Edited Performing Organization Address [facility] Phone Number INTERFACE SYSTEM Refer to clinic/hospital department * (ABNORMAL) CK TOTAL, RELATIVE INDEX (07/14/2006 12:00 PM CDT) CK 4,695(H) 10 - 170 U/L INTERFACE SYSTEM CARDIAC RELATIVE INDEX 0.4 <=4.0 INTERFACE SYSTEM 07/14/2006 12:0 0 PM CDT Result [facility] Nehemias Smyth MD CHEMISTRY ORDERABLES Edited Performing Organization Address [facility] Phone Number INTERFACE SYSTEM Refer to clinic/hospital department * (ABNORMAL) CKMB W/REFLEX CK (07/14/2006 12:00 PM CDT) CKMB 16.9(AA) <=6.7 ng/mL INTERFACE SYSTEM Comment:Persistent abnormal result CKMB INTERP See Below INTERFAC E SYSTEM Comment:Elevated CKMB,Consis tent with Myocardial Injury 07/14/2006 12:0 0 PM CDT us Nehemias Smyth MD CHEMISTRY ORDERABLES Edited Performing Organization Address [facility] Phone Number INTERFACE SYSTEM Refer to clinic/hospital department * (ABNORMAL) POC GLUCOSE (07/14/2006 11:18 AM CDT) COMMENT, GLU POC Notified RN INTERFACE SYSTEM GLUCOSE POC 169(H) 65 - 99 mg/dL INTERFACE SYSTEM 07/14/2006 11:1 8 AM CDT us Nehemias Smyth MD POINT OF CARE TESTING Edited Performing Organization Address [facility] Phone Number INTERFACE SYSTEM Refer to clinic/hospital department * (ABNORMAL) POC GLUCOSE (07/14/2006 7:34 AM CDT) COMMENT, GLU POC Notified RN INTERFACE SYSTEM GLUCOSE POC 141(H) 65 - 99 mg/dL INTERFACE SYSTEM 07/14/2006 7:34 AM CDT us Nehemias Smyth MD POINT OF CARE TESTING Edited Performing Organization Address [facility] Phone Number INTERFACE SYSTEM Refer to [...] MD HEMATOLOGY ORDERABLES Edited Performing Organization Address [facility] Phone Number INTERFACE SYSTEM Refer to [...] MD HEMATOLOGY ORDERABLES Edited Performing Organization Address [facility] Phone Number INTERFACE SYSTEM Refer to clinic/hospital department * (ABNORMAL) CK TOTAL, RELATIVE INDEX (07/14/2006 1:30 AM CDT) CK 5,144(H) 10 - 170 U/L INTERFACE SYSTEM CARDIAC RELATIVE INDEX 0.6 <=4.0 INTERFACE SYSTEM 07/14/2006 1:30 AM CDT Result Xi Smyth MD CHEMISTRY ORDERABLES Edited Performing Organization Address [facility] Phone Number INTERFACE SYSTEM Refer to clinic/hospital department * (ABNORMAL) CKMB W/REFLEX CK (07/14/2006 1:30 AM CDT) CKMB 28.1(AA) <=6.7 ng/mL INTERFACE SYSTEM Comment:Persistent abnormal result CKMB INTERP See Below INTERFAC E SYSTEM Comment:Elevated CKMB,Consis tent with Myocardial Injury 07/14/2006 1:30 AM CDT us Nehemias Smyth MD CHEMISTRY ORDERABLES Edited Performing Organization Address City/[facility] de Phone Number INTERFACE SYSTEM Refer to clinic/hospital department * MAGNESIUM LEVEL (07/14/2006 1:30 AM CDT) MAGNESIUM 2.5 1.5 - 2.5 mg/dL INTERFACE SYSTEM 07/14/2006 1:30 AM CDT us Nehemias Smyth MD CHEMISTRY ORDERABLES Edited Performing Organization Address [facility] de Phone Number [...] and non- Americans is available on the [facility] Intranet at: [email or web address] Select: Lab Policies and Procedures Select: Reference Ranges - GFR 07/14/2006 1:30 AM CDT us Nehemias Smyth MD CHEMISTRY ORDERABLES Edited Performing Organization Address [facility] de Phone Number INTERFACE SYSTEM Refer to clinic/hospital department * (ABNORMAL) POC GLUCOSE (07/13/2006 8:50 PM CDT) GLUCOSE POC 180(H) 65 - 99 mg/dL INTERFACE SYSTEM 07/13/2006 8:50 PM CDT us Nehemias Smyth MD POINT OF CARE TESTING Edited Performing Organization Address [facility] de Phone Number INTERFACE SYSTEM Refer to clinic/hospital department * (ABNORMAL) CK TOTAL, RELATIVE INDEX (07/13/2006 5:37 PM CDT) CK 5,575(H) 10 - 170 U/L INTERFACE SYSTEM Comment:Quantitated by dilut ion. CARDIAC RELATIVE INDEX 0.8 <=4.0 INTERFACE SYSTEM 07/13/2006 5:37 PM CDT us Nehemias Smyth MD CHEMISTRY ORDERABLES Edited Performing Organization Address [facility] Phone Number INTERFACE SYSTEM Refer to clinic/hospital department * (ABNORMAL) CKMB W/REFLEX CK (07/13/2006 5:37 PM CDT) CKMB 45.3(AA) <=6.7 ng/mL INTERFACE SYSTEM Comment:Persistent abnormal result CKMB INTERP See Below INTERFAC E SYSTEM Comment:Elevated CKMB,Consis tent with Myocardial Injury 07/13/2006 5:37 PM CDT us Nehemias Smyth MD CHEMISTRY ORDERABLES Edited Performing Organization Address [facility] de Phone Number INTERFACE SYSTEM Refer to clinic/hospital department * (ABNORMAL) POC GLUCOSE (07/13/2006 4:28 PM CDT) COMMENT, GLU POC Notified RN INTERFACE SYSTEM GLUCOSE POC 151(H) 65 - 99 mg/dL INTERFACE SYSTEM 07/13/2006 4:28 PM CDT Result Xi Smyth MD POINT OF CARE TESTING Edited Performing Organization Address [facility] de Phone Number INTERFACE SYSTEM Refer to clinic/hospital department * (ABNORMAL) POC GLUCOSE (07/13/2006 12:57 PM CDT) GLUCOSE POC 168(H) 65 - 99 mg/dL INTERFACE SYSTEM 07/13/2006 12:5 7 PM CDT us Nehemias Smyth MD POINT OF CARE TESTING Edited Performing Organization Address [facility] de Phone Number INTERFACE SYSTEM Refer to clinic/hospital department * (ABNORMAL) POC GLUCOSE (07/13/2006 11:13 AM CDT) GLUCOSE POC 202(H) 65 - 99 mg/dL INTERFACE SYSTEM 07/13/2006 11:1 3 AM CDT us Nehemias Smyth MD POINT OF CARE TESTING Edited Performing Organization Address [facility] de Phone Number INTERFACE SYSTEM Refer to clinic/hospital department * (ABNORMAL) POC GLUCOSE (07/13/2006 5:35 AM CDT) GLUCOSE POC 123(H) 65 - 99 mg/dL INTERFACE SYSTEM 07/13/2006 5:35 AM CDT Result Xi Smyth MD POINT OF CARE TESTING Edited Performing Organization Address [facility] de Phone Number [...] MD HEMATOLOGY ORDERABLES Edited Performing Organization Address [facility] de Phone Number [...] MD HEMATOLOGY ORDERABLES Edited Performing Organization Address [facility] Phone Number INTERFACE SYSTEM Refer to [...] patients with mechanical heart valves or post [place]. Pediatric (12 years and under): 1.5 - [...] and non- Americans is available on the [facility] Intranet at: [email or web address] Select: Lab Policies and Procedures Select: Reference Ranges - GFR 07/13/2006 5:00 AM CDT us Nehemias Smyth MD CHEMISTRY ORDERABLES Edited Performing Organization Address [facility] de Phone Number [...] MD CHEMISTRY ORDERABLES Edited Performing Organization Address [facility] Phone Number INTERFACE SYSTEM Refer to clinic/hospital department * (ABNORMAL) POC GLUCOSE (07/13/2006 2:58 AM CDT) GLUCOSE POC 153(H) 65 - 99 mg/dL INTERFACE SYSTEM 07/13/2006 2:58 AM CDT us Nehemias Smyth MD POINT OF CARE TESTING Edited Performing Organization Address [facility] de Phone Number INTERFACE SYSTEM Refer to clinic/hospital department * (ABNORMAL) POC GLUCOSE (07/13/2006 1:05 AM CDT) GLUCOSE POC 146(H) 65 - 99 mg/dL INTERFACE SYSTEM 07/13/2006 1:05 AM CDT us Nehemias Smyth MD POINT OF CARE TESTING Edited Performing Organization Address [facility] Phone Number INTERFACE SYSTEM Refer to clinic/hospital department * (ABNORMAL) POC GLUCOSE (07/12/2006 11:38 PM CDT) GLUCOSE POC 149(H) 65 - 99 mg/dL INTERFACE SYSTEM 07/12/2006 11:3 8 PM CDT us Nehemias Smyth MD POINT OF CARE TESTING Edited Performing Organization Address [facility] Phone Number INTERFACE SYSTEM Refer to clinic/hospital department * (ABNORMAL) POC GLUCOSE (07/12/2006 9:55 PM CDT) GLUCOSE POC 169(H) 65 - 99 mg/dL INTERFACE SYSTEM 07/12/2006 9:55 PM CDT us Nehemias Smyth MD POINT OF CARE TESTING Edited Performing Organization Address [facility] Phone Number INTERFACE SYSTEM Refer to clinic/hospital department * (ABNORMAL) POC GLUCOSE (07/12/2006 8:21 PM CDT) GLUCOSE POC 158(H) 65 - 99 mg/dL INTERFACE SYSTEM 07/12/2006 8:21 PM CDT us Nehemias Smyth MD POINT OF CARE TESTING Edited Performing Organization Address [facility] Phone Number INTERFACE SYSTEM Refer to [...] MD CHEMISTRY ORDERABLES Edited Performing Organization Address [facility] Phone Number INTERFACE SYSTEM Refer to clinic/hospital department * (ABNORMAL) POC GLUCOSE (07/12/2006 5:55 PM CDT) GLUCOSE POC 162(H) 65 - 99 mg/dL INTERFACE SYSTEM 07/12/2006 5:55 PM CDT us Nehemias Smyth MD POINT OF CARE TESTING Edited Performing Organization Address [facility] Phone Number INTERFACE SYSTEM Refer to clinic/hospital department * (ABNORMAL) POC GLUCOSE (07/12/2006 4:15 PM CDT) GLUCOSE POC 160(H) 65 - 99 mg/dL INTERFACE SYSTEM 07/12/2006 4:15 PM CDT us Nehemias Smyth MD POINT OF CARE TESTING Edited Performing Organization Address [facility] Phone Number INTERFACE SYSTEM Refer to clinic/hospital department * (ABNORMAL) POC GLUCOSE (07/12/2006 1:16 PM CDT) GLUCOSE POC 117(H) 65 - 99 mg/dL INTERFACE SYSTEM 07/12/2006 1:16 PM CDT Result Xi Smyth MD POINT OF CARE TESTING Edited Performing Organization Address [facility] Phone Number INTERFACE SYSTEM Refer to [...] MD CHEMISTRY ORDERABLES Edited Performing Organization Address [facility] de Phone Number [...] MD HEMATOLOGY ORDERABLES Edited Performing Organization Address [facility] de Phone Number [...] MD HEMATOLOGY ORDERABLES Edited Performing Organization Address [facility] Phone Number INTERFACE SYSTEM Refer to [...] patients with mechanical heart valves or post [place] Pediatric (12 years and under): 1.5 - [...] MD HEMATOLOGY ORDERABLES Edited Performing Organization Address [facility] de Phone Number INTERFACE SYSTEM Refer to clinic/hospital department * (ABNORMAL) MAGNESIUM LEVEL (07/12/2006 11:29 AM CDT) MAGNESIUM 2.7(H) 1.5 - 2.5 mg/dL INTERFACE SYSTEM 07/12/2006 11:2 9 AM CDT us Nehemias Smyth MD CHEMISTRY ORDERABLES Edited Performing Organization Address [facility] de Phone Number [...] and non- Americans is available on the [facility] Intranet at: [email or web address] Select: Lab Policies and Procedures Select: Reference Ranges - GFR 07/12/2006 11:2 9 AM CDT Nehemias Smyth MD CHEMISTRY ORDERABLES Edited Performing Organization Address [facility] Phone Number INTERFACE SYSTEM Refer to clinic/hospital department * (ABNORMAL) POC GLUCOSE (07/12/2006 11:22 AM CDT) GLUCOSE POC 126(H) 65 - 99 mg/dL INTERFACE SYSTEM 07/12/2006 11:2 2 AM CDT us Nehemias Smyth MD POINT OF CARE TESTING Edited Performing Organization Address [facility] de Phone Number [...] MD CHEMISTRY ORDERABLES Edited Performing Organization Address [facility] Co de Phone Number INTERFACE SYSTEM Refer [...] MD CHEMISTRY ORDERABLES Edited Performing Organization Address [facility] Co de Phone Number INTERFACE SYSTEM Refer [...] encounter Visit Diagnoses Diagnosis Coronary atherosclerosis of [place] coronary artery- Primary documented in this encounter
--- OUTSIDE RECORDS SUMMARY | 2024-11-20 18:03 | XMS_ITS | Encounter Summary ---
Author Organization [facility] Address 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
--- OUTSIDE RECORDS SUMMARY | 2024-11-20 18:03 | XMS_ITS | Encounter Summary ---
Author Organization [facility] Address [address] [place] [address] Care Team Providers Care Seamless Tube Mill Operator Name Role Phone Neftali Benitez DO Primary Care Provider [phone] Encounter Details Date Type Department Care Team (Late st Contact Info) Description 09/27/2023 Lab Requisition [facility] - DermPath Lab [address] [facility], [place] [phone] Phoebe Duong MD [address] [facility] [address] [place] [address] Social History Tobacco Use Types Packs/Day Years [...] AM CDT) Case Report Dermatopathology Report Case: [id number] Authorizing Provider: Phoebe Duong MD Collected: 09/27/2023 08:50 AM Ordering Location: [facility] - Received: 09/28/2023 10:53 [...] characteristic determined by the Dermatopathology Laboratory at [facility], directed by Dr. Carly Davis. These tests need not be, and therefore are not, approved by the [place] Food and Drug Administration. The tests are used for clinical purposes. Billing Codes Specimen Charges Stain Charges 89771 1 4 3:42 PM CDT DERMATOPATHOLOGY LABORATORY Embedded Images 4 3:42 PM CDT DERMATOPATHOLOGY LABORATORY Pathology/Cytolo gy TISSUE SPECIMEN FROM SKIN / Unknown 09/27/2023 8:50 AM CDT 09/28/2023 10:53 AM CDT us Phoebe Duong MD LAB - PATHOLOGY/CYTOLOGY OR DERABLES Final Result DERMATOPATHOLOGY LABORATORY [facility] - Department of Derm[facility] [address] [facility], 3rd Floor [address] [phone] documented in this encounter Visit Diagnoses Not on filedocumented in this encounter Care Teams Seamless Tube Mill Operator Relationship Specialty Start Date End Date Neftali Benitez DO [address] [place] [address] PCP - General 10/22/21 documented as of this encounter
--- OUTSIDE RECORDS SUMMARY | 2024-11-20 18:03 | XMS_ITS | Encounter Summary ---
Author Organization [facility] Address [address] [place] [address] Care Team Providers Care Jewel Staker Name Role Phone Minesh Daniels MD Primary Care Provider Encounter Details Date Type Department Care Team (Latest Contact Info) Description 09/20/2024 [employer] Message [facility] [phone] Senia Ojeda MD [facility] [address] [place] [address] Anti inflammatory medicine Social History [...] All NSAIDS carry some risk with recurrent [place], or HTN. That being said, if you use them sparingly (just a few times per week rather than daily), it is much less risk with such cardiac issues. documented in this encounter Plan of Treatment Upcoming Encounters Date Type Department Care Team (Late st Contact Info) Description 07/27/2025 12:15 PM CDT Office Visit [place] [facility]-[address] [address] Senia Ojeda MD [facility] [address] [place] [address] documented as of this encounter Visit Diagnoses Not on filedocumented in this encounter Care Teams Jewel Staker Relationship Specialty Start Date End Date Minesh Daniels MD [address] [place] [address] PCP - General FAMILY PRACTICE 08/13/23 documented as of this encounter
--- OUTSIDE RECORDS SUMMARY | 2024-11-20 18:03 | XMS_ITS | Encounter Summary ---
Author Organization [facility] Address [facility] [place] [address] Care Team Providers Care Lining Caser Name Role Phone Minesh Daniels MD Primary Care Provider [phone] Encounter Details Date Type Department Care Team (Late Contact Info) Description 06/05/2024 [employer] Message Enc [place] [facility] [address] [phone] Senia Ojeda MD [facility] [address] [place] [address] Blood pressure Social History Tobacco Use [...] Description 07/27/2025 12:15 PM CDT Office Visit [place] [facility] [address] [phone] Senia Ojeda MD [facility] [address] [place] [address] documented as of this encounter Visit Diagnoses Not on filedocumented in this encounter Care Teams Lining Caser Relationship Specialty Start Date End Date Minesh Daniels MD [address] [place] [address] PCP - General FAMILY PRACTICE 08/13/23 documented as of this encounter
--- OUTSIDE RECORDS SUMMARY | 2024-11-20 18:03 | XMS_ITS | Encounter Summary ---
Author Organization [facility] Address [facility] [place] [address] Care Team Providers Care Cyber Threat Analyst Name Role Phone Minesh Daniels MD Primary Care Provider [phone] Encounter Details Date Type Department Care Team (Late Contact Info) Description 06/05/2024 [employer] Message Enc [facility] [address] [phone] Senia Ojeda MD [facility] [address] [place] [address] Blood Pressure Social History Tobacco Use [...] Description 07/27/2025 12:15 PM CDT Office Visit [facility] [address] [phone] Senia Ojeda MD [facility] [address] [place] [address] documented as of this encounter Visit Diagnoses Not on filedocumented in this encounter Care Teams Cyber Threat Analyst Relationship Specialty Start Date End Date Minesh Daniels MD [address] [place] [address] PCP - General FAMILY PRACTICE 08/13/23 documented as of this encounter
--- OUTSIDE RECORDS SUMMARY | 2024-11-20 18:03 | XMS_ITS | Encounter Summary ---
Author Organization [facility] Address [address] [place] [address] Care Team Providers Care Regional Extension Service Specialist Name Role Phone Unavailable Primary Care Provider Unavailabl e Encounter Details Date Type Department Care Team (Late st Contact Info) Description 08/17/2006 Outpatient Historical [facility] Cardiovas and Thor Surg at 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
--- OUTSIDE RECORDS SUMMARY | 2024-11-20 18:03 | XMS_ITS | Encounter Summary ---
Author Organization [facility] Address [address] [place] [address] Care Team Providers Care Shucker Name Role Phone Unavailable Primary Care Provider Unavailabl e Encounter Details Date Type Department Care Team (Late st Contact Info) Description 07/08/2006 Outpatient Historical [facility] Cardiovas and Thor Surg at [facility] Heart [facility] S [facility] [address] [address] Nehemias Smyth MD [address] [facility] [address] [address] Social History Tobacco Use Types Packs/Day Years Used Date Smoking Tobacco: Never Assessed Sex and Gender Information Value Date Recorded Sex Assigned at Not on file 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
== END 2024-11-20 15:11 | disposition home or self-care (01) ==
PROVIDERS: PCP Internal Medicine; Visit Provider Nurse Practitioner
DX: R35.0 Frequency of micturition (principal)
CPT/HCPCS: 81003

== ENCOUNTER 2024-12-05 08:13 | Outpatient (CLI) | payer MEDICARE, OTHER, SELFPAY ==
--- OUTSIDE RECORDS SUMMARY | 2023-08-21 16:30 | XMS_ITS ---
Author Organization [facility] [place] ([address]) Address [address] [place] [address] Care Team Providers Care Airplane Rigger Name Role Phone Vane Renae Unavailable [phone] ZZ-Migration, Provider Unavailable Unavailab le [facility]ASON FOR VISIT [facility] Encounter Medications Medication SIG (Take, Route, Frequency, Duration) Notes Start Date End Date Status amLODIPine Besylate 5 MG 1 tab(s) orally once a day; Duration: 30 day(s) Active Metoprolol Succinate ER 25 MG 1 tab(s) orally once a day; Duration: 30 day(s) Active Tamsulosin HCl 0.4 MG 1 cap(s) orally on ce a day; Duration: 30 day(s) Active Singulair 10 MG 2 tab(s) orally once a day Active Synthroid 88 MCG 1 tab(s) orally once a day; Duration: 30 day(s) Active Nitroglycerin 0.3 MG/HR 1 PATCH TRANSDERMALLY ONCE A DAY; Duration: 30 DAY(S) *Please review and pick correct strength-formulat ion from [employer] options. If intended option is not shown, discontinue and re-order from Quick Search* Active Flonase Allergy Relief 50 MCG/ACT 1 spray(s) intranasally once a day; Duration: 30 day(s) Active Advair Diskus 250 MCG-50 MCG 1 INH INHALED 2 TIMES A DAY; Duration: 30 DAY(S) *Please review and pick correct strength-formulat ion from [employer] options. If intended option is not shown, discontinue and re-order from Quick Search* Active PROAIR HFA 90 MCG/INH 2 PUFF(S) INHALED 4 TIMES A DAY; Duration: 30 DAY(S) *Please review for potential replacement for e-prescription and drug interaction check* Active oxyBUTYnin Chloride 5 MG 1 tab(s) orally 3 times a day; Duration: 30 day(s) Active Vitamin D3 50 MCG (2000 UT) 1 tab(s) orally once a day; Duration: 30 day(s) Active PriLOSEC OTC 20 MG 1 tab(s) orally once a day; Duration: 14 day(s) Active glipiZIDE 5 MG 1 tab(s) orally bid Active metFORMIN HCl ER 500 MG 1 tab(s) orally bid Active Zyloprim 300 MG 1 TAB(S) ORALLY ONCE A DAY; Duration: 30 DAY(S) *Please review and pick correct strength-formulat ion from [employer] options. If intended option is not shown, discontinue and re-order from Quick Search* Active ZyrTEC Allergy 10 MG 1 tab(s) orally onc e a day Active Gabapentin 300 MG TK 1 C PO QHS; Duration: 30 Active ALPRAZolam 0.5 MG (Schedule IV Drug) TK 1 T PO 45 MINUTES B FLIGHT; Duration: 2 Active Lipitor 20 MG 1 tab(s) orally once a day; Duration: 30 day(s) Active Aspirin 325 MG 1 tab(s) orally Qday Active Triamcinolone Acetonide 0.1 % 1 mariella applied topically 3 times a day; Duration: 7 day(s) Active Hydrocortisone 2.5 % 1 mariella rectally 2 times a day; Duration: 14 day(s) Active Irbesartan 300 MG TK 1 T PO QD; Duration: 30 Active Diclofenac Sodium 75 MG 1 tab(s) orally 2 times a day; Duration: 30 day(s) Active Pataday 0.2 % 1 gtt in each affected eye once a day; Duration: 10 day(s) Active Encounters Encounter Location Date Provider Diagnosis [address] [place] [address] 08/21/2023 Provider ZZ-Migration Plan Of Treatment No Information Progress Notes * Tan WOODALLDOB: (74 yo M)Acc No.[id number]:08/21/2023 Patient: Tan JACK Provider: Vladimir cochran Migration :1950 A ge:73 Y S ex:Male Date:08/21/2023 Address:[address] [facility] Subjective: * Chief Complaints: * 1 . [facility]. * Medical History: * Medications: T aking Irbesartan 300 MG Tablet TK 1 T PO QD , Taking ALPRAZolam 0.5 MG Tablet (Schedule IV Drug) TK 1 T PO 45 MINUTES B FLIGHT , Taking Gabapentin 300 MG Capsule TK 1 C PO QHS , Taking ZyrTEC Allergy 10 MG Tablet 1 tab(s) orally once a day , Taking Aspirin 325 MG Tablet 1 tab(s) orally Qday , Taking Lipitor 20 MG Tablet 1 tab(s) orally once a day , Taking PriLOSEC OTC 20 MG Tablet Delayed Release 1 tab(s) orally once a day , Taking Vitamin D3 50 MCG (2000 UT) Tablet 1 tab(s) orally once a day , Taking Zyloprim 300 MG TABLET 1 TAB(S) ORALLY ONCE A DAY , Notes to Pharmacist: *Please review and pick correct strength-formulation from [employer] options. If intended option is not shown, discontinue and re-order from Quick Search*, Taking metFORMIN HCl ER 500 MG Tablet Extended Release 24 Hour 1 tab(s) orally bid , Taking glipiZIDE 5 MG Tablet 1 tab(s) orally bid , Taking PROAIR HFA 90 MCG/INH AEROSOL 2 PUFF(S) INHALED 4 TIMES A DAY , Notes to Pharmacist: *Please review for potential replacement for e-prescription and drug interaction check*, Taking Advair Diskus 250 MCG-50 MCG POWDER 1 INH INHALED 2 TIMES A DAY , Notes to Pharmacist: *Please review and pick correct strength-formulation from [employer] options. If intended option is not shown, discontinue and re-order from Quick Search*, Taking Flonase Allergy Relief 50 MCG/ACT Suspension 1 spray(s) intranasally once a day , Taking Nitroglycerin 0.3 MG/HR FILM, EXTENDED RELEASE 1 PATCH TRANSDERMALLY ONCE A DAY , Notes to Pharmacist: *Please review and pick correct strength-formulation from [employer] options. If intended option is not shown, discontinue and re-order from Quick Search*, Taking oxyBUTYnin Chloride 5 MG Tablet 1 tab(s) orally 3 times a day , Taking Metoprolol Succinate ER 25 MG Tablet Extended Release 24 Hour 1 tab(s) orally once a day , Taking amLODIPine Besylate 5 MG Tablet 1 tab(s) orally once a day , Taking Synthroid 88 MCG Tablet 1 tab(s) orally once a day , Taking Singulair 10 MG Tablet 2 tab(s) orally once a day , Taking Tamsulosin HCl 0.4 MG Capsule 1 cap(s) orally once a day , Taking Pataday 0.2 % Solution 1 gtt in each affected eye once a day , Taking Diclofenac Sodium 75 MG Tablet Delayed Release 1 tab(s) orally 2 times a day , Taking Hydrocortisone 2.5 % Cream 1 mariella rectally 2 times a day , Taking Triamcinolone Acetonide 0.1 % Cream 1 mariella applied topically 3 times a day Objective: * Vitals: Assessment: Plan: * Treatment: * Billing Information: * Visit Code: * Procedure Codes: * Electronic signature of Prov jean pierre REDDY-Migration on 12/05/2024 at 08:22 AM CDT Sign off status: Pending * Provider: Vladimir cochran Migration Date: 0 08/21/2023 Generated for Cornel phelan/Marshall/Angie on: 12/05/2024 08:22 AM CDT
--- NOTE | ~2024-12-05 | NM_ITS ---
EXAM: NM gastric emptying study DATE: 12/05/2024 12:51 INDICATION: Nausea TECHNIQUE: A gastric emptying study was performed using the methodology of Brittany SEWELL, et al. J Nucl Med 2007; 48:568-572. The patient was given a meal consisting of 2 scrambled eggs labeled with 1.0 mCi Tc-99m sulfur colloid, 2 slices of toast, two packages of jam, and approximately 120 mL of water. Simultaneous anterior and posterior 1-min images of the abdomen were obtained with the patient supine at multiple time points over a total period of 4 hours. The geometric mean of anterior and posterior views was determined, and the percentage retention was calculated for each time point. COMPARISON: None. FINDINGS: Gastric retention of the radiotracer-labeled meal was 43%, 38%, and 5% at the 1- hour, 2-hour, and 4-hour time points, respectively. With this technique, apparent rapid gastric emptying is suggested by <30% gastric retention at 1 hour. Delayed gastric emptying is defined by gastric retention of >90% at 1 hour, >60% retention at 2 hours, or >10% retention at 4 hours. IMPRESSION: 1. Normal gastric emptying. Reviewed, dictated and finalized at location A. IMPRESSION: 1. Normal gastric emptying.
--- OUTSIDE RECORDS SUMMARY | 2024-12-05 08:22 | XMS_ITS | Encounter Summary ---
Author Organization [facility] Address [address] [place] [address] Care Team Providers Care Business Support Coordinator Name Role Phone Neftali Benitez DO Primary Care Provider [phone] Encounter Details Date Type Department Care Team (Late st Contact Info) Description 09/27/2023 Lab Requisition [facility] - DermPath Lab [address] [facility], [place] [id number] Phoebe Duong MD [address] [facility] [address] [place] [address] Social History Tobacco Use Types Packs/Day Years [...] AM CDT) Case Report Dermatopathology Report Case: [id number] Authorizing Provider: Phoebe Duong MD Collected: 09/27/2023 08:50 AM Ordering Location: [facility] - Received: 09/28/2023 10:53 AM [...] characteristic determined by the Dermatopathology Laboratory at [facility], directed by Dr. Carly Davis. These tests need not be, and therefore are not, approved by the [place] Food and Drug Administration. The tests are used for clinical purposes. Billing Codes Specimen Charges Stain Charges 00067 1 4 3:42 PM CDT DERMATOPATHOLOGY LABORATORY Embedded Images 4 3:42 PM CDT DERMATOPATHOLOGY LABORATORY Pathology/Cytolo gy TISSUE SPECIMEN FROM SKIN / Unknown 09/27/2023 8:50 AM CDT 09/28/2023 10:53 AM CDT us Phoebe Duong MD LAB - PATHOLOGY/CYTOLOGY OR DERABLES Final Result DERMATOPATHOLOGY LABORATORY [facility] - Department of Derm[facility] [address] [facility], 3rd Floor [address] [phone] documented in this encounter Visit Diagnoses Not on filedocumented in this encounter Care Teams Business Support Coordinator Relationship Specialty Start Date End Date Neftali Benitez DO [address] [place] [address] PCP - General 10/22/21 documented as of this encounter
--- OUTSIDE RECORDS SUMMARY | 2024-12-05 08:22 | XMS_ITS | Clinical Summary ---
Author Organization [facility] Address [address] [place] [address] Care Team Providers Care Public Information Relations Manager Name Role Phone Neftali Benitez DO Primary Care Provider [phone] Source Comments [facility],non-owned Affiliates and Associated Physician Practices is amultiple site organization consisting of ambulatory clinics and hospital sitesin [place], [place], [place] and [place]. This disclosure is being madepursuant to the Care Everywhere program and may not contain all information available regarding this patient. Last updated 17.[facility] Social History Tobacco Use Types Packs/Day Years [...] to complete this topic Insurance MEDICARE [facility] MEDICARE SELF PAY NO INSURANCE Member Subscriber Plan / Payer (Ef fective for All Dates) Name:Tan Pandey Member ID:Not on file Relation to Subscriber:Not on file Name:TAN PANDEY Subscriber ID:Not on file (Home) Address: [address] [place] [address] Payer ID:Not on file Group ID:Not on file Type:Self Pay Address: [place], [place] Care Teams Public Information Relations Manager Relationship Specialty Start Date End Date Neftali Benitez DO [address] [place] [address] PCP - General 10/22/21
--- OUTSIDE RECORDS SUMMARY | 2024-12-05 08:23 | XMS_ITS | Encounter Summary ---
Author Organization [facility] Address 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
--- OUTSIDE RECORDS SUMMARY | 2024-12-05 08:23 | XMS_ITS | Clinical Summary ---
Author Organization [facility] Address [address] [place] [id number] Care Team Providers Care Cat Sitter Name Role Phone EliNeftali serna Primary Care Provider [phone] Allergies Active Allergy Reactions Criticality Noted Date [...] (1,000 mcg total) by mouth daily Active ecxiwoux-xuw-[place] -lycopen-lutein 300-600-300 mcg tablet Take by mouth [...] left 2020 Coronary artery disease invo lving [place] coronary artery of [place] heart without angina pectoris 07/26/2017 Assessment & [...] artery disease Allergic rhinitis Asthma Anxiety Diabetes GERD (gastroesophageal reflux disease) Thyroid disease Tinnitus [...] on file Legal Sex 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 Gender Identity Male 08/13/2021 6:13 PM CDT Sexual Orientation Not on file Obstetrics History Last Filed Vital Signs Vital Sign Reading Time Taken Comments Blood Pressure 112/60 02/16/2023 1:24 PM FELT CUTTING MACHINE OPERATOR Pulse 71 02/16/2023 1:24 PM FELT CUTTING MACHINE OPERATOR Temperature 36.2 C (97.2 F) 08/07/2014 6:28 AM CDT Respiratory Rate 18 06/08/2024 9:45 AM CDT Oxygen Saturation 98% 02/16/2023 1:24 PM FELT CUTTING MACHINE OPERATOR Inhaled Oxygen Concentration - - Weight [...] 0 PM CDT Coronary artery disease involving [place] coronary artery of [place] heart without angina pectoris Mixed diabetic hyperlipidemia [...] FOR LIFE MEDICARE FOR LIFE Care Teams Cat Sitter Relationship Specialty Start Date End Date Neftali Benitez DO PCP - General Internal Medicine 09/27/23
--- OUTSIDE RECORDS SUMMARY | 2024-12-05 08:23 | XMS_ITS | Encounter Summary ---
Author Organization [facility] Address 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
--- OUTSIDE RECORDS SUMMARY | 2024-12-05 08:23 | XMS_ITS | Encounter Summary ---
Author Organization [facility] Address [address] [place] [address] Care Team Providers Care Wirer Maintenance Name Role Phone Unavailable Primary Care Provider Unavailabl e Encounter Details Date Type Department Care Team (Late st Contact Info) Description 08/17/2006 Outpatient Historical [facility] Cardiovas and Thor Surg at [facility] [address] [address] Nehemias Smyth MD [address] [facility] [address] [address] Social History Tobacco Use Types Packs/Day Years Used Date Smoking Tobacco: Never Assessed Sex and Gender Information Value Date Recorded Sex Assigned at Not on file 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
--- OUTSIDE RECORDS SUMMARY | 2024-12-05 08:23 | XMS_ITS | Encounter Summary ---
Author Organization [facility] Address 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
--- OUTSIDE RECORDS SUMMARY | 2024-12-05 08:23 | XMS_ITS | Clinical Summary ---
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
--- OUTSIDE RECORDS SUMMARY | 2024-12-05 08:23 | XMS_ITS | Encounter Summary ---
Author Organization [facility] Address [address] [place] [address] Care Team Providers Care Jinriksha Driver Name Role Phone Unavailable Primary Care Provider Unavailabl e Encounter Details Date Type Department Care Team (Late st Contact Info) Description 09/16/2006 Outpatient Historical [facility] Cardiovas and Thor Surg at [facility] [address] [address] Nehemias Smyth MD [address] [facility] [address] [address] Social History Tobacco Use Types Packs/Day Years Used Date Smoking Tobacco: Never Assessed Sex and Gender Information Value Date Recorded Sex Assigned at Not on file 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
--- OUTSIDE RECORDS SUMMARY | 2024-12-05 08:23 | XMS_ITS | Encounter Summary ---
Author Organization [facility] Address [address] [place] [address] Care Team Providers Care Poultryman Name Role Phone Unavailable Primary Care Provider Unavailabl e Encounter Details Date Type Department Care Team (Late st Contact Info) Description 07/12/2006 Outpatient Historical [facility] Cardiovas and Thor Surg at [facility] S [facility] [address] [address] Nehemias Smyth MD [address] [facility] [address] [address] Social History Tobacco Use Types Packs/Day Years Used Date Smoking Tobacco: Never Assessed Sex and Gender Information Value Date Recorded Sex Assigned at Not on file 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
--- OUTSIDE RECORDS SUMMARY | 2024-12-05 08:23 | XMS_ITS | Encounter Summary ---
Author Organization [employer] Address 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 Gender Identity Not on file Sexual Orientation [...] OF CARE TESTING Edited Performing Organization Address [facility] de Phone Number INTERFACE SYSTEM [...] WRIGHT HEMATOLOGY ORDERABLES Edited Performing Organization Address [facility] de Phone Number INTERFACE SYSTEM [...] and non- Americans is available on the [facility] Intranet at: [email or web address] Select: Lab Policies and Procedures Select: Reference Ranges - GFR 07/15/2006 5:15 AM CDT Bandar WRIGHT CHEMISTRY ORDERABLES Edited Performing Organization Address [facility] Phone Number INTERFACE SYSTEM Refer to clinic/hospital department * (ABNORMAL) POC GLUCOSE (07/14/2006 8:31 PM CDT) GLUCOSE POC 153(H) 65 - 99 mg/dL INTERFACE SYSTEM 07/14/2006 8:31 PM CDT Nehemias Smyth MD POINT OF CARE TESTING Edited Performing Organization Address [facility] Phone Number INTERFACE SYSTEM Refer to clinic/hospital department * (ABNORMAL) POC GLUCOSE (07/14/2006 4:30 PM CDT) COMMENT, GLU POC Notified RN INTERFACE SYSTEM GLUCOSE POC 168(H) 65 - 99 mg/dL INTERFACE SYSTEM 07/14/2006 4:30 PM CDT Nehemias Smyth MD POINT OF CARE TESTING Edited Performing Organization Address [facility] Phone Number INTERFACE SYSTEM Refer to clinic/hospital department * (ABNORMAL) CK TOTAL, RELATIVE INDEX (07/14/2006 12:00 PM CDT) CK 4,695(H) 10 - 170 U/L INTERFACE SYSTEM CARDIAC RELATIVE INDEX 0.4 <=4.0 INTERFACE SYSTEM 07/14/2006 12:0 0 PM CDT Result [facility] Nehemias Smyth MD CHEMISTRY ORDERABLES Edited Performing Organization Address [facility] Phone Number INTERFACE SYSTEM Refer to clinic/hospital department * (ABNORMAL) CKMB W/REFLEX CK (07/14/2006 12:00 PM CDT) CKMB 16.9(AA) <=6.7 ng/mL INTERFACE SYSTEM Comment:Persistent abnormal result CKMB INTERP See Below INTERFAC E SYSTEM Comment:Elevated CKMB,Consis tent with Myocardial Injury 07/14/2006 12:0 0 PM CDT us Nehemias Smyth MD CHEMISTRY ORDERABLES Edited Performing Organization Address [facility] Phone Number INTERFACE SYSTEM Refer to clinic/hospital department * (ABNORMAL) POC GLUCOSE (07/14/2006 11:18 AM CDT) COMMENT, GLU POC Notified RN INTERFACE SYSTEM GLUCOSE POC 169(H) 65 - 99 mg/dL INTERFACE SYSTEM 07/14/2006 11:1 8 AM CDT us Nehemias Smyth MD POINT OF CARE TESTING Edited Performing Organization Address [facility] Phone Number INTERFACE SYSTEM Refer to clinic/hospital department * (ABNORMAL) POC GLUCOSE (07/14/2006 7:34 AM CDT) COMMENT, GLU POC Notified RN INTERFACE SYSTEM GLUCOSE POC 141(H) 65 - 99 mg/dL INTERFACE SYSTEM 07/14/2006 7:34 AM CDT us Nehemias Smyth MD POINT OF CARE TESTING Edited Performing Organization Address [facility] Phone Number INTERFACE SYSTEM Refer to clinic/hospital [...] MD HEMATOLOGY ORDERABLES Edited Performing Organization Address [facility] Phone Number INTERFACE SYSTEM Refer to clinic/hospital [...] MD HEMATOLOGY ORDERABLES Edited Performing Organization Address [facility] Phone Number INTERFACE SYSTEM Refer to clinic/hospital department * (ABNORMAL) CK TOTAL, RELATIVE INDEX (07/14/2006 1:30 AM CDT) CK 5,144(H) 10 - 170 U/L INTERFACE SYSTEM CARDIAC RELATIVE INDEX 0.6 <=4.0 INTERFACE SYSTEM 07/14/2006 1:30 AM CDT Result Xi Smyth MD CHEMISTRY ORDERABLES Edited Performing Organization Address [facility] Phone Number INTERFACE SYSTEM Refer to clinic/hospital department * (ABNORMAL) CKMB W/REFLEX CK (07/14/2006 1:30 AM CDT) CKMB 28.1(AA) <=6.7 ng/mL INTERFACE SYSTEM Comment:Persistent abnormal result CKMB INTERP See Below INTERFAC E SYSTEM Comment:Elevated CKMB,Consis tent with Myocardial Injury 07/14/2006 1:30 AM CDT us Nehemias Smyth MD CHEMISTRY ORDERABLES Edited Performing Organization Address [facility] de Phone Number INTERFACE SYSTEM Refer to clinic/hospital department * MAGNESIUM LEVEL (07/14/2006 1:30 AM CDT) MAGNESIUM 2.5 1.5 - 2.5 mg/dL INTERFACE SYSTEM 07/14/2006 1:30 AM CDT us Nehemias Smyth MD CHEMISTRY ORDERABLES Edited Performing Organization Address [facility] de Phone Number INTERFACE SYSTEM [...] and non- Americans is available on the [facility] Intranet at: [email or web address] Select: Lab Policies and Procedures Select: Reference Ranges - GFR 07/14/2006 1:30 AM CDT us Nehemias Smyth MD CHEMISTRY ORDERABLES Edited Performing Organization Address [facility] de Phone Number INTERFACE SYSTEM Refer to clinic/hospital department * (ABNORMAL) POC GLUCOSE (07/13/2006 8:50 PM CDT) GLUCOSE POC 180(H) 65 - 99 mg/dL INTERFACE SYSTEM 07/13/2006 8:50 PM CDT us Nehemias Smyth MD POINT OF CARE TESTING Edited Performing Organization Address [facility] de Phone Number INTERFACE SYSTEM Refer to clinic/hospital department * (ABNORMAL) CK TOTAL, RELATIVE INDEX (07/13/2006 5:37 PM CDT) CK 5,575(H) 10 - 170 U/L INTERFACE SYSTEM Comment:Quantitated by dilut ion. CARDIAC RELATIVE INDEX 0.8 <=4.0 INTERFACE SYSTEM 07/13/2006 5:37 PM CDT us Nehemias Smyth MD CHEMISTRY ORDERABLES Edited Performing Organization Address [facility] Phone Number INTERFACE SYSTEM Refer to clinic/hospital department * (ABNORMAL) CKMB W/REFLEX CK (07/13/2006 5:37 PM CDT) CKMB 45.3(AA) <=6.7 ng/mL INTERFACE SYSTEM Comment:Persistent abnormal result CKMB INTERP See Below INTERFAC E SYSTEM Comment:Elevated CKMB,Consis tent with Myocardial Injury 07/13/2006 5:37 PM CDT us Nehemias Smyth MD CHEMISTRY ORDERABLES Edited Performing Organization Address [facility] de Phone Number INTERFACE SYSTEM Refer to clinic/hospital department * (ABNORMAL) POC GLUCOSE (07/13/2006 4:28 PM CDT) COMMENT, GLU POC Notified RN INTERFACE SYSTEM GLUCOSE POC 151(H) 65 - 99 mg/dL INTERFACE SYSTEM 07/13/2006 4:28 PM CDT Result Xi Smyth MD POINT OF CARE TESTING Edited Performing Organization Address [facility] de Phone Number INTERFACE SYSTEM Refer to clinic/hospital department * (ABNORMAL) POC GLUCOSE (07/13/2006 12:57 PM CDT) GLUCOSE POC 168(H) 65 - 99 mg/dL INTERFACE SYSTEM 07/13/2006 12:5 7 PM CDT us Nehemias Smyth MD POINT OF CARE TESTING Edited Performing Organization Address [facility] de Phone Number INTERFACE SYSTEM Refer to clinic/hospital department * (ABNORMAL) POC GLUCOSE (07/13/2006 11:13 AM CDT) GLUCOSE POC 202(H) 65 - 99 mg/dL INTERFACE SYSTEM 07/13/2006 11:1 3 AM CDT us Nehemias Smyth MD POINT OF CARE TESTING Edited Performing Organization Address [facility] de Phone Number INTERFACE SYSTEM Refer to clinic/hospital department * (ABNORMAL) POC GLUCOSE (07/13/2006 5:35 AM CDT) GLUCOSE POC 123(H) 65 - 99 mg/dL INTERFACE SYSTEM 07/13/2006 5:35 AM CDT Result Xi Smyth MD POINT OF CARE TESTING Edited Performing Organization Address [facility] de Phone Number INTERFACE SYSTEM [...] MD HEMATOLOGY ORDERABLES Edited Performing Organization Address [facility] de Phone Number INTERFACE SYSTEM [...] MD HEMATOLOGY ORDERABLES Edited Performing Organization Address [facility] Phone Number INTERFACE SYSTEM Refer to clinic/hospital [...] patients with mechanical heart valves or post [place]. Pediatric (12 years and under): 1.5 - [...] and non- Americans is available on the [facility] Intranet at: [email or web address] Select: Lab Policies and Procedures Select: Reference Ranges - GFR 07/13/2006 5:00 AM CDT us Nehemias Smyth MD CHEMISTRY ORDERABLES Edited Performing Organization Address [facility] de Phone Number INTERFACE SYSTEM [...] MD CHEMISTRY ORDERABLES Edited Performing Organization Address [facility] Phone Number INTERFACE SYSTEM Refer to clinic/hospital department * (ABNORMAL) POC GLUCOSE (07/13/2006 2:58 AM CDT) GLUCOSE POC 153(H) 65 - 99 mg/dL INTERFACE SYSTEM 07/13/2006 2:58 AM CDT us Nehemias Smyth MD POINT OF CARE TESTING Edited Performing Organization Address [facility] Co de Phone Number INTERFACE SYSTEM Refer to clinic/hospital department * (ABNORMAL) POC GLUCOSE (07/13/2006 1:05 AM CDT) GLUCOSE POC 146(H) 65 - 99 mg/dL INTERFACE SYSTEM 07/13/2006 1:05 AM CDT us Nehemias Smyth MD POINT OF CARE TESTING Edited Performing Organization Address [facility] Phone Number INTERFACE SYSTEM Refer to clinic/hospital department * (ABNORMAL) POC GLUCOSE (07/12/2006 11:38 PM CDT) GLUCOSE POC 149(H) 65 - 99 mg/dL INTERFACE SYSTEM 07/12/2006 11:3 8 PM CDT us Nehemias Smyth MD POINT OF CARE TESTING Edited Performing Organization Address [facility] Phone Number INTERFACE SYSTEM Refer to clinic/hospital department * (ABNORMAL) POC GLUCOSE (07/12/2006 9:55 PM CDT) GLUCOSE POC 169(H) 65 - 99 mg/dL INTERFACE SYSTEM 07/12/2006 9:55 PM CDT us Nehemias Smyth MD POINT OF CARE TESTING Edited Performing Organization Address [facility] Phone Number INTERFACE SYSTEM Refer to clinic/hospital department * (ABNORMAL) POC GLUCOSE (07/12/2006 8:21 PM CDT) GLUCOSE POC 158(H) 65 - 99 mg/dL INTERFACE SYSTEM 07/12/2006 8:21 PM CDT us Nehemias Smyth MD POINT OF CARE TESTING Edited Performing Organization Address [facility] Phone Number INTERFACE SYSTEM Refer to clinic/hospital [...] MD CHEMISTRY ORDERABLES Edited Performing Organization Address [facility] Phone Number INTERFACE SYSTEM Refer to clinic/hospital department * (ABNORMAL) POC GLUCOSE (07/12/2006 5:55 PM CDT) GLUCOSE POC 162(H) 65 - 99 mg/dL INTERFACE SYSTEM 07/12/2006 5:55 PM CDT us Nehemias Smyth MD POINT OF CARE TESTING Edited Performing Organization Address [facility] Phone Number INTERFACE SYSTEM Refer to clinic/hospital department * (ABNORMAL) POC GLUCOSE (07/12/2006 4:15 PM CDT) GLUCOSE POC 160(H) 65 - 99 mg/dL INTERFACE SYSTEM 07/12/2006 4:15 PM CDT us Nehemias Smyth MD POINT OF CARE TESTING Edited Performing Organization Address [facility] Phone Number INTERFACE SYSTEM Refer to clinic/hospital department * (ABNORMAL) POC GLUCOSE (07/12/2006 1:16 PM CDT) GLUCOSE POC 117(H) 65 - 99 mg/dL INTERFACE SYSTEM 07/12/2006 1:16 PM CDT Result Xi Smyth MD POINT OF CARE TESTING Edited Performing Organization Address [facility] Phone Number INTERFACE SYSTEM Refer to [...] MD CHEMISTRY ORDERABLES Edited Performing Organization Address [facility] de Phone Number INTERFACE SYSTEM [...] MD HEMATOLOGY ORDERABLES Edited Performing Organization Address [facility] de Phone Number INTERFACE SYSTEM [...] MD HEMATOLOGY ORDERABLES Edited Performing Organization Address [facility] Phone Number INTERFACE SYSTEM Refer to clinic/hospital [...] patients with mechanical heart valves or post [place]. Pediatric (12 years and under): 1.5 - [...] MD HEMATOLOGY ORDERABLES Edited Performing Organization Address [facility] de Phone Number INTERFACE SYSTEM Refer to clinic/hospital department * (ABNORMAL) MAGNESIUM LEVEL (07/12/2006 11:29 AM CDT) MAGNESIUM 2.7(H) 1.5 - 2.5 mg/dL INTERFACE SYSTEM 07/12/2006 11:2 9 AM CDT us Nehemias Smyth MD CHEMISTRY ORDERABLES Edited Performing Organization Address [facility] de Phone Number INTERFACE SYSTEM [...] and non- Americans is available on the [facility] Intranet at: [email or web address] Select: Lab Policies and Procedures Select: Reference Ranges - GFR 07/12/2006 11:2 9 AM CDT Nehemias Smyth MD CHEMISTRY ORDERABLES Edited Performing Organization Address [facility] Phone Number INTERFACE SYSTEM Refer to clinic/hospital department * (ABNORMAL) POC GLUCOSE (07/12/2006 11:22 AM CDT) GLUCOSE POC 126(H) 65 - 99 mg/dL INTERFACE SYSTEM 07/12/2006 11:2 2 AM CDT us Nehemias Smyth MD POINT OF CARE TESTING Edited Performing Organization Address [facility] de Phone Number INTERFACE SYSTEM [...] MD CHEMISTRY ORDERABLES Edited Performing Organization Address [facility] Co de Phone Number INTERFACE SYSTEM [...] MD CHEMISTRY ORDERABLES Edited Performing Organization Address [facility] Co de Phone Number INTERFACE SYSTEM [...] encounter Visit Diagnoses Diagnosis Coronary atherosclerosis of [place] coronary artery- Primary documented in this encounter
--- OUTSIDE RECORDS SUMMARY | 2024-12-05 08:23 | XMS_ITS | Encounter Summary ---
Author Organization [facility] Address [address] [place] [address] Care Team Providers Care Ceramic Mold Designer Name Role Phone Unavailable Primary Care Provider Unavailabl e Encounter Details Date Type Department Care Team (Late st Contact Info) Description 07/08/2006 Outpatient Historical [facility] Cardiovas and Thor Surg at [facility] S 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
--- OUTSIDE RECORDS SUMMARY | 2024-12-05 08:23 | XMS_ITS | Encounter Summary ---
Author Organization [employer] Address [address] [place] [address] Care Team Providers Care Social Science Research Assistant Name Role Phone Unavailable Primary Care Provider Unavailabl e Encounter Details Date Type Department Care Team (Late st Contact Info) Description 07/13/2006 Outpatient Historical [facility] Support Serv. (Adt Cardiology-[facility]) [address] 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
--- OUTSIDE RECORDS SUMMARY | 2024-12-05 08:23 | XMS_ITS | Patient Health Record ---
Author Organization [facility] [place] ([address]) Address [address] [place] [address] Care Team Providers Care Water Taxi Operator Name Role Phone Vane Renae Unavailable [phone] Reason For Referral No Information Medications Medication [...] review and pick correct strength-formulat ion from [employer] options. If intended option is not shown, [...] review and pick correct strength-formulat ion from [employer] options. If intended option is not shown, [...] review and pick correct strength-formulat ion from [employer] options. If intended option is not shown, [...] Status Risk Notes Problem Eruption of skin (488630717) Rash and other nonspecific skin eruption (R21) Active confirmed Problem Chronic allergic conjunctivitis (53044435) Other chronic allergic conjunctivitis (H10.45) Active confirmed Problem Allergic rhinitis caused by pollen (disorder) (89110464) Allergic rhinitis due to pollen (J30.1) Active confirmed Problem Allergic rhinitis (74541571) Other allergic rhinitis (J30.89) Active confirmed Problem Uncomplicated moderate persistent asthma (899905887) Moderate persistent asthma, uncomplicated (J45.40) Active confirmed Problem Allergic contact dermatitis caused by chemical ([id number] 3) Allergic contact dermatitis due to other chemical products (L23.5) Active confirmed Problem Congenital glaucoma (798206631) Congenital glaucoma (Q15.0) Active confirmed Problem Swelling of head (241520321) Localized swelling, mass and lump, head (R22.0) Active confirmed Plan Of Treatment No Information Insurance Providers Payer Name Payer Address Payer Phone Subscriber Number Group Number Insured Name Patient Relationship to Insured Coverage Start Date Coverage End Date [employer] (Medicare) Attention Claims [address] [place] [address] [phone] [id number] Tan Pandey Self - patient is the insured [employer] [address] [place] [address] [phone] [id number] Tan Pandey Self - patient is the [...]
--- OUTSIDE RECORDS SUMMARY | 2024-12-05 08:23 | XMS_ITS | Encounter Summary ---
Author Organization [employer] Address 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.] MD HEMATOLOGY ORDERABLES Edited Performing Organization Address [facility] de Phone Number INTERFACE SYSTEM Refer [...] and non- Americans is available on the [facility] Intranet at: [email or web address] Select: Lab Policies and Procedures Select: Reference [...] patients with mechanical heart valves or post [place]. Pediatric (12 years and under): 1.5 - [...] encounter Visit Diagnoses Diagnosis Coronary atherosclerosis of [place] coronary artery- Primary documented in this encounter
--- OUTSIDE RECORDS SUMMARY | 2024-12-05 08:23 | XMS_ITS | Encounter Summary ---
Author Organization [employer] Address [address] [place] [address] Care Team Providers Care Assistant Professor In Family Studies Name Role Phone Unavailable Primary Care Provider Unavailabl e Encounter Details Date Type Department Care Team (Late st Contact Info) Description 07/08/2006 Outpatient Historical [facility] Support Serv. (Adt Cardiology-[facility]) [address] 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
--- OUTSIDE RECORDS SUMMARY | 2024-12-05 08:23 | XMS_ITS | Encounter Summary ---
Author Organization [facility] Address [address] [place] [address] Care Team Providers Care Jig Maker Name Role Phone Unavailable Primary Care Provider Unavailabl e Encounter Details Date Type Department Care Team (Late st Contact Info) Description 07/08/2006 Outpatient Historical [facility] Cardiovas and Thor Surg at [facility] S [facility] [address] [address] Nehemias Smyth MD [address] [facility] [address] [address] Social History Tobacco Use Types Packs/Day Years Used Date Smoking Tobacco: Never Assessed Sex and Gender Information Value Date Recorded Sex Assigned at Not on file 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
== END 2024-12-05 08:14 | disposition home or self-care (01) ==
PROVIDERS: PCP Internal Medicine; Visit Provider Nurse Practitioner Family
DX: R11.0 Nausea (principal)
CPT/HCPCS: 78264; A9541